=== PATIENT | male | born 1955 | race African-American/Black ===

== ENCOUNTER 2020-01-04 14:04 | Inpatient (IN) | payer MEDICARE, MEDICAID ==
[2020-01-04 15:03] LABS: Hemoglobin 8.9 g/dL (14.0-18.0); Mean Corpuscular HGB CONC 30.4 g/dL (32.0-36.0); Mean Corpuscular Hemoglobin 28.6 pg (27.0-31.0); Mean Corpuscular Volume 94.1 fL (78.0-98.0); Mean Platelet Volume 6.2 fL (7.4-10.4); Platelet Count 511 thou/uL (130-400); RBC Distribution Width 18.3 % (11.5-14.5); Red Blood Cell (RBC) Count 3.13 mill/uL (4.70-6.10); White Blood Cell (WBC) Count 32.4 thou/uL (4.8-10.8)
[2020-01-04] MEDS ORDERED: Heparin 1,000 UNITS/ML VIAL ONE (15:07)
[2020-01-04 15:15] LABS: Bacteria/HPF 3+ HPF (None Seen); Bilirubin Negative (Negative); Blood, Urine 1+ (Negative); Clarity Turbid (Clear); Glucose, Urine (Dipstick) Normal (Negative); Leukocyte 500 Leu/uL (Negative); Nitrite 2+ (Negative); Protein, Urine (Dipstick) 50 mg/dL (Neg-Trace); Squamous Epithelial 0-3 HPF (0-3); Urobilinogen Normal mg/dL (Less than 2); WBC/HPF Greater than 50 HPF (0-3)
[2020-01-04 15:29] LABS: Anisocytosis SLIGHT = 6-15 cells (100X) (0-5/hpf); Band 42 % (5-11); Hypochromia SLIGHT = 6-15 cells (100X) (0-5/hpf); Lymphocytes 4 % (21-51); MDiff Complete? YES; Metamyelocyte 2 % (0-0); Monocytes 12 % (0-10); Myelocyte 2 % (0-0); Neutrophil 37 % (42-75); Platelet Morphology Comment Appears Increased; Polychromasia SLIGHT = 2-3 cells (100X) (0-2/hpf); Reactive Lymphocytes 1 % (0-10); Reflex for Review?? YES; Tear Drops SLIGHT = 2-5 cells (100X) (0-1/hpf)
[2020-01-04] MEDS ORDERED: cefTRIAXone\\ROCEPHIN 2 GM VIAL ONE (15:35)
[2020-01-04] MEDS ORDERED: Ondansetron ODT 4 MG TAB ONE (15:41)
[2020-01-04] MEDS ORDERED: Morphine 4 MG/ML VIAL ONE (15:41)
[2020-01-04 16:22] LABS: ALT (SGPT) 8 U/L (8-55); AST (SGOT) 15 U/L (5-34); Albumin 2.3 g/dL (3.4-4.8); Alkaline Phosphatase 178 U/L (40-110); Anion Gap 20 mmol/L (10-20); BUN (Urea Nitrogen) 32 mg/dL (8.4-25.7); Bilirubin, Total 0.3 mg/dL (0.2-1.2); Calc. Creatinine Clearance 0 mL/min (70-130); Calcium 8.3 mg/dL (7.8-10.44); Carbon Dioxide 10 mmol/L (23-31); Chloride 110 mmol/L (98-107); Estimated GFR-MDRD 85; Globulin 5.6 g/dL (2.4-3.5); Glucose 72 mg/dL (80-115); Potassium 5.9 mmol/L (3.5-5.1); Protein, Total 7.9 g/dL (5.8-8.1); Sodium 134 mmol/L (136-145)
[2020-01-04] MEDS ORDERED: Piperacillin/Tazobactam 4.5 GM VIAL ONE (16:28)
--- NOTE | 2020-01-04 16:29 | RAD ---
PORTABLE CHEST ONE VIEW: Date: 01-04-2020 Time: 4:06 p.m. History: fever, Multiple ulcers over sacrum FINDINGS: Comparison is made with exam of 12-10-2019. The heart size is normal. No lobar consolidation, pneumothoraces or pleural effusions are seen. Post op changes in the spine are redemonstrated. IMPRESSION: No radiographic evidence of acute cardiopulmonary process. POS: H
[2020-01-04] MEDS ORDERED: Acetaminophen 325 MG TAB PO PRN (17:48)
[2020-01-04] MEDS ORDERED: Senokot S 8.6-50 MG TAB PO PRN (17:48)
[2020-01-04] MEDS ORDERED: Loperamide HCl 2 MG CAP PO PRN (17:48)
[2020-01-04] MEDS ORDERED: Norepinephrine 8 MG/0.9% NS 250 ML IVPB PRN (17:49)
[2020-01-04] MEDS ORDERED: Norepinephrine 8 MG in Sodium Chloride 0.9% 250 ML 242 ML IVPB PRN (17:57)
[2020-01-04] MEDS ORDERED: Vancomycin 1 GM/200 ML BAG ONE (18:16)
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
[2020-01-04 18:45] LABS: Lactic Acid 0.9 mmol/L (0.5-2.2)
[2020-01-04] MEDS: HYDROcodone/Acetaminophen 5/325 mg Tablet PO PRN (22:52)
[2020-01-04] MEDS: Famotidine 20 MG TAB PO SCH (22:53)
[2020-01-04] MEDS: Sodium Chloride 0.9% 1,000 ML IV SCH (22:54)
[2020-01-04] MEDS: Famotidine/PF 20 mg/2ml Vial SLOW IVP SCH (22:54)
[2020-01-04] MEDS: MEROPENEM 1 GM/50 ML 1 GM in Premix Bag 1 BAG IVPB SCH (22:55)
[2020-01-05] MEDS: HYDROcodone/Acetaminophen 5/325 mg Tablet PO PRN ×5 (04:28→21:37)
[2020-01-05] MEDS: Vancomycin 1 GM in Premix Bag 1 BAG IVPB SCH ×2 (04:29→18:10)
[2020-01-05 05:16] LABS: ALT (SGPT) 7 U/L (8-55); AST (SGOT) 16 U/L (5-34); Alkaline Phosphatase 151 U/L (40-110); Anion Gap 14 mmol/L (10-20); BUN (Urea Nitrogen) 24 mg/dL (8.4-25.7); Bilirubin, Total 0.2 mg/dL (0.2-1.2); Calc. Creatinine Clearance 102 mL/min (70-130); Calcium 8.1 mg/dL (7.8-10.44); Carbon Dioxide 14 mmol/L (23-31); Chloride 113 mmol/L (98-107); Estimated GFR-MDRD Greater than 90; Globulin 4.7 g/dL (2.4-3.5); Glucose 89 mg/dL (80-115); Potassium 4.5 mmol/L (3.5-5.1); Protein, Total 6.7 g/dL (5.8-8.1); Sodium 136 mmol/L (136-145)
[2020-01-05 05:38] LABS: Lactic Acid 0.9 mmol/L (0.5-2.2)
[2020-01-05] MEDS: MEROPENEM 1 GM/50 ML 1 GM in Premix Bag 1 BAG IVPB SCH ×3 (06:06→22:15)
[2020-01-05] MEDS: Sodium Chloride 0.9% 1,000 ML IV SCH ×3 (06:06→18:22)
[2020-01-05 06:42] LABS: Hemoglobin 6.3 g/dL (14.0-18.0); Mean Corpuscular HGB CONC 31.8 g/dL (32.0-36.0); Mean Corpuscular Hemoglobin 28.7 pg (27.0-31.0); Mean Corpuscular Volume 90.3 fL (78.0-98.0); Mean Platelet Volume 6.3 fL (7.4-10.4); Platelet Count 410 thou/uL (130-400); White Blood Cell (WBC) Count 18.6 thou/uL (4.8-10.8)
[2020-01-05 07:30] LABS: Band 23 % (5-11); Eosinophils 2 % (0-10); Hypochromia SLIGHT = 6-15 cells (100X) (0-5/hpf); Lymphocytes 8 % (21-51); MDiff Complete? YES; Metamyelocyte 1 % (0-0); Monocytes 6 % (0-10); Myelocyte 4 % (0-0); Neutrophil 55 % (42-75); Platelet Morphology Comment Appears Increased; Polychromasia SLIGHT = 2-3 cells (100X) (0-2/hpf); Reactive Lymphocytes 1 % (0-10)
[2020-01-05 07:34] LABS: Hemoglobin 6.2 g/dL (14.0-18.0)
[2020-01-05] MEDS: Famotidine/PF 20 mg/2ml Vial SLOW IVP SCH (09:15)
[2020-01-05] MEDS: Saccharomyces boulardii 250 MG CAP PO SCH (09:59)
[2020-01-05] MEDS: Famotidine 20 MG TAB PO SCH ×2 (10:00→21:37)
[2020-01-05] MEDS: Enoxaparin Sodium 40 MG/0.4 ML SYRINGE SC SCH (10:00)
--- NOTE | 2020-01-05 11:28 | PDOC.EVN ---
Event Note - Event Note Event Note: full consult to follow. Plan washout and debridement tomorrow.
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
[2020-01-05 18:44] LABS: Hemoglobin 8.8 g/dL (14.0-18.0)
--- NOTE | 2020-01-05 22:06 | PDOC.HOSPP ---
- Subjective Encounter Date: 01/05/20 Subjective: The patient was seen and examined. He is complaining of uncontrolled pain. - Objective Vital Signs & Weight: Vital Signs (12 hours) Temp Pulse Resp BP Pulse Ox 01/05/20 20:00 97.8 F 01/05/20 17:35 99.0 F 92 18 111/57 L 100 01/05/20 17:19 100 01/05/20 16:00 97.9 F 01/05/20 15:00 98.9 F 92 18 92/44 L 98 01/05/20 14:29 97.9 F 93 18 105/62 100 01/05/20 11:56 97.8 F 01/05/20 11:55 98.0 F 92 18 110/63 99 01/05/20 11:40 97.8 F 87 18 98/49 L 100 Weight Admit Weight 164 lb 10.88 oz Weight 164 lb 10.965 oz Most Recent Monitor Data Heart Rate from ECG 92 NIBP 110/56 NIBP BP-Mean 74 Respiration from ECG 18 SpO2 100 I&O: 01/04/20 01/05/20 01/06/20 06:59 06:59 06:59 Intake Total 1310 2835 Output Total 400 500 Balance 910 2335 Result Diagrams: 01/05/20 18:36 01/05/20 04:30 Hospitalist ROS - Medication Medications: Active Medications Generic Name Dose Route Start Last Admin Trade Name Freq PRN Reason Stop Dose Admin Hydrocodone Bitart/Acetaminophen 2 tab 01/05/20 10:55 01/05/20 21:37 [place] 5/325 PO 2 tab Q4H PRN Administration Moderate Pain (4-6) Enoxaparin Sodium 40 mg 01/05/20 09:00 01/05/20 10:00 Lovenox SC 40 mg 0900 RY Administration Famotidine 20 mg 01/04/20 21:00 01/05/20 21:37 Pepcid PO 20 mg BID RY Administration Meropenem 1 gm/ Device 50 mls @ 100 mls/hr 01/04/20 22:00 01/05/20 15:35 IVPB 50 mls Q8HR RY Administration Sodium Chloride 1,000 mls @ 125 mls/hr 01/04/20 18:00 01/05/20 18:22 Normal Saline 0.9% IV 1,000 mls .Q8H RY Administration Vancomycin HCl 1 gm/ Device 200 mls @ 200 mls/hr 01/05/20 05:00 01/05/20 18: 10 IVPB 200 mls 0500,1700 RY Administration Saccharomyces Boulardii 250 mg 01/05/20 09:00 01/05/20 09:59 Florastor PO 250 mg DAILY RY Administration - Exam General Appearance: awake alert ENT: normocephalic atraumatic Neck: supple Heart: RRR, no murmur Respiratory: CTAB, no wheezes, no rales, no ronchi, normal chest expansion Gastrointestinal: soft, non-tender, non-distended, normal bowel sounds Hosp A/P (1) Chronic ulcer of sacral region Code(s): L98.429 - NON-PRESSURE CHRONIC ULCER OF BACK WITH UNSPECIFIED SEVERITY Status: Acute (2) Sepsis Code(s): A41.9 - SEPSIS, UNSPECIFIED ORGANISM Status: Acute (3) Urinary tract infection Status: Acute - Plan The patient admitted for sepsis due to recurrent infection in the sacral decubitus ulcer region and suspected UTI. Currently he is on broad-spectrum antibiotics. ID and surgical service consulted.
[2020-01-06] MEDS: HYDROcodone/Acetaminophen 5/325 mg Tablet PO PRN ×4 (01:30→21:29)
[2020-01-06] MEDS: Sodium Chloride 0.9% 1,000 ML IV SCH ×3 (04:02→18:52)
[2020-01-06 04:37] LABS: Vancomycin, Trough 25.7 ug/mL
[2020-01-06] MEDS: Vancomycin 1 GM in Premix Bag 1 BAG IVPB SCH (05:28)
[2020-01-06] MEDS: MEROPENEM 1 GM/50 ML 1 GM in Premix Bag 1 BAG IVPB SCH ×3 (05:47→21:13)
[2020-01-06] MEDS: Famotidine 20 MG TAB PO SCH ×2 (09:52→21:13)
[2020-01-06] MEDS: Saccharomyces boulardii 250 MG CAP PO SCH (09:53)
[2020-01-06] MEDS ORDERED: PROPOFOL 200 MG/20 ML VIAL ONE (10:57)
[2020-01-06] MEDS ORDERED: Ondansetron PF 4 MG/2 ML Vial ONE (10:57)
[2020-01-06] MEDS ORDERED: Glycopyrrolate 0.2 MG/ML 5 ML SYRINGE ONE (10:57)
[2020-01-06] MEDS ORDERED: Rocuronium Bromide 10 MG/ML (10ML VIAL) ONE (10:57)
[2020-01-06] MEDS ORDERED: Lidocaine 1% PF 5 ML VIAL ONE (10:57)
[2020-01-06] MEDS: Vancomycin HCl 750 MG in Sodium Chloride 0.9% 250 ML 250 ML IVPB SCH (12:27)
[2020-01-06] MEDS ORDERED: Fentanyl 100 MCG/2 ML VIAL ONE ×3 (13:19→15:39)
[2020-01-06] MEDS ORDERED: Midazolam HCl 2 mg/2 ml Vial ONE (13:19)
[2020-01-06] MEDS ORDERED: SUGAMMADEX SODIUM 200 MG/2 ML VIAL ONE (14:46)
[2020-01-06] MEDS ORDERED: Iopamidol 370 76% 100 ML VIAL ONE (14:56)
[2020-01-06] MEDS ORDERED: Promethazine HCl 25 MG/ML VIAL SLOW IVP PRN (15:18)
[2020-01-06] MEDS ORDERED: Promethazine HCl 25 MG/ML VIAL IM PRN (15:18)
[2020-01-06] MEDS ORDERED: Ondansetron HCl/PF 4 MG/2 ML Vial IVP PRN (15:18)
--- NOTE | 2020-01-06 15:30 | PDOC.HOSPP ---
- Subjective Encounter Date: 01/06/20 - Objective Vital Signs & Weight: Vital Signs (12 hours) Temp 01/06/20 12:00 98.3 F 01/06/20 08:00 98.1 F 01/06/20 03:37 98.2 F Weight Admit Weight 164 lb 10.88 oz Weight 164 lb 10.965 oz Most Recent Monitor Data Heart Rate from ECG 76 NIBP 115/62 NIBP BP-Mean 79 Respiration from ECG 18 SpO2 100 I&O: 01/05/20 01/06/20 01/07/20 06:59 06:59 06:59 Intake Total 1310 4741 Output Total 400 1350 Balance 910 3391 Result Diagrams: 01/05/20 18:36 01/05/20 04:30 Hospitalist ROS - Medication Medications: Active Medications Generic Name Dose Route Start Last Admin Trade Name Freq PRN Reason Stop Dose Admin Hydrocodone Bitart/Acetaminophen 2 tab 01/05/20 10:55 01/06/20 09:52 [place] 5/325 PO 2 tab Q4H PRN Administration Moderate Pain (4-6) Enoxaparin Sodium 40 mg 01/05/20 09:00 01/05/20 10:00 Lovenox SC 40 mg 0900 RY Administration Famotidine 20 mg 01/04/20 21:00 01/06/20 09:52 Pepcid PO 20 mg BID RY Administration Meropenem 1 gm/ Device 50 mls @ 100 mls/hr 01/04/20 22:00 01/06/20 14:29 IVPB 50 mls Q8HR RY Administration Sodium Chloride 1,000 mls @ 125 mls/hr 01/04/20 18:00 01/06/20 13:31 Normal Saline 0.9% IV 1,000 mls .Q8H RY Administration Vancomycin HCl 750 mg/ Sodium 250 mls @ 250 mls/hr 01/06/20 12:00 01/06/20 12 :27 Chloride IVPB 250 mls 1200,2359 RY Administration Saccharomyces Boulardii 250 mg 01/05/20 09:00 01/06/20 09:53 Florastor PO 250 mg DAILY RY Administration Hosp A/P (1) Sepsis Code(s): A41.9 - SEPSIS, UNSPECIFIED ORGANISM Status: Acute (2) Chronic ulcer of sacral region Code(s): L98.429 - NON-PRESSURE CHRONIC ULCER OF BACK WITH UNSPECIFIED SEVERITY Status: Acute (3) Urinary tract infection Status: Acute - Plan The patient admitted for sepsis due to recurrent infection in the sacral decubitus ulcer region and suspected UTI. Urine, wound , and blood showing multibactrial growth. Continu broad-spectrum antibiotics. ID and surgical service consulted.
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
--- NOTE | 2020-01-06 17:51 | OP ---
DATE OF PROCEDURE: 01/06/2020 PREOPERATIVE DIAGNOSIS: Sacral decubitus wound with necrotic skin, subcutaneous tissue, fascia, muscle, and bone. POSTOPERATIVE DIAGNOSIS: Sacral decubitus wound with necrotic skin, subcutaneous tissue, fascia, muscle, and bone. PROCEDURE PERFORMED: Debridement of sacral decubitus wound, skin, subcutaneous tissue, fascia, muscle, and bone, with immediate wound VAC placement. ANESTHESIA: General. ESTIMATED BLOOD LOSS: Minimal. COMPLICATIONS: None. SPECIMEN: None. DESCRIPTION OF PROCEDURE: The patient was taken to the operating room and laid supine on the table. After general anesthetic was obtained, he was placed in left lateral decubitus position. Extensive debridement of skin, subcutaneous tissue, muscle, and bone was performed. There was significant viable tissue present; however, the wound was cleaned up by removing necrotic tissue, irrigated using sterile saline. Wound Care came into the room and replaced the wound VAC. He was then en route to the recovery room in stable condition. Job ID: [id number]
--- NOTE | 2020-01-06 18:07 | CT ---
CT PELVIS WITH IV CONTRAST: 01/06/20 INDICATIONS: Decubitus ulcers. No comparison. Decubitus ulceration seen over both posterior iliac spines. There is a tract within the soft tissues on the right extending along the posterior aspect of the right iliac bone with gas density at this lo cation. No fluid or abscess collection identified. Gas density also seen in the subcutaneous adipose tissues of the right posterior flank region just superior to the right iliac bone. There is mild sclerosis and mild hypertrophic change from both posterior iliac spines. There is ulceration seen more inferiorly which extends to the ischial rami bilaterally. There is abno rmal sclerosis in both the ischial rami possibly representing osteitis. No destructive process is see n. Ulceration also extends to the proximal right femur along its posterior margin and there is some c ortical erosive change at this location. There is fluid and gas density within the right hip joint probably representing septic hip. There may be small left hip joint effusion. No gas in the left hip joint. The visualized soft tissues of the pelvis appear unremarkable. There is a suprapubic catheter within the urinary bladder. IMPRESSION: 1. Posterior ulcerations which extend to the posterior iliac spines and extend to both posterior ischium with abnormal sclerosis seen in both of the posterior ischial rami indicating osteitis. Ther e is mild cortical erosive change in the right posterior femur at the subtrochanteric region at the s ite of open ulceration. 2. Bilateral hip effusions, slightly larger on the right with gas in the right hip joint. 3. There is gas along the right iliac wing and soft tissues posteriorly without evidence of flui d or abscess. POS: JEANA
[2020-01-07] MEDS: Vancomycin HCl 750 MG in Sodium Chloride 0.9% 250 ML 250 ML IVPB SCH ×2 (01:07→11:50)
[2020-01-07] MEDS: HYDROcodone/Acetaminophen 5/325 mg Tablet PO PRN ×3 (02:12→13:08)
[2020-01-07] MEDS: Sodium Chloride 0.9% 1,000 ML IV SCH ×3 (03:19→22:04)
[2020-01-07 07:00] LABS: Anion Gap 14 mmol/L (10-20); BUN (Urea Nitrogen) 10 mg/dL (8.4-25.7); Calc. Creatinine Clearance 123 mL/min (70-130); Calcium 7.2 mg/dL (7.8-10.44); Carbon Dioxide 14 mmol/L (23-31); Chloride 116 mmol/L (98-107); Estimated GFR-MDRD Greater than 90; Potassium 3.2 mmol/L (3.5-5.1); Sodium 141 mmol/L (136-145)
[2020-01-07 07:29] LABS: Glucose 58 mg/dL (80-115)
[2020-01-07 07:48] LABS: Band 10 % (5-11); Eosinophils 3 % (0-10); Hemoglobin 7.6 g/dL (14.0-18.0); Lymphocytes 11 % (21-51); MDiff Complete? YES; Mean Corpuscular HGB CONC 32.3 g/dL (32.0-36.0); Mean Corpuscular Hemoglobin 29.6 pg (27.0-31.0); Mean Corpuscular Volume 91.5 fL (78.0-98.0); Mean Platelet Volume 6.5 fL (7.4-10.4); Metamyelocyte 1 % (0-0); Monocytes 5 % (0-10); Myelocyte 1 % (0-0); Neutrophil 69 % (42-75); Platelet Count 332 thou/uL (130-400); Platelet Morphology Comment Appears Adequate; Polychromasia SLIGHT = 2-3 cells (100X) (0-2/hpf); RBC Distribution Width 17.1 % (11.5-14.5); Red Blood Cell (RBC) Count 2.57 mill/uL (4.70-6.10); White Blood Cell (WBC) Count 15.8 thou/uL (4.8-10.8)
[2020-01-07] MEDS: Famotidine 20 MG TAB PO SCH ×2 (08:57→19:50)
[2020-01-07] MEDS: Saccharomyces boulardii 250 MG CAP PO SCH (08:57)
[2020-01-07] MEDS: Ondansetron ODT 4 MG TAB PO PRN (09:15)
[2020-01-07] MEDS ORDERED: Potassium Chloride 20 MEQ TAB PO SCH (10:30)
[2020-01-07] MEDS: MEROPENEM 1 GM/50 ML 1 GM in Premix Bag 1 BAG IVPB SCH ×3 (12:54→22:56)
[2020-01-07] MEDS: Morphine 2 MG/ML SYRINGE SLOW IVP PRN ×2 (15:21→19:50)
[2020-01-07] MEDS: HYDROcodone/Acetaminophen 5/325 mg Tablet PO SCH (17:28)
--- NOTE | 2020-01-07 17:40 | PDOC.GSPN ---
Surgery Progress Note: Subj - Subjective Patient reports: no new complaints, pain well controlled Surgery Progress Note: Obj - Vital signs Vital signs: Vital Signs - Most Recent Temp Pulse Resp BP Pulse Ox 98.3 F 92 18 111/57 L 97 01/07/20 15:04 01/05/20 17:35 01/05/20 17:35 01/05/20 17:35 01/07/20 08:00 - Physical Exam General: no distress Wound: wound vac Surgery Progress Note: Results - Labs Result Diagrams: 01/07/20 06:26 01/07/20 06:26 Lab results: Laboratory Results - last 24 hr 01/07/20 01/07/20 01/07/20 06:26 06:26 07:39 WBC 15.8 H RBC 2.57 L Hgb 7.6 L Hct 23.5 L MCV 91.5 MCH 29.6 MCHC 32.3 RDW 17.1 H Plt Count 332 MPV 6.5 L Neutrophils % (Manual) 69 Band Neuts % (Manual) 10 Lymphocytes % (Manual) 11 L Monocytes % (Manual) 5 Eosinophils % (Manual) 3 Metamyelocytes % (Man) 1 H Myelocytes % 1 H Plt Morphology Comment Appears Adequate Polychromasia SLIGHT = 2-3 cells Sodium 141 Potassium 3.2 L Chloride 116 H Carbon Dioxide 14 L Anion Gap 14 BUN 10 Creatinine 0.66 L Estimated GFR (MDRD) Greater than 90 Glucose 58 L* POC Glucose 69 L Calcium 7.2 L Surgery Progress Note: A/P - Problem (1) Chronic ulcer of sacral region Current Visit: Yes Code(s): L98.429 - NON-PRESSURE CHRONIC ULCER OF BACK WITH UNSPECIFIED SEVERITY Status: Acute - Plan Plan: POD 1 debridement -wound vac -placement
--- NOTE | 2020-01-07 22:47 | PDOC.HOSPP ---
- Subjective Encounter Date: 01/07/20 - Objective Vital Signs & Weight: Vital Signs (12 hours) Temp Pulse Ox 01/07/20 20:00 98 01/07/20 15:04 98.3 F 01/07/20 11:22 97.8 F Weight Admit Weight 164 lb 10.88 oz Weight 164 lb 10.965 oz Most Recent Monitor Data Heart Rate from ECG 65 NIBP 120/55 NIBP BP-Mean 76 Respiration from ECG 15 SpO2 100 I&O: 01/06/20 01/07/20 01/08/20 06:59 06:59 06:59 Intake Total 4741 2191 2219 Output Total 1350 2275 1000 Balance 3391 -84 1219 Result Diagrams: 01/07/20 06:26 01/07/20 06:26 Additional Labs: Accuchecks 01/07/20 07:39 POC Glucose 69 L Hospitalist ROS - Medication Medications: Active Medications Generic Name Dose Route Start Last Admin Trade Name Freq PRN Reason Stop Dose Admin Hydrocodone Bitart/Acetaminophen 2 tab 01/07/20 18:00 01/07/20 17:28 [place] 5/325 PO 2 tab Q6HR RY Administration Enoxaparin Sodium 40 mg 01/05/20 09:00 01/05/20 10:00 Lovenox SC 40 mg 0900 RY Administration Famotidine 20 mg 01/04/20 21:00 01/07/20 19:50 Pepcid PO 20 mg BID RY Administration Meropenem 1 gm/ Device 50 mls @ 100 mls/hr 01/04/20 22:00 01/07/20 15:20 IVPB 50 mls Q8HR RY Administration Sodium Chloride 1,000 mls @ 125 mls/hr 01/04/20 18:00 01/07/20 13:12 Normal Saline 0.9% IV 1,000 mls .Q8H RY Administration Vancomycin HCl 750 mg/ Sodium 250 mls @ 250 mls/hr 01/06/20 12:00 01/07/20 11 :50 Chloride IVPB 250 mls 1200,2359 RY Administration Morphine Sulfate 2 mg 01/07/20 13:26 01/07/20 19:50 Morphine SLOW IVP 2 mg Q4H PRN Administration Pain Ondansetron HCl 4 mg 01/04/20 17:48 01/07/20 09:15 Zofran Odt PO 4 mg Q6H PRN Administration Nausea/Vomiting [place] 250 mg 01/05/20 09:00 01/07/20 08:57 Florastor PO 250 mg DAILY RY Administration - Exam General Appearance: awake alert ENT: normocephalic atraumatic Neck: supple, no JVD Heart: RRR, no murmur, no gallops, no rubs, normal peripheral pulses Respiratory: CTAB, no wheezes, no rales, no ronchi Gastrointestinal: soft, non-tender, non-distended, normal bowel sounds Hosp A/P (1) Sepsis Code(s): A41.9 - SEPSIS, UNSPECIFIED ORGANISM Status: Acute (2) Chronic ulcer of sacral region Code(s): L98.429 - NON-PRESSURE CHRONIC ULCER OF BACK WITH UNSPECIFIED SEVERITY Status: Acute (3) Urinary tract infection Status: Acute - Plan The patient admitted for sepsis due to recurrent infection in the sacral decubitus ulcer region and suspected UTI. Urine, wound , and blood showing multibactrial growth. Continu broad-spectrum antibiotics. Status post debridement. Postoperative day 1. Pending placement.
[2020-01-08] MEDS: HYDROcodone/Acetaminophen 5/325 mg Tablet PO SCH ×5 (00:30→23:44)
[2020-01-08 01:15] LABS: Vancomycin, Trough 23.3 ug/mL
[2020-01-08] MEDS: Morphine 2 MG/ML SYRINGE SLOW IVP PRN ×5 (01:32→20:34)
[2020-01-08] MEDS: Vancomycin HCl 750 MG in Sodium Chloride 0.9% 250 ML 250 ML IVPB SCH (01:59)
[2020-01-08] MEDS: MEROPENEM 1 GM/50 ML 1 GM in Premix Bag 1 BAG IVPB SCH ×2 (05:40→14:40)
[2020-01-08] MEDS: Vancomycin HCl 1.25 GM in Sodium Chloride 0.9% 250 ML 250 ML IVPB SCH (06:39)
[2020-01-08 07:04] LABS: Hemoglobin 7.9 g/dL (14.0-18.0); Mean Corpuscular HGB CONC 32.9 g/dL (32.0-36.0); Mean Corpuscular Hemoglobin 29.9 pg (27.0-31.0); Mean Platelet Volume 6.5 fL (7.4-10.4); Platelet Count 348 thou/uL (130-400); Red Blood Cell (RBC) Count 2.62 mill/uL (4.70-6.10)
[2020-01-08 07:23] LABS: Anion Gap 10 mmol/L (10-20); BUN (Urea Nitrogen) 8 mg/dL (8.4-25.7); Calc. Creatinine Clearance 126 mL/min (70-130); Calcium 7.3 mg/dL (7.8-10.44); Carbon Dioxide 17 mmol/L (23-31); Chloride 116 mmol/L (98-107); Estimated GFR-MDRD Greater than 90; Potassium 3.5 mmol/L (3.5-5.1); Sodium 139 mmol/L (136-145)
[2020-01-08 07:31] LABS: Glucose 55 mg/dL (80-115)
[2020-01-08 07:35] LABS: Band 13 % (5-11); Eosinophils 4 % (0-10); Lymphocytes 13 % (21-51); MDiff Complete? YES; Metamyelocyte 1 % (0-0); Monocytes 1 % (0-10); Myelocyte 1 % (0-0); Neutrophil 67 % (42-75); Platelet Morphology Comment Appears Adequate; Polychromasia SLIGHT = 2-3 cells (100X) (0-2/hpf)
[2020-01-08] MEDS: Sodium Chloride 0.9% 1,000 ML IV SCH ×3 (09:24→17:47)
[2020-01-08] MEDS: Enoxaparin Sodium 40 MG/0.4 ML SYRINGE SC SCH (09:25)
[2020-01-08] MEDS: Saccharomyces boulardii 250 MG CAP PO SCH (09:25)
[2020-01-08] MEDS: Famotidine 20 MG TAB PO SCH ×2 (09:25→20:33)
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
--- NOTE | 2020-01-08 17:16 | PDOC.PALPN ---
Palliative Progress Note - Subjective Awake, alert, free of complaints. Feels debridement was "successful". - Objective Vital Signs: Vital Signs - Most Recent Temp Pulse Resp BP Pulse Ox 98.4 F 92 18 111/57 L 97 01/08/20 15:29 01/05/20 17:35 01/05/20 17:35 01/05/20 17:35 01/08/20 07:54 - Physical Exam Constitutional: ill appearing HEENT: EOMI, moist MMs, sclera anicteric Respiratory: clear to auscultation bilateral, unlabored breathing Cardiovascular: RRR Gastrointestinal: soft, non-tender, incontinent Genitourinary: ferguson catheter Musculoskeletal: no cyanosis, diffuse muscle atrophy Deviation from normal: paraplegic Deviation from normal: pronounced wounds, refer to photos Psychiatric: A&O x 3, normal affect, normal mood - Assessment (1) Palliative care encounter Code(s): Z51.5 - ENCOUNTER FOR PALLIATIVE CARE Current Visit: Yes Status: Acute (2) Chronic ulcer of sacral region Code(s): L98.429 - NON-PRESSURE CHRONIC ULCER OF BACK WITH UNSPECIFIED SEVERITY Current Visit: Yes Status: Acute (3) Paraplegia Code(s): G82.20 - PARAPLEGIA, UNSPECIFIED Current Visit: Yes Status: Acute (4) Sepsis Code(s): A41.9 - SEPSIS, UNSPECIFIED ORGANISM Current Visit: Yes Status: Acute (5) Urinary tract infection Current Visit: Yes Status: Acute - Plan Plan: Revisited Goals of care. Patient hopeful for detention care facility as his sister is not equipped to adequately care for him. Barrier is payer source. keno manager addressing. Discussed long term care pharmacist consideration if wounds do not heal and if continue to worsen and infection becomes less receptive to treatment. States he understands , but he is hopeful for healing. Supportive conversation with therapeutic listening and emotional support. Desires to continue with all aggressive measures. Will place spiritual care consult for Spiritual support and additional emotional support [45] minutes spent on this encounter with >50% of the time in counseling and coordination of care. - ROS Constitutional: alert Eyes: other (denies visual changes) ENT: other (denies difficulity swallowing, congestion) Respiratory: other (denies cough, shortness of breath) Cardiology: other (denies chest pain) Musculoskeletal: arthritis/arthralgias, back pain Skin: wounds Psychological: other (negative for depression and anxiety)
[2020-01-08] MEDS: cefTRIAXone\\ROCEPHIN 2 GM in Sodium Chloride 0.9% 100 ML IVPB SCH (17:45)
[2020-01-08] MEDS: metroNIDAZOLE 500 MG TAB PO SCH (20:33)
--- NOTE | 2020-01-08 22:38 | PDOC.HOSPP ---
- Subjective Encounter Date: 01/08/20 - Objective Vital Signs & Weight: Vital Signs (12 hours) Temp Pulse Ox 01/08/20 20:00 100 01/08/20 19:57 97.9 F 01/08/20 15:29 98.4 F 01/08/20 11:30 98.4 F Weight Admit Weight 164 lb 10.88 oz Weight 164 lb 10.965 oz Most Recent Monitor Data Heart Rate from ECG 69 NIBP 112/57 NIBP BP-Mean 75 Respiration from ECG 17 SpO2 100 I&O: 01/07/20 01/08/20 01/09/20 06:59 06:59 06:59 Intake Total 2191 2579 3300 Output Total 2275 1150 2200 Balance -84 1429 1100 Result Diagrams: 01/08/20 06:45 01/08/20 06:45 Additional Labs: Accuchecks 01/08/20 01/08/20 01/07/20 12:42 07:52 23:09 POC Glucose 83 66 L 69 L Hospitalist ROS - Medication Medications: Active Medications Generic Name Dose Route Start Last Admin Trade Name Freq PRN Reason Stop Dose Admin Hydrocodone Bitart/Acetaminophen 2 tab 01/07/20 18:00 01/08/20 17:44 [place] 5/325 PO 2 tab Q6HR RY Administration Enoxaparin Sodium 40 mg 01/05/20 09:00 01/08/20 09:25 Lovenox SC 40 mg 0900 RY Administration Famotidine 20 mg 01/04/20 21:00 01/08/20 20:33 Pepcid PO 20 mg BID RY Administration Sodium Chloride 1,000 mls @ 125 mls/hr 01/04/20 18:00 01/08/20 17:47 Normal Saline 0.9% IV 1,000 mls .Q8H RY Administration Vancomycin HCl 1.25 gm/ Sodium 250 mls @ 166.667 mls/hr 01/08/20 06:00 06:39 Chloride IVPB 250 mls Q24HR@0600 RY Administration Ceftriaxone Sodium 2 gm/ 100 mls @ 200 mls/hr 01/08/20 16:00 01/08/20 17:45 Sodium Chloride IVPB 100 mls Q24HR RY Administration Metronidazole 500 mg 01/08/20 21:00 01/08/20 20:33 Flagyl PO 500 mg TID RY Administration Morphine Sulfate 2 mg 01/07/20 13:26 01/08/20 20:34 Morphine SLOW IVP 2 mg Q4H PRN Administration Pain Ondansetron HCl 4 mg 01/04/20 17:48 01/07/20 09:15 Zofran Odt PO 4 mg Q6H PRN Administration Nausea/Vomiting Saccharomyces Boulardii 250 mg 01/05/20 09:00 01/08/20 09:25 Florastor PO 250 mg DAILY RY Administration - Exam General Appearance: NAD, awake alert ENT: normocephalic atraumatic Neck: supple, no JVD Heart: RRR, no murmur, no gallops, no rubs, normal peripheral pulses Respiratory: CTAB, no wheezes, no rales, no ronchi, normal chest expansion Hosp A/P (1) Sepsis Code(s): A41.9 - SEPSIS, UNSPECIFIED ORGANISM Status: Acute (2) Chronic ulcer of sacral region Code(s): L98.429 - NON-PRESSURE CHRONIC ULCER OF BACK WITH UNSPECIFIED SEVERITY Status: Acute (3) Urinary tract infection Status: Acute - Plan The patient admitted for sepsis due to recurrent infection in the sacral decubitus ulcer region and suspected UTI. Urine, wound , and blood showing multibactrial growth. Continue broad-spectrum antibiotics per ID. Status post debridement and wound Vac placement. Postoperative day 2. PICC. Pending placement.
[2020-01-09] MEDS: Morphine 2 MG/ML SYRINGE SLOW IVP PRN ×6 (00:35→21:12)
[2020-01-09] MEDS: Sodium Chloride 0.9% 1,000 ML IV SCH ×3 (03:07→23:43)
[2020-01-09 03:54] LABS: Anion Gap 11 mmol/L (10-20); BUN (Urea Nitrogen) 8 mg/dL (8.4-25.7); Calc. Creatinine Clearance 142 mL/min (70-130); Calcium 7.3 mg/dL (7.8-10.44); Carbon Dioxide 16 mmol/L (23-31); Chloride 115 mmol/L (98-107); Estimated GFR-MDRD Greater than 90; Glucose 63 mg/dL (80-115); Potassium 3.4 mmol/L (3.5-5.1); Sodium 139 mmol/L (136-145)
[2020-01-09 04:06] LABS: Band 10 % (5-11); Lymphocytes 13 % (21-51); MDiff Complete? YES; Mean Corpuscular HGB CONC 31.2 g/dL (32.0-36.0); Mean Corpuscular Hemoglobin 28.3 pg (27.0-31.0); Mean Corpuscular Volume 90.7 fL (78.0-98.0); Mean Platelet Volume 6.6 fL (7.4-10.4); Monocytes 2 % (0-10); Neutrophil 75 % (42-75); Platelet Count 350 thou/uL (130-400); Platelet Morphology Comment Appears Adequate; RBC Distribution Width 17.1 % (11.5-14.5); Red Blood Cell (RBC) Count 2.84 mill/uL (4.70-6.10); White Blood Cell (WBC) Count 15.6 thou/uL (4.8-10.8)
[2020-01-09] MEDS: HYDROcodone/Acetaminophen 5/325 mg Tablet PO SCH ×4 (06:16→23:42)
[2020-01-09] MEDS: Vancomycin HCl 1.25 GM in Sodium Chloride 0.9% 250 ML 250 ML IVPB SCH (06:17)
[2020-01-09] MEDS: Famotidine 20 MG TAB PO SCH ×2 (08:41→21:12)
[2020-01-09] MEDS: Enoxaparin Sodium 40 MG/0.4 ML SYRINGE SC SCH (08:41)
[2020-01-09] MEDS: metroNIDAZOLE 500 MG TAB PO SCH ×3 (08:41→21:12)
[2020-01-09] MEDS: Saccharomyces boulardii 250 MG CAP PO SCH (08:41)
--- NOTE | 2020-01-09 09:50 | EKG ---
Test Reason : Blood Pressure : / mmHG Vent. Rate : 112 BPM Atrial Rate : 101 BPM P-R Int : 000 ms QRS Dur : 064 ms QT Int : 306 ms P-R-T Axes : 000 057 051 degrees QTc Int : 417 ms Atrial fibrillation with rapid ventricular response Low voltage QRS Abnormal ECG Confirmed by SILVESTRE CORREA ([id number]), primer expeditor and drier BONILLA NUNEZ ([id number]) on 01/09/2020 9:50:09 AM Referred By: Confirmed By:SILVESTRE CORREA
--- NOTE | 2020-01-09 14:15 | PDOC.HOSPP ---
- Subjective Encounter Date: 01/09/20 Subjective: Denies any new complains - Objective Vital Signs & Weight: Vital Signs (12 hours) Temp Pulse Ox 01/09/20 11:15 98.2 F 01/09/20 07:53 98 01/09/20 07:27 99.0 F 01/09/20 04:00 98.3 F Weight Admit Weight 164 lb 10.88 oz Weight 164 lb 10.965 oz Most Recent Monitor Data Heart Rate from ECG 76 NIBP 104/51 NIBP BP-Mean 68 Respiration from ECG 22 SpO2 59 I&O: 01/08/20 01/09/20 01/10/20 06:59 06:59 06:59 Intake Total 2579 5280 Output Total 1150 3785 Balance 1429 1495 Result Diagrams: 01/09/20 03:14 01/09/20 03:14 Hospitalist ROS - Medication Medications: Active Medications Generic Name Dose Route Start Last Admin Trade Name Freq PRN Reason Stop Dose Admin Hydrocodone Bitart/Acetaminophen 2 tab 01/07/20 18:00 01/09/20 11:19 [place] 5/325 PO 2 tab Q6HR RY Administration Enoxaparin Sodium 40 mg 01/05/20 09:00 01/09/20 08:41 Lovenox SC 40 mg 0900 RY Administration Famotidine 20 mg 01/04/20 21:00 01/09/20 08:41 Pepcid PO 20 mg BID RY Administration Sodium Chloride 1,000 mls @ 125 mls/hr 01/04/20 18:00 01/09/20 11:27 Normal Saline 0.9% IV 1,000 mls .Q8H RY Administration Vancomycin HCl 1.25 gm/ Sodium 250 mls @ 166.667 mls/hr 01/08/20 06:00 06:17 Chloride IVPB 250 mls Q24HR@0600 RY Administration Ceftriaxone Sodium 2 gm/ 100 mls @ 200 mls/hr 01/08/20 16:00 01/08/20 17:45 Sodium Chloride IVPB 100 mls Q24HR RY Administration Metronidazole 500 mg 01/08/20 21:00 01/09/20 08:41 Flagyl PO 500 mg TID RY Administration Morphine Sulfate 2 mg 01/07/20 13:26 01/09/20 12:45 Morphine SLOW IVP 2 mg Q4H PRN Administration Pain Ondansetron HCl 4 mg 01/04/20 17:48 01/07/20 09:15 Zofran Odt PO 4 mg Q6H PRN Administration Nausea/Vomiting Saccharomyces Boulardii 250 mg 01/05/20 09:00 01/09/20 08:41 Florastor PO 250 mg DAILY RY Administration - Exam General Appearance: awake alert ENT: normocephalic atraumatic Neck: supple, no JVD Heart: RRR Respiratory: normal chest expansion, no tachypnea Gastrointestinal - other findings: Brown stool in colostomy bag Neurological: cranial nerve grossly intact, no weakness Hosp A/P (1) Sepsis Code(s): A41.9 - SEPSIS, UNSPECIFIED ORGANISM Status: Acute (2) Chronic ulcer of sacral region Code(s): L98.429 - NON-PRESSURE CHRONIC ULCER OF BACK WITH UNSPECIFIED SEVERITY Status: Acute (3) Urinary tract infection Status: Acute - Plan The patient admitted for sepsis due to recurrent infection in the sacral decubitus ulcer region and suspected UTI. Urine, wound , and blood showing multibactrial growth. Continue broad-spectrum antibiotics per ID. Status post debridement and wound Vac placement. Postoperative day 3. PICC. Pending placement. Stable to transfer to medical floor.
[2020-01-09] MEDS: cefTRIAXone\\ROCEPHIN 2 GM in Sodium Chloride 0.9% 100 ML IVPB SCH (16:16)
[2020-01-10] MEDS: Morphine 2 MG/ML SYRINGE SLOW IVP PRN ×5 (02:27→22:26)
[2020-01-10] MEDS: Sodium Chloride 0.9% 1,000 ML IV SCH ×3 (03:26→17:42)
[2020-01-10 05:26] LABS: Band 2 % (5-11); Hemoglobin 7.9 g/dL (14.0-18.0); Lymphocytes 14 % (21-51); MDiff Complete? YES; Mean Corpuscular HGB CONC 32.3 g/dL (32.0-36.0); Mean Corpuscular Hemoglobin 29.1 pg (27.0-31.0); Mean Corpuscular Volume 90.2 fL (78.0-98.0); Mean Platelet Volume 6.6 fL (7.4-10.4); Monocytes 8 % (0-10); Neutrophil 76 % (42-75); Platelet Count 355 thou/uL (130-400); Platelet Morphology Comment Appears Adequate; RBC Distribution Width 16.9 % (11.5-14.5); Red Blood Cell (RBC) Count 2.71 mill/uL (4.70-6.10); Target Cells SLIGHT = 2-5 cells (100X) (0-1/hpf); Vancomycin, Trough 19.2 ug/mL; White Blood Cell (WBC) Count 14.7 thou/uL (4.8-10.8)
[2020-01-10 05:29] LABS: Anion Gap 9 mmol/L (10-20); BUN (Urea Nitrogen) 6 mg/dL (8.4-25.7); Calc. Creatinine Clearance 162 mL/min (70-130); Calcium 7.2 mg/dL (7.8-10.44); Carbon Dioxide 19 mmol/L (23-31); Chloride 113 mmol/L (98-107); Estimated GFR-MDRD Greater than 90; Glucose 69 mg/dL (80-115); Potassium 3.3 mmol/L (3.5-5.1); Sodium 138 mmol/L (136-145)
[2020-01-10] MEDS: Vancomycin HCl 1.25 GM in Sodium Chloride 0.9% 250 ML 250 ML IVPB SCH (05:45)
[2020-01-10] MEDS: HYDROcodone/Acetaminophen 5/325 mg Tablet PO SCH ×4 (05:46→23:45)
[2020-01-10] MEDS: Saccharomyces boulardii 250 MG CAP PO SCH (08:58)
[2020-01-10] MEDS: metroNIDAZOLE 500 MG TAB PO SCH ×3 (08:58→20:43)
[2020-01-10] MEDS: Enoxaparin Sodium 40 MG/0.4 ML SYRINGE SC SCH (08:58)
[2020-01-10] MEDS: Famotidine 20 MG TAB PO SCH ×2 (08:58→20:43)
--- NOTE | 2020-01-10 11:36 | PDOC.HOSPP ---
- Subjective Encounter Date: 01/10/20 - Objective Vital Signs & Weight: Vital Signs (12 hours) Temp Pulse Resp BP Pulse Ox 01/10/20 07:24 98.2 F 70 18 134/71 100 01/10/20 03:18 98.2 F 100 16 130/74 75 L Weight Admit Weight 164 lb 10.88 oz Weight 164 lb 10.965 oz Most Recent Monitor Data Heart Rate from ECG 76 NIBP 104/51 NIBP BP-Mean 68 Respiration from ECG 22 SpO2 59 I&O: 01/09/20 01/10/20 01/11/20 06:59 06:59 06:59 Intake Total 5280 1500 Output Total 3785 1600 Balance 1495 -100 Result Diagrams: 01/10/20 04:53 01/10/20 04:53 Hospitalist ROS - Medication Medications: Active Medications Generic Name Dose Route Start Last Admin Trade Name Freq PRN Reason Stop Dose Admin Hydrocodone Bitart/Acetaminophen 2 tab 01/07/20 18:00 01/10/20 05:46 [place] 5/325 PO 2 tab Q6HR RY Administration Enoxaparin Sodium 40 mg 01/05/20 09:00 01/10/20 08:58 Lovenox SC 40 mg 0900 RY Administration Famotidine 20 mg 01/04/20 21:00 01/10/20 08:58 Pepcid PO 20 mg BID RY Administration Sodium Chloride 1,000 mls @ 125 mls/hr 01/04/20 18:00 01/10/20 09:03 Normal Saline 0.9% IV 1,000 mls .Q8H RY Administration Vancomycin HCl 1.25 gm/ Sodium 250 mls @ 166.667 mls/hr 01/08/20 06:00 05:45 Chloride IVPB 250 mls Q24HR@0600 RY Administration Ceftriaxone Sodium 2 gm/ 100 mls @ 200 mls/hr 01/08/20 16:00 01/09/20 16:16 Sodium Chloride IVPB 100 mls Q24HR RY Administration Metronidazole 500 mg 01/08/20 21:00 01/10/20 08:58 Flagyl PO 500 mg TID RY Administration Morphine Sulfate 2 mg 01/07/20 13:26 01/10/20 08:58 Morphine SLOW IVP 2 mg Q4H PRN Administration Pain Ondansetron HCl 4 mg 01/04/20 17:48 01/07/20 09:15 Zofran Odt PO 4 mg Q6H PRN Administration Nausea/Vomiting Saccharomyces [place] 250 mg 01/05/20 09:00 01/10/20 08:58 Florastor PO 250 mg DAILY RY Administration - Exam General Appearance: awake alert ENT: normocephalic atraumatic Neck: supple, no JVD Respiratory: normal chest expansion, no tachypnea Neurological: cranial nerve grossly intact Psychiatric: normal affect, A&O x 3 Hosp A/P (1) Sepsis Code(s): A41.9 - SEPSIS, UNSPECIFIED ORGANISM Status: Acute (2) Chronic ulcer of sacral region Code(s): L98.429 - NON-PRESSURE CHRONIC ULCER OF BACK WITH UNSPECIFIED SEVERITY Status: Acute (3) Urinary tract infection Status: Acute - Plan The patient admitted for sepsis due to recurrent infection in the sacral decubitus ulcer region and suspected UTI. Urine, wound , and blood showing multibactrial growth. Continue broad-spectrum antibiotics per ID. Status post debridement and wound Vac placement. Pending placement.
[2020-01-10] MEDS ORDERED: Potassium Chloride 20 MEQ TAB PO SCH (11:45)
[2020-01-10] MEDS: cefTRIAXone\\ROCEPHIN 2 GM in Sodium Chloride 0.9% 100 ML IVPB SCH (15:16)
[2020-01-11] MEDS: Morphine 2 MG/ML SYRINGE SLOW IVP PRN ×5 (02:47→20:53)
[2020-01-11] MEDS: Sodium Chloride 0.9% 1,000 ML IV SCH ×4 (02:48→21:01)
[2020-01-11] MEDS: HYDROcodone/Acetaminophen 5/325 mg Tablet PO SCH ×4 (05:35→23:17)
[2020-01-11 06:05] LABS: Band 5 % (5-11); Eosinophils 1 % (0-10); Hemoglobin 7.6 g/dL (14.0-18.0); Lymphocytes 19 % (21-51); MDiff Complete? YES; Mean Corpuscular HGB CONC 31.8 g/dL (32.0-36.0); Mean Corpuscular Hemoglobin 28.8 pg (27.0-31.0); Mean Corpuscular Volume 90.6 fL (78.0-98.0); Mean Platelet Volume 6.3 fL (7.4-10.4); Monocytes 3 % (0-10); Neutrophil 72 % (42-75); Platelet Count 376 thou/uL (130-400); Platelet Morphology Comment Appears Adequate; RBC Distribution Width 17.2 % (11.5-14.5); Red Blood Cell (RBC) Count 2.64 mill/uL (4.70-6.10); White Blood Cell (WBC) Count 13.4 thou/uL (4.8-10.8)
[2020-01-11] MEDS: Vancomycin HCl 1.25 GM in Sodium Chloride 0.9% 250 ML 250 ML IVPB SCH (06:15)
[2020-01-11 06:22] LABS: Anion Gap 11 mmol/L (10-20); BUN (Urea Nitrogen) 7 mg/dL (8.4-25.7); Calc. Creatinine Clearance 156 mL/min (70-130); Calcium 7.3 mg/dL (7.8-10.44); Carbon Dioxide 18 mmol/L (23-31); Chloride 114 mmol/L (98-107); Estimated GFR-MDRD Greater than 90; Potassium 3.5 mmol/L (3.5-5.1); Sodium 139 mmol/L (136-145)
[2020-01-11 06:24] LABS: Glucose 59 mg/dL (80-115)
[2020-01-11] MEDS: Enoxaparin Sodium 40 MG/0.4 ML SYRINGE SC SCH (08:16)
[2020-01-11] MEDS: Saccharomyces boulardii 250 MG CAP PO SCH (09:18)
[2020-01-11] MEDS: Famotidine 20 MG TAB PO SCH ×2 (09:18→20:53)
[2020-01-11] MEDS: metroNIDAZOLE 500 MG TAB PO SCH ×3 (09:18→20:53)
--- NOTE | 2020-01-11 13:24 | SPC ---
Sonographic guided left upper extremity PICC placement HISTORY: Osteomyelitis. FINDINGS: After explaining the procedure and answering all questions, the left upper extremity was pr epped and draped in usual sterile fashion. Sterile technique, buffered local anesthesia, sonographic guidance, and a 22-gauge needle were used to carefully access the left brachial vein. Sta ndard technique was used to place the tip of a 5 English single lumen PICC so that the tip lies at the level of the cavoatrial junction. Catheter was flushed and secured externally. Patient tolerated the procedure well and was returned in unchanged condition. Fluoroscopy time 0 seconds. Compression: Left upper extremity PICC is ready for use.
[2020-01-11] MEDS: cefTRIAXone\\ROCEPHIN 2 GM in Sodium Chloride 0.9% 100 ML IVPB SCH (15:43)
--- NOTE | 2020-01-11 16:32 | PDOC.HOSPP ---
- Subjective Encounter Date: 01/11/20 Subjective: Complains of generalized pain - Objective Vital Signs & Weight: Vital Signs (12 hours) Temp Pulse Resp BP Pulse Ox 01/11/20 16:03 98.0 F 69 14 129/72 100 01/11/20 11:18 98.0 F 70 14 144/73 H 98 01/11/20 07:28 98.2 F 69 14 126/77 99 Weight Admit Weight 164 lb 10.88 oz Weight 164 lb 10.965 oz Most Recent Monitor Data Heart Rate from ECG 76 NIBP 104/51 NIBP BP-Mean 68 Respiration from ECG 22 SpO2 59 I&O: 01/10/20 01/11/20 01/12/20 06:59 06:59 06:59 Intake Total 1500 3840 Output Total 1600 3450 Balance -100 390 Result Diagrams: 01/11/20 05:45 01/11/20 05:45 Additional Labs: Accuchecks 01/11/20 07:21 POC Glucose 130 H Hospitalist ROS - Medication Medications: Active Medications Generic Name Dose Route Start Last Admin Trade Name Muriel PRN Reason Stop Dose Admin Hydrocodone Bitart/Acetaminophen 2 tab 01/07/20 18:00 01/11/20 12:28 [place] 5/325 PO 2 tab Q6HR RY Administration Enoxaparin Sodium 40 mg 01/05/20 09:00 01/11/20 08:16 Lovenox SC Not Given 0900 RY Famotidine 20 mg 01/04/20 21:00 01/11/20 09:18 Pepcid PO 20 mg BID RY Administration Sodium Chloride 1,000 mls @ 125 mls/hr 01/04/20 18:00 01/11/20 12:28 Normal Saline 0.9% IV 1,000 mls .Q8H RY Administration Vancomycin HCl 1.25 gm/ Sodium 250 mls @ 166.667 mls/hr 01/08/20 06:00 06:15 Chloride IVPB 250 mls Q24HR@0600 RY Administration Ceftriaxone Sodium 2 gm/ 100 mls @ 200 mls/hr 01/08/20 16:00 01/11/20 15:43 Sodium Chloride IVPB 100 mls Q24HR RY Administration Metronidazole 500 mg 01/08/20 21:00 01/11/20 15:43 Flagyl PO 500 mg TID RY Administration Morphine Sulfate 2 mg 01/07/20 13:26 01/11/20 12:39 Morphine SLOW IVP 2 mg Q4H PRN Administration Pain Ondansetron HCl 4 mg 01/04/20 17:48 01/07/20 09:15 Zofran Odt PO 4 mg Q6H PRN Administration Nausea/Vomiting Saccharomyces Boulardii 250 mg 01/05/20 09:00 01/11/20 09:18 Florastor PO 250 mg DAILY RY Administration - Exam General Appearance: awake alert ENT: normocephalic atraumatic Neck: supple, no JVD Heart: RRR, no murmur, no gallops, no rubs, normal peripheral pulses Respiratory: CTAB, no wheezes, no rales, no ronchi, normal chest expansion Gastrointestinal: soft, non-tender, non-distended, normal bowel sounds Neurological: cranial nerve grossly intact, no focal deficits Hosp A/P (1) Sepsis Code(s): A41.9 - SEPSIS, UNSPECIFIED ORGANISM Status: Acute (2) Chronic ulcer of sacral region Code(s): L98.429 - NON-PRESSURE CHRONIC ULCER OF BACK WITH UNSPECIFIED SEVERITY Status: Acute (3) Urinary tract infection Status: Acute - Plan DVT proph w/SCDs The patient admitted for sepsis due to recurrent infection in the sacral decubitus ulcer region and suspected UTI. Urine, wound , and blood showing multibactrial growth. Continue broad-spectrum antibiotics per ID. Status post debridement and wound Vac placement. Case management working on placement. No new events over the past 24 hours.
[2020-01-12] MEDS: Morphine 2 MG/ML SYRINGE SLOW IVP PRN ×2 (00:51→05:02)
[2020-01-12] MEDS: HYDROcodone/Acetaminophen 5/325 mg Tablet PO SCH (05:02)
[2020-01-12] MEDS: Sodium Chloride 0.9% 1,000 ML IV SCH ×2 (05:13→15:34)
[2020-01-12 05:43] LABS: Vancomycin, Trough 16.5 ug/mL
[2020-01-12] MEDS: Vancomycin HCl 1.25 GM in Sodium Chloride 0.9% 250 ML 250 ML IVPB SCH (06:23)
[2020-01-12] MEDS: Enoxaparin Sodium 40 MG/0.4 ML SYRINGE SC SCH (08:34)
[2020-01-12] MEDS: Saccharomyces boulardii 250 MG CAP PO SCH (08:34)
[2020-01-12] MEDS: Famotidine 20 MG TAB PO SCH ×2 (08:34→20:39)
[2020-01-12] MEDS: metroNIDAZOLE 500 MG TAB PO SCH ×3 (08:34→20:39)
[2020-01-12] MEDS ORDERED: Gabapentin 300 MG CAP PO SCH (10:45)
[2020-01-12] MEDS: HYDROcodone/Acetaminophen 10/325 mg Tablet PO SCH ×3 (11:51→23:14)
[2020-01-12] MEDS: cefTRIAXone\\ROCEPHIN 2 GM in Sodium Chloride 0.9% 100 ML IVPB SCH (15:34)
--- NOTE | 2020-01-12 16:07 | PDOC.HOSPP ---
- Subjective Encounter Date: 01/12/20 Subjective: His pain was uncontrolled this morning. Hydrocodone doses adjusted by anesthesiology. Now the patient is feeling better. - Objective Vital Signs & Weight: Vital Signs (12 hours) Temp Pulse Resp BP Pulse Ox 01/12/20 15:22 98.1 F 79 18 114/74 99 01/12/20 11:27 97.6 F 76 18 133/67 97 01/12/20 07:15 98.1 F 86 14 125/67 100 Weight Admit Weight 164 lb 10.88 oz Weight 164 lb 10.965 oz Most Recent Monitor Data Heart Rate from ECG 76 NIBP 104/51 NIBP BP-Mean 68 Respiration from ECG 22 SpO2 59 I&O: 01/11/20 01/12/20 01/13/20 06:59 06:59 06:59 Intake Total 3840 3655 Output Total 3450 2600 Balance 390 1055 Result Diagrams: 01/11/20 05:45 01/11/20 05:45 Hospitalist ROS - Medication Medications: Active Medications Generic Name Dose Route Start Last Admin Trade Name Freq PRN Reason Stop Dose Admin Hydrocodone Bitart/Acetaminophen 2 tab 01/12/20 12:00 01/12/20 11:51 [place] 10/325 PO 2 tab Q6HR RY Administration Enoxaparin Sodium 40 mg 01/05/20 09:00 01/12/20 08:34 Lovenox SC 40 mg 0900 RY Administration Famotidine 20 mg 01/04/20 21:00 01/12/20 08:34 Pepcid PO 20 mg BID RY Administration Sodium Chloride 1,000 mls @ 125 mls/hr 01/04/20 18:00 01/12/20 15:34 Normal Saline 0.9% IV 1,000 mls .Q8H RY Administration Vancomycin HCl 1.25 gm/ Sodium 250 mls @ 166.667 mls/hr 01/08/20 06:00 06:23 Chloride IVPB 250 mls Q24HR@0600 RY Administration Ceftriaxone Sodium 2 gm/ 100 mls @ 200 mls/hr 01/08/20 16:00 01/12/20 15:34 Sodium Chloride IVPB 100 mls Q24HR RY Administration Metronidazole 500 mg 01/08/20 21:00 01/12/20 15:34 Flagyl PO 500 mg TID RY Administration Ondansetron HCl 4 mg 01/04/20 17:48 01/07/20 09:15 Zofran Odt PO 4 mg Q6H PRN Administration Nausea/Vomiting Saccharomyces Boulardii 250 mg 01/05/20 09:00 01/12/20 08:34 Florastor PO 250 mg DAILY RY Administration - Exam General Appearance: awake alert Neck: supple Heart: RRR Respiratory: CTAB Gastrointestinal: soft, non-tender, non-distended, normal bowel sounds Hosp A/P (1) Chronic ulcer of sacral region Code(s): L98.429 - NON-PRESSURE CHRONIC ULCER OF BACK WITH UNSPECIFIED SEVERITY Status: Acute (2) Sepsis Code(s): A41.9 - SEPSIS, UNSPECIFIED ORGANISM Status: Acute (3) Urinary tract infection Status: Acute - Plan The patient admitted for sepsis due to recurrent infection in the sacral decubitus ulcer region and suspected UTI. Urine, wound , and blood showing multibactrial growth. Continue broad-spectrum antibiotics per ID. Status post debridement and wound Vac placement. Case management working on placement. No new events over the past 24 hours.
[2020-01-13] MEDS: Sodium Chloride 0.9% 1,000 ML IV SCH ×3 (00:11→18:02)
[2020-01-13] MEDS: Vancomycin HCl 1.25 GM in Sodium Chloride 0.9% 250 ML 250 ML IVPB SCH (05:05)
[2020-01-13] MEDS: HYDROcodone/Acetaminophen 10/325 mg Tablet PO SCH ×4 (05:05→23:31)
[2020-01-13] MEDS: Saccharomyces boulardii 250 MG CAP PO SCH (09:33)
[2020-01-13] MEDS: Enoxaparin Sodium 40 MG/0.4 ML SYRINGE SC SCH (09:33)
[2020-01-13] MEDS: Famotidine 20 MG TAB PO SCH ×2 (09:33→20:19)
[2020-01-13] MEDS: Gabapentin 300 MG CAP PO SCH (09:33)
[2020-01-13] MEDS: metroNIDAZOLE 500 MG TAB PO SCH ×3 (09:33→20:19)
[2020-01-13] MEDS: Morphine 4 MG/ML VIAL SLOW IVP PRN (14:40)
[2020-01-13] MEDS: cefTRIAXone\\ROCEPHIN 2 GM in Sodium Chloride 0.9% 100 ML IVPB SCH (16:45)
--- NOTE | 2020-01-13 20:42 | PDOC.HOSPP ---
- Subjective Encounter Date: 01/13/20 Subjective: The patient is still complaining of uncontrolled pain. He is now on [place] 10 mg 2 tablets every 6 hours as needed. PT unable to mobilize the patient due to the wound VAC. Anesthesiology recommendations appreciated. - Objective Vital Signs & Weight: Vital Signs (12 hours) Temp Pulse Resp BP Pulse Ox 01/13/20 19:04 97.7 F 97 16 128/73 93 L 01/13/20 15:38 97.7 F 68 14 128/75 97 01/13/20 11:46 98.2 F 81 14 129/75 100 Weight Admit Weight 164 lb 10.96 oz Weight 164 lb 10.965 oz Most Recent Monitor Data Heart Rate from ECG 76 NIBP 104/51 NIBP BP-Mean 68 Respiration from ECG 22 SpO2 59 I&O: 01/12/20 01/13/20 01/14/20 06:59 06:59 06:59 Intake Total 3655 3480 1974 Output Total 2600 2200 975 Balance 1055 1280 999 Result Diagrams: 01/11/20 05:45 01/11/20 05:45 Hospitalist ROS - Medication Medications: Active Medications Generic Name Dose Route Start Last Admin Trade Name Freq PRN Reason Stop Dose Admin Hydrocodone Bitart/Acetaminophen 2 tab 01/12/20 12:00 01/13/20 18:02 [place] 10/325 PO 2 tab Q6HR RY Administration Enoxaparin Sodium 40 mg 01/05/20 09:00 01/13/20 09:33 Lovenox SC 40 mg 0900 RY Administration Famotidine 20 mg 01/04/20 21:00 01/13/20 20:19 Pepcid PO 20 mg BID RY Administration Gabapentin 600 mg 01/13/20 09:00 01/13/20 09:33 Neurontin PO 600 mg DAILY RY Administration Sodium Chloride 1,000 mls @ 125 mls/hr 01/04/20 18:00 01/13/20 18:02 Normal Saline 0.9% IV 1,000 mls .Q8H RY Administration Vancomycin HCl 1.25 gm/ Sodium 250 mls @ 166.667 mls/hr 01/08/20 06:00 05:05 Chloride IVPB 250 mls Q24HR@0600 RY Administration Ceftriaxone Sodium 2 gm/ 100 mls @ 200 mls/hr 01/08/20 16:00 01/13/20 16:45 Sodium Chloride IVPB 100 mls Q24HR RY Administration Metronidazole 500 mg 01/08/20 21:00 01/13/20 20:19 Flagyl PO 500 mg TID RY Administration Morphine Sulfate 4 mg 01/12/20 10:35 01/13/20 14:40 Morphine SLOW IVP 4 mg Q4H PRN Administration Pain Ondansetron HCl 4 mg 01/04/20 17:48 01/07/20 09:15 Zofran Odt PO 4 mg Q6H PRN Administration Nausea/Vomiting Saccharomyces Boulardii 250 mg 01/05/20 09:00 01/13/20 09:33 Florastor PO 250 mg DAILY RY Administration - Exam General Appearance: NAD, awake alert Neck: supple, no JVD Respiratory: normal chest expansion, no tachypnea Extremities: no cyanosis Neurological: cranial nerve grossly intact Hosp A/P (1) Chronic ulcer of sacral region Code(s): L98.429 - NON-PRESSURE CHRONIC ULCER OF BACK WITH UNSPECIFIED SEVERITY Status: Acute (2) Sepsis Code(s): A41.9 - SEPSIS, UNSPECIFIED ORGANISM Status: Acute (3) Urinary tract infection Status: Acute - Plan The patient admitted for sepsis due to recurrent infection in the sacral decubitus ulcer region and suspected UTI. Urine, wound , and blood showing multibactrial growth. Continue broad-spectrum antibiotics per ID. Status post debridement and wound Vac placement. Case management working on placement. No new events over the past 24 hours.
[2020-01-14] MEDS: Sodium Chloride 0.9% 1,000 ML IV SCH ×3 (02:11→21:28)
[2020-01-14] MEDS: HYDROcodone/Acetaminophen 10/325 mg Tablet PO SCH ×2 (05:13→11:09)
[2020-01-14] MEDS: Vancomycin HCl 1.25 GM in Sodium Chloride 0.9% 250 ML 250 ML IVPB SCH (05:13)
[2020-01-14 06:16] LABS: Anion Gap 9 mmol/L (10-20); BUN (Urea Nitrogen) 4 mg/dL (8.4-25.7); Calc. Creatinine Clearance 159 mL/min (70-130); Calcium 6.7 mg/dL (7.8-10.44); Carbon Dioxide 20 mmol/L (23-31); Chloride 113 mmol/L (98-107); Estimated GFR-MDRD Greater than 90; Glucose 71 mg/dL (80-115); Potassium 3.5 mmol/L (3.5-5.1); Sodium 138 mmol/L (136-145)
[2020-01-14 06:44] LABS: Band 4 % (5-11); Hemoglobin 7.2 g/dL (14.0-18.0); Hypochromia SLIGHT = 6-15 cells (100X) (0-5/hpf); Lymphocytes 14 % (21-51); MDiff Complete? YES; Mean Corpuscular HGB CONC 32.1 g/dL (32.0-36.0); Mean Corpuscular Hemoglobin 29.6 pg (27.0-31.0); Mean Corpuscular Volume 92.2 fL (78.0-98.0); Mean Platelet Volume 6.8 fL (7.4-10.4); Monocytes 1 % (0-10); Neutrophil 81 % (42-75); Platelet Count 280 thou/uL (130-400); Platelet Morphology Comment Appears Adequate; RBC Distribution Width 17.4 % (11.5-14.5); Red Blood Cell (RBC) Count 2.42 mill/uL (4.70-6.10); White Blood Cell (WBC) Count 9.8 thou/uL (4.8-10.8)
[2020-01-14] MEDS: Megestrol Acetate 40 MG TAB PO SCH (09:11)
[2020-01-14] MEDS: metroNIDAZOLE 500 MG TAB PO SCH ×3 (09:11→21:22)
[2020-01-14] MEDS: Morphine 4 MG/ML VIAL SLOW IVP PRN (09:11)
[2020-01-14] MEDS: Saccharomyces boulardii 250 MG CAP PO SCH (09:11)
[2020-01-14] MEDS: Gabapentin 300 MG CAP PO SCH (09:11)
[2020-01-14] MEDS: Famotidine 20 MG TAB PO SCH ×2 (09:11→21:22)
[2020-01-14] MEDS: Enoxaparin Sodium 40 MG/0.4 ML SYRINGE SC SCH (09:11)
[2020-01-14] MEDS ORDERED: Acetaminophen 500 MG TAB PO PRN (14:32)
--- NOTE | 2020-01-14 14:45 | PDOC.HOSPP ---
- Subjective Encounter Date: 01/14/20 Subjective: The patient is complaining of uncontrolled pain - Objective Vital Signs & Weight: Vital Signs (12 hours) Temp Pulse Resp BP Pulse Ox 01/14/20 11:27 98.2 F 84 14 124/73 98 01/14/20 07:35 98.0 F 86 14 115/63 97 01/14/20 03:27 98.2 F 77 16 128/75 100 Weight Admit Weight 164 lb 10.96 oz Weight 164 lb 10.965 oz Most Recent Monitor Data Heart Rate from ECG 76 NIBP 104/51 NIBP BP-Mean 68 Respiration from ECG 22 SpO2 59 I&O: 01/13/20 01/14/20 01/15/20 06:59 06:59 06:59 Intake Total 3480 3954 Output Total 2200 2375 Balance 1280 1579 Result Diagrams: 01/14/20 05:45 01/14/20 05:45 Hospitalist ROS - Medication Medications: Active Medications Generic Name Dose Route Start Last Admin Trade Name Freq PRN Reason Stop Dose Admin Enoxaparin Sodium 40 mg 01/05/20 09:00 01/14/20 09:11 Lovenox SC 40 mg 0900 RY Administration Famotidine 20 mg 01/04/20 21:00 01/14/20 09:11 Pepcid PO 20 mg BID RY Administration Gabapentin 600 mg 01/13/20 09:00 01/14/20 09:11 Neurontin PO 600 mg DAILY RY Administration Sodium Chloride 1,000 mls @ 125 mls/hr 01/04/20 18:00 01/14/20 09:12 Normal Saline 0.9% IV 1,000 mls .Q8H RY Administration Vancomycin HCl 1.25 gm/ Sodium 250 mls @ 166.667 mls/hr 01/08/20 06:00 05:13 Chloride IVPB 250 mls Q24HR@0600 RY Administration Ceftriaxone Sodium 2 gm/ 100 mls @ 200 mls/hr 01/08/20 16:00 01/13/20 16:45 Sodium Chloride IVPB 100 mls Q24HR RY Administration Megestrol Acetate 40 mg 01/14/20 09:00 01/14/20 09:11 Megace PO 40 mg DAILY RY Administration Metronidazole 500 mg 01/08/20 21:00 01/14/20 09:11 Flagyl PO 500 mg TID RY Administration Morphine Sulfate 4 mg 01/12/20 10:35 01/14/20 09:11 Morphine SLOW IVP 4 mg Q4H PRN Administration Pain Ondansetron HCl 4 mg 01/04/20 17:48 01/07/20 09:15 Zofran Odt PO 4 mg Q6H PRN Administration Nausea/Vomiting Saccharomyces Boulardii 250 mg 01/05/20 09:00 01/14/20 09:11 Florastor PO 250 mg DAILY RY Administration Sodium Chloride 10 ml 01/13/20 21:00 01/14/20 09:57 Flush - Normal Saline IVF Not Given Q12HR RY - Exam General Appearance: awake alert Neck: supple, no JVD Respiratory: normal chest expansion, no tachypnea Gastrointestinal: soft, non-tender, non-distended Neurological: cranial nerve grossly intact Hosp A/P (1) Chronic ulcer of sacral region Code(s): L98.429 - NON-PRESSURE CHRONIC ULCER OF BACK WITH UNSPECIFIED SEVERITY Status: Acute (2) Sepsis Code(s): A41.9 - SEPSIS, UNSPECIFIED ORGANISM Status: Acute (3) Urinary tract infection Status: Acute - Plan The patient admitted for sepsis due to recurrent infection in the sacral decubitus ulcer region and suspected UTI. Urine, wound , and blood showing multibactrial growth. Continue broad-spectrum antibiotics per ID. Status post debridement and wound Vac placement. Case management working on placement. Anesthesia consult for Pain management. PT and OT evaluation and treatment.
[2020-01-14] MEDS: fentaNYL Citrate/PF 2,000 MCG in Sodium Chloride 0.9% 60 ML IV PRN (15:47)
[2020-01-14] MEDS: cefTRIAXone\\ROCEPHIN 2 GM in Sodium Chloride 0.9% 100 ML IVPB SCH (15:54)
[2020-01-15] MEDS: Sodium Chloride 0.9% 1,000 ML IV SCH ×4 (05:38→23:48)
[2020-01-15 05:53] LABS: White Blood Cell (WBC) Count 10.1 thou/uL (4.8-10.8)
[2020-01-15 06:02] LABS: Mean Corpuscular Hemoglobin 29.4 pg (27.0-31.0); Mean Platelet Volume 7.1 fL (7.4-10.4); Platelet Count 252 thou/uL (130-400); RBC Distribution Width 17.4 % (11.5-14.5); Red Blood Cell (RBC) Count 2.36 mill/uL (4.70-6.10)
[2020-01-15 06:04] LABS: Band 1 % (5-11); Eosinophils 2 % (0-10); Lymphocytes 28 % (21-51); MDiff Complete? YES; Monocytes 7 % (0-10); Neutrophil 62 % (42-75)
[2020-01-15 06:05] LABS: Vancomycin, Trough 13.1 ug/mL
[2020-01-15 06:06] LABS: Anion Gap 11 mmol/L (10-20); BUN (Urea Nitrogen) 12 mg/dL (8.4-25.7); Calc. Creatinine Clearance 145 mL/min (70-130); Calcium 6.8 mg/dL (7.8-10.44); Carbon Dioxide 19 mmol/L (23-31); Chloride 112 mmol/L (98-107); Estimated GFR-MDRD Greater than 90; Glucose 100 mg/dL (80-115); Potassium 3.8 mmol/L (3.5-5.1); Sodium 138 mmol/L (136-145)
[2020-01-15] MEDS: Vancomycin HCl 1.25 GM in Sodium Chloride 0.9% 250 ML 250 ML IVPB SCH (06:29)
[2020-01-15] MEDS: fentaNYL Citrate/PF 2,000 MCG in Sodium Chloride 0.9% 60 ML IV PRN (08:02)
[2020-01-15] MEDS: Gabapentin 300 MG CAP PO SCH (10:50)
[2020-01-15] MEDS: Enoxaparin Sodium 40 MG/0.4 ML SYRINGE SC SCH (10:50)
[2020-01-15] MEDS: Saccharomyces boulardii 250 MG CAP PO SCH (10:50)
[2020-01-15] MEDS: metroNIDAZOLE 500 MG TAB PO SCH ×3 (10:50→20:32)
[2020-01-15] MEDS: Megestrol Acetate 40 MG TAB PO SCH (10:50)
[2020-01-15] MEDS: Famotidine 20 MG TAB PO SCH ×2 (10:50→20:33)
[2020-01-15] MEDS: cefTRIAXone\\ROCEPHIN 2 GM in Sodium Chloride 0.9% 100 ML IVPB SCH (15:04)
[2020-01-16] MEDS: fentaNYL Citrate/PF 2,000 MCG in Sodium Chloride 0.9% 60 ML IV PRN ×2 (01:16→17:47)
[2020-01-16] MEDS: Vancomycin HCl 1.25 GM in Sodium Chloride 0.9% 250 ML 250 ML IVPB SCH (06:07)
[2020-01-16 06:59] LABS: Anion Gap 9 mmol/L (10-20); BUN (Urea Nitrogen) 12 mg/dL (8.4-25.7); Calc. Creatinine Clearance 159 mL/min (70-130); Calcium 6.9 mg/dL (7.8-10.44); Carbon Dioxide 21 mmol/L (23-31); Chloride 109 mmol/L (98-107); Estimated GFR-MDRD Greater than 90; Glucose 78 mg/dL (80-115); Potassium 4.3 mmol/L (3.5-5.1); Sodium 135 mmol/L (136-145)
[2020-01-16 07:53] LABS: Band 1 % (5-11); Eosinophils 2 % (0-10); Hemoglobin 6.6 g/dL (14.0-18.0); Lymphocytes 20 % (21-51); MDiff Complete? YES; Mean Corpuscular HGB CONC 32.4 g/dL (32.0-36.0); Mean Corpuscular Hemoglobin 29.4 pg (27.0-31.0); Mean Corpuscular Volume 90.6 fL (78.0-98.0); Mean Platelet Volume 7.3 fL (7.4-10.4); Monocytes 5 % (0-10); Neutrophil 72 % (42-75); Nucleated RBC 1 % (0); Platelet Count 239 thou/uL (130-400); RBC Distribution Width 17.7 % (11.5-14.5); Red Blood Cell (RBC) Count 2.26 mill/uL (4.70-6.10); White Blood Cell (WBC) Count 11.4 thou/uL (4.8-10.8)
[2020-01-16] MEDS: Saccharomyces boulardii 250 MG CAP PO SCH (09:42)
[2020-01-16] MEDS: Gabapentin 300 MG CAP PO SCH (09:42)
[2020-01-16] MEDS: Famotidine 20 MG TAB PO SCH ×2 (09:42→20:10)
[2020-01-16] MEDS: Megestrol Acetate 40 MG TAB PO SCH (09:42)
[2020-01-16] MEDS: metroNIDAZOLE 500 MG TAB PO SCH ×3 (09:42→20:10)
[2020-01-16] MEDS: Sodium Chloride 0.9% 1,000 ML IV SCH ×3 (09:43→21:44)
[2020-01-16] MEDS: Enoxaparin Sodium 40 MG/0.4 ML SYRINGE SC SCH (09:43)
--- NOTE | 2020-01-16 10:11 | PDOC.HOSPP ---
- Subjective Encounter Date: 01/16/20 Subjective: No new events overnight. Pain is controlled on [employer]. - Objective Vital Signs & Weight: Vital Signs (12 hours) Temp Pulse Resp BP Pulse Ox 01/16/20 07:12 97.7 F 98 16 111/70 99 01/15/20 23:53 99.9 F H 100 16 101/65 95 Weight Admit Weight 164 lb 10.96 oz Weight 164 lb 10.965 oz Most Recent Monitor Data Heart Rate from ECG 76 NIBP 104/51 NIBP BP-Mean 68 Respiration from ECG 22 SpO2 59 I&O: 01/15/20 01/16/20 01/17/20 06:59 06:59 06:59 Intake Total 4080 4620 Output Total 2525 3300 Balance 1555 1320 Result Diagrams: 01/16/20 06:30 01/16/20 06:30 Hospitalist ROS - Medication Medications: Active Medications Generic Name Dose Route Start Last Admin Trade Name Freq PRN Reason Stop Dose Admin Enoxaparin Sodium 40 mg 01/05/20 09:00 01/16/20 09:43 Lovenox SC Not Given 0900 RY Famotidine 20 mg 01/04/20 21:00 01/16/20 09:42 Pepcid PO 20 mg BID RY Administration Gabapentin 600 mg 01/13/20 09:00 01/16/20 09:42 Neurontin PO 600 mg DAILY RY Administration Sodium Chloride 1,000 mls @ 125 mls/hr 01/04/20 18:00 01/16/20 09:43 Normal Saline 0.9% IV 1,000 mls .Q8H RY Administration Vancomycin HCl 1.25 gm/ Sodium 250 mls @ 166.667 mls/hr 01/08/20 06:00 06:07 Chloride IVPB 250 mls Q24HR@0600 RY Administration Ceftriaxone Sodium 2 gm/ 100 mls @ 200 mls/hr 01/08/20 16:00 01/15/20 15:04 Sodium Chloride IVPB 100 mls Q24HR RY Administration Fentanyl Citrate 2,000 mcg/ 100 mls @ 0 mls/hr 01/14/20 14:32 01/16/20 01:16 Sodium Chloride IV 100 mls INF PRN Administration Pain As Directed Megestrol Acetate 40 mg 01/14/20 09:00 01/16/20 09:42 Megace PO 40 mg DAILY RY Administration Metronidazole 500 mg 01/08/20 21:00 01/16/20 09:42 Flagyl PO 500 mg TID RY Administration Morphine Sulfate 4 mg 01/12/20 10:35 01/14/20 09:11 Morphine SLOW IVP 4 mg Q4H PRN Administration Pain Ondansetron HCl 4 mg 01/04/20 17:48 01/07/20 09:15 Zofran Odt PO 4 mg Q6H PRN Administration Nausea/Vomiting Saccharomyces Boulardii 250 mg 01/05/20 09:00 01/16/20 09:42 Florastor PO 250 mg DAILY RY Administration Sodium Chloride 10 ml 01/13/20 21:00 01/16/20 09:43 Flush - Normal Saline IVF 10 ml Q12HR RY Administration - Exam General Appearance: awake alert ENT: normocephalic atraumatic Neck: supple, no JVD Heart: RRR, no murmur, no gallops, no rubs Respiratory: CTAB, no wheezes, no ronchi Gastrointestinal: soft, non-tender, non-distended, normal bowel sounds Hosp A/P (1) Sepsis Code(s): A41.9 - SEPSIS, UNSPECIFIED ORGANISM Status: Acute (2) Urinary tract infection Status: Acute (3) Sacral osteomyelitis Code(s): M46.28 - OSTEOMYELITIS OF VERTEBRA, SACRAL AND SACROCOCCYGEAL REGION Status: Acute (4) Chronic ulcer of sacral region Code(s): L98.429 - NON-PRESSURE CHRONIC ULCER OF BACK WITH UNSPECIFIED SEVERITY Status: Acute (5) Anemia due to acute blood loss Code(s): D62 - ACUTE POSTHEMORRHAGIC ANEMIA Status: Acute (6) Paraplegia Code(s): G82.20 - PARAPLEGIA, UNSPECIFIED Status: Acute - Plan The patient admitted for sepsis due to recurrent infection in the sacral decubitus ulcer region with likely osteomyelitis and suspected UTI. Urine, wound , and blood showing multibactrial growth. Continue broad-spectrum antibiotics per ID. Status post debridement and wound Vac placement. H&H dropped to 6.6. Anemia due to blood loss throu the wound and anemia of chronic disease. Transfuse 2 units of PRBCS. On [employer] per anesthesiology for uncontrolled pain. Placement to post acute was unsuccessful. The patient will be treated in the hospital for IVABX and wound care. Appreciate ID & Surgery recs.
[2020-01-16] MEDS ORDERED: HYDROcodone/Acetaminophen 5/325 mg Tablet PO SCH (13:00)
[2020-01-16] MEDS: cefTRIAXone\\ROCEPHIN 2 GM in Sodium Chloride 0.9% 100 ML IVPB SCH (15:16)
[2020-01-17] MEDS: Sodium Chloride 0.9% 1,000 ML IV SCH ×5 (03:41→21:14)
[2020-01-17 05:35] LABS: Band 1 % (5-11); Eosinophils 1 % (0-10); Hemoglobin 9.3 g/dL (14.0-18.0); Lymphocytes 18 % (21-51); MDiff Complete? YES; Mean Corpuscular HGB CONC 33.1 g/dL (32.0-36.0); Mean Corpuscular Hemoglobin 30.6 pg (27.0-31.0); Mean Corpuscular Volume 92.6 fL (78.0-98.0); Mean Platelet Volume 7.4 fL (7.4-10.4); Monocytes 11 % (0-10); Neutrophil 69 % (42-75); Platelet Count 217 thou/uL (130-400); RBC Distribution Width 16.8 % (11.5-14.5); Red Blood Cell (RBC) Count 3.04 mill/uL (4.70-6.10); White Blood Cell (WBC) Count 10.8 thou/uL (4.8-10.8)
[2020-01-17 05:36] LABS: Vancomycin, Trough 11.7 ug/mL
[2020-01-17 05:38] LABS: Anion Gap 11 mmol/L (10-20); BUN (Urea Nitrogen) 14 mg/dL (8.4-25.7); Calc. Creatinine Clearance 145 mL/min (70-130); Calcium 7.1 mg/dL (7.8-10.44); Carbon Dioxide 23 mmol/L (23-31); Chloride 106 mmol/L (98-107); Estimated GFR-MDRD Greater than 90; Glucose 96 mg/dL (80-115); Potassium 4.6 mmol/L (3.5-5.1); Sodium 135 mmol/L (136-145)
[2020-01-17] MEDS: Vancomycin 1.5 GRAM/300 ML BAG 1.5 GM in Premix Bag 1 BAG IVPB SCH (06:19)
[2020-01-17] MEDS: Gabapentin 300 MG CAP PO SCH (09:58)
[2020-01-17] MEDS: metroNIDAZOLE 500 MG TAB PO SCH ×3 (09:58→20:04)
[2020-01-17] MEDS: Famotidine 20 MG TAB PO SCH ×2 (09:58→20:04)
[2020-01-17] MEDS: Saccharomyces boulardii 250 MG CAP PO SCH (09:58)
[2020-01-17] MEDS: Megestrol Acetate 40 MG TAB PO SCH (09:58)
[2020-01-17] MEDS: Enoxaparin Sodium 40 MG/0.4 ML SYRINGE SC SCH (09:58)
--- NOTE | 2020-01-17 10:44 | PDOC.HOSPP ---
- Subjective Encounter Date: 01/17/20 Subjective: No new events over the past 24 hrs. Complained of leaking of urine around his ferguson cath site. - Objective Vital Signs & Weight: Vital Signs (12 hours) Temp Pulse Resp BP Pulse Ox 01/17/20 07:07 97.6 F 80 16 122/65 98 01/17/20 04:00 98 F 92 16 102/68 98 01/16/20 23:45 98 F 92 16 102/68 95 Weight Admit Weight 164 lb 10.96 oz Weight 164 lb 10.965 oz Most Recent Monitor Data Heart Rate from ECG 76 NIBP 104/51 NIBP BP-Mean 68 Respiration from ECG 22 SpO2 59 I&O: 01/16/20 01/17/20 01/18/20 06:59 06:59 06:59 Intake Total 4620 5930 Output Total 3300 2880 Balance 1320 3050 Result Diagrams: 01/17/20 05:05 01/17/20 05:05 Hospitalist ROS - Review of Systems Constitutional: denies: fever, chills - Medication Medications: Active Medications Generic Name Dose Route Start Last Admin Trade Name Freq PRN Reason Stop Dose Admin Enoxaparin Sodium 40 mg 01/05/20 09:00 01/17/20 09:58 Lovenox SC Not Given 0900 RY Famotidine 20 mg 01/04/20 21:00 01/17/20 09:58 Pepcid PO 20 mg BID RY Administration Gabapentin 600 mg 01/13/20 09:00 01/17/20 09:58 Neurontin PO 600 mg DAILY RY Administration Sodium Chloride 1,000 mls @ 125 mls/hr 01/04/20 18:00 01/17/20 10:09 Normal Saline 0.9% IV Not Given .Q8H RY Ceftriaxone Sodium 2 gm/ 100 mls @ 200 mls/hr 01/08/20 16:00 01/16/20 15:16 Sodium Chloride IVPB 100 mls Q24HR RY Administration Fentanyl Citrate 2,000 mcg/ 100 mls @ 0 mls/hr 01/14/20 14:32 01/16/20 17:47 Sodium Chloride IV 100 mls INF PRN Administration Pain As Directed Vancomycin HCl 1.5 gm/ Device 300 mls @ 200 mls/hr 01/17/20 06:00 01/17/20 06 :19 IVPB 300 mls 0600 RY Administration Megestrol Acetate 40 mg 01/14/20 09:00 01/17/20 09:58 Megace PO 40 mg DAILY RY Administration Metronidazole 500 mg 01/08/20 21:00 01/17/20 09:58 Flagyl PO 500 mg TID RY Administration Morphine Sulfate 4 mg 01/12/20 10:35 01/14/20 09:11 Morphine SLOW IVP 4 mg Q4H PRN Administration Pain Ondansetron HCl 4 mg 01/04/20 17:48 01/07/20 09:15 Zofran Odt PO 4 mg Q6H PRN Administration Nausea/Vomiting Saccharomyces Boulardii 250 mg 01/05/20 09:00 01/17/20 09:58 Florastor PO 250 mg DAILY RY Administration Sodium Chloride 10 ml 01/13/20 21:00 01/17/20 09:58 Flush - Normal Saline IVF 10 ml Q12HR RY Administration - Exam General Appearance: awake alert ENT: normocephalic atraumatic Neck: supple, no JVD Respiratory: normal chest expansion, no tachypnea Gastrointestinal: soft, non-tender Neurological: cranial nerve grossly intact Neurological - other findings: Paraplegic Hosp A/P (1) Sepsis Code(s): A41.9 - SEPSIS, UNSPECIFIED ORGANISM Status: Acute (2) Urinary tract infection Status: Acute (3) Sacral osteomyelitis Code(s): M46.28 - OSTEOMYELITIS OF [place], SACRAL AND SACROCOCCYGEAL REGION Status: Acute (4) Chronic ulcer of sacral region Code(s): L98.429 - NON-PRESSURE CHRONIC ULCER OF BACK WITH UNSPECIFIED SEVERITY Status: Acute (5) Anemia due to acute blood loss Code(s): D62 - ACUTE POSTHEMORRHAGIC ANEMIA Status: Acute (6) Paraplegia Code(s): G82.20 - PARAPLEGIA, UNSPECIFIED Status: Acute - Plan The patient admitted for sepsis due to recurrent infection in the sacral decubitus ulcer region with likely osteomyelitis and suspected UTI. Urine, wound , and blood showing multibactrial growth. Continue broad-spectrum antibiotics per ID. Status post debridement and wound Vac placement. H&H dropped to 6.6. Anemia due to blood loss throu the wound and anemia of chronic disease. Transfused 2 units of PRBCS. Now Hb is 9.9 On [employer] per anesthesiology for uncontrolled pain. Placement to post acute was unsuccessful. The patient will be treated in the hospital for IVABX and wound care. Appreciate ID & Surgery recs. Ferguson cath needs adjustment. Urology on the case. They were notified by nursing.
[2020-01-17] MEDS: fentaNYL Citrate/PF 2,000 MCG in Sodium Chloride 0.9% 60 ML IV PRN (12:30)
[2020-01-17] MEDS: cefTRIAXone\\ROCEPHIN 2 GM in Sodium Chloride 0.9% 100 ML IVPB SCH (16:13)
[2020-01-17] MEDS: Ondansetron ODT 4 MG TAB PO PRN (23:53)
[2020-01-18] MEDS: Sodium Chloride 0.9% 1,000 ML IV SCH ×3 (02:54→16:00)
[2020-01-18 04:47] LABS: Anion Gap 14 mmol/L (10-20); BUN (Urea Nitrogen) 15 mg/dL (8.4-25.7); Calc. Creatinine Clearance 131 mL/min (70-130); Calcium 7.2 mg/dL (7.8-10.44); Carbon Dioxide 20 mmol/L (23-31); Chloride 107 mmol/L (98-107); Estimated GFR-MDRD Greater than 90; Glucose 95 mg/dL (80-115); Sodium 136 mmol/L (136-145)
[2020-01-18 04:50] LABS: Band 5 % (5-11); Eosinophils 5 % (0-10); Hemoglobin 8.1 g/dL (14.0-18.0); Lymphocytes 27 % (21-51); MDiff Complete? YES; Mean Corpuscular HGB CONC 33.1 g/dL (32.0-36.0); Mean Corpuscular Hemoglobin 30.8 pg (27.0-31.0); Mean Corpuscular Volume 93.3 fL (78.0-98.0); Mean Platelet Volume 7.3 fL (7.4-10.4); Monocytes 8 % (0-10); Neutrophil 55 % (42-75); Platelet Count 275 thou/uL (130-400); RBC Distribution Width 17.1 % (11.5-14.5); Red Blood Cell (RBC) Count 2.62 mill/uL (4.70-6.10); White Blood Cell (WBC) Count 10.2 thou/uL (4.8-10.8)
[2020-01-18] MEDS: Vancomycin 1.5 GRAM/300 ML BAG 1.5 GM in Premix Bag 1 BAG IVPB SCH (05:26)
[2020-01-18] MEDS: fentaNYL Citrate/PF 2,000 MCG in Sodium Chloride 0.9% 60 ML IV PRN (06:06)
[2020-01-18] MEDS: metroNIDAZOLE 500 MG TAB PO SCH ×3 (08:45→21:37)
[2020-01-18] MEDS: Megestrol Acetate 40 MG TAB PO SCH (08:45)
[2020-01-18] MEDS: Gabapentin 300 MG CAP PO SCH (08:45)
[2020-01-18] MEDS: Famotidine 20 MG TAB PO SCH ×2 (08:45→21:37)
[2020-01-18] MEDS: Saccharomyces boulardii 250 MG CAP PO SCH (08:45)
[2020-01-18] MEDS: Enoxaparin Sodium 40 MG/0.4 ML SYRINGE SC SCH (08:45)
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
[2020-01-18] MEDS: cefTRIAXone\\ROCEPHIN 2 GM in Sodium Chloride 0.9% 100 ML IVPB SCH (16:38)
[2020-01-18] MEDS: Apixaban 2.5 MG TAB PO SCH (21:37)
[2020-01-19 05:56] LABS: Vancomycin, Trough 13.4 ug/mL
[2020-01-19] MEDS ORDERED: Sodium Phosphate 30 MMOL in Sodium Chloride 0.9% 250 ML 250 ML IVPB SCH (06:15)
[2020-01-19] MEDS: Vancomycin 1.5 GRAM/300 ML BAG 1.5 GM in Premix Bag 1 BAG IVPB SCH (06:26)
[2020-01-19] MEDS: fentaNYL Citrate/PF 2,000 MCG in Sodium Chloride 0.9% 60 ML IV PRN (06:49)
[2020-01-19] MEDS: Saccharomyces boulardii 250 MG CAP PO SCH (10:11)
[2020-01-19] MEDS: Famotidine 20 MG TAB PO SCH ×2 (10:11→20:09)
[2020-01-19] MEDS: Gabapentin 300 MG CAP PO SCH (10:11)
[2020-01-19] MEDS: Megestrol Acetate 40 MG TAB PO SCH (10:12)
[2020-01-19] MEDS: Apixaban 2.5 MG TAB PO SCH ×2 (10:12→20:10)
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
[2020-01-19] MEDS: metroNIDAZOLE 500 MG TAB PO SCH ×2 (14:13→20:09)
[2020-01-19] MEDS: cefTRIAXone\\ROCEPHIN 2 GM in Sodium Chloride 0.9% 100 ML IVPB SCH (15:17)
[2020-01-19] MEDS: Sodium Chloride 0.9% 1,000 ML IV SCH (15:17)
[2020-01-20] MEDS: Vancomycin 1.5 GRAM/300 ML BAG 1.5 GM in Premix Bag 1 BAG IVPB SCH (04:51)
[2020-01-20] MEDS: Sodium Chloride 0.9% 1,000 ML IV SCH (04:51)
[2020-01-20] MEDS: fentaNYL Citrate/PF 2,000 MCG in Sodium Chloride 0.9% 60 ML IV PRN (06:57)
[2020-01-20] MEDS: Saccharomyces boulardii 250 MG CAP PO SCH (08:19)
[2020-01-20] MEDS: Apixaban 2.5 MG TAB PO SCH ×2 (08:19→20:26)
[2020-01-20] MEDS: Famotidine 20 MG TAB PO SCH ×2 (08:19→20:26)
[2020-01-20] MEDS: Gabapentin 300 MG CAP PO SCH (08:19)
[2020-01-20] MEDS: Megestrol Acetate 40 MG TAB PO SCH (08:19)
[2020-01-20] MEDS: metroNIDAZOLE 500 MG TAB PO SCH ×3 (08:19→20:25)
[2020-01-20] MEDS: cefTRIAXone\\ROCEPHIN 2 GM in Sodium Chloride 0.9% 100 ML IVPB SCH (16:35)
--- NOTE | 2020-01-20 22:27 | PDOC.HOSPP ---
- Subjective Encounter Date: 01/20/20 Encounter Time: 11:00 Subjective: no overnight events. continues to work with physical therapy. pending placement - Objective Vital Signs & Weight: Vital Signs (12 hours) Temp Pulse Resp BP Pulse Ox 01/20/20 19:09 98.2 F 94 16 98/64 98 01/20/20 16:00 98.4 F 97 18 113/71 97 01/20/20 12:00 97.7 F 84 18 111/69 100 Weight Admit Weight 164 lb 10.96 oz Weight 164 lb 10.965 oz Most Recent Monitor Data Heart Rate from ECG 76 NIBP 104/51 NIBP BP-Mean 68 Respiration from ECG 22 SpO2 59 I&O: 01/19/20 01/20/20 01/21/20 06:59 06:59 06:59 Intake Total 850 3565 600 Output Total 6250 3570 1370 Balance -5400 -5 -770 Result Diagrams: 01/18/20 03:30 01/18/20 03:30 Hospitalist ROS - Review of Systems Constitutional: denies: fever, chills, sweats, weakness, malaise, other Respiratory: denies: cough, dry, shortness of breath, hemoptysis, SOB with excertion, pleuritic pain, sputum, wheezing, other Cardiovascular: denies: chest pain, palpitations, orthopnea, paroxysmal noc. dyspnea, edema, light headedness, other Gastrointestinal: denies: nausea, vomiting, abdominal pain, diarrhea, constipation, melena, hematochezia, other Genitourinary: denies: hematuria - Medication Medications: Active Medications Generic Name Dose Route Start Last Admin Trade Name Freq PRN Reason Stop Dose Admin Apixaban 2.5 mg 01/18/20 21:00 01/20/20 20:26 Eliquis PO 2.5 mg BID RY Administration Famotidine 20 mg 01/04/20 21:00 01/20/20 20:26 Pepcid PO 20 mg BID RY Administration Gabapentin 600 mg 01/13/20 09:00 01/20/20 08:19 Neurontin PO 600 mg DAILY RY Administration Fentanyl Citrate 2,000 mcg/ 100 mls @ 0 mls/hr 01/14/20 14:32 01/20/20 06:57 Sodium Chloride IV 100 mls INF PRN Administration Pain As Directed Vancomycin HCl 1.5 gm/ Device 300 mls @ 200 mls/hr 01/17/20 06:00 01/20/20 04 :51 IVPB 300 mls 0600 RY Administration Sodium Chloride 1,000 mls @ 50 mls/hr 01/18/20 10:06 01/20/20 04:51 Normal Saline 0.9% IV 1,000 mls .Q20H RY Administration Ceftriaxone Sodium 2 gm/ 100 mls @ 200 mls/hr 01/19/20 16:00 01/20/20 16:35 Sodium Chloride IVPB 100 mls 1600 RY Administration Megestrol Acetate 40 mg 01/14/20 09:00 01/20/20 08:19 Megace PO 40 mg DAILY RY Administration Metronidazole 500 mg 01/19/20 15:00 01/20/20 20:25 Flagyl PO 500 mg TID RY Administration Morphine Sulfate 4 mg 01/12/20 10:35 01/14/20 09:11 Morphine SLOW IVP 4 mg Q4H PRN Administration Pain Ondansetron HCl 4 mg 01/04/20 17:48 01/17/20 23:53 Zofran Odt PO 4 mg Q6H PRN Administration Nausea/Vomiting Saccharomyces Boulardii 250 mg 01/05/20 09:00 01/20/20 08:19 Florastor PO 250 mg DAILY RY Administration Sodium Chloride 10 ml 01/13/20 21:00 01/20/20 20:36 Flush - Normal Saline IVF Not Given Q12HR RY - Exam General Appearance: NAD, awake alert Heart: RRR, no murmur, no gallops, no rubs Respiratory: CTAB, no wheezes, no rales, no ronchi Gastrointestinal: soft, non-tender, non-distended, normal bowel sounds Psychiatric: normal affect, normal behavior, A&O x 3 Hosp A/P - Plan medical unit anesthesia managing pain control, I recommend D/c fentanyl GRAIN PICKER general surgery consultation, recommendations appreciated urology consultation, recommendations appreciated infectious disease consultation, recommendations appreciated IV antibiotics per infectious disease specialist afebrile, normal WBC count, antibiotics are being effective physical therapy/occupational therapy eval and treat at this point pain medication should be weaned, per anesthesia blood pressure control blood sugar control continue other home medications as able IV fluid maintenance, net positive maintain Campbell catheter and suprapubic cath management per urology subacute placement to swing bed when available G.I. 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
[2020-01-21] MEDS: Sodium Chloride 0.9% 1,000 ML IV SCH ×2 (03:16→17:09)
[2020-01-21 05:33] LABS: Vancomycin, Trough 14.9 ug/mL
[2020-01-21] MEDS: Vancomycin 1.5 GRAM/300 ML BAG 1.5 GM in Premix Bag 1 BAG IVPB SCH (05:52)
[2020-01-21] MEDS: fentaNYL Citrate/PF 2,000 MCG in Sodium Chloride 0.9% 60 ML IV PRN (05:52)
[2020-01-21 06:19] LABS: Hemoglobin 7.7 g/dL (14.0-18.0)
[2020-01-21] MEDS: Apixaban 2.5 MG TAB PO SCH ×2 (08:53→20:38)
[2020-01-21] MEDS: Famotidine 20 MG TAB PO SCH ×2 (08:53→20:38)
[2020-01-21] MEDS: Gabapentin 300 MG CAP PO SCH (08:53)
[2020-01-21] MEDS: Saccharomyces boulardii 250 MG CAP PO SCH (08:53)
[2020-01-21] MEDS: Megestrol Acetate 40 MG TAB PO SCH (08:53)
[2020-01-21] MEDS: metroNIDAZOLE 500 MG TAB PO SCH ×3 (08:53→20:38)
[2020-01-21] MEDS: cefTRIAXone\\ROCEPHIN 2 GM in Sodium Chloride 0.9% 100 ML IVPB SCH (15:13)
[2020-01-21] MEDS: diphenhydrAMINE 25 MG CAP PO PRN (18:34)
--- NOTE | 2020-01-21 22:59 | PDOC.HOSPP ---
- Subjective Encounter Date: 01/21/20 Encounter Time: 07:00 Subjective: no overnight events. This morning, has no complaints. COnitnues to work with PT and pending placement. - Objective Vital Signs & Weight: Vital Signs (12 hours) Temp Pulse Resp BP Pulse Ox 01/21/20 20:00 97.9 F 85 18 104/69 98 01/21/20 15:19 98.6 F 95 16 100/62 99 01/21/20 11:01 97.7 F 88 16 100/63 98 Weight Admit Weight 164 lb 10.96 oz Weight 164 lb 10.965 oz Most Recent Monitor Data Heart Rate from ECG 76 NIBP 104/51 NIBP BP-Mean 68 Respiration from ECG 22 SpO2 59 I&O: 01/20/20 01/21/20 01/22/20 06:59 06:59 06:59 Intake Total 3565 2215 1700 Output Total 3570 3345 1300 Balance -5 -1130 400 Result Diagrams: 01/21/20 05:55 01/18/20 03:30 Hospitalist ROS - Review of Systems Constitutional: denies: fever, chills, sweats, weakness, malaise, other Respiratory: denies: cough, dry, shortness of breath, hemoptysis, SOB with excertion, pleuritic pain, sputum, wheezing, other Cardiovascular: denies: chest pain, palpitations, orthopnea, paroxysmal noc. dyspnea, edema, light headedness, other Gastrointestinal: denies: nausea, vomiting, abdominal pain, diarrhea, constipation, melena, hematochezia, other - Medication Medications: Active Medications Generic Name Dose Route Start Last Admin Trade Name Freq PRN Reason Stop Dose Admin Apixaban 2.5 mg 01/18/20 21:00 01/21/20 20:38 Eliquis PO 2.5 mg BID RY Administration Diphenhydramine HCl 25 mg 01/21/20 18:29 01/21/20 18:34 Benadryl PO 25 mg Q6H PRN Administration Itching Famotidine 20 mg 01/04/20 21:00 01/21/20 20:38 Pepcid PO 20 mg BID RY Administration Gabapentin 600 mg 01/13/20 09:00 01/21/20 08:53 Neurontin PO 600 mg DAILY RY Administration Fentanyl Citrate 2,000 mcg/ 100 mls @ 0 mls/hr 01/14/20 14:32 01/21/20 05:52 Sodium Chloride IV 100 mls INF PRN Administration Pain As Directed Vancomycin HCl 1.5 gm/ Device 300 mls @ 200 mls/hr 01/17/20 06:00 01/21/20 05 :52 IVPB 300 mls 0600 RY Administration Sodium Chloride 1,000 mls @ 50 mls/hr 01/18/20 10:06 01/21/20 17:09 Normal Saline 0.9% IV Not Given .Q20H RY Ceftriaxone Sodium 2 gm/ 100 mls @ 200 mls/hr 01/19/20 16:00 01/21/20 15:13 Sodium Chloride IVPB 100 mls 1600 RY Administration Megestrol Acetate 40 mg 01/14/20 09:00 01/21/20 08:53 Megace PO 40 mg DAILY RY Administration Metronidazole 500 mg 01/19/20 15:00 01/21/20 20:38 Flagyl PO 500 mg TID RY Administration Morphine Sulfate 4 mg 01/12/20 10:35 01/14/20 09:11 Morphine SLOW IVP 4 mg Q4H PRN Administration Pain Ondansetron HCl 4 mg 01/04/20 17:48 01/17/20 23:53 Zofran Odt PO 4 mg Q6H PRN Administration Nausea/Vomiting Saccharomyces Boulardii 250 mg 01/05/20 09:00 01/21/20 08:53 Florastor PO 250 mg DAILY RY Administration Sodium Chloride 10 ml 01/13/20 21:00 01/21/20 20:39 Flush - Normal Saline IVF Not Given Q12HR RY - Exam General Appearance: NAD, awake alert ENT: normocephalic atraumatic, moist mucosa Heart: RRR, no murmur, no gallops, no rubs Respiratory: CTAB, no wheezes, no rales, no ronchi Gastrointestinal: soft, non-tender, non-distended, normal bowel sounds Gastrointestinal - other findings: suprapubic and ferguson in place Skin - other findings: ulcer wounds appear unchanged Psychiatric: normal affect, normal behavior, A&O x 3 Hosp A/P - Plan medical unit anesthesia managing pain control, I recommend D/c fentanyl STAFF EDITOR general surgery consultation, recommendations appreciated urology consultation, recommendations appreciated infectious disease consultation, recommendations appreciated IV antibiotics per infectious disease specialist afebrile, normal WBC count, antibiotics are being effective physical therapy/occupational therapy eval and treat at this point pain medication should be weaned, per anesthesia blood pressure control blood sugar control continue other home medications as able IV fluid maintenance, net positive maintain Ferguson catheter and suprapubic cath management per urology G.I. prophylaxis DVT prophylaxis: low dose eliquis Disposition: shelter prognosis is guarded for meaningful recovery. Pending placement
[2020-01-22] MEDS: Vancomycin 1.5 GRAM/300 ML BAG 1.5 GM in Premix Bag 1 BAG IVPB SCH (05:20)
[2020-01-22] MEDS: fentaNYL Citrate/PF 2,000 MCG in Sodium Chloride 0.9% 60 ML IV PRN (05:22)
[2020-01-22] MEDS: diphenhydrAMINE 25 MG CAP PO PRN (06:07)
[2020-01-22] MEDS: Famotidine 20 MG TAB PO SCH ×2 (08:13→20:21)
[2020-01-22] MEDS: Apixaban 2.5 MG TAB PO SCH ×2 (08:13→20:22)
[2020-01-22] MEDS: Megestrol Acetate 40 MG TAB PO SCH (08:13)
[2020-01-22] MEDS: metroNIDAZOLE 500 MG TAB PO SCH ×3 (08:13→20:21)
[2020-01-22] MEDS: Gabapentin 300 MG CAP PO SCH (08:13)
[2020-01-22] MEDS: Saccharomyces boulardii 250 MG CAP PO SCH (08:13)
[2020-01-22] MEDS: Sodium Chloride 0.9% 1,000 ML IV SCH (13:52)
[2020-01-22] MEDS: cefTRIAXone\\ROCEPHIN 2 GM in Sodium Chloride 0.9% 100 ML IVPB SCH (14:59)
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
[2020-01-23] MEDS: diphenhydrAMINE 25 MG CAP PO PRN ×2 (03:12→22:46)
[2020-01-23] MEDS: fentaNYL Citrate/PF 2,000 MCG in Sodium Chloride 0.9% 60 ML IV PRN (04:24)
[2020-01-23 04:40] LABS: Hemoglobin 7.8 g/dL (14.0-18.0)
[2020-01-23 04:59] LABS: Potassium 4.2 mmol/L (3.5-5.1)
[2020-01-23] MEDS: Vancomycin 1.5 GRAM/300 ML BAG 1.5 GM in Premix Bag 1 BAG IVPB SCH (05:22)
[2020-01-23] MEDS: Megestrol Acetate 40 MG TAB PO SCH (10:09)
[2020-01-23] MEDS: Gabapentin 300 MG CAP PO SCH (10:09)
[2020-01-23] MEDS: Apixaban 2.5 MG TAB PO SCH ×2 (10:10→21:16)
[2020-01-23] MEDS: Saccharomyces boulardii 250 MG CAP PO SCH (10:10)
[2020-01-23] MEDS: metroNIDAZOLE 500 MG TAB PO SCH ×3 (10:10→21:16)
[2020-01-23] MEDS: Famotidine 20 MG TAB PO SCH ×2 (10:10→21:16)
[2020-01-23] MEDS: Sodium Chloride 0.9% 1,000 ML IV SCH (11:55)
--- NOTE | 2020-01-23 15:57 | PDOC.HOSPP ---
- Subjective Encounter Date: 01/23/20 Encounter Time: 08:40 Subjective: Pt seen for followup re: sacral osteomyelitis. Denies any complaints. - Objective Vital Signs & Weight: Vital Signs (12 hours) Temp Pulse Resp BP Pulse Ox 01/23/20 10:52 98.2 F 82 14 103/65 100 01/23/20 08:00 98.1 F 84 14 103/68 100 01/23/20 04:01 98.3 F 84 18 104/66 95 Weight Admit Weight 164 lb 10.96 oz Weight 164 lb 10.965 oz Most Recent Monitor Data Heart Rate from ECG 76 NIBP 104/51 NIBP BP-Mean 68 Respiration from ECG 22 SpO2 59 I&O: 01/22/20 01/23/20 01/24/20 06:59 06:59 06:59 Intake Total 3300 2950 Output Total 2700 2975 Balance 600 -25 Result Diagrams: 01/23/20 04:23 01/23/20 04:23 Additional Labs: Labs and MARs reviewed by ks Hospitalist ROS - Review of Systems Respiratory: denies: cough, dry, shortness of breath, hemoptysis, SOB with excertion, pleuritic pain, sputum, wheezing Cardiovascular: denies: chest pain, palpitations, orthopnea, paroxysmal noc. dyspnea, edema, light headedness - Medication Medications: Active Medications Generic Name Dose Route Start Last Admin Trade Name Freq PRN Reason Stop Dose Admin Apixaban 2.5 mg 01/18/20 21:00 01/23/20 10:10 Eliquis PO 2.5 mg BID RY Administration Diphenhydramine HCl 25 mg 01/21/20 18:29 01/23/20 03:12 Benadryl PO 25 mg Q6H PRN Administration Itching Famotidine 20 mg 01/04/20 21:00 01/23/20 10:10 Pepcid PO 20 mg BID RY Administration Gabapentin 600 mg 01/13/20 09:00 01/23/20 10:09 Neurontin PO 600 mg DAILY RY Administration Fentanyl Citrate 2,000 mcg/ 100 mls @ 0 mls/hr 01/14/20 14:32 01/23/20 04:24 Sodium Chloride IV 100 mls INF PRN Administration Pain As Directed Vancomycin HCl 1.5 gm/ Device 300 mls @ 200 mls/hr 01/17/20 06:00 04/04/20 05 :22 IVPB 300 mls 0600 RY Administration Sodium Chloride 1,000 mls @ 50 mls/hr 01/18/20 10:06 01/23/20 11:55 Normal Saline 0.9% IV 1,000 mls .Q20H RY Administration Ceftriaxone Sodium 2 gm/ 100 mls @ 200 mls/hr 01/19/20 16:00 01/22/20 14:59 Sodium Chloride IVPB 100 mls 1600 RY Administration Megestrol Acetate 40 mg 01/14/20 09:00 01/23/20 10:09 Megace PO 40 mg DAILY RY Administration Metronidazole 500 mg 01/19/20 15:00 01/23/20 10:10 Flagyl PO 500 mg TID RY Administration Ondansetron HCl 4 mg 01/04/20 17:48 01/17/20 23:53 Zofran Odt PO 4 mg Q6H PRN Administration Nausea/Vomiting Saccharomyces Boulardii 250 mg 01/05/20 09:00 01/23/20 10:10 Florastor PO 250 mg DAILY RY Administration Sodium Chloride 10 ml 01/13/20 21:00 01/23/20 10:36 Flush - Normal Saline IVF Not Given Q12HR RY - Exam General Appearance: awake alert ENT: moist mucosa Neck: supple Heart: RRR Respiratory: CTAB, no rales Gastrointestinal: soft, non-tender Skin - other findings: wounds as documented Psychiatric: normal affect, normal behavior Hosp A/P - Plan Hosp A/P - Assessment (1) Sacral osteomyelitis Code(s): M46.28 - OSTEOMYELITIS OF VERTEBRA, SACRAL AND SACROCOCCYGEAL REGION Status: Acute (2) Bacteremia Code(s): M46.28 - OSTEOMYELITIS OF VERTEBRA, SACRAL AND SACROCOCCYGEAL REGION Status: Acute (2) Chronic ulcer of sacral region Code(s): L98.429 - NON-PRESSURE CHRONIC ULCER OF BACK WITH UNSPECIFIED SEVERITY Status: Chronic (4) Paraplegia Code(s): G82.20 - PARAPLEGIA, UNSPECIFIED Status: Chronic (5) Sepsis Code(s): A41.9 - SEPSIS, UNSPECIFIED ORGANISM Status: Resolved - Plan Continue IV ceftriaxone and vancomycin. Discharge planning in progress.
[2020-01-23] MEDS: cefTRIAXone\\ROCEPHIN 2 GM in Sodium Chloride 0.9% 100 ML IVPB SCH (16:58)
[2020-01-24 04:22] LABS: Vancomycin, Trough 16.2 ug/mL
[2020-01-24] MEDS: Vancomycin 1.5 GRAM/300 ML BAG 1.5 GM in Premix Bag 1 BAG IVPB SCH (05:24)
[2020-01-24] MEDS: fentaNYL Citrate/PF 2,000 MCG in Sodium Chloride 0.9% 60 ML IV PRN (06:25)
[2020-01-24] MEDS: metroNIDAZOLE 500 MG TAB PO SCH ×3 (09:15→20:18)
[2020-01-24] MEDS: Saccharomyces boulardii 250 MG CAP PO SCH (09:15)
[2020-01-24] MEDS: Sodium Chloride 0.9% 1,000 ML IV SCH (09:15)
[2020-01-24] MEDS: Apixaban 2.5 MG TAB PO SCH ×2 (09:15→20:17)
[2020-01-24] MEDS: Megestrol Acetate 40 MG TAB PO SCH (09:15)
[2020-01-24] MEDS: Gabapentin 300 MG CAP PO SCH (09:15)
[2020-01-24] MEDS: Famotidine 20 MG TAB PO SCH ×2 (09:15→20:18)
[2020-01-24] MEDS: cefTRIAXone\\ROCEPHIN 2 GM in Sodium Chloride 0.9% 100 ML IVPB SCH (15:58)
[2020-01-24] MEDS: Ondansetron PF 4 MG/2 ML Vial IVP PRN ×2 (16:04→23:40)
[2020-01-24] MEDS: diphenhydrAMINE 25 MG CAP PO PRN (18:33)
[2020-01-24] MEDS: Ondansetron ODT 4 MG TAB PO PRN (20:17)
--- NOTE | 2020-01-24 21:16 | PDOC.HOSPP ---
- Subjective Encounter Date: 01/24/20 Encounter Time: 18:20 Subjective: Pt seen for followup re: sacral osteomyelitis. No complaints today. - Objective Vital Signs & Weight: Vital Signs (12 hours) Temp Pulse Resp BP Pulse Ox 01/24/20 19:21 97.7 F 88 16 105/66 100 01/24/20 15:23 98.2 F 80 16 105/61 100 01/24/20 11:20 97.6 F 84 16 105/65 100 Weight Admit Weight 164 lb 10.96 oz Weight 164 lb 10.965 oz Most Recent Monitor Data Heart Rate from ECG 76 NIBP 104/51 NIBP BP-Mean 68 Respiration from ECG 22 SpO2 59 I&O: 01/23/20 01/24/20 01/25/20 06:59 06:59 06:59 Intake Total 2950 3000 2400 Output Total 2975 3050 1900 Balance -25 -50 500 Result Diagrams: 01/23/20 04:23 01/23/20 04:23 Additional Labs: Labs and MARs reviewed by ar Hospitalist ROS - Review of Systems Cardiovascular: reports: other. denies: chest pain, palpitations, orthopnea, paroxysmal noc. dyspnea, edema, light headedness Genitourinary: denies: dysuria, frequency, incontinence, hematuria, retention - Medication Medications: Active Medications Generic Name Dose Route Start Last Admin Trade Name Freq PRN Reason Stop Dose Admin Apixaban 2.5 mg 01/18/20 21:00 01/24/20 20:17 Eliquis PO 2.5 mg BID RY Administration Diphenhydramine HCl 25 mg 01/21/20 18:29 01/24/20 18:33 Benadryl PO 25 mg Q6H PRN Administration Itching Famotidine 20 mg 01/04/20 21:00 01/24/20 20:18 Pepcid PO 20 mg BID RY Administration Gabapentin 600 mg 01/13/20 09:00 01/24/20 09:15 Neurontin PO 600 mg DAILY RY Administration Vancomycin HCl 1.5 gm/ Device 300 mls @ 200 mls/hr 01/17/20 06:00 01/24/20 05 :24 IVPB 300 mls 0600 RY Administration Sodium Chloride 1,000 mls @ 50 mls/hr 01/18/20 10:06 04/05/20 09:15 Normal Saline 0.9% IV 1,000 mls .Q20H RY Administration Ceftriaxone Sodium 2 gm/ 100 mls @ 200 mls/hr 01/19/20 16:00 01/24/20 15:58 Sodium Chloride IVPB 100 mls 1600 RY Administration Megestrol Acetate 40 mg 01/14/20 09:00 01/24/20 09:15 Megace PO 40 mg DAILY RY Administration Metronidazole 500 mg 01/19/20 15:00 01/24/20 20:18 Flagyl PO 500 mg TID RY Administration Ondansetron HCl 4 mg 01/04/20 17:48 01/24/20 20:17 Zofran Odt PO 4 mg Q6H PRN Administration Nausea/Vomiting Ondansetron HCl 4 mg 01/04/20 17:48 01/24/20 16:04 Zofran IVP 4 mg Q6H PRN Administration Nausea/Vomiting Saccharomyces Boulardii 250 mg 01/05/20 09:00 01/24/20 09:15 Florastor PO 250 mg DAILY RY Administration Sodium Chloride 10 ml 01/13/20 21:00 01/24/20 09:25 Flush - Normal Saline IVF Not Given Q12HR RY - Exam General Appearance: awake alert Eye: anicteric sclera ENT: no oropharyngeal lesions Neck: supple Heart: RRR Respiratory: CTAB Gastrointestinal: soft, normal bowel sounds Extremities: no cyanosis Skin - other findings: wounds as documented Neurological - other findings: paraplegia Psychiatric: normal affect, normal behavior Hosp A/P - Plan Hosp A/P - Assessment (1) Sacral osteomyelitis Code(s): M46.28 - OSTEOMYELITIS OF VERTEBRA, SACRAL AND SACROCOCCYGEAL REGION Status: Acute (2) Bacteremia Code(s): M46.28 - OSTEOMYELITIS OF VERTEBRA, SACRAL AND SACROCOCCYGEAL REGION Status: Acute (2) Chronic ulcer of sacral region Code(s): L98.429 - NON-PRESSURE CHRONIC ULCER OF BACK WITH UNSPECIFIED SEVERITY Status: Chronic (4) Paraplegia Code(s): G82.20 - PARAPLEGIA, UNSPECIFIED Status: Chronic (5) Sepsis Code(s): A41.9 - SEPSIS, UNSPECIFIED ORGANISM Status: Resolved - Plan Continue IV ceftriaxone and vancomycin. Discharge planning in progress. Pt ran out of medicare days and refuses fci.
[2020-01-25] MEDS: Ondansetron ODT 4 MG TAB PO PRN (04:02)
[2020-01-25] MEDS: Sodium Chloride 0.9% 1,000 ML IV SCH (05:51)
[2020-01-25] MEDS: Vancomycin 1.5 GRAM/300 ML BAG 1.5 GM in Premix Bag 1 BAG IVPB SCH (05:51)
[2020-01-25] MEDS: Ondansetron PF 4 MG/2 ML Vial IVP PRN ×2 (06:10→20:28)
[2020-01-25] MEDS ORDERED: Promethazine HCl 25 MG/ML VIAL SLOW IVP PRN (08:59)
[2020-01-25] MEDS: Promethazine HCl 12.5 MG in Sodium Chloride 0.9% 50 ML IVPB PRN ×2 (10:09→14:34)
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
[2020-01-25] MEDS: Famotidine 20 MG TAB PO SCH ×2 (12:04→20:28)
[2020-01-25] MEDS: Apixaban 2.5 MG TAB PO SCH ×2 (12:04→20:28)
[2020-01-25] MEDS: Megestrol Acetate 40 MG TAB PO SCH (12:04)
[2020-01-25] MEDS: metroNIDAZOLE 500 MG TAB PO SCH ×3 (12:04→20:28)
[2020-01-25] MEDS: Saccharomyces boulardii 250 MG CAP PO SCH (12:04)
[2020-01-25] MEDS: Gabapentin 300 MG CAP PO SCH (12:04)
[2020-01-25] MEDS: fentaNYL Citrate/PF 2,000 MCG in Sodium Chloride 0.9% 60 ML IV PRN (12:47)
[2020-01-25 14:48] LABS: #Eosinphils 0.2 thou/uL (0.0-0.7); #Lymphocytes 2.4 thou/uL (1.20-3.40); #Monocytes 0.8 thou/uL (0.11-0.59); %Basophils 0.2 % (0.0-1.0); %Eosinophils 1.7 % (0.0-10.0); %Lymphocytes 23.1 % (21.0-51.0); %Monocytes 7.8 % (0.0-10.0); %Neutrophils 67.2 % (42.0-75.0); Hemoglobin 8.5 g/dL (14.0-18.0); Mean Corpuscular HGB CONC 31.9 g/dL (32.0-36.0); Mean Corpuscular Hemoglobin 29.7 pg (27.0-31.0); Mean Corpuscular Volume 93.3 fL (78.0-98.0); Mean Platelet Volume 6.8 fL (7.4-10.4); Platelet Count 405 thou/uL (130-400); RBC Distribution Width 16.8 % (11.5-14.5); Red Blood Cell (RBC) Count 2.86 mill/uL (4.70-6.10); White Blood Cell (WBC) Count 10.5 thou/uL (4.8-10.8)
[2020-01-25 15:06] LABS: ALT (SGPT) Less than 7 U/L (8-55); AST (SGOT) 8 U/L (5-34); Albumin 2.2 g/dL (3.4-4.8); Alkaline Phosphatase 109 U/L (40-110); Anion Gap 14 mmol/L (10-20); BUN (Urea Nitrogen) 10 mg/dL (8.4-25.7); Bilirubin, Total 0.3 mg/dL (0.2-1.2); Calc. Creatinine Clearance 131 mL/min (70-130); Calcium 7.4 mg/dL (7.8-10.44); Carbon Dioxide 13 mmol/L (23-31); Chloride 112 mmol/L (98-107); Estimated GFR-MDRD Greater than 90; Glucose 76 mg/dL (80-115); Protein, Total 7.2 g/dL (5.8-8.1); Sodium 134 mmol/L (136-145)
[2020-01-25] MEDS: cefTRIAXone\\ROCEPHIN 2 GM in Sodium Chloride 0.9% 100 ML IVPB SCH (16:23)
[2020-01-26] MEDS: Promethazine HCl 12.5 MG in Sodium Chloride 0.9% 50 ML IVPB PRN (00:15)
[2020-01-26] MEDS: Ondansetron PF 4 MG/2 ML Vial IVP PRN ×4 (03:44→20:19)
[2020-01-26] MEDS: Vancomycin 1.5 GRAM/300 ML BAG 1.5 GM in Premix Bag 1 BAG IVPB SCH (06:14)
[2020-01-26] MEDS: Sodium Chloride 0.9% 1,000 ML IV SCH ×2 (06:14→19:25)
[2020-01-26] MEDS: Megestrol Acetate 40 MG TAB PO SCH (09:06)
[2020-01-26] MEDS: Saccharomyces boulardii 250 MG CAP PO SCH (09:06)
[2020-01-26] MEDS: Famotidine 20 MG TAB PO SCH ×2 (09:06→19:17)
[2020-01-26] MEDS: metroNIDAZOLE 500 MG TAB PO SCH (09:06)
[2020-01-26] MEDS: Apixaban 2.5 MG TAB PO SCH ×2 (09:07→20:19)
[2020-01-26] MEDS: Gabapentin 300 MG CAP PO SCH (09:07)
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
[2020-01-26] MEDS: fentaNYL Citrate/PF 2,000 MCG in Sodium Chloride 0.9% 60 ML IV PRN (18:14)
[2020-01-26] MEDS: Clindamycin 150 MG CAP PO SCH (18:15)
[2020-01-26] MEDS: Sulfameth/Trimethoprim DS 800-160mg TAB PO SCH (20:19)
[2020-01-27] MEDS: Clindamycin 150 MG CAP PO SCH ×5 (00:02→23:13)
[2020-01-27] MEDS: Ondansetron PF 4 MG/2 ML Vial IVP PRN (02:00)
[2020-01-27] MEDS: Sodium Chloride 0.9% 1,000 ML IV SCH ×2 (02:20→23:14)
[2020-01-27] MEDS: Calcium Carbonate 500 MG ChewTAB PO PRN (07:13)
[2020-01-27] MEDS: Ondansetron ODT 4 MG TAB PO PRN (08:15)
[2020-01-27] MEDS: Famotidine 20 MG TAB PO SCH ×2 (08:15→21:16)
[2020-01-27] MEDS: Mag-Al 1200 mg/1200 mg/30 ML UDCUP PO PRN (08:53)
[2020-01-27] MEDS: Gabapentin 300 MG CAP PO SCH (08:53)
[2020-01-27] MEDS: Saccharomyces boulardii 250 MG CAP PO SCH (08:53)
[2020-01-27] MEDS: Apixaban 2.5 MG TAB PO SCH ×2 (08:53→21:17)
[2020-01-27] MEDS: Megestrol Acetate 40 MG TAB PO SCH (08:54)
[2020-01-27] MEDS: Sulfameth/Trimethoprim DS 800-160mg TAB PO SCH ×2 (08:54→21:17)
[2020-01-27] MEDS: Promethazine HCl 12.5 MG in Sodium Chloride 0.9% 50 ML IVPB PRN ×3 (12:08→21:17)
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
[2020-01-28] MEDS: fentaNYL Citrate/PF 2,000 MCG in Sodium Chloride 0.9% 60 ML IV PRN (03:53)
[2020-01-28] MEDS: Clindamycin 150 MG CAP PO SCH ×4 (05:49→23:50)
[2020-01-28] MEDS: Promethazine HCl 12.5 MG in Sodium Chloride 0.9% 50 ML IVPB PRN ×2 (05:49→10:26)
[2020-01-28] MEDS: Megestrol Acetate 40 MG TAB PO SCH (08:59)
[2020-01-28] MEDS: Sulfameth/Trimethoprim DS 800-160mg TAB PO SCH ×2 (08:59→20:46)
[2020-01-28] MEDS: Famotidine 20 MG TAB PO SCH ×2 (08:59→20:46)
[2020-01-28] MEDS: Saccharomyces boulardii 250 MG CAP PO SCH (09:00)
[2020-01-28] MEDS: Gabapentin 300 MG CAP PO SCH (09:00)
[2020-01-28] MEDS: Apixaban 2.5 MG TAB PO SCH ×2 (09:00→20:46)
[2020-01-28] MEDS: Ondansetron PF 4 MG/2 ML Vial IVP PRN (13:28)
[2020-01-28] MEDS: Mag-Al 1200 mg/1200 mg/30 ML UDCUP PO PRN (18:45)
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
[2020-01-28] MEDS: Ondansetron ODT 4 MG TAB PO PRN (20:46)
[2020-01-29] MEDS: Mag-Al 1200 mg/1200 mg/30 ML UDCUP PO PRN ×4 (01:42→23:54)
[2020-01-29] MEDS: Ondansetron ODT 4 MG TAB PO PRN ×3 (04:22→17:36)
[2020-01-29] MEDS: Clindamycin 150 MG CAP PO SCH ×4 (05:17→23:53)
[2020-01-29] MEDS: Sodium Chloride 0.9% 1,000 ML IV SCH (05:17)
[2020-01-29] MEDS: Gabapentin 300 MG CAP PO SCH (09:01)
[2020-01-29] MEDS: Megestrol Acetate 40 MG TAB PO SCH (09:01)
[2020-01-29] MEDS: Saccharomyces boulardii 250 MG CAP PO SCH (09:01)
[2020-01-29] MEDS: Sulfameth/Trimethoprim DS 800-160mg TAB PO SCH ×2 (09:01→21:10)
[2020-01-29] MEDS: Apixaban 2.5 MG TAB PO SCH ×2 (09:02→21:10)
[2020-01-29] MEDS: Famotidine 20 MG TAB PO SCH ×2 (09:02→21:10)
[2020-01-29] MEDS: fentaNYL Citrate/PF 2,000 MCG in Sodium Chloride 0.9% 60 ML IV PRN (09:11)
[2020-01-29] MEDS: Promethazine HCl 12.5 MG in Sodium Chloride 0.9% 50 ML IVPB PRN (09:30)
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
[2020-01-29] MEDS: Calcium Carbonate 500 MG ChewTAB PO PRN (15:16)
[2020-01-29] MEDS: Ondansetron PF 4 MG/2 ML Vial IVP PRN (20:20)
[2020-01-29] MEDS: diphenhydrAMINE 25 MG CAP PO PRN (21:10)
[2020-01-30] MEDS: Sodium Chloride 0.9% 1,000 ML IV SCH (04:45)
[2020-01-30] MEDS: Ondansetron PF 4 MG/2 ML Vial IVP PRN ×2 (04:51→13:14)
[2020-01-30] MEDS: Clindamycin 150 MG CAP PO SCH ×4 (05:01→23:04)
[2020-01-30] MEDS: Famotidine 20 MG TAB PO SCH ×2 (09:59→20:26)
[2020-01-30] MEDS: Megestrol Acetate 40 MG TAB PO SCH (09:59)
[2020-01-30] MEDS: Apixaban 2.5 MG TAB PO SCH ×2 (09:59→20:26)
[2020-01-30] MEDS: Sulfameth/Trimethoprim DS 800-160mg TAB PO SCH ×2 (09:59→20:26)
[2020-01-30] MEDS: Gabapentin 300 MG CAP PO SCH (09:59)
[2020-01-30] MEDS: Saccharomyces boulardii 250 MG CAP PO SCH (09:59)
[2020-01-30] MEDS: Mag-Al 1200 mg/1200 mg/30 ML UDCUP PO PRN ×3 (10:04→23:03)
[2020-01-30] MEDS: Promethazine HCl 12.5 MG in Sodium Chloride 0.9% 50 ML IVPB PRN ×2 (10:26→19:49)
[2020-01-30] MEDS: Calcium Carbonate 500 MG ChewTAB PO PRN ×2 (13:59→18:40)
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
[2020-01-30] MEDS: fentaNYL Citrate/PF 2,000 MCG in Sodium Chloride 0.9% 60 ML IV PRN (15:28)
--- NOTE | 2020-01-30 15:55 | RAD ---
KUB: 01/30/20 HISTORY: Liquid stool from stoma, nausea. FINDINGS: There is an ostomy in the mid right abdomen. There is prominent degenerative change of the lower lumb ar spine and involving bilateral hips. There is extensive postoperative hardware at the thoracolumbar junction. There is mild gaseous distention of the stomach. A paucity of bowel gas is noted, limiting detailed assessment. There is a suggestion of abnormal sclerosis involving the ischium bilaterally, nonspecific. This could be on the basis of metastatic disease or osteitis in the proper clinical sett ing. IMPRESSION: Limited assessment of the bowel gas pattern secondary to paucity of bowel gas noted. Mild gaseous dis tention of the stomach. POS: [facility]
[2020-01-31] MEDS: Ondansetron PF 4 MG/2 ML Vial IVP PRN ×3 (03:10→18:02)
[2020-01-31] MEDS: Sodium Chloride 0.9% 1,000 ML IV SCH ×2 (03:10→18:19)
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
[2020-01-31] MEDS: Clindamycin 150 MG CAP PO SCH ×4 (05:07→23:28)
[2020-01-31] MEDS: Mag-Al 1200 mg/1200 mg/30 ML UDCUP PO PRN ×3 (06:42→23:34)
[2020-01-31] MEDS: Famotidine 20 MG TAB PO SCH ×2 (08:53→20:40)
[2020-01-31] MEDS: Gabapentin 300 MG CAP PO SCH (08:53)
[2020-01-31] MEDS: Saccharomyces boulardii 250 MG CAP PO SCH (08:53)
[2020-01-31] MEDS: Apixaban 2.5 MG TAB PO SCH ×2 (08:53→20:40)
[2020-01-31] MEDS: Megestrol Acetate 40 MG TAB PO SCH (08:53)
[2020-01-31] MEDS: Sulfameth/Trimethoprim DS 800-160mg TAB PO SCH ×2 (08:53→20:40)
[2020-01-31] MEDS: Calcium Carbonate 500 MG ChewTAB PO PRN ×2 (08:59→20:43)
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
[2020-01-31] MEDS: Promethazine HCl 12.5 MG in Sodium Chloride 0.9% 50 ML IVPB PRN (16:05)
[2020-02-01] MEDS: Promethazine HCl 12.5 MG in Sodium Chloride 0.9% 50 ML IVPB PRN (03:50)
[2020-02-01] MEDS: Clindamycin 150 MG CAP PO SCH ×4 (05:28→23:20)
[2020-02-01] MEDS: fentaNYL Citrate/PF 2,000 MCG in Sodium Chloride 0.9% 60 ML IV PRN (05:28)
[2020-02-01] MEDS: Ondansetron PF 4 MG/2 ML Vial IVP PRN ×2 (09:00→15:45)
[2020-02-01] MEDS: Saccharomyces boulardii 250 MG CAP PO SCH (10:21)
[2020-02-01] MEDS: Famotidine 20 MG TAB PO SCH (10:21)
[2020-02-01] MEDS: Megestrol Acetate 40 MG TAB PO SCH (10:22)
[2020-02-01] MEDS: Gabapentin 300 MG CAP PO SCH (10:22)
[2020-02-01] MEDS: Apixaban 2.5 MG TAB PO SCH ×2 (10:22→20:23)
[2020-02-01] MEDS: Sulfameth/Trimethoprim DS 800-160mg TAB PO SCH ×2 (10:22→20:23)
[2020-02-01] MEDS: Mag-Al 1200 mg/1200 mg/30 ML UDCUP PO PRN (10:25)
[2020-02-01] MEDS ORDERED: HYDROcodone/Acetaminophen 7.5/325 mg Tablet PO PRN ×3 (14:26→14:47)
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
[2020-02-01] MEDS: Sodium Chloride 0.9% 1,000 ML IV SCH (15:45)
[2020-02-01] MEDS: HYDROcodone/Acetaminophen 7.5/325 mg Tablet PO PRN ×2 (15:51→20:22)
[2020-02-01] MEDS: Calcium Carbonate 500 MG ChewTAB PO PRN (17:23)
[2020-02-01] MEDS ORDERED: Polyethylene Glycol 3350 17 GM Packet PO PRN (17:25)
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
[2020-02-01] MEDS: Sucralfate 1 GM/10 ML UDCUP PO SCH (20:22)
[2020-02-01] MEDS: Ondansetron HCl/PF 8 MG in Sodium Chloride 0.9% 50 ML IVPB SCH (20:27)
[2020-02-01] MEDS ORDERED: Ondansetron PF 4 MG/2 ML Vial IVP SCH (21:00)
[2020-02-02] MEDS: HYDROcodone/Acetaminophen 7.5/325 mg Tablet PO PRN ×6 (00:26→20:37)
[2020-02-02] MEDS: Clindamycin 150 MG CAP PO SCH ×3 (04:52→17:43)
[2020-02-02 05:22] LABS: #Basophils 0.1 thou/uL (0.0-0.2); #Eosinphils 0.5 thou/uL (0.0-0.7); #Lymphocytes 3.3 thou/uL (1.20-3.40); #Monocytes 1.2 thou/uL (0.11-0.59); #Neutrophils 7.5 thou/uL (1.40-6.50); %Basophils 0.5 % (0.0-1.0); %Eosinophils 4.1 % (0.0-10.0); %Lymphocytes 26.3 % (21.0-51.0); %Monocytes 9.5 % (0.0-10.0); %Neutrophils 59.6 % (42.0-75.0); Hemoglobin 7.1 g/dL (14.0-18.0); Mean Corpuscular Volume 90.8 fL (78.0-98.0); Mean Platelet Volume 6.6 fL (7.4-10.4); Platelet Count 406 thou/uL (130-400); RBC Distribution Width 16.5 % (11.5-14.5); Red Blood Cell (RBC) Count 2.35 mill/uL (4.70-6.10); White Blood Cell (WBC) Count 12.6 thou/uL (4.8-10.8)
[2020-02-02 05:32] LABS: ALT (SGPT) 10 U/L (8-55); AST (SGOT) 16 U/L (5-34); Albumin 2.2 g/dL (3.4-4.8); Alkaline Phosphatase 104 U/L (40-110); Anion Gap 11 mmol/L (10-20); BUN (Urea Nitrogen) 14 mg/dL (8.4-25.7); Bilirubin, Total 0.2 mg/dL (0.2-1.2); Calc. Creatinine Clearance 121 mL/min (70-130); Calcium 7.8 mg/dL (7.8-10.44); Carbon Dioxide 13 mmol/L (23-31); Chloride 114 mmol/L (98-107); Estimated GFR-MDRD Greater than 90; Globulin 4.4 g/dL (2.4-3.5); Glucose 67 mg/dL (80-115); Potassium 4.4 mmol/L (3.5-5.1); Protein, Total 6.6 g/dL (5.8-8.1); Sodium 134 mmol/L (136-145)
[2020-02-02] MEDS: Sucralfate 1 GM/10 ML UDCUP PO SCH ×2 (08:52→20:38)
[2020-02-02] MEDS: Sulfameth/Trimethoprim DS 800-160mg TAB PO SCH ×2 (08:54→20:37)
[2020-02-02] MEDS: Gabapentin 300 MG CAP PO SCH (08:55)
[2020-02-02] MEDS: Saccharomyces boulardii 250 MG CAP PO SCH (08:55)
[2020-02-02] MEDS: Apixaban 2.5 MG TAB PO SCH (08:55)
[2020-02-02] MEDS: Ondansetron HCl/PF 8 MG in Sodium Chloride 0.9% 50 ML IVPB SCH ×3 (09:03→20:36)
[2020-02-02] MEDS: Sodium Chloride 0.9% 1,000 ML IV SCH (09:03)
[2020-02-02 12:43] VITALS: BMI 24.4
[2020-02-02] MEDS ORDERED: oxyCODONE 5 MG TAB PO PRN (14:53)
--- NOTE | 2020-02-02 15:32 | PRG ---
DATE OF SERVICE: 02/02/2020 SUBJECTIVE: Mr. Vivar has started on PPIs yesterday. Still having odynophagia with swallowing. Those medicines started just last evening. OBJECTIVE: VITAL SIGNS: Temperature 97.1, pulse 99, respirations 18, blood pressure 106/70. ABDOMEN: Soft, nontender. LABORATORY DATA: White count 12.6, hemoglobin 7.1, platelet count 406. Sodium 143, potassium 4, chloride 113, BUN and creatinine are 14 and 0.7. Liver function tests are normal. Albumin is 2.2, prealbumin is 12. ASSESSMENT: 1. Severe decubitus ulcers. 2. Bacteremia with methicillin-resistant Staphylococcus aureus and Proteus species on 01/04/2020. 3. Severe odynophagia about 2 weeks. There is no evidence of thrush on physical exam. He has been started on a PPI yesterday for the first time. 4. Paraplegia. 5. Sacral osteomyelitis. PLAN: With persistent symptoms, we will schedule for EGD tomorrow to evaluate for Cheyenne esophagitis or reflux esophagitis. We will hold Eliquis for now. We will change his Protonix to IV. Job ID: [id number]
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
[2020-02-02] MEDS: Pantoprazole 40 MG VIAL IVP SCH (20:37)
[2020-02-03] MEDS: Clindamycin 150 MG CAP PO SCH ×5 (00:27→23:57)
[2020-02-03] MEDS: HYDROcodone/Acetaminophen 7.5/325 mg Tablet PO PRN ×3 (00:27→11:41)
[2020-02-03] MEDS: Sodium Chloride 0.9% 1,000 ML IV SCH (05:46)
[2020-02-03] MEDS ORDERED: SUGAMMADEX SODIUM 500 MG/5 ML VIAL ONE (09:02)
[2020-02-03] MEDS ORDERED: Fentanyl 100 MCG/2 ML VIAL ONE ×2 (09:40→09:52)
[2020-02-03] MEDS ORDERED: Pancrelipase DR 12000 1 CAP PER TUBE PRN (11:01)
[2020-02-03] MEDS ORDERED: Sodium Bicarbonate Tab 325 MG TAB PER TUBE PRN (11:02)
[2020-02-03] MEDS: Sucralfate 1 GM/10 ML UDCUP PO SCH (11:39)
[2020-02-03] MEDS: Saccharomyces boulardii 250 MG CAP PO SCH (11:39)
[2020-02-03] MEDS: Gabapentin 300 MG CAP PO SCH (11:39)
[2020-02-03] MEDS: Ondansetron HCl/PF 8 MG in Sodium Chloride 0.9% 50 ML IVPB SCH ×2 (11:40→20:21)
[2020-02-03] MEDS: Pantoprazole 40 MG VIAL IVP SCH ×2 (11:55→20:22)
[2020-02-03] MEDS: Sulfameth/Trimethoprim DS 800-160mg TAB PO SCH ×2 (11:56→20:24)
[2020-02-03] MEDS ORDERED: Rocuronium Bromide 10 MG/ML (10ML VIAL) ONE (12:27)
[2020-02-03] MEDS ORDERED: Lidocaine 1% PF 5 ML VIAL ONE (12:27)
[2020-02-03] MEDS ORDERED: PHENYLEPHRINE-NS 100 MCG/ML 10 ML SYRINGE ONE (12:27)
[2020-02-03] MEDS ORDERED: PROPOFOL 200 MG/20 ML VIAL ONE (12:27)
--- NOTE | 2020-02-03 12:44 | OP ---
DATE OF PROCEDURE: 02/03/2020 PROCEDURES PERFORMED: Esophagogastroduodenoscopy with biopsy and Dobhoff tube placement. PREMEDICATIONS: Given by Anesthesiology Department. PREPROCEDURE DIAGNOSES: 1. Odynophagia. 2. Reflux. 3. Recurrent nausea. 4. Anorexia with evidence of malnutrition. POSTPROCEDURE DIAGNOSES: 1. Scattered white punctate lesions in mid esophagus from 35 to 38 cm, suspicious for [place] esophagitis. 2. Localized erosions at 35 cm biopsied to exclude viral ulcerations versus pill esophagitis. 3. Z-line at 43 cm, regular with normal lower esophageal mucosa. 4. Normal stomach and duodenum. 5. Status post Dobhoff tube placement into duodenum. DESCRIPTION OF PROCEDURE: Written consents were obtained prior to procedure. After adequate sedation, the forward-viewing endoscope was advanced down the hypopharynx under direct vision to the third portion of duodenum. The duodenum appeared normal. The bulb appeared normal. Pylorus was patent. The gastric antrum, body, fundus, and cardia all appeared normal. Retroflexion did not show any abnormality. Specifically, there was no hiatal hernia. The Z-line was regular and was located at 43 cm from the incisors. The lower esophageal mucosa appeared normal. In the mid esophagus at approximately 35 to 38 cm, punctated white adherent lesions were seen in esophagus. An area of localized coalescing erosions was noted. Biopsies were obtained in this area. The upper esophagus appeared normal. A Dobhoff with a suture at the end was tunneled down the nostril. The Dobhoff tube was dragged down endoscopically through the stomach into the pylorus and placed into the duodenum. The endoscope was removed without withdrawing the Dobhoff tube. The patient tolerated the procedure well without any complication. ASSESSMENT: 1. Focal erosions in mid to lower esophagus with areas of punctated white lesions, biopsy obtained, and sent for evaluation for Chey[place] and viral study. 2. Suspect Cheyenne esophagitis, rule out viral esophagitis and pill esophagitis. 3. Normal esophagus with regular Z-line and no hiatal hernia. 4. Normal stomach and duodenum. 5. Status post Dobhoff tube placement for short-term nutritional support. PLAN: 1. Await biopsy results. 2. We will start empirically on fluconazole p.o. 3. Start Dobhoff tube feeding. Job ID: [id number]
[2020-02-03] MEDS ORDERED: HYDROcodone/Acetaminophen 10/325 mg Tablet PO PRN (13:24)
[2020-02-03 13:48] LABS: HIV (1/2) Antibody/Antigen Non-Reactive (NonReactive); HIV 1/2 INDEX 0.16 S/CO (<1.00)
[2020-02-03] MEDS: HYDROcodone/Acetaminophen 10/325 mg Tablet PO PRN ×2 (15:46→20:23)
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
[2020-02-03] MEDS: Apixaban 2.5 MG TAB PO SCH (20:30)
[2020-02-04] MEDS: HYDROcodone/Acetaminophen 10/325 mg Tablet PO PRN ×6 (00:28→21:34)
[2020-02-04] MEDS: Calcium Carbonate 500 MG ChewTAB PO PRN ×3 (00:57→21:35)
[2020-02-04] MEDS: Sodium Chloride 0.9% 1,000 ML IV SCH ×2 (03:48→08:42)
[2020-02-04] MEDS: Ondansetron HCl/PF 8 MG in Sodium Chloride 0.9% 50 ML IVPB SCH ×3 (03:49→20:10)
[2020-02-04 04:18] LABS: Hemoglobin 7.1 g/dL (14.0-18.0); Mean Corpuscular HGB CONC 32.2 g/dL (32.0-36.0); Mean Corpuscular Hemoglobin 30.2 pg (27.0-31.0); Mean Corpuscular Volume 93.8 fL (78.0-98.0); Mean Platelet Volume 6.6 fL (7.4-10.4); Platelet Count 449 thou/uL (130-400); RBC Distribution Width 16.5 % (11.5-14.5); Red Blood Cell (RBC) Count 2.36 mill/uL (4.70-6.10); White Blood Cell (WBC) Count 13.1 thou/uL (4.8-10.8)
[2020-02-04 04:40] LABS: ALT (SGPT) Less than 7 U/L (8-55); AST (SGOT) 9 U/L (5-34); Albumin 2.1 g/dL (3.4-4.8); Alkaline Phosphatase 116 U/L (40-110); Anion Gap 9 mmol/L (10-20); BUN (Urea Nitrogen) 20 mg/dL (8.4-25.7); Bilirubin, Total Less than 0.2 mg/dL (0.2-1.2); Calc. Creatinine Clearance 120 mL/min (70-130); Calcium 8.2 mg/dL (7.8-10.44); Carbon Dioxide 16 mmol/L (23-31); Chloride 115 mmol/L (98-107); Estimated GFR-MDRD Greater than 90; Globulin 4.6 g/dL (2.4-3.5); Glucose 124 mg/dL (80-115); Iron 19 ug/dL (65-175); Iron Binding Capacity, Total 111 mcg/dL (261-462); Potassium 4.6 mmol/L (3.5-5.1); Protein, Total 6.7 g/dL (5.8-8.1); Sodium 135 mmol/L (136-145)
[2020-02-04] MEDS: Clindamycin 150 MG CAP PO SCH ×4 (06:24→23:55)
[2020-02-04] MEDS: Saccharomyces boulardii 250 MG CAP PO SCH (08:38)
[2020-02-04] MEDS: Gabapentin 300 MG CAP PO SCH (08:38)
[2020-02-04] MEDS: Pantoprazole 40 MG VIAL IVP SCH ×2 (08:38→20:11)
[2020-02-04] MEDS: Apixaban 2.5 MG TAB PO SCH ×2 (08:38→20:11)
[2020-02-04] MEDS: Sulfameth/Trimethoprim DS 800-160mg TAB PO SCH ×2 (08:38→20:11)
[2020-02-04] MEDS: Fluconazole 100 MG TAB PO SCH (08:38)
--- NOTE | 2020-02-04 11:10 | PDOC.HOSPP ---
- Subjective Encounter Date: 02/04/20 Encounter Time: 10:45 Subjective: The patietn is currently on tube feeds. Reports improvement in his pain. Looks better overall. He reports severe pain while doing wound changes, requesting he get his hydrocodone 30 minutes prior to wound change - Objective Vital Signs & Weight: Vital Signs (12 hours) Temp Pulse Resp BP Pulse Ox 02/04/20 07:51 97.7 F 85 16 106/66 100 02/04/20 03:20 97.7 F 90 16 106/66 99 02/03/20 23:24 98.0 F 94 16 99/62 100 Weight Admit Weight 164 lb 10.96 oz Weight 165 lb 9.6 oz Most Recent Monitor Data Heart Rate from ECG 76 NIBP 104/51 NIBP BP-Mean 68 Respiration from ECG 22 SpO2 59 I&O: 02/03/20 02/04/20 02/05/20 06:59 06:59 06:59 Intake Total 2840 1290 Output Total 2530 1700 Balance 310 -410 Result Diagrams: 02/04/20 03:55 02/04/20 03:55 Hospitalist ROS - Review of Systems Constitutional: denies: fever, chills - Medication Medications: Active Medications Generic Name Dose Route Start Last Admin Trade Name Freq PRN Reason Stop Dose Admin Hydrocodone Bitart/Acetaminophen 2 tab 02/03/20 16:00 02/04/20 08:38 [place] 10/325 PO 2 tab Q4H PRN Administration Severe Pain (7-10) Apixaban 2.5 mg 01/18/20 21:00 02/04/20 08:38 Eliquis PO 2.5 mg BID RY Administration Calcium Carbonate 1,000 mg 01/27/20 06:39 02/04/20 00:57 Tums PO 1,000 mg PRN PRN Administration Indigestion Clindamycin HCl 300 mg 01/26/20 18:00 02/04/20 06:24 Cleocin PO 300 mg Q6HR RY Administration Diphenhydramine HCl 25 mg 01/21/20 18:29 01/29/20 21:10 Benadryl PO 25 mg Q6H PRN Administration Itching Fluconazole 100 mg 02/04/20 09:00 02/04/20 08:38 Diflucan PO 100 mg DAILY RY Administration Gabapentin 600 mg 01/13/20 09:00 02/04/20 08:38 Neurontin PO 600 mg DAILY RY Administration Sodium Chloride 1,000 mls @ 50 mls/hr 01/18/20 10:06 02/04/20 08:42 Normal Saline 0.9% IV 1,000 mls .Q20H RY Administration Promethazine HCl 12.5 mg/ 50.5 mls @ 202 mls/hr 01/25/20 10:06 02/01/20 03:50 Sodium Chloride IVPB 50.5 mls Q4H PRN Administration Nausea Ondansetron HCl 8 mg/ Sodium 54 mls @ 216 mls/hr 02/03/20 20:00 02/04/20 03: 49 Chloride IVPB 54 mls 0400,1200,2000 RY Administration Pantoprazole Sodium 40 mg 02/02/20 21:00 02/04/20 08:38 Protonix IVP 40 mg Q12HR RY Administration Saccharomyces Boulardii 250 mg 01/05/20 09:00 02/04/20 08:38 Florastor PO 250 mg DAILY RY Administration Sodium Chloride 10 ml 01/13/20 21:00 02/04/20 08:39 Flush - Normal Saline IVF 10 ml Q12HR RY Administration Trimethoprim/Sulfamethoxazole 1 tab 01/26/20 21:00 02/04/20 08:38 Bactrim Ds PO 1 tab BID RY Administration - Exam General Appearance: NAD, awake alert Eye: PERRL, anicteric sclera ENT: normocephalic atraumatic, no oropharyngeal lesions Neck: supple, no JVD Heart: RRR, no murmur, no gallops, no rubs Respiratory: CTAB, no wheezes, no rales, no ronchi Gastrointestinal: soft, non-tender, non-distended Gastrointestinal - other findings: colostomy in RLQ Extremities: no cyanosis, no clubbing, no edema Skin: normal turgor, no lesions, no rashes Hosp A/P - Plan Upper endoscopy: 1. Cheyenne esophagitis 2. Localized erosions at 35 cm biopsied to exclude viral ulcerations versus pill esophagitis. 3. Nomral stomach and duodenum This is a 64 year old with sacral osteomyelitis Sacral osteomyelitis - was on vanc, rocephin and flagyl and now on bactrim and clindamycin. - continue Cleocin 300 mg 4x day + Bactrim DS bid for 6 weeks with weekly cbc, crp,cmp per ID - WBC trending up, will repeat CT pelvis to evaluate for worsening Erosive esophagitis - upper endoscopy showed white flecks, started fluconazole empirically. Biopsy negative for Cheyenne though, so may be able to d/c - continue IV protonix Anemia - Hb 7.1. Iron panel shows anemia of chronic disease - will check B12/folate in am Leukocytosis - WBC up to 16, will repeat CT pelvis Severe malnutrition s/p colostomy - continue ensure. Dobhoff tube placed, feeding tube to start tonight Constipation - continue miralax prn. 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 Will continue to have some leakage Disposition: re-evaluate post tube feeding Code status: full code
[2020-02-04] MEDS: Morphine 2 MG/ML SYRINGE SLOW IVP PRN (11:50)
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
[2020-02-04] MEDS ORDERED: Iopamidol-370 76% 500 ML 1 ML ONE (14:14)
--- NOTE | 2020-02-04 14:35 | CT ---
CT PELVIS WITH IV CONTRAST: DATE: 02/04/2020. PROVIDED CLINICAL HISTORY: Sacral decubitus ulcers. FINDINGS: Comparison is made with a study dated 01/06/2020. Extensive cutaneous deficiency and sclerotic reactive changes involving the subjacent ischia and post erior sacrum and iliac bones redemonstrated compatible with the provided clinical history of decubitu s ulcers. There is persistent right hip joint effusion with associated synovial enhancement. There are foci of new cortical osteolysis involving the superior aspects of the right acetabulum as well as the lateral margin of the femoral neck posteriorly. The visualized intrapelvic contents appear unremarkable. Suprapubic and Campbell catheters are noted wi thin the urinary bladder. Nonspecific bladder wall thickening. The bladder is decompressed, which m ay accentuate the wall thickness. IMPRESSION: 1. Right hip joint effusion and foci of cortical osteolysis involving the right hip, compatible with septic arthritis and osteolytic. 2. Extensive sacral and ischial decubitus ulcers without additional significant change apparent by C T with respect to the prior examination. 3. Apparent bladder wall thickening, which could be on the basis of nondistention. Correlate with c roxannerns for cystitis. POS: LUCAS
[2020-02-05] MEDS: Promethazine HCl 12.5 MG in Sodium Chloride 0.9% 50 ML IVPB PRN (01:19)
[2020-02-05] MEDS: HYDROcodone/Acetaminophen 10/325 mg Tablet PO PRN ×6 (01:24→21:26)
[2020-02-05] MEDS: Ondansetron HCl/PF 8 MG in Sodium Chloride 0.9% 50 ML IVPB SCH ×3 (04:01→20:15)
[2020-02-05 04:23] LABS: Hemoglobin 6.9 g/dL (14.0-18.0); Mean Corpuscular HGB CONC 32.4 g/dL (32.0-36.0); Mean Corpuscular Hemoglobin 30.1 pg (27.0-31.0); Mean Platelet Volume 6.5 fL (7.4-10.4); Platelet Count 419 thou/uL (130-400); RBC Distribution Width 16.4 % (11.5-14.5); Red Blood Cell (RBC) Count 2.29 mill/uL (4.70-6.10); White Blood Cell (WBC) Count 14.1 thou/uL (4.8-10.8)
[2020-02-05 04:41] LABS: Anion Gap 10 mmol/L (10-20); BUN (Urea Nitrogen) 21 mg/dL (8.4-25.7); Calc. Creatinine Clearance 129 mL/min (70-130); Calcium 8.1 mg/dL (7.8-10.44); Carbon Dioxide 15 mmol/L (23-31); Chloride 112 mmol/L (98-107); Estimated GFR-MDRD Greater than 90; Glucose 133 mg/dL (80-115); Potassium 4.9 mmol/L (3.5-5.1); Sodium 132 mmol/L (136-145)
[2020-02-05] MEDS: Clindamycin 150 MG CAP PO SCH ×4 (05:33→23:28)
--- NOTE | 2020-02-05 09:36 | CON ---
DATE OF CONSULTATION: 02/05/2020 This is Keren Lee PA-C dictating a report for Oh Jasso MD. REQUESTING PHYSICIAN: Dr. Estrada. CONSULTING PHYSICIAN: Oh Jasso MD REASON FOR CONSULTATION: Possible right hip septic arthritis. HISTORY OF PRESENT ILLNESS: This is a 64-year-old male, who was admitted to our facility on 01/04/2020. He has been admitted to the Medicine Service for multiple stage IV decubitus ulcers over his sacrum and buttocks. He has required surgical debridement by General Surgery at this point and has been treated with broad-spectrum antibiotics. Our service has been consulted after recent imaging study showed possible fluid to the right hip. There was concern by the admitting service for possible septic right hip arthritis. Currently at bedside, the patient denies any right hip or right groin pain. He does not mobilize. He has zero complaints related to any joints in his right lower extremity at this time. PHYSICAL EXAMINATION: VITAL SIGNS: Shows current vital signs of temperature 98.3, pulse of 96, respiratory rate of 16, blood pressure of 92/60, and O2 saturation of 100% on room air. GENERAL: The patient is awake and alert. He is sitting supine in bed at this time. He is awake, alert, and cooperative with physical exam. He answers all questions appropriately. HEENT: Head is normocephalic, atraumatic. NECK: Supple. Trachea is midline. LUNGS: Breathing is nonlabored. EXTREMITIES: Evaluation of the patient's right lower extremity shows negative pain with log roll exam. The patient's right lower extremity does appear to have much muscle atrophy. He does not have much range of motion or active movement in this extremity whatsoever. Passive range of motion in the hip elicits zero pain at this time. LABORATORY DATA: Laboratory studies for today including CBC show white blood cell count of 14.1, hemoglobin is 6.9, hematocrit of 21.3, and platelet count of 419. IMAGING DATA: 1. Pelvis CT performed on 01/06/2020 shows posterior ulcerations, which extended to the posterior iliac spines and extended to both posterior ischium with abnormal sclerosis seen in both of the posterior ischial rami indicating osteitis. Mild cortical erosive change in the right posterior femur at the subtrochanteric region at the site of the open ulceration. 2. Bilateral hip effusions, slightly larger on the right with gas in the right hip joint. 3. There is gas along the right iliac wing and soft tissues posteriorly without evidence of fluid or abscess. ASSESSMENT: Multiple decubitus ulcer stage 4 to the sacrum. PLAN: After evaluation of the patient and review of the CT, the patient has zero pain in the hip and groin. He has no pain with motion of the right hip. The patient was scheduled for a CT-guided right hip aspiration by Radiology today. We will go ahead and cancel this. If the patient starts to exhibit pain or further symptoms in the right hip, please reconsult Orthopedics. Changes on CT, likely secondary to severe decubitus ulcerations. Job ID: [id number]
[2020-02-05] MEDS: Pantoprazole 40 MG VIAL IVP SCH ×2 (09:48→20:16)
[2020-02-05] MEDS: Saccharomyces boulardii 250 MG CAP PO SCH (09:49)
[2020-02-05] MEDS: Gabapentin 300 MG CAP PO SCH (09:49)
[2020-02-05] MEDS: Apixaban 2.5 MG TAB PO SCH ×2 (09:49→20:16)
[2020-02-05] MEDS: Sulfameth/Trimethoprim DS 800-160mg TAB PO SCH ×2 (09:49→20:16)
[2020-02-05] MEDS: Fluconazole 100 MG TAB PO SCH (09:49)
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
--- NOTE | 2020-02-05 12:43 | PDOC.HOSPP ---
- Subjective Encounter Date: 02/05/20 Encounter Time: 08:00 - Objective Vital Signs & Weight: Vital Signs (12 hours) Temp Pulse Resp BP Pulse Ox 02/05/20 11:47 97.9 F 83 16 98/63 100 02/05/20 08:01 98.3 F 96 16 92/60 100 02/05/20 03:47 98.4 F 100 18 101/66 100 Weight Admit Weight 164 lb 10.96 oz Weight 165 lb 9.6 oz Most Recent Monitor Data Heart Rate from ECG 76 NIBP 104/51 NIBP BP-Mean 68 Respiration from ECG 22 SpO2 59 I&O: 02/04/20 02/05/20 02/06/20 06:59 06:59 06:59 Intake Total 1290 2290 Output Total 1700 2725 Balance -410 -435 Result Diagrams: 02/05/20 04:09 02/05/20 04:09 Hospitalist ROS - Review of Systems Constitutional: denies: fever Respiratory: denies: cough - Medication Medications: Active Medications Generic Name Dose Route Start Last Admin Trade Name Freq PRN Reason Stop Dose Admin Hydrocodone Bitart/Acetaminophen 2 tab 02/03/20 16:00 02/05/20 09:55 [place] 10/325 PO 2 tab Q4H PRN Administration Severe Pain (7-10) Apixaban 2.5 mg 01/18/20 21:00 02/05/20 09:49 Eliquis PO 2.5 mg BID RY Administration Calcium Carbonate 1,000 mg 01/27/20 06:39 02/04/20 21:35 Tums PO 1,000 mg PRN PRN Administration Indigestion Clindamycin HCl 300 mg 01/26/20 18:00 02/05/20 12:06 Cleocin PO 300 mg Q6HR RY Administration Diphenhydramine HCl 25 mg 01/21/20 18:29 01/29/20 21:10 Benadryl PO 25 mg Q6H PRN Administration Itching Fluconazole 100 mg 02/04/20 09:00 02/05/20 09:49 Diflucan PO 100 mg DAILY RY Administration Gabapentin 600 mg 01/13/20 09:00 02/05/20 09:49 Neurontin PO 600 mg DAILY RY Administration Sodium Chloride 1,000 mls @ 50 mls/hr 01/18/20 10:06 02/04/20 08:42 Normal Saline 0.9% IV 1,000 mls .Q20H RY Administration Promethazine HCl 12.5 mg/ 50.5 mls @ 202 mls/hr 01/25/20 10:06 02/05/20 01:19 Sodium Chloride IVPB 50.5 mls Q4H PRN Administration Nausea Ondansetron HCl 8 mg/ Sodium 54 mls @ 216 mls/hr 02/03/20 20:00 02/05/20 12: 06 Chloride IVPB 54 mls 0400,1200,2000 RY Administration Morphine Sulfate 2 mg 02/04/20 11:11 02/04/20 11:50 Morphine SLOW IVP 2 mg Q4H PRN Administration Moderate Pain (4-6) Pantoprazole Sodium 40 mg 02/02/20 21:00 02/05/20 09:48 Protonix IVP 40 mg Q12HR RY Administration Saccharomyces Boulardii 250 mg 01/05/20 09:00 02/05/20 09:49 Florastor PO 250 mg DAILY RY Administration Sodium Chloride 10 ml 01/13/20 21:00 02/05/20 09:56 Flush - Normal Saline IVF Not Given Q12HR RY Trimethoprim/Sulfamethoxazole 1 tab 01/26/20 21:00 02/05/20 09:49 Bactrim Ds PO 1 tab BID RY Administration - Exam General Appearance: NAD, awake alert Eye: PERRL, anicteric sclera ENT: normocephalic atraumatic, no oropharyngeal lesions Neck: supple, no JVD Heart: RRR, no murmur, no gallops, no rubs Respiratory: CTAB, no wheezes, no rales, no ronchi Gastrointestinal: soft, non-tender, non-distended, normal bowel sounds Extremities: no cyanosis, no clubbing, no edema Hosp A/P - Plan Upper endoscopy: 1. [place] esophagitis 2. Localized erosions at 35 cm biopsied to exclude viral ulcerations versus pill esophagitis. 3. Nomral stomach and duodenum CT Pelvis: 1. Right hip joint effusion and cortical osteolysis with possible septic arthritis and osteolytic 2. Extensive sacral and ischial decubitus ulceres 3. Bladder wall thickening This is a 64 year old with sacral osteomyelitis Sacral osteomyelitis E coli Cystitis - was on vanc, rocephin and flagyl and now on bactrim and clindamycin. Blood culture grew and MRSA 2/2, urine culture Klebsiella, buttock culture MRSA, Proteus and E coli. Repeat blood cultures due to increasing WBC to evaluate clearance. - ,repeat CT pelvis 02/04 showed right hip joint effusion and cortical osteolysis. No hip pain, per ortho no septic arthritis - continue Cleocin 300 mg 4x day + Bactrim DS bid for 6 weeks with weekly cbc, crp,cmp per ID Erosive esophagitis - upper endoscopy showed white flecks, started fluconazole empirically. Biopsy negative for [place] though, so may be able to d/c - continue IV protonix Anemia - Hb 6.9, transfuse 1 unit of PRBC and repeat CBC - Iron panel shows anemia of chronic disease - will check B12/folate in am Leukocytosis - WBC up to 14, CT pelvis showed cortical osteolysis, septic arthritis and osteolytic - ortho consulted, unlikely septic arthritis Severe malnutrition s/p colostomy - continue ensure. 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 Will continue to have some leakage Disposition: re-evaluate post tube feeding Code status: full code
[2020-02-05] MEDS: Calcium Carbonate 500 MG ChewTAB PO PRN ×2 (14:04→23:45)
[2020-02-05] MEDS: Sodium Chloride 0.9% 1,000 ML IV SCH (20:15)
[2020-02-06] MEDS: HYDROcodone/Acetaminophen 10/325 mg Tablet PO PRN ×5 (01:40→19:51)
[2020-02-06] MEDS: Ondansetron HCl/PF 8 MG in Sodium Chloride 0.9% 50 ML IVPB SCH ×3 (04:23→19:51)
[2020-02-06 04:46] LABS: Mean Corpuscular HGB CONC 32.2 g/dL (32.0-36.0); Mean Corpuscular Hemoglobin 30.1 pg (27.0-31.0); Mean Corpuscular Volume 93.4 fL (78.0-98.0); Mean Platelet Volume 6.7 fL (7.4-10.4); Platelet Count 340 thou/uL (130-400); RBC Distribution Width 15.5 % (11.5-14.5); Red Blood Cell (RBC) Count 2.66 mill/uL (4.70-6.10); White Blood Cell (WBC) Count 13.9 thou/uL (4.8-10.8)
[2020-02-06 05:08] LABS: Anion Gap 10 mmol/L (10-20); BUN (Urea Nitrogen) 25 mg/dL (8.4-25.7); Calc. Creatinine Clearance 136 mL/min (70-130); Calcium 8.5 mg/dL (7.8-10.44); Carbon Dioxide 16 mmol/L (23-31); Chloride 111 mmol/L (98-107); Estimated GFR-MDRD Greater than 90; Glucose 137 mg/dL (80-115); Potassium 4.9 mmol/L (3.5-5.1); Sodium 132 mmol/L (136-145)
[2020-02-06] MEDS: Apixaban 2.5 MG TAB PO SCH ×2 (08:43→19:51)
[2020-02-06] MEDS: Gabapentin 300 MG CAP PO SCH (08:43)
[2020-02-06] MEDS: Pantoprazole 40 MG VIAL IVP SCH ×2 (08:43→19:51)
[2020-02-06] MEDS: Saccharomyces boulardii 250 MG CAP PO SCH (08:43)
[2020-02-06] MEDS: Morphine 2 MG/ML SYRINGE SLOW IVP PRN ×2 (09:43→23:06)
[2020-02-06] MEDS: Sodium Chloride 0.9% 1,000 ML IV SCH (11:11)
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
[2020-02-06] MEDS: Calcium Carbonate 500 MG ChewTAB PO PRN (18:44)
[2020-02-07] MEDS: HYDROcodone/Acetaminophen 10/325 mg Tablet PO PRN ×6 (00:07→20:40)
[2020-02-07] MEDS: Ondansetron HCl/PF 8 MG in Sodium Chloride 0.9% 50 ML IVPB SCH ×3 (03:55→20:01)
[2020-02-07] MEDS: Gabapentin 300 MG CAP PO SCH (08:21)
[2020-02-07] MEDS: Apixaban 2.5 MG TAB PO SCH ×2 (08:21→20:02)
[2020-02-07] MEDS: Pantoprazole 40 MG VIAL IVP SCH ×2 (08:21→20:01)
[2020-02-07] MEDS: Saccharomyces boulardii 250 MG CAP PO SCH (08:21)
[2020-02-07] MEDS: Sodium Chloride 0.9% 1,000 ML IV SCH (09:12)
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
[2020-02-07] MEDS: Calcium Carbonate 500 MG ChewTAB PO PRN (15:10)
[2020-02-08] MEDS: HYDROcodone/Acetaminophen 10/325 mg Tablet PO PRN ×6 (00:40→21:25)
[2020-02-08] MEDS: Ondansetron HCl/PF 8 MG in Sodium Chloride 0.9% 50 ML IVPB SCH ×3 (04:39→20:07)
[2020-02-08] MEDS: Sodium Chloride 0.9% 1,000 ML IV SCH (06:38)
[2020-02-08] MEDS: Apixaban 2.5 MG TAB PO SCH ×2 (08:38→20:07)
[2020-02-08] MEDS: Pantoprazole 40 MG VIAL IVP SCH ×2 (08:39→20:20)
[2020-02-08] MEDS: Gabapentin 300 MG CAP PO SCH (08:39)
[2020-02-08] MEDS: Saccharomyces boulardii 250 MG CAP PO SCH (08:39)
[2020-02-08] MEDS: Calcium Carbonate 500 MG ChewTAB PO PRN ×2 (10:43→20:08)
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
[2020-02-09] MEDS: Morphine 2 MG/ML SYRINGE SLOW IVP PRN ×2 (00:09→10:39)
[2020-02-09] MEDS: Sodium Chloride 0.9% 1,000 ML IV SCH ×2 (01:41→23:12)
[2020-02-09] MEDS: HYDROcodone/Acetaminophen 10/325 mg Tablet PO PRN ×6 (01:41→22:02)
[2020-02-09] MEDS: Ondansetron HCl/PF 8 MG in Sodium Chloride 0.9% 50 ML IVPB SCH ×3 (03:54→20:33)
[2020-02-09] MEDS: Saccharomyces boulardii 250 MG CAP PO SCH (09:38)
[2020-02-09] MEDS: Gabapentin 300 MG CAP PO SCH (09:39)
[2020-02-09] MEDS: Pantoprazole 40 MG VIAL IVP SCH ×2 (09:39→20:34)
[2020-02-09] MEDS: Apixaban 2.5 MG TAB PO SCH ×2 (09:39→20:33)
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
[2020-02-09] MEDS: Calcium Carbonate 500 MG ChewTAB PO PRN (20:34)
[2020-02-10] MEDS: HYDROcodone/Acetaminophen 10/325 mg Tablet PO PRN ×6 (02:10→22:32)
[2020-02-10] MEDS: Sodium Chloride 0.9% 1,000 ML IV SCH (02:11)
[2020-02-10] MEDS: Ondansetron HCl/PF 8 MG in Sodium Chloride 0.9% 50 ML IVPB SCH ×2 (04:39→11:17)
[2020-02-10] MEDS: Saccharomyces boulardii 250 MG CAP PO SCH (08:13)
[2020-02-10] MEDS: Apixaban 2.5 MG TAB PO SCH ×2 (08:13→20:50)
[2020-02-10] MEDS: Gabapentin 300 MG CAP PO SCH (08:13)
[2020-02-10] MEDS: Pantoprazole 40 MG VIAL IVP SCH ×2 (08:14→20:50)
[2020-02-10] MEDS ORDERED: Morphine IR Tab 15 MG TAB PO PRN (16:08)
[2020-02-10] MEDS: Ondansetron ODT 4 MG TAB PO SCH ×2 (16:47→21:17)
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
[2020-02-10] MEDS: Calcium Carbonate 500 MG ChewTAB PO PRN (21:14)
[2020-02-11] MEDS: HYDROcodone/Acetaminophen 10/325 mg Tablet PO PRN ×6 (02:26→22:17)
[2020-02-11] MEDS: Ondansetron ODT 4 MG TAB PO SCH ×4 (03:49→22:17)
[2020-02-11] MEDS: Gabapentin 300 MG CAP PO SCH (09:17)
[2020-02-11] MEDS: Megestrol Acetate 800 MG/20 ML UDCUP PO SCH (09:17)
[2020-02-11] MEDS: Apixaban 2.5 MG TAB PO SCH ×2 (09:17→22:16)
[2020-02-11] MEDS: Pantoprazole 40 MG VIAL IVP SCH ×3 (09:17→22:21)
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
[2020-02-12] MEDS: HYDROcodone/Acetaminophen 10/325 mg Tablet PO PRN ×5 (02:37→20:07)
[2020-02-12] MEDS: Ondansetron ODT 4 MG TAB PO SCH ×4 (04:28→21:26)
[2020-02-12] MEDS: Apixaban 2.5 MG TAB PO SCH ×2 (09:59→20:07)
[2020-02-12] MEDS: Megestrol Acetate 800 MG/20 ML UDCUP PO SCH (09:59)
[2020-02-12] MEDS: Pantoprazole 40 MG VIAL IVP SCH ×3 (09:59→20:08)
[2020-02-12] MEDS: Gabapentin 300 MG CAP PO SCH (10:00)
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
[2020-02-13] MEDS: HYDROcodone/Acetaminophen 10/325 mg Tablet PO PRN ×6 (00:03→22:02)
[2020-02-13] MEDS: Ondansetron ODT 4 MG TAB PO SCH ×4 (04:18→22:03)
[2020-02-13] MEDS: Pantoprazole 40 MG VIAL IVP SCH (08:08)
[2020-02-13] MEDS: Apixaban 2.5 MG TAB PO SCH ×2 (08:09→20:07)
[2020-02-13] MEDS: Gabapentin 300 MG CAP PO SCH (08:09)
[2020-02-13] MEDS: Megestrol Acetate 800 MG/20 ML UDCUP PO SCH (08:09)
[2020-02-13] MEDS ORDERED: Morphine IR Tab 15 MG TAB PO PRN (16:07)
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
[2020-02-14] MEDS: Ondansetron ODT 4 MG TAB PO SCH ×4 (03:17→21:25)
[2020-02-14] MEDS: HYDROcodone/Acetaminophen 10/325 mg Tablet PO PRN ×4 (03:19→20:13)
[2020-02-14 05:05] LABS: #Basophils 0.1 thou/uL (0.0-0.2); #Eosinphils 0.7 thou/uL (0.0-0.7); #Monocytes 1.5 thou/uL (0.11-0.59); #Neutrophils 7.3 thou/uL (1.40-6.50); %Basophils 0.6 % (0.0-1.0); %Eosinophils 4.9 % (0.0-10.0); %Lymphocytes 29.3 % (21.0-51.0); %Monocytes 11.2 % (0.0-10.0); %Neutrophils 54.1 % (42.0-75.0); Hemoglobin 8.2 g/dL (14.0-18.0); Mean Corpuscular HGB CONC 30.6 g/dL (32.0-36.0); Mean Corpuscular Hemoglobin 29.3 pg (27.0-31.0); Mean Platelet Volume 6.6 fL (7.4-10.4); Platelet Count 437 thou/uL (130-400); Red Blood Cell (RBC) Count 2.79 mill/uL (4.70-6.10); White Blood Cell (WBC) Count 13.6 thou/uL (4.8-10.8)
[2020-02-14 05:33] LABS: Anion Gap 15 mmol/L (10-20); BUN (Urea Nitrogen) 32 mg/dL (8.4-25.7); Calc. Creatinine Clearance 107 mL/min (70-130); Calcium 8.9 mg/dL (7.8-10.44); Carbon Dioxide 17 mmol/L (23-31); Chloride 108 mmol/L (98-107); Estimated GFR-MDRD Greater than 90; Glucose 92 mg/dL (80-115); Magnesium 1.5 mg/dL (1.6-2.6); Potassium 4.3 mmol/L (3.5-5.1); Sodium 136 mmol/L (136-145)
[2020-02-14] MEDS: Megestrol Acetate 800 MG/20 ML UDCUP PO SCH (08:09)
[2020-02-14] MEDS: Gabapentin 300 MG CAP PO SCH (08:09)
[2020-02-14] MEDS: Apixaban 2.5 MG TAB PO SCH ×2 (08:09→20:13)
[2020-02-14] MEDS ORDERED: HYDROcodone/Acetaminophen 10/325 mg Tablet PO SCH (09:00)
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
[2020-02-15] MEDS: HYDROcodone/Acetaminophen 10/325 mg Tablet PO PRN ×2 (02:18→08:08)
[2020-02-15] MEDS: Ondansetron ODT 4 MG TAB PO SCH ×2 (03:17→11:09)
[2020-02-15] MEDS: Megestrol Acetate 800 MG/20 ML UDCUP PO SCH (08:08)
[2020-02-15] MEDS: Gabapentin 300 MG CAP PO SCH (08:09)
[2020-02-15] MEDS: Apixaban 2.5 MG TAB PO SCH (08:09)
[2020-02-15] MEDS ORDERED: Magnesium Oxide 400 MG TAB PO SCH (09:00)
[2020-02-15 11:22] VITALS: BP 121/74; TEMP 97.4
[2020-02-15] MEDS ORDERED: HYDROcodone/Acetaminophen 10/325 mg Tablet PO PRN (13:22)
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
--- NOTE | 2020-02-22 10:37 | PQF ---
GREGORIO MOLINA ADI [id number] [facility] [id number] CLINICAL DOCUMENTATION CLARIFICATION FORM: POST DISCHARGE Addendum to original discharge summary date: ____ Late entry note date: __ DATE: 02/22/2020 ATTN : CORTEZ CUTLER Please exercise your independent, professional judgment in responding to the clarification form. Clinical indicators are provided on the bottom of this form for your review Please check appropriate box(s): [ ] UTI due to Suprapubic catheter [ ] UTI not due to Suprapubic catheter [ ] Other diagnosis [x ] Unable to determine For continuity of documentation, please document condition throughout progress notes and discharge summary. Thank You. CLINICAL INDICATORS - SIGNS / SYMPTOMS / LABS - UTI- ED record, 01/03, Aryan David DO -The patient also has a suprapubic catheter that is functional- DS, 02/14, CORTEZ CUTLER - Routine blood test also showed abnormal urinalysis suggestive of UTI-H&P, , Olga Duenas MD - Urinary tract infection with suprapubic catheterization- H&P, 01/03, Olga Duenas MD - WBC: 12.6H on 02/01, 13.1H on 02/03- Laboratory report, RISK FACTORS - Stage IV decubitus ulcers- DS, 02/14, CORTEZ CUTLER - Chronic paraplegia- DS, 02/14, CORTEZ CUTLER TREATMENT: -Rocephin.IV- 01/03 -Vancomycin.IV- 01/04 (This form is maintained as a part of the permanent medical record) 2014 [employer], [employer]. All Rights Reserved [facility]
--- NOTE | 2020-02-23 00:05 | PQF ---
GREGORIO MOLINA BRYAN DAVID MD [id number] [facility] A- [id number] CLINICAL DOCUMENTATION CLARIFICATION FORM: POST DISCHARGE Addendum to original discharge summary date: ____ Late entry note date: __ DATE: 02/22/2020 ATTN:RICH COLMENARES MD Please exercise your independent, professional judgment in responding to the clarification form. Clinical indicators are provided on the bottom of this form for your review Please check appropriate box(s): [ x ] Excisional Debridement: [ ] Excised [ ] Cut away [ ] Other : [ ] Non-excisional Debridement: (Removal by flushing, brushing, chemical, or washing) [ ] Other procedure diagnosis [ ] Unable to determine For continuity of documentation, please document condition throughout progress notes and discharge summary. Thank You. CLINICAL INDICATORS - SIGNS / SYMPTOMS / LABS - Debridement of sacral decubitus wound, skin, subcutaneous tissue, fascia, muscle and bone- OP report, 01/17, RICH COLMENARES MD - There was significant viable tissue present, however, the wound was cleaned up by removing necrotic tissue- OP report, 01/17, RICH COLMENARES MD - Irrigated using sterile saline- OP report, 01/17, RICH COLMENARES MD RISK FACTORS - Chronic paraplegia-DS, 02/14, Gumaro Wong MD - Stage IV decubitus ulcer-DS, 02/14, Gumaro Wong MD TREATMENTS: - wound VAC-OP report, 01/17, RICH COLMENARES MD - Rocephin.IV-MAR, 02/03 (This form is maintained as a part of the permanent medical record) 2014 [employer]. All Rights Reserved [email or web address]
== END 2020-02-15 15:35 | DRG 853 ==
LOC: ERS 14:04 → IMCU/EMU 16:23 → MERGE 16:23 → SURG A 01-09 17:02
PROVIDERS: ADMIT Internal Medicine; ATTEND Internal Medicine
PROC: 3E033XZ Introduction of Vasopressor into Peripheral Vein, Percutaneous Approach (ICD-10-PCS; 2020-01-04)
PROC: 30233N1 Transfusion of Nonautologous Red Blood Cells into Peripheral Vein, Percutaneous Approach (ICD-10-PCS; 2020-01-05)
PROC: 2W15X6Z Compression of Back using Pressure Dressing (ICD-10-PCS; principal; 2020-01-06)
PROC: 0QB10ZZ Excision of Sacrum, Open Approach (ICD-10-PCS; 2020-01-06)
PROC: 02HV33Z Insertion of Infusion Device into Superior Vena Cava, Percutaneous Approach (ICD-10-PCS; 2020-01-11)
PROC: B548ZZA Ultrasonography of Superior Vena Cava, Guidance (ICD-10-PCS; 2020-01-11)
PROC: 0DB58ZX Excision of Esophagus, Via Natural or Artificial Opening Endoscopic, Diagnostic (ICD-10-PCS; 2020-02-03)
PROC: 0DH98UZ Insertion of Feeding Device into Duodenum, Via Natural or Artificial Opening Endoscopic (ICD-10-PCS; 2020-02-03)
DX: A41.02 Sepsis due to Methicillin resistant Staphylococcus aureus (principal); L89.154 Pressure ulcer of sacral region, stage 4; E43 Unspecified severe protein-calorie malnutrition; R65.21 Severe sepsis with septic shock; D62 Acute posthemorrhagic anemia; G82.20 Paraplegia, unspecified; E87.2 Acidosis; M86.8X8 Other osteomyelitis, other site; B37.81 Candidal esophagitis; K22.10 Ulcer of esophagus without bleeding; Z51.5 Encounter for palliative care; D72.823 Leukemoid reaction; G89.29 Other chronic pain; Q54.2 Hypospadias, penoscrotal; N39.498 Other specified urinary incontinence; R33.9 Retention of urine, unspecified; N31.9 Neuromuscular dysfunction of bladder, unspecified; E87.5 Hyperkalemia; K59.00 Constipation, unspecified; N30.90 Cystitis, unspecified without hematuria; B96.20 Unspecified Escherichia coli [E. coli] as the cause of diseases classified elsewhere; D63.8 Anemia in other chronic diseases classified elsewhere; Z96.651 Presence of right artificial knee joint; F17.210 Nicotine dependence, cigarettes, uncomplicated; I48.91 Unspecified atrial fibrillation; E86.0 Dehydration; Z93.3 Colostomy status; Z68.24 Body mass index [BMI] 24.0-24.9, adult; Z79.01 Long term (current) use of anticoagulants; Z74.01 Bed confinement status
CPT/HCPCS: 36415; 36416; 36430; 36569; 71045; 72193; 74018; 80048; 80053; 80202; 81003; 81015; 82533; 82728; 83540; 83550; 83605; 83735; 84132; 84134; 84484; 85007; 85014; 85018; 85025; 85027; 85060; 86850; 86900; 86901; 87040; 87070; 87077; 87086; 87149; 87186; 87205; 87324; 87389; 87449; 88305; 88312; 88313; 93005; 93306; 94760; 96365; 96366; 96367; 96375; C1751; C9113; J0696; J1644; J1650; J2001; J2185; J2250; J2270; J2405; J2543; J2550; J2704; J3010; J3370; J3490; J7050; P9016; Q0162; Q0163; Q9967; S0179

== ENCOUNTER 2020-03-11 12:08 | Emergency (ER) | payer MEDICARE, OTHER ==
[2020-03-11 13:32] LABS: #Eosinphils 0.2 thou/uL (0.0-0.7); #Lymphocytes 1.6 thou/uL (1.20-3.40); #Monocytes 1.8 thou/uL (0.11-0.59); %Basophils 0.3 % (0.0-1.0); %Eosinophils 1.5 % (0.0-10.0); %Lymphocytes 10.7 % (21.0-51.0); %Neutrophils 75.6 % (42.0-75.0); Hemoglobin 6.8 g/dL (14.0-18.0); Mean Corpuscular HGB CONC 29.7 g/dL (32.0-36.0); Mean Corpuscular Hemoglobin 27.8 pg (27.0-31.0); Mean Corpuscular Volume 93.5 fL (78.0-98.0); Mean Platelet Volume 5.7 fL (7.4-10.4); Platelet Count 691 thou/uL (130-400); RBC Distribution Width 17.4 % (11.5-14.5); Red Blood Cell (RBC) Count 2.44 mill/uL (4.70-6.10); White Blood Cell (WBC) Count 14.6 thou/uL (4.8-10.8)
[2020-03-11 13:48] LABS: ALT (SGPT) Less than 7 U/L (8-55); AST (SGOT) 10 U/L (5-34); Albumin 2.2 g/dL (3.4-4.8); Alkaline Phosphatase 176 U/L (40-110); Anion Gap 14 mmol/L (10-20); BUN (Urea Nitrogen) 23 mg/dL (8.4-25.7); Bilirubin, Total 0.3 mg/dL (0.2-1.2); Calc. Creatinine Clearance 0 mL/min (70-130); Carbon Dioxide 17 mmol/L (23-31); Chloride 103 mmol/L (98-107); Estimated GFR-MDRD Greater than 90; Globulin 5.8 g/dL (2.4-3.5); Glucose 115 mg/dL (80-115); Potassium 4.4 mmol/L (3.5-5.1); Sodium 130 mmol/L (136-145)
[2020-03-11 13:56] LABS: Anisocytosis SLIGHT = 6-15 cells (100X) (0-5/hpf); Hypochromia MODERATE=16-30 cells (100X) (0-5/hpf); MDiff Complete? YES; Platelet Morphology Comment Appears Increased; Polychromasia MODERATE = 3-4 cells (100X) (0-2/hpf); Reflex for Review?? NO
[2020-03-11] MEDS ORDERED: HYDROcodone/Acetaminophen 10/325 mg Tablet ONE (15:34)
== END 2020-03-11 17:24 | disposition home or self-care (01) ==
LOC: ERS 12:08
DX: D64.9 Anemia, unspecified (principal); Z79.899 Other long term (current) drug therapy
CPT/HCPCS: 36430; 80053; 85025; 86850; 86900; 86901; 86920; 99284; P9016; 36415

== ENCOUNTER 2020-04-12 13:20 | Emergency (ER) | payer MEDICARE, OTHER ==
[2020-04-12] MEDS ORDERED: HYDROcodone/Acetaminophen 10/325 mg Tablet ONE (14:23)
[2020-04-12 14:30] LABS: #Eosinphils 0.1 thou/uL (0.0-0.7); #Lymphocytes 2.4 thou/uL (1.20-3.40); #Monocytes 1.1 thou/uL (0.11-0.59); #Neutrophils 6.1 thou/uL (1.40-6.50); %Basophils 0.5 % (0.0-1.0); %Eosinophils 0.9 % (0.0-10.0); %Lymphocytes 24.4 % (21.0-51.0); %Monocytes 10.9 % (0.0-10.0); %Neutrophils 63.3 % (42.0-75.0); Hemoglobin 7.4 g/dL (14.0-18.0); Mean Corpuscular HGB CONC 29.7 g/dL (32.0-36.0); Mean Corpuscular Hemoglobin 27.4 pg (27.0-31.0); Mean Corpuscular Volume 92.4 fL (78.0-98.0); Platelet Count 502 thou/uL (130-400); RBC Distribution Width 18.7 % (11.5-14.5); Red Blood Cell (RBC) Count 2.68 mill/uL (4.70-6.10); White Blood Cell (WBC) Count 9.7 thou/uL (4.8-10.8)
[2020-04-12 14:32] LABS: Anion Gap 10 mmol/L (10-20); BUN (Urea Nitrogen) 8 mg/dL (8.4-25.7); Calc. Creatinine Clearance 0 mL/min (70-130); Calcium 8.1 mg/dL (7.8-10.44); Carbon Dioxide 23 mmol/L (23-31); Chloride 105 mmol/L (98-107); Estimated GFR-MDRD Greater than 90; Glucose 72 mg/dL (80-115); Potassium 4.2 mmol/L (3.5-5.1); Sodium 134 mmol/L (136-145)
== END 2020-04-12 17:40 | disposition home or self-care (01) ==
LOC: ERS 13:20
DX: D64.9 Anemia, unspecified (principal); R19.5 Other fecal abnormalities; F17.210 Nicotine dependence, cigarettes, uncomplicated; Z79.899 Other long term (current) drug therapy
CPT/HCPCS: 36430; 80048; 85025; 86850; 86900; 86901; 86920; 99284; P9016; 36415

== ENCOUNTER 2022-04-22 22:06 | Inpatient (IN) | payer MEDICARE, MEDICAID ==
[2022-04-22 22:52] LABS: #Eosinphils 0.1 thou/uL (0.0-0.7); #Monocytes 1.5 thou/uL (0.11-0.59); #Neutrophils 11.4 thou/uL (1.40-6.50); %Basophils 0.2 % (0.0-1.0); %Eosinophils 0.8 % (0.0-10.0); %Monocytes 9.8 % (0.0-10.0); %Neutrophils 76.2 % (42.0-75.0); Hemoglobin 7.2 g/dL (14.0-18.0); Mean Corpuscular HGB CONC 30.4 g/dL (32.0-36.0); Mean Corpuscular Hemoglobin 29.7 pg (27.0-31.0); Mean Corpuscular Volume 97.7 fL (78.0-98.0); Mean Platelet Volume 6.1 fL (7.4-10.4); Platelet Count 371 thou/uL (130-400); RBC Distribution Width 16.7 % (11.5-14.5); Red Blood Cell (RBC) Count 2.41 mill/uL (4.70-6.10)
[2022-04-22 23:13] LABS: ALT (SGPT) 8 U/L (8-55); AST (SGOT) 10 U/L (5-34); Albumin 2.8 g/dL (3.4-4.8); Alkaline Phosphatase 120 U/L (40-110); Anion Gap 17 mmol/L (10-20); BUN (Urea Nitrogen) 53 mg/dL (8.4-25.7); Bilirubin, Total 0.2 mg/dL (0.2-1.2); Calc. Creatinine Clearance 0 mL/min (70-130); Chloride 109 mmol/L (98-107); Estimated GFR 36; Globulin 5.8 g/dL (2.4-3.5); Glucose 79 mg/dL (80-115); Protein, Total 8.6 g/dL (5.8-8.1); Sodium 128 mmol/L (136-145)
[2022-04-22 23:21] LABS: Carbon Dioxide 9 mmol/L (23-31); Potassium 6.7 mmol/L (3.5-5.1)
[2022-04-23] MEDS ORDERED: Dextrose 50% Abboject 50 ML SYRINGE ONE ×2 (00:04→00:06)
[2022-04-23] MEDS ORDERED: Furosemide 100 MG/10 ML VIAL ONE (00:04)
[2022-04-23] MEDS ORDERED: Calcium Chloride 1 GM/10 ML Abboject SYRINGE ONE (00:04)
[2022-04-23] MEDS ORDERED: Insulin Regular 300 UNITS/3 ML VIAL ONE (00:04)
[2022-04-23] MEDS ORDERED: Sodium Bicarb 50 MEQ/50 ML Abboject 8.4% SYRINGE ONE (00:04)
[2022-04-23 00:18] LABS: Bilirubin Negative (Negative); Blood, Urine 1+ (Negative); Clarity Turbid (Clear); Glucose, Urine (Dipstick) Normal (Negative); Ketone, Urine Trace mg/dL (Negative); Leukocyte 500 Leu/uL (Negative); Nitrite 1+ (Negative); Protein, Urine (Dipstick) 70 mg/dL (Neg-Trace); Specific Gravity, Urine 1.013 (1.002-1.036); Urobilinogen Normal mg/dL (Less than 2)
[2022-04-23 00:31] LABS: Bacteria/HPF 4+ HPF (None Seen); RBC/HPF 0-3 HPF (0-3); Squamous Epithelial 0-3 HPF (0-3); WBC/HPF 21-50 HPF (0-3)
[2022-04-23] MEDS ORDERED: Cefepime 2 GM VIAL ONE (00:58)
[2022-04-23] MEDS ORDERED: Dextrose 25% Abboject 10 ML SYRINGE SLOW IVP ONE (01:58)
[2022-04-23] MEDS ORDERED: Vancomycin 1 GM in Premix Bag 1 BAG IVPB SCH (02:00)
[2022-04-23] MEDS ORDERED: Furosemide 40 MG/4 ML VIAL SLOW IVP SCH (02:00)
[2022-04-23] MEDS ORDERED: Sodium Bicarbonate 150 MEQ in Dextrose 5% in Water 1,000 ML IV SCH (02:00)
[2022-04-23] MEDS ORDERED: Sodium Bicarb 50 MEQ/50 ML Abboject 8.4% SYRINGE IVP SCH (02:00)
[2022-04-23] MEDS ORDERED: Ondansetron PF 4 MG/2 ML Vial IVP PRN (02:01)
[2022-04-23] MEDS ORDERED: Bisacodyl 5 MG TAB PO PRN (02:01)
[2022-04-23 02:08] LABS: SARS-CoV-2 NAA Rapid Test Not Detected (NotDetected)
[2022-04-23] MEDS ORDERED: Nicotine 21 MG PATCH TD SCH (02:15)
[2022-04-23] MEDS ORDERED: Dextrose 50% Abboject 50 ML SYRINGE SLOW IVP ONE (02:45)
[2022-04-23 02:46] LABS: Iron 34 ug/dL (65-175); Iron Binding Capacity, Total 123 mcg/dL (261-462)
[2022-04-23 02:47] LABS: #Basophils 0.1 thou/uL (0.0-0.2); #Eosinphils 0.1 thou/uL (0.0-0.7); #Lymphocytes 1.3 thou/uL (1.20-3.40); #Monocytes 1.7 thou/uL (0.11-0.59); #Neutrophils 11.3 thou/uL (1.40-6.50); %Basophils 0.6 % (0.0-1.0); %Eosinophils 0.7 % (0.0-10.0); %Lymphocytes 9.1 % (21.0-51.0); %Neutrophils 77.6 % (42.0-75.0); Hemoglobin 6.3 g/dL (14.0-18.0); Mean Corpuscular HGB CONC 31.9 g/dL (32.0-36.0); Mean Corpuscular Hemoglobin 30.7 pg (27.0-31.0); Mean Corpuscular Volume 96.3 fL (78.0-98.0); Mean Platelet Volume 7.1 fL (7.4-10.4); Platelet Count 343 thou/uL (130-400); Red Blood Cell (RBC) Count 2.05 mill/uL (4.70-6.10); White Blood Cell (WBC) Count 14.5 thou/uL (4.8-10.8)
[2022-04-23 03:20] LABS: ALT (SGPT) Less than 7 U/L (8-55); AST (SGOT) 9 U/L (5-34); Albumin 2.4 g/dL (3.4-4.8); Alkaline Phosphatase 104 U/L (40-110); BUN (Urea Nitrogen) 49 mg/dL (8.4-25.7); Bilirubin, Total 0.2 mg/dL (0.2-1.2); Calc. Creatinine Clearance 0 mL/min (70-130); Calcium 8.7 mg/dL (7.8-10.44); Chloride 114 mmol/L (98-107); Estimated GFR 42; Globulin 5.1 g/dL (2.4-3.5); Glucose 107 mg/dL (80-115); Potassium 4.9 mmol/L (3.5-5.1); Protein, Total 7.5 g/dL (5.8-8.1); Sodium 134 mmol/L (136-145)
[2022-04-23 03:23] LABS: Carbon Dioxide Less than 8 mmol/L (23-31)
[2022-04-23 03:24] LABS: Troponin I Less than 0.010 ng/mL (< 0.028)
[2022-04-23 03:42] LABS: Anion Gap 14 mmol/L (10-20); BUN (Urea Nitrogen) 48 mg/dL (8.4-25.7); Calc. Creatinine Clearance 0 mL/min (70-130); Calcium 9.6 mg/dL (7.8-10.44); Carbon Dioxide 11 mmol/L (23-31); Chloride 113 mmol/L (98-107); Estimated GFR 43; Glucose 68 mg/dL (80-115); Potassium 5.3 mmol/L (3.5-5.1); Sodium 133 mmol/L (136-145)
[2022-04-23] MEDS ORDERED: Vancomycin 1 GM/200 ML BAG ONE (04:00)
[2022-04-23] MEDS ORDERED: LOKELMA 10 GM PACKET PO SCH (04:30)
[2022-04-23] MEDS: Heparin 5,000 UNITS/ML VIAL SC SCH ×2 (06:55→15:51)
[2022-04-23 07:04] LABS: Creatinine, Urine 73.61 mg/dL (63-166)
[2022-04-23 07:18] LABS: Anion Gap 17 mmol/L (10-20); BUN (Urea Nitrogen) 46 mg/dL (8.4-25.7); Calc. Creatinine Clearance 46 mL/min (70-130); Calcium 9.9 mg/dL (7.8-10.44); Chloride 111 mmol/L (98-107); Estimated GFR 48; Glucose 97 mg/dL (80-115); Potassium 4.8 mmol/L (3.5-5.1); Sodium 132 mmol/L (136-145)
[2022-04-23 07:30] LABS: Carbon Dioxide 9 mmol/L (23-31)
[2022-04-23] MEDS: Sodium Bicarbonate 150 MEQ in Dextrose 5% in Water 1,000 ML IV SCH ×2 (09:30→17:12)
[2022-04-23] MEDS: Albumin 25% 25 GM/100 ML BOT IVPB SCH ×2 (11:16→17:12)
[2022-04-23] MEDS: Famotidine 20 MG TAB PO SCH (11:16)
[2022-04-23 14:23] LABS: Albumin 2.9 g/dL (3.4-4.8); Anion Gap 16 mmol/L (10-20); BUN (Urea Nitrogen) 43 mg/dL (8.4-25.7); BUN/Creatinine Ratio 32.33; Calc. Creatinine Clearance 55 mL/min (70-130); Calcium 8.7 mg/dL (7.8-10.44); Carbon Dioxide 12 mmol/L (23-31); Chloride 109 mmol/L (98-107); Estimated GFR 59; Glucose 113 mg/dL (80-115); Phosphorus 3.9 mg/dL (2.3-4.7); Potassium 4.5 mmol/L (3.5-5.1); Sodium 132 mmol/L (136-145)
[2022-04-23] MEDS: Cefepime 1 GM in Sodium Chloride 0.9% 100 ML IVPB SCH (15:18)
[2022-04-23 15:33] VITALS: BP 99/48
[2022-04-23] MEDS: Nicotine 21 MG PATCH TD SCH (15:50)
[2022-04-24] MEDS: Cefepime 1 GM in Sodium Chloride 0.9% 100 ML IVPB SCH ×2 (01:30→12:39)
[2022-04-24] MEDS: Sodium Bicarbonate 150 MEQ in Dextrose 5% in Water 1,000 ML IV SCH ×2 (01:36→09:29)
[2022-04-24] MEDS: Heparin 5,000 UNITS/ML VIAL SC SCH ×3 (03:06→20:41)
[2022-04-24] MEDS: Vancomycin HCl 750 MG in Sodium Chloride 0.9% 250 ML 250 ML IVPB SCH (03:07)
[2022-04-24 06:27] LABS: #Eosinphils 0.1 thou/uL (0.0-0.7); #Lymphocytes 1.9 thou/uL (1.20-3.40); #Monocytes 1.6 thou/uL (0.11-0.59); #Neutrophils 7.2 thou/uL (1.40-6.50); %Basophils 0.4 % (0.0-1.0); %Eosinophils 0.5 % (0.0-10.0); %Lymphocytes 17.8 % (21.0-51.0); %Monocytes 14.9 % (0.0-10.0); %Neutrophils 66.3 % (42.0-75.0); Hemoglobin 7.7 g/dL (14.0-18.0); Mean Corpuscular HGB CONC 34.7 g/dL (32.0-36.0); Mean Corpuscular Hemoglobin 31.7 pg (27.0-31.0); Mean Corpuscular Volume 91.4 fL (78.0-98.0); Mean Platelet Volume 6.1 fL (7.4-10.4); Platelet Count 266 thou/uL (130-400); RBC Distribution Width 15.8 % (11.5-14.5); Red Blood Cell (RBC) Count 2.42 mill/uL (4.70-6.10); White Blood Cell (WBC) Count 10.8 thou/uL (4.8-10.8)
[2022-04-24 06:51] LABS: Anion Gap 15 mmol/L (10-20); BUN (Urea Nitrogen) 34 mg/dL (8.4-25.7); Calc. Creatinine Clearance 64 mL/min (70-130); Calcium 7.9 mg/dL (7.8-10.44); Carbon Dioxide 24 mmol/L (23-31); Chloride 102 mmol/L (98-107); Estimated GFR 71; Glucose 115 mg/dL (80-115); Potassium 3.5 mmol/L (3.5-5.1); Sodium 137 mmol/L (136-145)
[2022-04-24] MEDS: Famotidine 20 MG TAB PO SCH ×2 (08:31→20:40)
[2022-04-24] MEDS: Nicotine 21 MG PATCH TD SCH (08:31)
[2022-04-24] MEDS: HYDROcodone/Acetaminophen 10/325 mg Tablet PO PRN ×3 (11:31→20:40)
[2022-04-24 12:30] VITALS: BMI 22.8
[2022-04-24] MEDS: Lactated Ringer's 1,000 ML IV SCH ×2 (13:24→23:01)
[2022-04-25] MEDS: Cefepime 1 GM in Sodium Chloride 0.9% 100 ML IVPB SCH ×2 (01:08→15:28)
[2022-04-25 03:39] LABS: #Lymphocytes 1.7 thou/uL (1.20-3.40); #Monocytes 0.9 thou/uL (0.11-0.59); #Neutrophils 5.6 thou/uL (1.40-6.50); %Basophils 0.2 % (0.0-1.0); %Eosinophils 0.5 % (0.0-10.0); %Lymphocytes 20.4 % (21.0-51.0); %Monocytes 11.3 % (0.0-10.0); %Neutrophils 67.5 % (42.0-75.0); Hemoglobin 7.2 g/dL (14.0-18.0); Mean Corpuscular HGB CONC 33.3 g/dL (32.0-36.0); Mean Corpuscular Hemoglobin 30.8 pg (27.0-31.0); Mean Corpuscular Volume 92.3 fL (78.0-98.0); Mean Platelet Volume 6.3 fL (7.4-10.4); Platelet Count 279 thou/uL (130-400); RBC Distribution Width 15.8 % (11.5-14.5); Red Blood Cell (RBC) Count 2.35 mill/uL (4.70-6.10); White Blood Cell (WBC) Count 8.3 thou/uL (4.8-10.8)
[2022-04-25 03:55] LABS: Vancomycin, Trough 14.3 ug/mL
[2022-04-25 03:58] LABS: ALT (SGPT) Less than 7 U/L (8-55); AST (SGOT) 8 U/L (5-34); Albumin 2.5 g/dL (3.4-4.8); Alkaline Phosphatase 84 U/L (40-110); Anion Gap 15 mmol/L (10-20); BUN (Urea Nitrogen) 25 mg/dL (8.4-25.7); Bilirubin, Total 0.8 mg/dL (0.2-1.2); Calc. Creatinine Clearance 68 mL/min (70-130); Calcium 7.6 mg/dL (7.8-10.44); Carbon Dioxide 27 mmol/L (23-31); Chloride 98 mmol/L (98-107); Estimated GFR 77; Globulin 4.6 g/dL (2.4-3.5); Glucose 97 mg/dL (80-115); Potassium 3.7 mmol/L (3.5-5.1); Protein, Total 7.1 g/dL (5.8-8.1); Sodium 136 mmol/L (136-145)
[2022-04-25] MEDS: Vancomycin 1 GM in Premix Bag 1 BAG IVPB SCH (04:26)
[2022-04-25] MEDS: Vancomycin HCl 750 MG in Sodium Chloride 0.9% 250 ML 250 ML IVPB SCH (05:23)
[2022-04-25] MEDS: HYDROcodone/Acetaminophen 10/325 mg Tablet PO PRN (09:10)
[2022-04-25] MEDS: Famotidine 20 MG TAB PO SCH ×2 (09:11→21:12)
[2022-04-25] MEDS: Lactated Ringer's 1,000 ML IV SCH ×3 (09:11→21:11)
[2022-04-25] MEDS: Heparin 5,000 UNITS/ML VIAL SC SCH ×2 (09:11→21:13)
[2022-04-25] MEDS: Nicotine 21 MG PATCH TD SCH (09:11)
[2022-04-25] MEDS ORDERED: Ergocalciferol 1.25 MG(50,000 UNITS) CAP PO SCH (11:00)
[2022-04-26] MEDS: Cefepime 1 GM in Sodium Chloride 0.9% 100 ML IVPB SCH ×2 (01:11→14:02)
[2022-04-26 04:02] LABS: #Eosinphils 0.1 thou/uL (0.0-0.7); #Lymphocytes 1.3 thou/uL (1.20-3.40); #Neutrophils 6.5 thou/uL (1.40-6.50); %Eosinophils 1.1 % (0.0-10.0); %Monocytes 10.6 % (0.0-10.0); %Neutrophils 73.3 % (42.0-75.0); Mean Corpuscular HGB CONC 32.2 g/dL (32.0-36.0); Mean Corpuscular Hemoglobin 30.3 pg (27.0-31.0); Mean Corpuscular Volume 94.1 fL (78.0-98.0); Mean Platelet Volume 6.6 fL (7.4-10.4); Platelet Count 271 thou/uL (130-400); RBC Distribution Width 15.3 % (11.5-14.5); Red Blood Cell (RBC) Count 2.62 mill/uL (4.70-6.10); White Blood Cell (WBC) Count 8.9 thou/uL (4.8-10.8)
[2022-04-26] MEDS: Vancomycin 1 GM in Premix Bag 1 BAG IVPB SCH (04:11)
[2022-04-26 05:07] VITALS: TEMP 98.9
[2022-04-26] MEDS: Famotidine 20 MG TAB PO SCH (08:25)
[2022-04-26] MEDS: Nicotine 21 MG PATCH TD SCH (08:25)
[2022-04-26] MEDS: Heparin 5,000 UNITS/ML VIAL SC SCH (08:25)
[2022-04-26] MEDS: Lactated Ringer's 1,000 ML IV SCH (16:45)
[2022-04-27 10:18] LABS: Kappa Lambda Light Chain Ratio 1.71 (0.26-1.65); Lambda Light Chain 134.8 mg/L (5.7-26.3)
[2022-04-27 13:42] LABS: A/G Ratio 0.4 (0.7-1.7); Alpha 1 0.4 g/dL (0.0-0.4); Alpha 2 0.9 g/dL (0.4-1.0); Gamma 2.2 g/dL (0.4-1.8); Globulin, Total 4.6 g/dL (2.2-3.9); M-Spike Not Observed g/dL (Not Observed); Protein Electrophoresis Intrp Note: (.)
[2022-05-02] MEDS ORDERED: Ergocalciferol 1.25 MG(50,000 UNITS) CAP PO SCH (09:00)
== END 2022-04-26 19:30 | DRG 698 ==
LOC: ERS 22:06 → IMCU/EMU 04-23 02:05
PROVIDERS: ADMIT Internal Medicine; ATTEND Internal Medicine
PROC: 30233N1 Transfusion of Nonautologous Red Blood Cells into Peripheral Vein, Percutaneous Approach (ICD-10-PCS; principal; 2022-04-23)
PROC: 3E03329 Introduction of Other Anti-infective into Peripheral Vein, Percutaneous Approach (ICD-10-PCS; 2022-04-23)
DX: T83.518A Infection and inflammatory reaction due to other urinary catheter, initial encounter (principal); L89.154 Pressure ulcer of sacral region, stage 4; A41.9 Sepsis, unspecified organism; R65.21 Severe sepsis with septic shock; G93.41 Metabolic encephalopathy; R57.8 Other shock; N39.0 Urinary tract infection, site not specified; G82.20 Paraplegia, unspecified; N17.9 Acute kidney failure, unspecified; E87.1 Hypo-osmolality and hyponatremia; Z20.822 Contact with and (suspected) exposure to COVID-19; F17.210 Nicotine dependence, cigarettes, uncomplicated; E66.9 Obesity, unspecified; Y84.6 Urinary catheterization as the cause of abnormal reaction of the patient, or of later complication, without mention of misadventure at the time of the procedure; E86.0 Dehydration; L89.892 Pressure ulcer of other site, stage 2; E87.5 Hyperkalemia; L89.329 Pressure ulcer of left buttock, unspecified stage; L89.319 Pressure ulcer of right buttock, unspecified stage; E83.51 Hypocalcemia; Z79.899 Other long term (current) drug therapy; Z93.3 Colostomy status; Z89.512 Acquired absence of left leg below knee; Z89.511 Acquired absence of right leg below knee
CPT/HCPCS: 36415; 36430; 70450; 71045; 74176; 80048; 80053; 80202; 81003; 81015; 82306; 82550; 82570; 82728; 83540; 83550; 83605; 83690; 83880; 83883; 84155; 84156; 84165; 84166; 84300; 84443; 84484; 84540; 85025; 86850; 86870; 86900; 86901; 86905; 86922; 87040; 87077; 87086; 93005; 97139; J0692; J1644; J1815; J1940; J1956; J2405; J3370; J3490; J7050; J7070; J7120; J7999; P9016; P9047; U0002

== ENCOUNTER 2022-06-05 20:54 | Inpatient (IN) | payer MEDICARE, MEDICAID ==
[2022-06-05] MEDS ORDERED: Acetaminophen 650 MG Suppository PR PRN (23:43)
[2022-06-05] MEDS ORDERED: Acetaminophen 325 MG TAB PO PRN (23:43)
[2022-06-05] MEDS ORDERED: Ondansetron ODT 4 MG TAB PO PRN (23:43)
[2022-06-05] MEDS ORDERED: Ondansetron PF 4 MG/2 ML Vial IVP PRN (23:43)
[2022-06-05] MEDS ORDERED: Sodium Chloride 0.9% 1,000 ML IV SCH (23:45)
[2022-06-06] MEDS: Vancomycin 1 GM in Premix Bag 1 BAG IVPB SCH (01:19)
[2022-06-06] MEDS ORDERED: Vancomycin 1 GM/200 ML BAG ONE (01:21)
[2022-06-06 04:26] LABS: #Eosinphils 0.1 thou/uL (0.0-0.7); #Lymphocytes 0.5 thou/uL (1.20-3.40); #Monocytes 0.3 thou/uL (0.11-0.59); #Neutrophils 9.7 thou/uL (1.40-6.50); %Basophils 0.1 % (0.0-1.0); %Eosinophils 0.5 % (0.0-10.0); %Lymphocytes 4.6 % (21.0-51.0); %Monocytes 2.4 % (0.0-10.0); %Neutrophils 92.4 % (42.0-75.0); Hemoglobin 6.4 g/dL (14.0-18.0); Mean Corpuscular HGB CONC 31.4 g/dL (32.0-36.0); Mean Corpuscular Hemoglobin 29.2 pg (27.0-31.0); Mean Corpuscular Volume 93.1 fL (78.0-98.0); Mean Platelet Volume 5.6 fL (7.4-10.4); Platelet Count 377 thou/uL (130-400); RBC Distribution Width 16.4 % (11.5-14.5); White Blood Cell (WBC) Count 10.5 thou/uL (4.8-10.8)
[2022-06-06 04:54] LABS: Anion Gap 14 mmol/L (10-20); BUN (Urea Nitrogen) 29 mg/dL (8.4-25.7); Calc. Creatinine Clearance 58 mL/min (70-130); Calcium 9.1 mg/dL (7.8-10.44); Carbon Dioxide 12 mmol/L (23-31); Chloride 104 mmol/L (98-107); Estimated GFR 65; Glucose 141 mg/dL (80-115); Potassium 6.3 mmol/L (3.5-5.1); Sodium 124 mmol/L (136-145)
[2022-06-06 04:55] LABS: Actual Bicarbonate (HCO3a) 12.6 mEq/L (22-28); Base Excess (BEa) -13.6 mEq/L (-2.0 to +3.0); Carboxyhemoglobin (COHb) 0.9 gm% (0.0-3.0); Hemoglobin (Hb) 7.2 g/dL (14.0-18.0); Potassium - ABG Lab 6.47 mmol/L (3.70-5.30)
[2022-06-06 04:56] LABS: Puncture Site LRA; pH, Arterial 7.24 (7.35-7.45)
[2022-06-06] MEDS: Cefepime 2 GM in Sodium Chloride 0.9% 100 ML IVPB SCH ×2 (05:48→17:05)
[2022-06-06] MEDS ORDERED: Insulin Regular 300 UNITS/3 ML VIAL IVP SCH (06:30)
[2022-06-06] MEDS ORDERED: Dextrose 50% Abboject 50 ML SYRINGE SLOW IVP SCH (06:30)
[2022-06-06] MEDS ORDERED: VANCOMYCIN 1.25 GM/250 ML BAG 1.25 GM in Premix Bag 1 BAG IVPB SCH (07:00)
[2022-06-06] MEDS ORDERED: Calcium Gluc 4.6 MEQ/10 ML (100 MG/ML) SLOW IVP SCH (08:00)
[2022-06-06] MEDS: Enoxaparin Sodium 40 MG/0.4 ML SYRINGE SC SCH (10:13)
[2022-06-06 14:38] LABS: Albumin 2.4 g/dL (3.4-4.8); Anion Gap 17 mmol/L (10-20); BUN (Urea Nitrogen) 28 mg/dL (8.4-25.7); BUN/Creatinine Ratio 26.42; Calc. Creatinine Clearance 67 mL/min (70-130); Calcium 8.9 mg/dL (7.8-10.44); Carbon Dioxide 15 mmol/L (23-31); Chloride 105 mmol/L (98-107); Estimated GFR 78; Glucose 112 mg/dL (80-115); Phosphorus 4.2 mg/dL (2.3-4.7); Potassium 4.6 mmol/L (3.5-5.1); Sodium 132 mmol/L (136-145)
[2022-06-06 15:10] VITALS: BMI 22.1
[2022-06-06] MEDS: Sodium Bicarbonate 150 MEQ in Dextrose 5% in Water 1,000 ML IV SCH (17:05)
[2022-06-07] MEDS: Vancomycin 1 GM in Premix Bag 1 BAG IVPB SCH (00:15)
[2022-06-07] MEDS: Cefepime 2 GM in Sodium Chloride 0.9% 100 ML IVPB SCH (05:47)
[2022-06-07] MEDS: Sodium Bicarbonate 150 MEQ in Dextrose 5% in Water 1,000 ML IV SCH (05:48)
[2022-06-07 06:34] LABS: #Eosinphils 0.2 thou/uL (0.0-0.7); #Lymphocytes 1.9 thou/uL (1.20-3.40); #Neutrophils 5.9 thou/uL (1.40-6.50); %Basophils 0.1 % (0.0-1.0); %Eosinophils 1.8 % (0.0-10.0); %Lymphocytes 21.7 % (21.0-51.0); %Monocytes 10.7 % (0.0-10.0); %Neutrophils 65.7 % (42.0-75.0); Hemoglobin 6.9 g/dL (14.0-18.0); Mean Corpuscular HGB CONC 31.6 g/dL (32.0-36.0); Mean Corpuscular Hemoglobin 28.6 pg (27.0-31.0); Mean Corpuscular Volume 90.5 fL (78.0-98.0); Mean Platelet Volume 5.9 fL (7.4-10.4); Platelet Count 332 thou/uL (130-400); RBC Distribution Width 16.6 % (11.5-14.5); Red Blood Cell (RBC) Count 2.43 mill/uL (4.70-6.10); White Blood Cell (WBC) Count 8.9 thou/uL (4.8-10.8)
[2022-06-07 06:51] LABS: ALT (SGPT) Less than 7 U/L (8-55); AST (SGOT) 10 U/L (5-34); Albumin 2.2 g/dL (3.4-4.8); Alkaline Phosphatase 108 U/L (40-110); Anion Gap 14 mmol/L (10-20); BUN (Urea Nitrogen) 27 mg/dL (8.4-25.7); Bilirubin, Total 0.2 mg/dL (0.2-1.2); Calc. Creatinine Clearance 70 mL/min (70-130); Carbon Dioxide 20 mmol/L (23-31); Chloride 103 mmol/L (98-107); Estimated GFR 82; Globulin 4.9 g/dL (2.4-3.5); Glucose 89 mg/dL (80-115); Potassium 4.6 mmol/L (3.5-5.1); Protein, Total 7.1 g/dL (5.8-8.1); Sodium 132 mmol/L (136-145)
[2022-06-07] MEDS: Enoxaparin Sodium 40 MG/0.4 ML SYRINGE SC SCH (08:36)
[2022-06-07] MEDS ORDERED: Iron, Sodium Ferric Gluconate 250 MG in Sodium Chloride 0.9% 250 ML 250 ML IVPB SCH (09:00)
[2022-06-07] MEDS ORDERED: Epoetin (ESRD) 10,000 UNITS/ML VIAL SC SCH (12:00)
[2022-06-07] MEDS: HYDROcodone/Acetaminophen 10/325 mg Tablet PO PRN (15:24)
[2022-06-07] MEDS: Ferrous Sulfate 325 MG TAB PO SCH (17:10)
[2022-06-07] MEDS: Sodium Bicarbonate Tab 325 MG TAB PO SCH (20:12)
[2022-06-07] MEDS: Gabapentin 300 MG CAP PO SCH (20:12)
[2022-06-07] MEDS: Ciprofloxacin 500 MG TAB PO SCH (20:12)
[2022-06-07] MEDS: Doxycycline 100 MG CAP PO SCH (20:12)
[2022-06-08 04:00] LABS: #Basophils 0.1 thou/uL (0.0-0.2); #Eosinphils 0.1 thou/uL (0.0-0.7); #Lymphocytes 1.4 thou/uL (1.20-3.40); #Monocytes 1.1 thou/uL (0.11-0.59); #Neutrophils 7.2 thou/uL (1.40-6.50); %Basophils 0.7 % (0.0-1.0); %Eosinophils 1.1 % (0.0-10.0); %Lymphocytes 14.6 % (21.0-51.0); %Monocytes 10.8 % (0.0-10.0); %Neutrophils 72.9 % (42.0-75.0); Hemoglobin 8.8 g/dL (14.0-18.0); Mean Corpuscular HGB CONC 33.4 g/dL (32.0-36.0); Mean Corpuscular Hemoglobin 29.8 pg (27.0-31.0); Mean Corpuscular Volume 89.3 fL (78.0-98.0); Mean Platelet Volume 6.1 fL (7.4-10.4); Platelet Count 355 thou/uL (130-400); RBC Distribution Width 16.1 % (11.5-14.5); Red Blood Cell (RBC) Count 2.94 mill/uL (4.70-6.10); White Blood Cell (WBC) Count 9.9 thou/uL (4.8-10.8)
[2022-06-08 04:24] LABS: Anion Gap 16 mmol/L (10-20); BUN (Urea Nitrogen) 24 mg/dL (8.4-25.7); Calc. Creatinine Clearance 83 mL/min (70-130); Carbon Dioxide 23 mmol/L (23-31); Chloride 99 mmol/L (98-107); Estimated GFR 96; Glucose 88 mg/dL (80-115); Potassium 3.9 mmol/L (3.5-5.1); Sodium 134 mmol/L (136-145)
[2022-06-08] MEDS: Ciprofloxacin 500 MG TAB PO SCH (05:22)
[2022-06-08] MEDS: HYDROcodone/Acetaminophen 10/325 mg Tablet PO PRN (05:27)
[2022-06-08] MEDS ORDERED: Multivit, Therapeutic 1 TAB PO SCH (09:00)
[2022-06-08] MEDS ORDERED: Cyanocobalamin (Vitamin B-12) 1,000 MCG TAB PO SCH (09:00)
[2022-06-08] MEDS: Gabapentin 300 MG CAP PO SCH (09:26)
[2022-06-08] MEDS: Enoxaparin Sodium 40 MG/0.4 ML SYRINGE SC SCH (09:27)
[2022-06-08] MEDS: Sodium Bicarbonate Tab 325 MG TAB PO SCH (09:27)
[2022-06-08] MEDS: Doxycycline 100 MG CAP PO SCH (09:27)
[2022-06-08] MEDS: Ferrous Sulfate 325 MG TAB PO SCH (09:27)
[2022-06-08 16:00] VITALS: BP 141/74; TEMP 98
== END 2022-06-08 16:13 | DRG 871 ==
LOC: IMCU/EMU 22:17 → 2NO 06-06 19:31
PROVIDERS: ADMIT Internal Medicine; ATTEND Internal Medicine
PROC: 3E03329 Introduction of Other Anti-infective into Peripheral Vein, Percutaneous Approach (ICD-10-PCS; principal; 2022-06-05)
PROC: 30233N1 Transfusion of Nonautologous Red Blood Cells into Peripheral Vein, Percutaneous Approach (ICD-10-PCS; 2022-06-06)
DX: A41.9 Sepsis, unspecified organism (principal); E43 Unspecified severe protein-calorie malnutrition; L89.154 Pressure ulcer of sacral region, stage 4; G93.41 Metabolic encephalopathy; R57.8 Other shock; R65.21 Severe sepsis with septic shock; N17.9 Acute kidney failure, unspecified; G82.20 Paraplegia, unspecified; E87.1 Hypo-osmolality and hyponatremia; R65.20 Severe sepsis without septic shock; E87.5 Hyperkalemia; N31.2 Flaccid neuropathic bladder, not elsewhere classified; D64.9 Anemia, unspecified; F17.210 Nicotine dependence, cigarettes, uncomplicated; E86.9 Volume depletion, unspecified; I73.9 Peripheral vascular disease, unspecified; E16.2 Hypoglycemia, unspecified; Z93.3 Colostomy status; Z97.8 Presence of other specified devices; Z91.018 Allergy to other foods; Z68.22 Body mass index [BMI] 22.0-22.9, adult; Z89.612 Acquired absence of left leg above knee; Z89.611 Acquired absence of right leg above knee; Z79.899 Other long term (current) drug therapy
CPT/HCPCS: 36415; 36416; 36430; 36600; 71045; 74177; 80048; 80053; 81003; 81015; 82550; 82607; 82668; 82728; 82746; 82805; 83540; 83550; 83605; 83883; 84155; 84165; 84484; 85025; 85610; 85730; 86334; 86850; 86900; 86901; 86922; 87040; 93005; 94644; 94760; 97139; J0610; J0692; J1650; J1720; J1815; J1940; J2916; J3370; J3490; J7050; J7070; J7611; J7999; P9016; Q4081

== ENCOUNTER 2022-06-27 12:01 | Day surgery (SDC) | payer MEDICARE, MEDICAID ==
[2022-06-27] MEDS ORDERED: Acetaminophen 500 MG TAB PO SCH (12:45)
[2022-06-27] MEDS ORDERED: diphenhydrAMINE 25 MG CAP PO SCH (12:45)
== END 2022-06-27 18:06 ==
LOC: ONC/OP 12:01
PROVIDERS: ATTEND Internal Medicine
PROC: 30233N1 Transfusion of Nonautologous Red Blood Cells into Peripheral Vein, Percutaneous Approach (ICD-10-PCS; principal; 2022-06-27)
DX: D64.9 Anemia, unspecified (principal); D69.6 Thrombocytopenia, unspecified; Z91.018 Allergy to other foods
CPT/HCPCS: 86850; 86870; 86880; 86900; 86901

== ENCOUNTER 2022-06-28 09:28 | Day surgery (SDC) | payer MEDICARE, MEDICAID ==
[2022-06-28] MEDS ORDERED: diphenhydrAMINE 25 MG CAP ONE (09:47)
[2022-06-28] MEDS ORDERED: Acetaminophen 500 MG TAB ONE (09:47)
[2022-06-28 12:36] VITALS: BP 163/76; TEMP 97.9
== END 2022-06-28 12:36 | disposition home or self-care (01) ==
LOC: ONC/OP 09:28
PROVIDERS: ATTEND Internal Medicine
PROC: 30233N1 Transfusion of Nonautologous Red Blood Cells into Peripheral Vein, Percutaneous Approach (ICD-10-PCS; principal; 2022-06-28)
DX: D64.9 Anemia, unspecified (principal); D69.6 Thrombocytopenia, unspecified; Z91.018 Allergy to other foods
CPT/HCPCS: 36430; 86850; 86860; 86870; 86880; 86900; 86901; 86922; P9016

== ENCOUNTER 2022-06-28 14:43 | Inpatient (IN) | payer MEDICARE, MEDICAID ==
[2022-06-28 16:05] LABS: Hemoglobin 8.1 g/dL (14.0-18.0); Mean Corpuscular HGB CONC 31.9 g/dL (32.0-36.0); Mean Corpuscular Hemoglobin 30.8 pg (27.0-31.0); Mean Corpuscular Volume 96.6 fL (78.0-98.0); Mean Platelet Volume 6.1 fL (7.4-10.4); Platelet Count 455 thou/uL (130-400); RBC Distribution Width 16.7 % (11.5-14.5); Red Blood Cell (RBC) Count 2.63 mill/uL (4.70-6.10)
[2022-06-28] MEDS ORDERED: Iopamidol-370 76% 500 ML 1 ML ONE (16:07)
[2022-06-28] MEDS ORDERED: Vancomycin 1 GM/200 ML BAG ONE (16:11)
[2022-06-28] MEDS ORDERED: Cefepime 2 GM VIAL ONE (16:11)
[2022-06-28 16:20] LABS: Band 4 % (5-11); Lymphocytes 9 % (21-51); MDiff Complete? YES; Monocytes 16 % (0-10); Neutrophil 66 % (42-75); Platelet Morphology Comment Appears Increased; Polychromasia SLIGHT = 2-3 cells (100X) (0-2/hpf); Reactive Lymphocytes 4 % (0-10)
[2022-06-28 16:25] LABS: ALT (SGPT) 11 U/L (8-55); AST (SGOT) 15 U/L (5-34); Albumin 2.5 g/dL (3.4-4.8); Alkaline Phosphatase 115 U/L (40-110); Anion Gap 17 mmol/L (10-20); BUN (Urea Nitrogen) 26 mg/dL (8.4-25.7); Bilirubin, Total 0.5 mg/dL (0.2-1.2); Calc. Creatinine Clearance 0 mL/min (70-130); Calcium 7.3 mg/dL (7.8-10.44); Carbon Dioxide 13 mmol/L (23-31); Chloride 110 mmol/L (98-107); Estimated GFR 68; Globulin 4.3 g/dL (2.4-3.5); Protein, Total 6.8 g/dL (5.8-8.1); Sodium 133 mmol/L (136-145)
[2022-06-28 16:26] LABS: Acetaminophen Less than 10.0 mcg/mL (10.0-30.0); Alcohol Less than 10 mg/dL (Less than 10); CK (CPK) 17 U/L (30-200); Lipase 172 U/L (8-78); Salicylate Less than 8.0 mg/dL (15.0-30.0)
[2022-06-28 16:41] LABS: Potassium 6.5 mmol/L (3.5-5.1)
[2022-06-28 17:03] LABS: Analyzer IN Cardio ER; Base Excess -12.5 mEq/L (-2.0 to +3.0); Calcium, Ionized (venous) 1.06 mmol/L (1.16-1.32); Chloride (VBG) 111 mmol/L (98-106); Hemoglobin (Hb) 8.3 g/dL (12.6-17.4); Potassium (VBG) 6.42 mmol/L (3.70-5.30); Sodium 132.7 mmol/L (133-146)
[2022-06-28 17:04] LABS: Glucose 56 mg/dL (80-115)
[2022-06-28 17:05] LABS: pH (venous) 7.21 (7.32-7.43)
[2022-06-28 17:06] LABS: Actual Bicarbonate (HCO3v) 14 mEq/L (22-28)
[2022-06-28] MEDS ORDERED: Dextrose 50% Abboject 50 ML SYRINGE ONE ×3 (17:07→21:31)
[2022-06-28 17:13] LABS: Amphetamine Not Detected (NotDetected); Barbiturates Screen Not Detected (NotDetected); Benzodiazepine Screen Not Detected (NotDetected); Cocaine Metabolite Screen Not Detected (NotDetected); Methadone Not Detected (NotDetected); Methamphetamine Not Detected (NotDetected); Opiate Screen Detected (NotDetected); Oxycodone Screen Not Detected (NotDetected); Phencyclidine (PCP) Not Detected (NotDetected); THC/Cannabinoid Screen Not Detected (NotDetected); Tricyclic Screen Not Detected (NotDetected)
[2022-06-28 17:18] LABS: SARS-CoV-2 NAA Rapid Test Not Detected (NotDetected)
[2022-06-28] MEDS ORDERED: Sodium Bicarb 50 MEQ/50 ML VIAL ONE (17:22)
[2022-06-28] MEDS ORDERED: Calcium Chloride 1 GM/10 ML Abboject SYRINGE ONE (17:22)
[2022-06-28 18:22] LABS: Bacteria/HPF 3+ HPF (None Seen); Bilirubin Negative (Negative); Blood, Urine 2+ (Negative); Clarity Turbid (Clear); Glucose, Urine (Dipstick) Normal (Negative); Ketone, Urine Negative (Negative); Leukocyte 500 Leu/uL (Negative); Nitrite Negative (Negative); Protein, Urine (Dipstick) 70 mg/dL (Neg-Trace); Specific Gravity, Urine 1.015 (1.002-1.036); Squamous Epithelial None Seen HPF (0-3); Urobilinogen Normal mg/dL (Less than 2); WBC/HPF Greater than 50 HPF (0-3); pH, Urine 5.5 (5.0-9.0)
[2022-06-28 20:23] LABS: Anion Gap 14 mmol/L (10-20); BUN (Urea Nitrogen) 21 mg/dL (8.4-25.7); Calc. Creatinine Clearance 0 mL/min (70-130); Carbon Dioxide 13 mmol/L (23-31); Chloride 114 mmol/L (98-107); Estimated GFR 85; Glucose 65 mg/dL (80-115); Potassium 5.2 mmol/L (3.5-5.1); Sodium 136 mmol/L (136-145)
[2022-06-28 20:25] LABS: Magnesium 0.9 mg/dL (1.6-2.6)
[2022-06-28] MEDS ORDERED: Magnesium 2 GM/50 ML(in water) 2 GM in Premix Bag 1 BAG IVPB SCH (21:00)
[2022-06-28] MEDS ORDERED: Ondansetron PF 4 MG/2 ML Vial IVP PRN (22:00)
[2022-06-28] MEDS ORDERED: D5 1/2 NS w/20 mEq KCL 1,000 ML IV SCH (22:00)
[2022-06-28] MEDS ORDERED: Ondansetron ODT 4 MG TAB SL PRN (22:00)
[2022-06-28] MEDS: Sodium Bicarbonate 150 MEQ in Dextrose 5% in Water 1,000 ML IV SCH (23:00)
[2022-06-29] MEDS ORDERED: Acetaminophen 325 MG TAB PO PRN (01:08)
[2022-06-29] MEDS ORDERED: Dextrose 50% Abboject 50 ML SYRINGE SLOW IVP PRN (02:51)
[2022-06-29] MEDS ORDERED: Morphine 2 MG/ML VIAL SLOW IVP SCH (03:30)
[2022-06-29 04:40] LABS: Anion Gap 12 mmol/L (10-20); BUN (Urea Nitrogen) 18 mg/dL (8.4-25.7); Calc. Creatinine Clearance 77 mL/min (70-130); Calcium 7.7 mg/dL (7.8-10.44); Carbon Dioxide 17 mmol/L (23-31); Chloride 111 mmol/L (98-107); Estimated GFR 97; Glucose 93 mg/dL (80-115); Magnesium 1.5 mg/dL (1.6-2.6); Potassium 4.3 mmol/L (3.5-5.1); Sodium 136 mmol/L (136-145)
[2022-06-29] MEDS ORDERED: HYDROcodone/Acetaminophen 10/325 mg Tablet PO SCH (05:15)
[2022-06-29 05:16] LABS: Band 16 % (5-11); Hemoglobin 6.6 g/dL (14.0-18.0); Lymphocytes 13 % (21-51); MDiff Complete? YES; Mean Corpuscular HGB CONC 32.4 g/dL (32.0-36.0); Mean Corpuscular Hemoglobin 30.9 pg (27.0-31.0); Mean Corpuscular Volume 95.3 fL (78.0-98.0); Mean Platelet Volume 6.1 fL (7.4-10.4); Monocytes 15 % (0-10); Neutrophil 56 % (42-75); Platelet Count 367 thou/uL (130-400); RBC Distribution Width 16.5 % (11.5-14.5); Red Blood Cell (RBC) Count 2.15 mill/uL (4.70-6.10); White Blood Cell (WBC) Count 8.2 thou/uL (4.8-10.8)
[2022-06-29] MEDS: Cefepime 1 GM in Sodium Chloride 0.9% 100 ML IVPB SCH ×2 (05:42→16:14)
[2022-06-29] MEDS: Sodium Bicarbonate 150 MEQ in Dextrose 5% in Water 1,000 ML IV SCH ×2 (07:30→16:14)
[2022-06-29] MEDS ORDERED: Magnesium Sulfate 4 GM in Sodium Chloride 0.9% 250 ML 250 ML IVPB SCH (07:45)
[2022-06-29 07:58] LABS: Phosphorus 3.1 mg/dL (2.3-4.7)
[2022-06-29] MEDS ORDERED: EPINEPHrine 1 MG/ML AMP IVP PRN (08:55)
[2022-06-29] MEDS ORDERED: Heparin 5,000 UNITS/ML VIAL SC SCH (09:00)
[2022-06-29] MEDS ORDERED: Magnesium Sulfate In Water 4 GM in Premix Bag 1 BAG IVPB SCH (09:00)
[2022-06-29] MEDS: Vancomycin 1 GM in Premix Bag 1 BAG IVPB SCH (09:17)
[2022-06-29] MEDS: Calcium Carbonate 600 MG + Vit D TAB PO SCH ×2 (09:17→16:14)
[2022-06-29] MEDS ORDERED: Diphenoxylate HCl/Atropine Tablet PO PRN ×2 (09:31)
[2022-06-29] MEDS ORDERED: Loperamide HCl 2 MG CAP PO PRN ×2 (09:31)
[2022-06-29] MEDS ORDERED: Morphine 2 MG/ML VIAL SLOW IVP PRN (09:41)
[2022-06-29 10:03] LABS: Reticulocyte Count 2.7 % (0.5-1.5)
[2022-06-29 10:06] LABS: ALT (SGPT) 8 U/L (8-55); AST (SGOT) 11 U/L (5-34); Albumin 1.9 g/dL (3.4-4.8); Alkaline Phosphatase 95 U/L (40-110); Bilirubin, Direct 0.2 mg/dL (0.1-0.3); Bilirubin, Total 0.3 mg/dL (0.2-1.2); Protein, Total 5.8 g/dL (5.8-8.1)
[2022-06-29 10:16] LABS: INR-International Normal Ratio 1.3; PTT 58.8 sec (22.9-36.1); Prothrombin Time 16.1 sec (12.0-14.7)
[2022-06-29] MEDS: Morphine 4 MG/ML VIAL SLOW IVP PRN ×5 (10:16→23:38)
[2022-06-29 10:17] LABS: D-Dimer Test 1.66 *mcg/mL (0.27-0.43)
[2022-06-29 17:13] LABS: Hemoglobin 6.6 g/dL (14.0-18.0); Platelet Count 382 thou/uL (130-400)
[2022-06-29] MEDS: HYDROcodone/Acetaminophen 10/325 mg Tablet PO PRN ×2 (18:21→23:09)
[2022-06-30] MEDS: Sodium Bicarbonate 150 MEQ in Dextrose 5% in Water 1,000 ML IV SCH ×2 (00:55→10:06)
[2022-06-30] MEDS: Morphine 4 MG/ML VIAL SLOW IVP PRN ×6 (02:58→22:57)
[2022-06-30] MEDS: Cefepime 1 GM in Sodium Chloride 0.9% 100 ML IVPB SCH (04:54)
[2022-06-30] MEDS: HYDROcodone/Acetaminophen 10/325 mg Tablet PO PRN ×5 (05:01→20:28)
[2022-06-30 05:46] LABS: #Lymphocytes 1.5 thou/uL (1.20-3.40); #Monocytes 0.6 thou/uL (0.11-0.59); #Neutrophils 3.8 thou/uL (1.40-6.50); %Basophils 0.1 % (0.0-1.0); %Eosinophils 0.6 % (0.0-10.0); %Lymphocytes 25.5 % (21.0-51.0); %Monocytes 9.9 % (0.0-10.0); %Neutrophils 63.9 % (42.0-75.0); Hemoglobin 6.5 g/dL (14.0-18.0); Mean Corpuscular HGB CONC 31.6 g/dL (32.0-36.0); Mean Corpuscular Hemoglobin 30.1 pg (27.0-31.0); Mean Corpuscular Volume 95.5 fL (78.0-98.0); Mean Platelet Volume 5.8 fL (7.4-10.4); Platelet Count 327 thou/uL (130-400); RBC Distribution Width 16.7 % (11.5-14.5); Red Blood Cell (RBC) Count 2.16 mill/uL (4.70-6.10); White Blood Cell (WBC) Count 5.9 thou/uL (4.8-10.8)
[2022-06-30 06:10] LABS: ALT (SGPT) 11 U/L (8-55); AST (SGOT) 10 U/L (5-34); Albumin 1.8 g/dL (3.4-4.8); Alkaline Phosphatase 91 U/L (40-110); Anion Gap 10 mmol/L (10-20); BUN (Urea Nitrogen) 15 mg/dL (8.4-25.7); Bilirubin, Total 0.3 mg/dL (0.2-1.2); Calc. Creatinine Clearance 92 mL/min (70-130); Carbon Dioxide 30 mmol/L (23-31); Chloride 101 mmol/L (98-107); Estimated GFR 103; Globulin 3.8 g/dL (2.4-3.5); Glucose 109 mg/dL (80-115); Magnesium 1.9 mg/dL (1.6-2.6); Potassium 3.6 mmol/L (3.5-5.1); Protein, Total 5.6 g/dL (5.8-8.1); Sodium 137 mmol/L (136-145)
[2022-06-30] MEDS: Calcium Carbonate 600 MG + Vit D TAB PO SCH ×2 (09:51→16:38)
[2022-06-30] MEDS: Pantoprazole 40 MG VIAL IVP SCH (09:51)
[2022-06-30] MEDS ORDERED: HYDROcodone/Acetaminophen 10/325 mg Tablet PO PRN (10:23)
[2022-06-30 10:31] LABS: Vancomycin, Trough 16.2 ug/mL
[2022-06-30] MEDS: Vancomycin 1 GM in Premix Bag 1 BAG IVPB SCH (10:58)
[2022-06-30] MEDS ORDERED: diphenhydrAMINE 25 MG CAP PO SCH (11:00)
[2022-06-30] MEDS ORDERED: Diphenoxylate HCl/Atropine Tablet PO SCH (11:15)
[2022-06-30] MEDS: Azithromycin 500 MG in Sodium Chloride 0.9% 250 ML 250 ML IVPB SCH (12:14)
[2022-06-30] MEDS: cefTRIAXone\\ROCEPHIN 1 GM in Sodium Chloride 0.9% 100 ML IVPB SCH (16:49)
[2022-06-30] MEDS: Diphenoxylate HCl/Atropine Tablet PO SCH (20:28)
[2022-06-30] MEDS: Ondansetron PF 4 MG/2 ML Vial IVP PRN (23:42)
[2022-07-01] MEDS: HYDROcodone/Acetaminophen 10/325 mg Tablet PO PRN ×4 (01:16→13:27)
[2022-07-01] MEDS: Morphine 4 MG/ML VIAL SLOW IVP PRN ×5 (03:03→19:30)
[2022-07-01 05:29] LABS: #Lymphocytes 1.5 thou/uL (1.20-3.40); #Monocytes 0.6 thou/uL (0.11-0.59); #Neutrophils 4.9 thou/uL (1.40-6.50); %Basophils 0.1 % (0.0-1.0); %Eosinophils 0.7 % (0.0-10.0); %Lymphocytes 21.1 % (21.0-51.0); %Monocytes 8.8 % (0.0-10.0); %Neutrophils 69.3 % (42.0-75.0); Hemoglobin 8.2 g/dL (14.0-18.0); Mean Corpuscular HGB CONC 31.9 g/dL (32.0-36.0); Mean Corpuscular Hemoglobin 30.4 pg (27.0-31.0); Mean Corpuscular Volume 95.3 fL (78.0-98.0); Platelet Count 363 thou/uL (130-400); RBC Distribution Width 16.2 % (11.5-14.5); Red Blood Cell (RBC) Count 2.68 mill/uL (4.70-6.10)
[2022-07-01 05:51] LABS: ALT (SGPT) 9 U/L (8-55); AST (SGOT) 11 U/L (5-34); Alkaline Phosphatase 99 U/L (40-110); Anion Gap 13 mmol/L (10-20); BUN (Urea Nitrogen) 11 mg/dL (8.4-25.7); Bilirubin, Total 0.3 mg/dL (0.2-1.2); Calc. Creatinine Clearance 91 mL/min (70-130); Calcium 6.9 mg/dL (7.8-10.44); Carbon Dioxide 30 mmol/L (23-31); Chloride 99 mmol/L (98-107); Estimated GFR 102; Globulin 4.3 g/dL (2.4-3.5); Glucose 85 mg/dL (80-115); Magnesium 1.4 mg/dL (1.6-2.6); Potassium 3.7 mmol/L (3.5-5.1); Protein, Total 6.3 g/dL (5.8-8.1); Sodium 138 mmol/L (136-145)
[2022-07-01] MEDS: Calcium Carbonate 600 MG + Vit D TAB PO SCH ×2 (07:40→16:39)
[2022-07-01] MEDS: Pantoprazole 40 MG VIAL IVP SCH (07:41)
[2022-07-01] MEDS: Diphenoxylate HCl/Atropine Tablet PO SCH ×2 (07:41→19:30)
[2022-07-01] MEDS ORDERED: Magnesium Sulfate In Water 4 GM in Premix Bag 1 BAG IVPB SCH (08:00)
[2022-07-01] MEDS ORDERED: EPINEPHrine 1 MG/ML AMP IM PRN (08:24)
[2022-07-01] MEDS ORDERED: Carvedilol 3.125 MG TAB PO SCH ×2 (08:30→17:00)
[2022-07-01] MEDS: Carvedilol 6.25 MG TAB PO SCH ×2 (08:43→19:29)
[2022-07-01] MEDS: Azithromycin 500 MG in Sodium Chloride 0.9% 250 ML 250 ML IVPB SCH (11:47)
[2022-07-01] MEDS ORDERED: HYDROcodone/Acetaminophen 10/325 mg Tablet PO PRN (15:13)
[2022-07-01] MEDS: cefTRIAXone\\ROCEPHIN 1 GM in Sodium Chloride 0.9% 100 ML IVPB SCH (16:39)
[2022-07-02] MEDS: Morphine 4 MG/ML VIAL SLOW IVP PRN ×5 (00:29→20:14)
[2022-07-02] MEDS: Ondansetron PF 4 MG/2 ML Vial IVP PRN (03:54)
[2022-07-02 04:25] LABS: #Lymphocytes 1.3 thou/uL (1.20-3.40); #Monocytes 0.6 thou/uL (0.11-0.59); #Neutrophils 6.5 thou/uL (1.40-6.50); %Basophils 0.3 % (0.0-1.0); %Eosinophils 0.3 % (0.0-10.0); %Lymphocytes 15.3 % (21.0-51.0); %Monocytes 7.3 % (0.0-10.0); %Neutrophils 76.8 % (42.0-75.0); Hemoglobin 8.9 g/dL (14.0-18.0); Mean Corpuscular HGB CONC 32.6 g/dL (32.0-36.0); Mean Corpuscular Hemoglobin 31.2 pg (27.0-31.0); Mean Corpuscular Volume 95.7 fL (78.0-98.0); Platelet Count 356 thou/uL (130-400); RBC Distribution Width 16.4 % (11.5-14.5); Red Blood Cell (RBC) Count 2.85 mill/uL (4.70-6.10); White Blood Cell (WBC) Count 8.5 thou/uL (4.8-10.8)
[2022-07-02] MEDS: Dextrose 5 % And 0.9 % NaCl 1,000 ML IV SCH ×2 (04:42→16:28)
[2022-07-02 04:54] LABS: ALT (SGPT) 11 U/L (8-55); AST (SGOT) 12 U/L (5-34); Albumin 2.1 g/dL (3.4-4.8); Alkaline Phosphatase 107 U/L (40-110); Anion Gap 16 mmol/L (10-20); BUN (Urea Nitrogen) 10 mg/dL (8.4-25.7); Bilirubin, Total 0.3 mg/dL (0.2-1.2); Calc. Creatinine Clearance 86 mL/min (70-130); Calcium 7.4 mg/dL (7.8-10.44); Carbon Dioxide 26 mmol/L (23-31); Chloride 100 mmol/L (98-107); Estimated GFR 101; Globulin 4.5 g/dL (2.4-3.5); Glucose 66 mg/dL (80-115); Potassium 3.8 mmol/L (3.5-5.1); Protein, Total 6.6 g/dL (5.8-8.1); Sodium 138 mmol/L (136-145)
[2022-07-02 08:10] LABS: Magnesium 2.1 mg/dL (1.6-2.6); Phosphorus 3.6 mg/dL (2.3-4.7)
[2022-07-02] MEDS ORDERED: HYDROcodone/Acetaminophen 10/325 mg Tablet PO PRN (09:00)
[2022-07-02] MEDS: Carvedilol 6.25 MG TAB PO SCH ×3 (09:28→21:09)
[2022-07-02] MEDS: Calcium Carbonate 600 MG + Vit D TAB PO SCH ×2 (09:28→17:25)
[2022-07-02] MEDS: Pantoprazole 40 MG VIAL IVP SCH (09:28)
[2022-07-02] MEDS: Azithromycin 500 MG in Sodium Chloride 0.9% 250 ML 250 ML IVPB SCH (11:37)
[2022-07-02] MEDS: cefTRIAXone\\ROCEPHIN 1 GM in Sodium Chloride 0.9% 100 ML IVPB SCH (16:30)
[2022-07-02] MEDS ORDERED: Rocuronium Bromide 10 MG/ML (10ML VIAL) ONE (20:00)
[2022-07-02] MEDS ORDERED: Naloxone HCl 0.4 mg/ml Vial ONE (20:27)
[2022-07-02 21:16] LABS: Actual Bicarbonate (HCO3a) 22.5 mEq/L (22-28); CO2 Tension 32.9 mmHg (35.0-45.0); Calcium, Ionized (arterial) 0.99 mmol/L (1.12-1.30); Carboxyhemoglobin (COHb) 0.3 gm% (0.0-3.0); Hemoglobin (Hb) 9.9 g/dL (14.0-18.0); O2 Tension (PaO2), arterial 97.1 mmHg (> 80.0); Potassium - ABG Lab 3.39 mmol/L (3.70-5.30); pH, Arterial 7.45 (7.35-7.45)
[2022-07-02 21:19] LABS: Puncture Site LBR
[2022-07-02 21:20] LABS: ALV-art Gradient 218.275 mmHg (0-20)
[2022-07-02] MEDS ORDERED: Midazolam HCl 2 mg/2 ml Vial SLOW IVP PRN (21:27)
[2022-07-02] MEDS ORDERED: Morphine 2 MG/ML VIAL SLOW IVP PRN (21:30)
[2022-07-02] MEDS ORDERED: Fentanyl BOLUS 250 ML IVPB PRN (21:30)
[2022-07-02] MEDS ORDERED: Propofol BOLUS 1,000 MG/100 ML VIAL IV PRN (21:30)
[2022-07-02] MEDS ORDERED: Ventilator Sedation Protocol 1 EACH FS SCH (21:30)
[2022-07-02] MEDS ORDERED: DISCONTINUE PREVIOUS NARCOTIC PAIN MEDICATIONS AND BENZODIAZEPINES FS SCH (21:30)
[2022-07-02] MEDS ORDERED: Fentanyl CADD 100 ML IV SCH (21:30)
[2022-07-02] MEDS ORDERED: Propofol 1,000 MG/100 ML VIAL IV PRN (21:30)
[2022-07-02 21:51] LABS: #Eosinphils 0.1 thou/uL (0.0-0.7); #Lymphocytes 5.3 thou/uL (1.20-3.40); #Monocytes 1.3 thou/uL (0.11-0.59); #Neutrophils 8.1 thou/uL (1.40-6.50); %Basophils 0.3 % (0.0-1.0); %Eosinophils 0.5 % (0.0-10.0); %Monocytes 8.7 % (0.0-10.0); %Neutrophils 54.5 % (42.0-75.0); Hemoglobin 9.9 g/dL (14.0-18.0); Mean Corpuscular HGB CONC 31.3 g/dL (32.0-36.0); Mean Corpuscular Hemoglobin 30.9 pg (27.0-31.0); Mean Corpuscular Volume 98.7 fL (78.0-98.0); Mean Platelet Volume 6.2 fL (7.4-10.4); Platelet Count 526 thou/uL (130-400); RBC Distribution Width 16.8 % (11.5-14.5); White Blood Cell (WBC) Count 14.8 thou/uL (4.8-10.8)
[2022-07-02 22:05] LABS: ALT (SGPT) 7 U/L (8-55); AST (SGOT) 11 U/L (5-34); Albumin 2.2 g/dL (3.4-4.8); Alkaline Phosphatase 117 U/L (40-110); Anion Gap 20 mmol/L (10-20); BUN (Urea Nitrogen) 8 mg/dL (8.4-25.7); Bilirubin, Total 0.2 mg/dL (0.2-1.2); Calc. Creatinine Clearance 71 mL/min (70-130); Calcium 7.2 mg/dL (7.8-10.44); Carbon Dioxide 19 mmol/L (23-31); Chloride 104 mmol/L (98-107); Estimated GFR 95; Globulin 4.2 g/dL (2.4-3.5); Glucose 142 mg/dL (80-115); Protein, Total 6.4 g/dL (5.8-8.1); Sodium 139 mmol/L (136-145)
[2022-07-02 22:25] LABS: Lactic Acid 2.9 mmol/L (0.5-2.2)
[2022-07-03] MEDS ORDERED: VANCOMYCIN 1.25 GM/250 ML BAG IVPB SCH (02:15)
[2022-07-03 03:00] LABS: Lactic Acid 1.1 mmol/L (0.5-2.2)
[2022-07-03] MEDS ORDERED: VANCOMYCIN 1.25 GM/250 ML BAG 1.25 GM in Premix Bag 1 BAG IVPB SCH (03:00)
[2022-07-03] MEDS ORDERED: Cefepime 1 GM in Sodium Chloride 0.9% 100 ML IVPB SCH (03:00)
[2022-07-03] MEDS ORDERED: Sodium Chloride 0.9% 500 ML IVPB SCH (05:30)
[2022-07-03 05:53] LABS: ALT (SGPT) 8 U/L (8-55); AST (SGOT) 10 U/L (5-34); Albumin 1.8 g/dL (3.4-4.8); Alkaline Phosphatase 94 U/L (40-110); Anion Gap 12 mmol/L (10-20); BUN (Urea Nitrogen) 9 mg/dL (8.4-25.7); Bilirubin, Total 0.2 mg/dL (0.2-1.2); Calc. Creatinine Clearance 79 mL/min (70-130); Calcium 6.6 mg/dL (7.8-10.44); Carbon Dioxide 24 mmol/L (23-31); Chloride 105 mmol/L (98-107); Estimated GFR 98; Globulin 3.9 g/dL (2.4-3.5); Glucose 101 mg/dL (80-115); Iron 23 ug/dL (65-175); Iron Binding Capacity, Total 78 mcg/dL (261-462); Magnesium 1.6 mg/dL (1.6-2.6); Protein, Total 5.7 g/dL (5.8-8.1); Sodium 138 mmol/L (136-145)
[2022-07-03] MEDS: Dextrose 5 % And 0.9 % NaCl 1,000 ML IV SCH ×3 (06:05→19:52)
[2022-07-03 06:10] LABS: Insulin 2.1 uU/mL (3.0-25.0)
[2022-07-03 06:18] LABS: Iron 24 ug/dL (65-175); Iron Binding Capacity, Total 75 mcg/dL (261-462)
[2022-07-03 06:40] LABS: Ferritin 2252.88 ng/mL (22-322)
[2022-07-03 06:50] LABS: #Lymphocytes 1.8 thou/uL (1.20-3.40); #Neutrophils 5.5 thou/uL (1.40-6.50); %Basophils 0.2 % (0.0-1.0); %Eosinophils 0.4 % (0.0-10.0); %Lymphocytes 21.2 % (21.0-51.0); %Monocytes 11.8 % (0.0-10.0); %Neutrophils 66.5 % (42.0-75.0); Mean Corpuscular HGB CONC 32.7 g/dL (32.0-36.0); Mean Corpuscular Hemoglobin 31.5 pg (27.0-31.0); Mean Corpuscular Volume 96.3 fL (78.0-98.0); Mean Platelet Volume 5.9 fL (7.4-10.4); Platelet Count 291 thou/uL (130-400); RBC Distribution Width 16.4 % (11.5-14.5); Red Blood Cell (RBC) Count 2.53 mill/uL (4.70-6.10); White Blood Cell (WBC) Count 8.3 thou/uL (4.8-10.8)
[2022-07-03 08:11] LABS: Phosphorus 2.9 mg/dL (2.3-4.7)
[2022-07-03] MEDS ORDERED: Naloxone HCl 0.4 mg/ml Vial IV PRN (08:20)
[2022-07-03] MEDS ORDERED: Electrolyte Replacement Protocol 1 EACH FS SCH (08:30)
[2022-07-03] MEDS ORDERED: Electrolyte Replacement Protocol FS PRN (08:30)
[2022-07-03] MEDS: Carvedilol 6.25 MG TAB PO SCH ×2 (08:50→21:54)
[2022-07-03] MEDS: Calcium Carbonate 600 MG + Vit D TAB PO SCH ×2 (08:50→16:58)
[2022-07-03] MEDS: Pantoprazole 40 MG VIAL IVP SCH (08:50)
[2022-07-03] MEDS ORDERED: Heparin 5,000 UNITS/ML VIAL SC SCH (09:00)
[2022-07-03] MEDS: Potassium Chloride 20 MEQ in Premix Bag 1 BAG IVPB SCH ×2 (09:27→11:39)
[2022-07-03] MEDS ORDERED: Iopamidol-370 76% 500 ML 1 ML ONE (10:34)
[2022-07-03] MEDS ORDERED: Magnesium 2 GM/50 ML(in water) 2 GM in Premix Bag 1 BAG IVPB SCH (11:00)
[2022-07-03] MEDS ORDERED: DC Sedation Protocol FS ONE (11:40)
[2022-07-03] MEDS: HYDROcodone/Acetaminophen 10/325 mg Tablet PO PRN ×3 (12:45→21:54)
[2022-07-03] MEDS: Azithromycin 500 MG in Sodium Chloride 0.9% 250 ML 250 ML IVPB SCH (13:03)
[2022-07-03] MEDS ORDERED: Cefepime 2 GM in Sodium Chloride 0.9% 100 ML IVPB SCH (15:00)
[2022-07-03] MEDS ORDERED: Morphine 2 MG/ML VIAL SLOW IVP SCH (15:15)
[2022-07-03] MEDS: cefTRIAXone\\ROCEPHIN 1 GM in Sodium Chloride 0.9% 100 ML IVPB SCH (16:57)
[2022-07-03] MEDS: Gabapentin 300 MG CAP PO SCH ×2 (16:57→21:49)
[2022-07-04] MEDS ORDERED: Vancomycin 1 GM in Premix Bag 1 BAG IVPB SCH ×2 (04:00→21:00)
[2022-07-04 04:55] LABS: #Eosinphils 0.1 thou/uL (0.0-0.7); #Lymphocytes 1.9 thou/uL (1.20-3.40); #Monocytes 1.1 thou/uL (0.11-0.59); %Basophils 0.1 % (0.0-1.0); %Eosinophils 0.7 % (0.0-10.0); %Monocytes 11.8 % (0.0-10.0); %Neutrophils 66.4 % (42.0-75.0); Mean Corpuscular HGB CONC 31.3 g/dL (32.0-36.0); Mean Corpuscular Hemoglobin 30.7 pg (27.0-31.0); Mean Corpuscular Volume 97.8 fL (78.0-98.0); Mean Platelet Volume 6.2 fL (7.4-10.4); Platelet Count 287 thou/uL (130-400); RBC Distribution Width 17.6 % (11.5-14.5); Red Blood Cell (RBC) Count 2.61 mill/uL (4.70-6.10)
[2022-07-04 05:18] LABS: ALT (SGPT) 10 U/L (8-55); AST (SGOT) 10 U/L (5-34); Alkaline Phosphatase 99 U/L (40-110); Anion Gap 11 mmol/L (10-20); BUN (Urea Nitrogen) 9 mg/dL (8.4-25.7); Bilirubin, Total 0.3 mg/dL (0.2-1.2); Calc. Creatinine Clearance 94 mL/min (70-130); Calcium 6.7 mg/dL (7.8-10.44); Carbon Dioxide 23 mmol/L (23-31); Chloride 110 mmol/L (98-107); Estimated GFR 98; Glucose 127 mg/dL (80-115); Potassium 3.5 mmol/L (3.5-5.1); Sodium 140 mmol/L (136-145)
[2022-07-04] MEDS: Potassium Chloride 20 MEQ in Premix Bag 1 BAG IVPB SCH ×2 (06:17→08:00)
[2022-07-04] MEDS: Carvedilol 6.25 MG TAB PO SCH ×2 (09:06→21:29)
[2022-07-04] MEDS: Pantoprazole 40 MG VIAL IVP SCH (09:06)
[2022-07-04] MEDS: Calcium Carbonate 600 MG + Vit D TAB PO SCH ×2 (09:06→16:08)
[2022-07-04] MEDS: Gabapentin 300 MG CAP PO SCH ×3 (09:07→21:27)
[2022-07-04] MEDS: Dextrose 5 % And 0.9 % NaCl 1,000 ML IV SCH (09:28)
[2022-07-04] MEDS: HYDROcodone/Acetaminophen 10/325 mg Tablet PO PRN ×3 (09:28→21:33)
[2022-07-04 09:59] VITALS: BMI 46.4
[2022-07-04] MEDS: Vancomycin HCl 500 MG in Sodium Chloride 0.9% 100 ML IVPB SCH ×2 (11:52→21:27)
[2022-07-04] MEDS: cefTRIAXone\\ROCEPHIN 1 GM in Sodium Chloride 0.9% 100 ML IVPB SCH (14:53)
[2022-07-05] MEDS: Dextrose 5 % And 0.9 % NaCl 1,000 ML IV SCH (02:34)
[2022-07-05] MEDS: HYDROcodone/Acetaminophen 10/325 mg Tablet PO PRN ×4 (05:32→20:29)
[2022-07-05 06:06] LABS: #Lymphocytes 2.2 thou/uL (1.20-3.40); #Monocytes 1.4 thou/uL (0.11-0.59); #Neutrophils 6.3 thou/uL (1.40-6.50); %Basophils 0.2 % (0.0-1.0); %Eosinophils 0.4 % (0.0-10.0); %Lymphocytes 22.4 % (21.0-51.0); %Monocytes 14.3 % (0.0-10.0); %Neutrophils 62.8 % (42.0-75.0); Hemoglobin 8.8 g/dL (14.0-18.0); Mean Corpuscular HGB CONC 31.7 g/dL (32.0-36.0); Mean Corpuscular Hemoglobin 31.5 pg (27.0-31.0); Mean Corpuscular Volume 99.3 fL (78.0-98.0); Mean Platelet Volume 6.2 fL (7.4-10.4); Platelet Count 301 thou/uL (130-400); RBC Distribution Width 17.5 % (11.5-14.5); Red Blood Cell (RBC) Count 2.78 mill/uL (4.70-6.10)
[2022-07-05 06:25] LABS: ALT (SGPT) Less than 7 U/L (8-55); AST (SGOT) 8 U/L (5-34); Albumin 2.1 g/dL (3.4-4.8); Alkaline Phosphatase 116 U/L (40-110); Anion Gap 14 mmol/L (10-20); BUN (Urea Nitrogen) 12 mg/dL (8.4-25.7); Bilirubin, Total 0.3 mg/dL (0.2-1.2); Calc. Creatinine Clearance 87 mL/min (70-130); Carbon Dioxide 16 mmol/L (23-31); Chloride 111 mmol/L (98-107); Estimated GFR 96; Globulin 4.3 g/dL (2.4-3.5); Glucose 99 mg/dL (80-115); Potassium 4.4 mmol/L (3.5-5.1); Protein, Total 6.4 g/dL (5.8-8.1); Sodium 137 mmol/L (136-145)
[2022-07-05] MEDS: Gabapentin 300 MG CAP PO SCH ×3 (09:47→20:27)
[2022-07-05] MEDS: Vancomycin HCl 500 MG in Sodium Chloride 0.9% 100 ML IVPB SCH (09:48)
[2022-07-05] MEDS: Calcium Carbonate 600 MG + Vit D TAB PO SCH ×2 (09:48→16:07)
[2022-07-05] MEDS: Carvedilol 6.25 MG TAB PO SCH ×2 (09:48→20:31)
[2022-07-05] MEDS: Pantoprazole 40 MG VIAL IVP SCH (09:48)
[2022-07-05] MEDS: Sodium Bicarbonate Tab 325 MG TAB PO SCH ×2 (09:48→20:32)
[2022-07-05] MEDS: Sulfameth/Trimethoprim DS 800-160mg TAB PO SCH (20:26)
[2022-07-05 21:27] LABS: Vancomycin, Trough 15.9 ug/mL
[2022-07-06] MEDS: HYDROcodone/Acetaminophen 10/325 mg Tablet PO PRN ×3 (04:19→12:46)
[2022-07-06 06:30] LABS: #Eosinphils 0.1 thou/uL (0.0-0.7); #Lymphocytes 2.1 thou/uL (1.20-3.40); #Neutrophils 5.3 thou/uL (1.40-6.50); %Basophils 0.2 % (0.0-1.0); %Eosinophils 0.9 % (0.0-10.0); %Lymphocytes 24.9 % (21.0-51.0); %Monocytes 11.9 % (0.0-10.0); %Neutrophils 62.1 % (42.0-75.0); Hemoglobin 7.7 g/dL (14.0-18.0); Mean Corpuscular HGB CONC 31.3 g/dL (32.0-36.0); Mean Corpuscular Volume 98.9 fL (78.0-98.0); Mean Platelet Volume 6.6 fL (7.4-10.4); Platelet Count 259 thou/uL (130-400); RBC Distribution Width 17.8 % (11.5-14.5); Red Blood Cell (RBC) Count 2.48 mill/uL (4.70-6.10); White Blood Cell (WBC) Count 8.5 thou/uL (4.8-10.8)
[2022-07-06 06:55] LABS: ALT (SGPT) 8 U/L (8-55); AST (SGOT) 10 U/L (5-34); Alkaline Phosphatase 115 U/L (40-110); Anion Gap 11 mmol/L (10-20); BUN (Urea Nitrogen) 17 mg/dL (8.4-25.7); Bilirubin, Total 0.3 mg/dL (0.2-1.2); Calc. Creatinine Clearance 77 mL/min (70-130); Calcium 7.5 mg/dL (7.8-10.44); Carbon Dioxide 19 mmol/L (23-31); Chloride 112 mmol/L (98-107); Estimated GFR 88; Globulin 4.3 g/dL (2.4-3.5); Glucose 97 mg/dL (80-115); Potassium 4.4 mmol/L (3.5-5.1); Protein, Total 6.3 g/dL (5.8-8.1); Sodium 138 mmol/L (136-145)
[2022-07-06] MEDS: Sodium Bicarbonate Tab 325 MG TAB PO SCH ×2 (08:30→15:20)
[2022-07-06] MEDS: Sulfameth/Trimethoprim DS 800-160mg TAB PO SCH (08:30)
[2022-07-06] MEDS: Carvedilol 6.25 MG TAB PO SCH (08:30)
[2022-07-06] MEDS: Calcium Carbonate 600 MG + Vit D TAB PO SCH (08:30)
[2022-07-06] MEDS: Gabapentin 300 MG CAP PO SCH ×2 (08:31→15:20)
[2022-07-06] MEDS: Pantoprazole 40 MG VIAL IVP SCH (08:31)
[2022-07-06 10:36] LABS: Magnesium 1.6 mg/dL (1.6-2.6)
[2022-07-06] MEDS ORDERED: Magnesium 2 GM/50 ML(in water) 2 GM in Premix Bag 1 BAG IVPB SCH (12:00)
[2022-07-06 12:48] VITALS: BP 99/52; TEMP 97.5
[2022-07-06] MEDS ORDERED: Magnesium Oxide 400 MG TAB PO SCH (21:00)
== END 2022-07-06 16:17 | DRG 698 ==
LOC: ERS 14:43 → IMCU/EMU 19:48 → MSONC 06-30 16:25 → T4-B 07-02 19:34 → CCU 07-02 20:57 → SURG A 07-04 14:18
PROVIDERS: ADMIT Internal Medicine; ATTEND Internal Medicine
PROC: 02HV33Z Insertion of Infusion Device into Superior Vena Cava, Percutaneous Approach (ICD-10-PCS; principal; 2022-06-28)
PROC: 3E04329 Introduction of Other Anti-infective into Central Vein, Percutaneous Approach (ICD-10-PCS; 2022-06-28)
PROC: 30233N1 Transfusion of Nonautologous Red Blood Cells into Peripheral Vein, Percutaneous Approach (ICD-10-PCS; 2022-06-30)
PROC: 0BH17EZ Insertion of Endotracheal Airway into Trachea, Via Natural or Artificial Opening (ICD-10-PCS; 2022-07-02)
PROC: 5A1935Z Respiratory Ventilation, Less than 24 Consecutive Hours (ICD-10-PCS; 2022-07-02)
DX: T83.511A Infection and inflammatory reaction due to indwelling urethral catheter, initial encounter (principal); A41.59 Other Gram-negative sepsis; R65.20 Severe sepsis without septic shock; G93.41 Metabolic encephalopathy; L89.324 Pressure ulcer of left buttock, stage 4; L89.314 Pressure ulcer of right buttock, stage 4; L89.154 Pressure ulcer of sacral region, stage 4; R57.1 Hypovolemic shock; E43 Unspecified severe protein-calorie malnutrition; R09.2 Respiratory arrest; D62 Acute posthemorrhagic anemia; G82.20 Paraplegia, unspecified; N17.9 Acute kidney failure, unspecified; E87.2 Acidosis; Z68.42 Body mass index [BMI] 45.0-49.9, adult; Z16.24 Resistance to multiple antibiotics; N39.0 Urinary tract infection, site not specified; Z20.822 Contact with and (suspected) exposure to COVID-19; F17.210 Nicotine dependence, cigarettes, uncomplicated; E16.2 Hypoglycemia, unspecified; E86.0 Dehydration; Y84.6 Urinary catheterization as the cause of abnormal reaction of the patient, or of later complication, without mention of misadventure at the time of the procedure; L89.899 Pressure ulcer of other site, unspecified stage; E87.5 Hyperkalemia; D50.9 Iron deficiency anemia, unspecified; E55.9 Vitamin D deficiency, unspecified; E83.42 Hypomagnesemia; D63.8 Anemia in other chronic diseases classified elsewhere; N31.2 Flaccid neuropathic bladder, not elsewhere classified; I73.9 Peripheral vascular disease, unspecified; T40.2X5A Adverse effect of other opioids, initial encounter; G93.89 Other specified disorders of brain; Z28.311 Partially vaccinated for COVID-19; Z91.018 Allergy to other foods; Z93.3 Colostomy status; Z89.612 Acquired absence of left leg above knee; Z89.611 Acquired absence of right leg above knee; Z79.899 Other long term (current) drug therapy; Z80.3 Family history of malignant neoplasm of breast; Z78.1 Physical restraint status
CPT/HCPCS: 36415; 36416; 36430; 36556; 70450; 71045; 71275; 74177; 80048; 80053; 80076; 80202; 80306; 80307; 81003; 81015; 82010; 82140; 82533; 82550; 82728; 82805; 83010; 83525; 83540; 83550; 83605; 83615; 83690; 83735; 83880; 83930; 84100; 84443; 84484; 84681; 85025; 85046; 85060; 85379; 85384; 85610; 85730; 86850; 86860; 86870; 86880; 86900; 86901; 86922; 87040; 87077; 87086; 87149; 87186; 93005; 93010; 94002; 94003; 95712; 95819; 95957; 96361; 96365; 96366; 96368; 96375; 97139; C9113; J0456; J0692; J0696; J2270; J2310; J2405; J2704; J3370; J3475; J3480; J3490; J7030; J7042; J7050; J7070; J7999; P9016; Q9967; U0002; U0003; U0005

== ENCOUNTER 2022-07-10 10:03 | Inpatient (IN) | payer MEDICARE, MEDICAID ==
[2022-07-10 12:53] LABS: #Eosinphils 0.1 thou/uL (0.0-0.7); #Lymphocytes 0.9 thou/uL (1.20-3.40); #Monocytes 0.6 thou/uL (0.11-0.59); #Neutrophils 11.2 thou/uL (1.40-6.50); %Basophils 0.3 % (0.0-1.0); %Eosinophils 0.4 % (0.0-10.0); %Lymphocytes 6.7 % (21.0-51.0); %Monocytes 4.5 % (0.0-10.0); %Neutrophils 88.1 % (42.0-75.0); Hemoglobin 8.2 g/dL (14.0-18.0); Mean Corpuscular HGB CONC 30.8 g/dL (32.0-36.0); Mean Corpuscular Hemoglobin 30.4 pg (27.0-31.0); Mean Corpuscular Volume 98.9 fL (78.0-98.0); Platelet Count 396 thou/uL (130-400); RBC Distribution Width 18.3 % (11.5-14.5); Red Blood Cell (RBC) Count 2.71 mill/uL (4.70-6.10); White Blood Cell (WBC) Count 12.7 thou/uL (4.8-10.8)
[2022-07-10 12:58] LABS: ALT (SGPT) 10 U/L (8-55); AST (SGOT) 14 U/L (5-34); Albumin 2.2 g/dL (3.4-4.8); Alkaline Phosphatase 117 U/L (40-110); Anion Gap 16 mmol/L (10-20); BUN (Urea Nitrogen) 25 mg/dL (8.4-25.7); Bilirubin, Total 0.3 mg/dL (0.2-1.2); CK (CPK) 31 U/L (30-200); Calc. Creatinine Clearance 0 mL/min (70-130); Carbon Dioxide 16 mmol/L (23-31); Chloride 108 mmol/L (98-107); Estimated GFR 55; Globulin 4.5 g/dL (2.4-3.5); Protein, Total 6.7 g/dL (5.8-8.1); Sodium 134 mmol/L (136-145)
[2022-07-10 13:06] LABS: Glucose 47 mg/dL (80-115)
[2022-07-10 13:19] LABS: CKMB 2.7 ng/mL (0-6.6)
[2022-07-10 13:19] LABS: Bilirubin Negative (Negative); Blood, Urine Negative (Negative); Clarity Clear (Clear); Glucose, Urine (Dipstick) Normal (Negative); Ketone, Urine Negative (Negative); Leukocyte Negative Leu/uL (Negative); Nitrite Negative (Negative); Protein, Urine (Dipstick) Negative (Neg-Trace); Urobilinogen Normal mg/dL (Less than 2); pH, Urine 5.5 (5.0-9.0)
[2022-07-10] MEDS ORDERED: Cefepime 2 GM VIAL ONE (13:20)
[2022-07-10] MEDS ORDERED: HYDROcodone/Acetaminophen 10/325 mg Tablet ONE (13:20)
[2022-07-10] MEDS ORDERED: Insulin Regular 300 UNITS/3 ML VIAL ONE (14:11)
[2022-07-10] MEDS ORDERED: Sodium Bicarb 50 MEQ/50 ML VIAL ONE (14:11)
[2022-07-10] MEDS ORDERED: Dextrose 50% Abboject 50 ML SYRINGE ONE (14:11)
[2022-07-10] MEDS ORDERED: Dextrose 50% Abboject 50 ML SYRINGE SLOW IVP PRN (15:10)
[2022-07-10] MEDS ORDERED: Dextrose 5% in Water 1,000 ML IV PRN (15:10)
[2022-07-10] MEDS ORDERED: Senokot S 8.6-50 MG TAB PO PRN (15:11)
[2022-07-10] MEDS ORDERED: Ondansetron ODT 4 MG TAB PO PRN (15:11)
[2022-07-10] MEDS ORDERED: Ondansetron PF 4 MG/2 ML Vial IVP PRN (15:11)
[2022-07-10] MEDS ORDERED: Furosemide 40 MG/4 ML VIAL SLOW IVP SCH (15:18)
[2022-07-10 15:43] LABS: Magnesium 1.6 mg/dL (1.6-2.6)
[2022-07-10 16:50] LABS: Anion Gap 15 mmol/L (10-20); BUN (Urea Nitrogen) 25 mg/dL (8.4-25.7); Calc. Creatinine Clearance 0 mL/min (70-130); Calcium 7.9 mg/dL (7.8-10.44); Carbon Dioxide 18 mmol/L (23-31); Chloride 108 mmol/L (98-107); Estimated GFR 53; Glucose 74 mg/dL (80-115); Potassium 6.1 mmol/L (3.5-5.1); Sodium 135 mmol/L (136-145)
[2022-07-10 16:54] LABS: Troponin I 0.122 ng/mL (< 0.028)
[2022-07-10 19:20] LABS: Troponin I 0.124 ng/mL (< 0.028)
[2022-07-10] MEDS ORDERED: Furosemide 40 MG/4 ML VIAL ONE (20:05)
[2022-07-10] MEDS: HYDROcodone/Acetaminophen 10/325 mg Tablet PO PRN (20:12)
[2022-07-10] MEDS: Nicotine 14 MG PATCH TD SCH (20:13)
[2022-07-10] MEDS: Sodium Bicarbonate Tab 325 MG TAB PO SCH (20:13)
[2022-07-10] MEDS: Gabapentin 300 MG CAP PO SCH (20:13)
[2022-07-10] MEDS: Ferrous Sulfate 325 MG TAB PO SCH (20:13)
[2022-07-10] MEDS: Enoxaparin Sodium 40 MG/0.4 ML SYRINGE SC SCH (20:13)
[2022-07-10] MEDS: Calcium Carbonate 600 MG + Vit D TAB PO SCH (20:13)
[2022-07-10] MEDS: Carvedilol 6.25 MG TAB PO SCH (20:13)
[2022-07-10] MEDS: Epoetin (ESRD) 10,000 UNITS/ML VIAL SC SCH (20:14)
[2022-07-11] MEDS: Cefepime 1 GM in Sodium Chloride 0.9% 100 ML IVPB SCH ×2 (00:12→14:33)
[2022-07-11] MEDS: HYDROcodone/Acetaminophen 10/325 mg Tablet PO PRN ×4 (00:13→20:47)
[2022-07-11 00:37] LABS: SARS-CoV-2 NAA Rapid Test Not Detected (NotDetected)
[2022-07-11 05:31] LABS: #Lymphocytes 1.2 thou/uL (1.20-3.40); #Monocytes 0.6 thou/uL (0.11-0.59); #Neutrophils 7.1 thou/uL (1.40-6.50); %Basophils 0.5 % (0.0-1.0); %Eosinophils 0.4 % (0.0-10.0); %Lymphocytes 13.6 % (21.0-51.0); %Monocytes 6.8 % (0.0-10.0); %Neutrophils 78.6 % (42.0-75.0); Mean Corpuscular HGB CONC 31.6 g/dL (32.0-36.0); Mean Corpuscular Hemoglobin 31.5 pg (27.0-31.0); Mean Corpuscular Volume 99.7 fL (78.0-98.0); Platelet Count 356 thou/uL (130-400); RBC Distribution Width 17.9 % (11.5-14.5); Red Blood Cell (RBC) Count 2.53 mill/uL (4.70-6.10)
[2022-07-11 05:48] LABS: Anion Gap 14 mmol/L (10-20); BUN (Urea Nitrogen) 27 mg/dL (8.4-25.7); Calc. Creatinine Clearance 48 mL/min (70-130); Calcium 7.6 mg/dL (7.8-10.44); Carbon Dioxide 18 mmol/L (23-31); Chloride 110 mmol/L (98-107); Estimated GFR 51; Glucose 85 mg/dL (80-115); Potassium 5.9 mmol/L (3.5-5.1); Sodium 136 mmol/L (136-145)
[2022-07-11] MEDS ORDERED: Furosemide 40 MG/4 ML VIAL SLOW IVP SCH (06:00)
[2022-07-11] MEDS ORDERED: LOKELMA 10 GM PACKET PO SCH ×2 (07:00→18:30)
[2022-07-11] MEDS: Carvedilol 6.25 MG TAB PO SCH ×2 (08:50→20:48)
[2022-07-11] MEDS: Cyanocobalamin (Vitamin B-12) 1,000 MCG TAB PO SCH (08:50)
[2022-07-11] MEDS: Gabapentin 300 MG CAP PO SCH ×3 (08:50→20:48)
[2022-07-11] MEDS: Multivit, Therapeutic 1 TAB PO SCH (08:50)
[2022-07-11] MEDS: Sodium Bicarbonate Tab 325 MG TAB PO SCH ×3 (08:50→20:47)
[2022-07-11] MEDS: Ferrous Sulfate 325 MG TAB PO SCH ×2 (08:50→16:32)
[2022-07-11] MEDS: Calcium Carbonate 600 MG + Vit D TAB PO SCH ×2 (08:50→16:32)
[2022-07-11] MEDS ORDERED: Famotidine 20 MG TAB PO SCH (09:00)
[2022-07-11 11:01] VITALS: BMI 22.7
[2022-07-11] MEDS: Albumin 25% 25 GM/100 ML BOT IVPB SCH ×3 (11:34→23:22)
[2022-07-11] MEDS ORDERED: Polyethylene Glycol 3350 17 GM Packet PO SCH (12:00)
[2022-07-11] MEDS ORDERED: Aspirin 81 mg Enteric Coated Tablet PO SCH (13:15)
[2022-07-11] MEDS: Isosorbide Dinitrate 5 MG TAB PO SCH ×2 (14:30→20:49)
[2022-07-11] MEDS: hydrALAZINE 25 MG TAB PO SCH ×2 (14:30→21:00)
[2022-07-11 16:07] LABS: Anion Gap 12 mmol/L (10-20); BUN (Urea Nitrogen) 27 mg/dL (8.4-25.7); Calc. Creatinine Clearance 46 mL/min (70-130); Calcium 7.5 mg/dL (7.8-10.44); Carbon Dioxide 20 mmol/L (23-31); Chloride 110 mmol/L (98-107); Estimated GFR 49; Glucose 68 mg/dL (80-115); Potassium 5.5 mmol/L (3.5-5.1); Sodium 136 mmol/L (136-145)
[2022-07-11] MEDS: Nicotine 14 MG PATCH TD SCH (16:33)
[2022-07-11] MEDS: guaiFENesin ER 600 MG TAB PO SCH (20:48)
[2022-07-11] MEDS: Atorvastatin Calcium 40 MG TAB PO SCH (20:49)
[2022-07-11] MEDS: Enoxaparin Sodium 40 MG/0.4 ML SYRINGE SC SCH (20:49)
[2022-07-11] MEDS: Furosemide 40 MG/4 ML VIAL SLOW IVP SCH (23:16)
[2022-07-12] MEDS: HYDROcodone/Acetaminophen 10/325 mg Tablet PO PRN ×5 (01:03→23:18)
[2022-07-12] MEDS: Cefepime 1 GM in Sodium Chloride 0.9% 100 ML IVPB SCH ×2 (01:04→13:37)
[2022-07-12 02:00] LABS: Creatinine, Urine 43.7 mg/dL (63-166)
[2022-07-12 07:37] LABS: #Lymphocytes 1.2 thou/uL (1.20-3.40); #Monocytes 0.9 thou/uL (0.11-0.59); #Neutrophils 5.7 thou/uL (1.40-6.50); %Basophils 0.1 % (0.0-1.0); %Eosinophils 0.4 % (0.0-10.0); %Neutrophils 73.6 % (42.0-75.0); Hemoglobin 7.7 g/dL (14.0-18.0); Mean Corpuscular HGB CONC 32.4 g/dL (32.0-36.0); Mean Corpuscular Volume 98.7 fL (78.0-98.0); Mean Platelet Volume 5.7 fL (7.4-10.4); Platelet Count 257 thou/uL (130-400); RBC Distribution Width 18.1 % (11.5-14.5); Red Blood Cell (RBC) Count 2.41 mill/uL (4.70-6.10); White Blood Cell (WBC) Count 7.7 thou/uL (4.8-10.8)
[2022-07-12 07:59] LABS: Anion Gap 14 mmol/L (10-20); BUN (Urea Nitrogen) 28 mg/dL (8.4-25.7); BUN/Creatinine Ratio 17.83; Calc. Creatinine Clearance 47 mL/min (70-130); Calcium 7.7 mg/dL (7.8-10.44); Carbon Dioxide 19 mmol/L (23-31); Chloride 110 mmol/L (98-107); Estimated GFR 49; Glucose 77 mg/dL (80-115); Phosphorus 2.8 mg/dL (2.3-4.7); Potassium 5.1 mmol/L (3.5-5.1); Sodium 138 mmol/L (136-145)
[2022-07-12] MEDS: Sodium Bicarbonate Tab 325 MG TAB PO SCH ×3 (08:40→19:39)
[2022-07-12] MEDS: Calcium Carbonate 600 MG + Vit D TAB PO SCH ×2 (08:40→17:32)
[2022-07-12] MEDS: Multivit, Therapeutic 1 TAB PO SCH (08:40)
[2022-07-12] MEDS: Gabapentin 300 MG CAP PO SCH ×3 (08:40→19:40)
[2022-07-12] MEDS: guaiFENesin ER 600 MG TAB PO SCH ×2 (08:40→19:41)
[2022-07-12] MEDS: Aspirin 81 mg Enteric Coated Tablet PO SCH (08:40)
[2022-07-12] MEDS: Ferrous Sulfate 325 MG TAB PO SCH ×2 (08:40→17:32)
[2022-07-12] MEDS: Cyanocobalamin (Vitamin B-12) 1,000 MCG TAB PO SCH (08:40)
[2022-07-12] MEDS: Isosorbide Dinitrate 5 MG TAB PO SCH ×3 (08:41→19:40)
[2022-07-12] MEDS: hydrALAZINE 25 MG TAB PO SCH ×3 (08:41→19:44)
[2022-07-12] MEDS: Carvedilol 6.25 MG TAB PO SCH ×2 (08:41→19:42)
[2022-07-12] MEDS: Albumin 25% 25 GM/100 ML BOT IVPB SCH ×2 (15:15→23:20)
[2022-07-12] MEDS: Nicotine 14 MG PATCH TD SCH (17:16)
[2022-07-12] MEDS: Atorvastatin Calcium 40 MG TAB PO SCH (19:40)
[2022-07-12] MEDS: Enoxaparin Sodium 40 MG/0.4 ML SYRINGE SC SCH (19:42)
[2022-07-13] MEDS: Cefepime 1 GM in Sodium Chloride 0.9% 100 ML IVPB SCH ×2 (01:40→13:35)
[2022-07-13] MEDS: HYDROcodone/Acetaminophen 10/325 mg Tablet PO PRN ×4 (05:25→21:22)
[2022-07-13 07:21] LABS: Hemoglobin 6.9 g/dL (14.0-18.0); Mean Corpuscular HGB CONC 31.2 g/dL (32.0-36.0); Mean Corpuscular Hemoglobin 30.8 pg (27.0-31.0); Mean Corpuscular Volume 98.8 fL (78.0-98.0); Platelet Count 263 thou/uL (130-400); RBC Distribution Width 18.3 % (11.5-14.5); Red Blood Cell (RBC) Count 2.23 mill/uL (4.70-6.10); White Blood Cell (WBC) Count 7.9 thou/uL (4.8-10.8)
[2022-07-13 07:22] LABS: Albumin 3.3 g/dL (3.4-4.8); Anion Gap 13 mmol/L (10-20); BUN (Urea Nitrogen) 24 mg/dL (8.4-25.7); BUN/Creatinine Ratio 17.65; Calc. Creatinine Clearance 54 mL/min (70-130); Carbon Dioxide 19 mmol/L (23-31); Chloride 113 mmol/L (98-107); Estimated GFR 58; Glucose 82 mg/dL (80-115); Phosphorus 2.4 mg/dL (2.3-4.7); Potassium 4.7 mmol/L (3.5-5.1); Sodium 140 mmol/L (136-145)
[2022-07-13] MEDS: Calcium Carbonate 600 MG + Vit D TAB PO SCH ×2 (09:32→16:15)
[2022-07-13] MEDS: Aspirin 81 mg Enteric Coated Tablet PO SCH (09:33)
[2022-07-13] MEDS: Ferrous Sulfate 325 MG TAB PO SCH ×2 (09:33→16:40)
[2022-07-13] MEDS: Carvedilol 6.25 MG TAB PO SCH ×2 (09:33→21:12)
[2022-07-13] MEDS: Cyanocobalamin (Vitamin B-12) 1,000 MCG TAB PO SCH (09:34)
[2022-07-13] MEDS: Gabapentin 300 MG CAP PO SCH ×3 (09:35→21:12)
[2022-07-13] MEDS: guaiFENesin ER 600 MG TAB PO SCH ×2 (09:35→21:11)
[2022-07-13] MEDS: Sodium Bicarbonate Tab 325 MG TAB PO SCH ×3 (09:36→21:11)
[2022-07-13] MEDS: hydrALAZINE 25 MG TAB PO SCH ×3 (09:36→21:12)
[2022-07-13] MEDS: Isosorbide Dinitrate 20 MG TAB PO SCH ×3 (09:36→21:12)
[2022-07-13] MEDS: Multivit, Therapeutic 1 TAB PO SCH (09:36)
[2022-07-13] MEDS: Empagliflozin 10 MG TAB PO SCH (09:41)
[2022-07-13] MEDS: Cholestyramine/Aspartame 4 gm Packet PO SCH ×3 (09:55→21:18)
[2022-07-13] MEDS: Acetaminophen 325 MG TAB PO PRN (16:15)
[2022-07-13] MEDS: Nicotine 14 MG PATCH TD SCH (16:16)
[2022-07-13] MEDS: Atorvastatin Calcium 40 MG TAB PO SCH (21:12)
[2022-07-13 22:23] LABS: Hemoglobin 8.3 g/dL (14.0-18.0)
[2022-07-14] MEDS: Cefepime 1 GM in Sodium Chloride 0.9% 100 ML IVPB SCH ×2 (00:30→12:17)
[2022-07-14 04:21] LABS: Hemoglobin 8.1 g/dL (14.0-18.0); Mean Corpuscular HGB CONC 30.7 g/dL (32.0-36.0); Mean Corpuscular Hemoglobin 30.5 pg (27.0-31.0); Mean Corpuscular Volume 99.6 fL (78.0-98.0); Platelet Count 261 thou/uL (130-400); RBC Distribution Width 17.6 % (11.5-14.5); Red Blood Cell (RBC) Count 2.64 mill/uL (4.70-6.10); White Blood Cell (WBC) Count 8.7 thou/uL (4.8-10.8)
[2022-07-14 04:25] LABS: Albumin 2.8 g/dL (3.4-4.8); Anion Gap 11 mmol/L (10-20); BUN (Urea Nitrogen) 24 mg/dL (8.4-25.7); BUN/Creatinine Ratio 22.02; Calc. Creatinine Clearance 67 mL/min (70-130); Calcium 7.7 mg/dL (7.8-10.44); Carbon Dioxide 20 mmol/L (23-31); Chloride 116 mmol/L (98-107); Estimated GFR 75; Glucose 76 mg/dL (80-115); Phosphorus 2.2 mg/dL (2.3-4.7); Potassium 4.7 mmol/L (3.5-5.1); Sodium 142 mmol/L (136-145)
[2022-07-14] MEDS: Aspirin 81 mg Enteric Coated Tablet PO SCH (09:13)
[2022-07-14] MEDS: Calcium Carbonate 600 MG + Vit D TAB PO SCH ×2 (09:13→16:44)
[2022-07-14] MEDS: Cyanocobalamin (Vitamin B-12) 1,000 MCG TAB PO SCH (09:13)
[2022-07-14] MEDS: Carvedilol 6.25 MG TAB PO SCH ×2 (09:13→20:44)
[2022-07-14] MEDS: Ferrous Sulfate 325 MG TAB PO SCH ×2 (09:13→16:44)
[2022-07-14] MEDS: hydrALAZINE 25 MG TAB PO SCH ×3 (09:14→20:43)
[2022-07-14] MEDS: Empagliflozin 10 MG TAB PO SCH (09:14)
[2022-07-14] MEDS: Gabapentin 300 MG CAP PO SCH ×3 (09:14→20:44)
[2022-07-14] MEDS: guaiFENesin ER 600 MG TAB PO SCH ×2 (09:14→20:44)
[2022-07-14] MEDS: Isosorbide Dinitrate 20 MG TAB PO SCH ×3 (09:14→20:44)
[2022-07-14] MEDS: Cholestyramine/Aspartame 4 gm Packet PO SCH ×3 (09:15→21:51)
[2022-07-14] MEDS: Sodium Bicarbonate Tab 325 MG TAB PO SCH ×3 (09:15→20:43)
[2022-07-14] MEDS: Multivit, Therapeutic 1 TAB PO SCH (09:15)
[2022-07-14] MEDS ORDERED: Megestrol Acetate 800 MG/20 ML UDCUP PO SCH (10:45)
[2022-07-14] MEDS: HYDROcodone/Acetaminophen 10/325 mg Tablet PO PRN ×2 (12:16→17:56)
[2022-07-14] MEDS: Albumin 25% 25 GM/100 ML BOT IVPB SCH ×2 (12:17→17:56)
[2022-07-14] MEDS: Nicotine 14 MG PATCH TD SCH (17:00)
[2022-07-14] MEDS: Atorvastatin Calcium 40 MG TAB PO SCH (20:43)
[2022-07-14] MEDS: HYDROcodone/Acetaminophen 5/325 mg Tablet PO PRN (23:00)
[2022-07-15] MEDS: Cefepime 1 GM in Sodium Chloride 0.9% 100 ML IVPB SCH ×2 (01:18→14:18)
[2022-07-15 05:26] LABS: Albumin 3.2 g/dL (3.4-4.8); Anion Gap 10 mmol/L (10-20); BUN (Urea Nitrogen) 27 mg/dL (8.4-25.7); BUN/Creatinine Ratio 26.73; Calc. Creatinine Clearance 74 mL/min (70-130); Calcium 7.9 mg/dL (7.8-10.44); Carbon Dioxide 21 mmol/L (23-31); Chloride 116 mmol/L (98-107); Estimated GFR 83; Glucose 111 mg/dL (80-115); Phosphorus 1.1 mg/dL (2.3-4.7); Potassium 5.3 mmol/L (3.5-5.1); Sodium 142 mmol/L (136-145)
[2022-07-15] MEDS ORDERED: Electrolyte Replacement Protocol FS PRN (05:45)
[2022-07-15] MEDS ORDERED: PHOS-NAK 1 PKT PACK PO SCH (06:30)
[2022-07-15] MEDS ORDERED: Sodium Phosphate 30 MMOL in Sodium Chloride 0.9% 250 ML 250 ML IVPB SCH (07:30)
[2022-07-15] MEDS ORDERED: Albuterol Sulfate 1.25 MG/3 ML NEB NEB SCH (07:45)
[2022-07-15] MEDS ORDERED: LOKELMA 10 GM PACKET PO SCH (08:00)
[2022-07-15] MEDS: Furosemide 40 MG/4 ML VIAL SLOW IVP SCH (09:15)
[2022-07-15] MEDS: Cholestyramine/Aspartame 4 gm Packet PO SCH ×2 (09:47→20:23)
[2022-07-15] MEDS: hydrALAZINE 25 MG TAB PO SCH ×3 (09:48→20:22)
[2022-07-15] MEDS: Gabapentin 300 MG CAP PO SCH ×3 (09:48→20:22)
[2022-07-15] MEDS: Sodium Bicarbonate Tab 325 MG TAB PO SCH ×3 (09:48→20:23)
[2022-07-15] MEDS: Ferrous Sulfate 325 MG TAB PO SCH ×2 (09:48→16:33)
[2022-07-15] MEDS: Carvedilol 6.25 MG TAB PO SCH ×2 (09:49→20:22)
[2022-07-15] MEDS: Aspirin 81 mg Enteric Coated Tablet PO SCH (09:49)
[2022-07-15] MEDS: Isosorbide Dinitrate 20 MG TAB PO SCH ×3 (09:49→20:23)
[2022-07-15] MEDS: guaiFENesin ER 600 MG TAB PO SCH ×2 (09:49→20:22)
[2022-07-15] MEDS: Calcium Carbonate 600 MG + Vit D TAB PO SCH ×2 (09:49→16:33)
[2022-07-15] MEDS: Multivit, Therapeutic 1 TAB PO SCH (09:49)
[2022-07-15] MEDS: Empagliflozin 10 MG TAB PO SCH (09:49)
[2022-07-15] MEDS: Cyanocobalamin (Vitamin B-12) 1,000 MCG TAB PO SCH (09:49)
[2022-07-15] MEDS: HYDROcodone/Acetaminophen 5/325 mg Tablet PO PRN ×3 (09:51→19:11)
[2022-07-15] MEDS ORDERED: Megestrol Acetate 800 MG/20 ML UDCUP PO SCH (10:00)
[2022-07-15] MEDS: Nicotine 14 MG PATCH TD SCH (16:33)
[2022-07-15] MEDS: Atorvastatin Calcium 40 MG TAB PO SCH (20:22)
[2022-07-15] MEDS: Acetaminophen 325 MG TAB PO PRN (20:26)
[2022-07-15] MEDS ORDERED: oxyCODONE/Acetaminophen 5 mg/325 mg Tablet PO PRN (22:20)
[2022-07-15] MEDS: HYDROcodone/Acetaminophen 7.5/325 mg Tablet PO PRN (22:47)
[2022-07-15] MEDS: Morphine 4 MG/ML VIAL SLOW IVP PRN (22:47)
[2022-07-16] MEDS: Morphine 4 MG/ML VIAL SLOW IVP PRN ×3 (01:59→09:55)
[2022-07-16 05:22] LABS: Hemoglobin 8.1 g/dL (14.0-18.0); Mean Corpuscular HGB CONC 31.1 g/dL (32.0-36.0); Mean Corpuscular Hemoglobin 31.5 pg (27.0-31.0); Mean Platelet Volume 6.2 fL (7.4-10.4); Platelet Count 258 thou/uL (130-400); RBC Distribution Width 18.9 % (11.5-14.5); Red Blood Cell (RBC) Count 2.58 mill/uL (4.70-6.10); White Blood Cell (WBC) Count 12.6 thou/uL (4.8-10.8)
[2022-07-16 05:45] LABS: Anion Gap 10 mmol/L (10-20); BUN (Urea Nitrogen) 31 mg/dL (8.4-25.7); Calc. Creatinine Clearance 74 mL/min (70-130); Calcium 7.8 mg/dL (7.8-10.44); Carbon Dioxide 19 mmol/L (23-31); Chloride 116 mmol/L (98-107); Estimated GFR 82; Glucose 116 mg/dL (80-115); Phosphorus 2.3 mg/dL (2.3-4.7); Potassium 5.1 mmol/L (3.5-5.1); Sodium 140 mmol/L (136-145)
[2022-07-16] MEDS: HYDROcodone/Acetaminophen 7.5/325 mg Tablet PO PRN (08:06)
[2022-07-16] MEDS: Sodium Bicarbonate Tab 325 MG TAB PO SCH ×3 (09:18→20:29)
[2022-07-16] MEDS: Calcium Carbonate 600 MG + Vit D TAB PO SCH ×2 (09:19→17:37)
[2022-07-16] MEDS: Isosorbide Dinitrate 20 MG TAB PO SCH ×3 (09:19→20:29)
[2022-07-16] MEDS: Gabapentin 300 MG CAP PO SCH ×3 (09:20→20:30)
[2022-07-16] MEDS: Carvedilol 6.25 MG TAB PO SCH ×2 (09:20→20:30)
[2022-07-16] MEDS: Multivit, Therapeutic 1 TAB PO SCH (09:20)
[2022-07-16] MEDS: guaiFENesin ER 600 MG TAB PO SCH ×2 (09:20→20:29)
[2022-07-16] MEDS: Cyanocobalamin (Vitamin B-12) 1,000 MCG TAB PO SCH (09:20)
[2022-07-16] MEDS: Aspirin 81 mg Enteric Coated Tablet PO SCH (09:20)
[2022-07-16] MEDS: Ferrous Sulfate 325 MG TAB PO SCH ×2 (09:20→17:37)
[2022-07-16] MEDS: Furosemide 40 MG/4 ML VIAL SLOW IVP SCH (09:21)
[2022-07-16] MEDS: Empagliflozin 10 MG TAB PO SCH (09:21)
[2022-07-16] MEDS: Megestrol Acetate 800 MG/20 ML UDCUP PO SCH (09:21)
[2022-07-16] MEDS: hydrALAZINE 25 MG TAB PO SCH ×3 (09:21→20:29)
[2022-07-16] MEDS: Cholestyramine/Aspartame 4 gm Packet PO SCH ×2 (10:00→20:30)
[2022-07-16] MEDS: HYDROcodone/Acetaminophen 10/325 mg Tablet PO PRN ×3 (14:14→20:31)
[2022-07-16] MEDS: Nicotine 14 MG PATCH TD SCH (15:50)
[2022-07-16] MEDS: Atorvastatin Calcium 40 MG TAB PO SCH (20:30)
[2022-07-17] MEDS: HYDROcodone/Acetaminophen 10/325 mg Tablet PO PRN ×5 (01:06→21:30)
[2022-07-17 06:02] LABS: Anion Gap 11 mmol/L (10-20); BUN (Urea Nitrogen) 39 mg/dL (8.4-25.7); Calc. Creatinine Clearance 76 mL/min (70-130); Calcium 8.2 mg/dL (7.8-10.44); Carbon Dioxide 19 mmol/L (23-31); Chloride 116 mmol/L (98-107); Estimated GFR 84; Glucose 98 mg/dL (80-115); Potassium 5.9 mmol/L (3.5-5.1); Sodium 140 mmol/L (136-145)
[2022-07-17] MEDS ORDERED: LOKELMA 10 GM PACKET PO SCH ×2 (07:00→15:00)
[2022-07-17] MEDS: Calcium Carbonate 600 MG + Vit D TAB PO SCH ×2 (08:28→18:06)
[2022-07-17] MEDS: hydrALAZINE 25 MG TAB PO SCH ×3 (08:28→22:32)
[2022-07-17] MEDS: guaiFENesin ER 600 MG TAB PO SCH ×2 (08:28→21:26)
[2022-07-17] MEDS: Sodium Bicarbonate Tab 325 MG TAB PO SCH ×3 (08:28→21:26)
[2022-07-17] MEDS: Ferrous Sulfate 325 MG TAB PO SCH ×2 (08:28→18:07)
[2022-07-17] MEDS: Empagliflozin 10 MG TAB PO SCH (08:28)
[2022-07-17] MEDS: Aspirin 81 mg Enteric Coated Tablet PO SCH (08:29)
[2022-07-17] MEDS: Multivit, Therapeutic 1 TAB PO SCH (08:29)
[2022-07-17] MEDS: Isosorbide Dinitrate 20 MG TAB PO SCH ×3 (08:29→21:27)
[2022-07-17] MEDS: Carvedilol 6.25 MG TAB PO SCH ×2 (08:30→21:26)
[2022-07-17] MEDS: Gabapentin 300 MG CAP PO SCH ×3 (08:30→21:25)
[2022-07-17] MEDS: Cyanocobalamin (Vitamin B-12) 1,000 MCG TAB PO SCH (08:30)
[2022-07-17] MEDS: Megestrol Acetate 800 MG/20 ML UDCUP PO SCH (08:32)
[2022-07-17] MEDS: HYDROcodone/Acetaminophen 7.5/325 mg Tablet PO PRN (09:55)
[2022-07-17] MEDS: Cholestyramine/Aspartame 4 gm Packet PO SCH ×3 (09:56→21:27)
[2022-07-17] MEDS: Loperamide HCl 2 MG CAP PO SCH (09:56)
[2022-07-17 13:40] LABS: Anion Gap 11 mmol/L (10-20); Carbon Dioxide 18 mmol/L (23-31); Chloride 114 mmol/L (98-107); Potassium 5.7 mmol/L (3.5-5.1); Sodium 137 mmol/L (136-145)
[2022-07-17] MEDS: Epoetin (ESRD) 10,000 UNITS/ML VIAL SC SCH (15:54)
[2022-07-17] MEDS: Nicotine 14 MG PATCH TD SCH (18:17)
[2022-07-17] MEDS: Atorvastatin Calcium 40 MG TAB PO SCH (21:27)
[2022-07-18] MEDS: HYDROcodone/Acetaminophen 10/325 mg Tablet PO PRN ×5 (04:17→21:50)
[2022-07-18 04:41] LABS: #Eosinphils 0.1 thou/uL (0.0-0.7); #Lymphocytes 2.2 thou/uL (1.20-3.40); #Monocytes 0.9 thou/uL (0.11-0.59); #Neutrophils 8.9 thou/uL (1.40-6.50); %Basophils 0.3 % (0.0-1.0); %Lymphocytes 18.1 % (21.0-51.0); %Monocytes 7.7 % (0.0-10.0); %Neutrophils 72.9 % (42.0-75.0); Hemoglobin 7.7 g/dL (14.0-18.0); Mean Corpuscular HGB CONC 30.8 g/dL (32.0-36.0); Mean Corpuscular Hemoglobin 31.9 pg (27.0-31.0); Mean Platelet Volume 6.3 fL (7.4-10.4); Platelet Count 245 thou/uL (130-400); RBC Distribution Width 19.2 % (11.5-14.5); Red Blood Cell (RBC) Count 2.41 mill/uL (4.70-6.10); White Blood Cell (WBC) Count 12.2 thou/uL (4.8-10.8)
[2022-07-18 05:11] LABS: Anion Gap 10 mmol/L (10-20); BUN (Urea Nitrogen) 43 mg/dL (8.4-25.7); Calc. Creatinine Clearance 85 mL/min (70-130); Calcium 8.2 mg/dL (7.8-10.44); Carbon Dioxide 21 mmol/L (23-31); Chloride 115 mmol/L (98-107); Estimated GFR 95; Glucose 107 mg/dL (80-115); Potassium 5.8 mmol/L (3.5-5.1); Sodium 140 mmol/L (136-145)
[2022-07-18] MEDS: Sodium Bicarbonate Tab 325 MG TAB PO SCH ×3 (08:45→20:27)
[2022-07-18] MEDS: Carvedilol 6.25 MG TAB PO SCH ×2 (08:46→20:28)
[2022-07-18] MEDS: Cyanocobalamin (Vitamin B-12) 1,000 MCG TAB PO SCH (08:46)
[2022-07-18] MEDS: Megestrol Acetate 800 MG/20 ML UDCUP PO SCH (08:46)
[2022-07-18] MEDS: Aspirin 81 mg Enteric Coated Tablet PO SCH (08:46)
[2022-07-18] MEDS: hydrALAZINE 25 MG TAB PO SCH ×3 (08:48→20:29)
[2022-07-18] MEDS: Loperamide HCl 2 MG CAP PO SCH (08:48)
[2022-07-18] MEDS: Empagliflozin 10 MG TAB PO SCH (08:49)
[2022-07-18] MEDS: Gabapentin 300 MG CAP PO SCH ×3 (08:49→20:28)
[2022-07-18] MEDS: Ferrous Sulfate 325 MG TAB PO SCH ×2 (08:50→17:38)
[2022-07-18] MEDS: Cholestyramine/Aspartame 4 gm Packet PO SCH (08:51)
[2022-07-18] MEDS: Calcium Carbonate 600 MG + Vit D TAB PO SCH ×2 (08:51→17:38)
[2022-07-18] MEDS: guaiFENesin ER 600 MG TAB PO SCH ×2 (08:51→20:28)
[2022-07-18] MEDS: Multivit, Therapeutic 1 TAB PO SCH (08:51)
[2022-07-18] MEDS: Isosorbide Dinitrate 20 MG TAB PO SCH ×3 (08:51→20:28)
[2022-07-18] MEDS: Nicotine 14 MG PATCH TD SCH (17:49)
[2022-07-18 18:11] LABS: Anion Gap 11 mmol/L (10-20); BUN (Urea Nitrogen) 44 mg/dL (8.4-25.7); Calc. Creatinine Clearance 75 mL/min (70-130); Calcium 8.3 mg/dL (7.8-10.44); Carbon Dioxide 21 mmol/L (23-31); Chloride 115 mmol/L (98-107); Estimated GFR 83; Glucose 120 mg/dL (80-115); Potassium 5.8 mmol/L (3.5-5.1); Sodium 141 mmol/L (136-145)
[2022-07-18] MEDS: Atorvastatin Calcium 40 MG TAB PO SCH (20:28)
[2022-07-19] MEDS: HYDROcodone/Acetaminophen 10/325 mg Tablet PO PRN ×6 (01:51→23:09)
[2022-07-19 06:32] LABS: Magnesium 1.4 mg/dL (1.6-2.6)
[2022-07-19 06:41] LABS: Anion Gap 8 mmol/L (10-20); BUN (Urea Nitrogen) 43 mg/dL (8.4-25.7); Calc. Creatinine Clearance 89 mL/min (70-130); Calcium 7.8 mg/dL (7.8-10.44); Carbon Dioxide 22 mmol/L (23-31); Chloride 114 mmol/L (98-107); Estimated GFR 96; Glucose 106 mg/dL (80-115); Potassium 6.1 mmol/L (3.5-5.1); Sodium 138 mmol/L (136-145)
[2022-07-19] MEDS ORDERED: Dextrose 50% Abboject 50 ML SYRINGE SLOW IVP STA (07:11)
[2022-07-19] MEDS ORDERED: Insulin Regular 300 UNITS/3 ML VIAL IVP STA (07:12)
[2022-07-19] MEDS ORDERED: LOKELMA 10 GM PACKET PO SCH (07:15)
[2022-07-19] MEDS ORDERED: Magnesium Sulfate In Water 4 GM in Premix Bag 1 BAG IVPB SCH (08:00)
[2022-07-19] MEDS ORDERED: PHOS-NAK 1 PKT PACK PO SCH (08:00)
[2022-07-19] MEDS ORDERED: Sodium Bicarbonate 150 MEQ in Dextrose 5% in Water 1,000 ML IV SCH (08:00)
[2022-07-19 08:13] LABS: Anisocytosis SLIGHT = 6-15 cells (100X) (0-5/hpf); Hypochromia SLIGHT = 6-15 cells (100X) (0-5/hpf); MDiff Complete? YES; Macrocytosis SLIGHT = 6-15 cells (100X) (0-5/hpf); Platelet Morphology Comment Appears Adequate; Polychromasia SLIGHT = 2-3 cells (100X) (0-2/hpf)
[2022-07-19] MEDS: Sodium Phosphate 30 MMOL in Sodium Chloride 0.9% 250 ML 250 ML IVPB SCH ×2 (08:40→08:42)
[2022-07-19] MEDS: Sodium Bicarbonate Tab 325 MG TAB PO SCH ×3 (08:56→20:39)
[2022-07-19] MEDS: Gabapentin 300 MG CAP PO SCH ×3 (08:57→20:40)
[2022-07-19] MEDS: guaiFENesin ER 600 MG TAB PO SCH ×2 (08:57→20:40)
[2022-07-19] MEDS: hydrALAZINE 25 MG TAB PO SCH ×3 (08:58→20:40)
[2022-07-19] MEDS: Ferrous Sulfate 325 MG TAB PO SCH ×2 (08:58→17:17)
[2022-07-19] MEDS: Multivit, Therapeutic 1 TAB PO SCH (08:59)
[2022-07-19] MEDS: Aspirin 81 mg Enteric Coated Tablet PO SCH (08:59)
[2022-07-19] MEDS: Isosorbide Dinitrate 20 MG TAB PO SCH ×3 (08:59→20:40)
[2022-07-19] MEDS: Calcium Carbonate 600 MG + Vit D TAB PO SCH ×2 (08:59→17:17)
[2022-07-19] MEDS: Carvedilol 6.25 MG TAB PO SCH ×2 (08:59→20:40)
[2022-07-19] MEDS: Cyanocobalamin (Vitamin B-12) 1,000 MCG TAB PO SCH (08:59)
[2022-07-19] MEDS: Empagliflozin 10 MG TAB PO SCH (08:59)
[2022-07-19] MEDS: Loperamide HCl 2 MG CAP PO SCH (08:59)
[2022-07-19] MEDS: Megestrol Acetate 800 MG/20 ML UDCUP PO SCH (08:59)
[2022-07-19] MEDS: Magnesium Sulfate 4 GM in Sodium Chloride 0.9% 250 ML 250 ML IVPB SCH ×2 (09:56→09:58)
[2022-07-19] MEDS: Magnesium Sulfate In Water 4 GM in Premix Bag 1 BAG IVPB SCH ×2 (09:56→09:57)
[2022-07-19 15:27] LABS: Anion Gap 12 mmol/L (10-20); BUN (Urea Nitrogen) 40 mg/dL (8.4-25.7); Calc. Creatinine Clearance 91 mL/min (70-130); Calcium 7.7 mg/dL (7.8-10.44); Carbon Dioxide 21 mmol/L (23-31); Chloride 110 mmol/L (98-107); Estimated GFR 97; Glucose 88 mg/dL (80-115); Potassium 6.1 mmol/L (3.5-5.1); Sodium 137 mmol/L (136-145)
[2022-07-19] MEDS: Nicotine 14 MG PATCH TD SCH (17:17)
[2022-07-19] MEDS: Atorvastatin Calcium 40 MG TAB PO SCH (20:41)
[2022-07-20] MEDS: HYDROcodone/Acetaminophen 10/325 mg Tablet PO PRN ×6 (03:17→23:31)
[2022-07-20 06:32] LABS: #Eosinphils 0.1 thou/uL (0.0-0.7); #Lymphocytes 2.3 thou/uL (1.20-3.40); #Monocytes 1.1 thou/uL (0.11-0.59); #Neutrophils 10.1 thou/uL (1.40-6.50); %Basophils 0.2 % (0.0-1.0); %Lymphocytes 16.5 % (21.0-51.0); %Monocytes 8.1 % (0.0-10.0); %Neutrophils 74.2 % (42.0-75.0); Mean Corpuscular HGB CONC 30.8 g/dL (32.0-36.0); Mean Corpuscular Hemoglobin 31.6 pg (27.0-31.0); Mean Platelet Volume 6.4 fL (7.4-10.4); Platelet Count 259 thou/uL (130-400); RBC Distribution Width 18.9 % (11.5-14.5); Red Blood Cell (RBC) Count 2.22 mill/uL (4.70-6.10); White Blood Cell (WBC) Count 13.6 thou/uL (4.8-10.8)
[2022-07-20 06:44] LABS: Phosphorus 3.3 mg/dL (2.3-4.7)
[2022-07-20 06:49] LABS: Albumin 2.8 g/dL (3.4-4.8); Anion Gap 12 mmol/L (10-20); BUN (Urea Nitrogen) 38 mg/dL (8.4-25.7); BUN/Creatinine Ratio 46.91; Calc. Creatinine Clearance 94 mL/min (70-130); Calcium 7.7 mg/dL (7.8-10.44); Carbon Dioxide 23 mmol/L (23-31); Chloride 110 mmol/L (98-107); Estimated GFR 98; Glucose 93 mg/dL (80-115); Magnesium 2.3 mg/dL (1.6-2.6); Phosphorus 3.3 mg/dL (2.3-4.7); Potassium 5.7 mmol/L (3.5-5.1); Sodium 139 mmol/L (136-145)
[2022-07-20] MEDS ORDERED: LOKELMA 10 GM PACKET PO SCH (07:45)
[2022-07-20] MEDS: Enoxaparin Sodium 40 MG/0.4 ML SYRINGE SC SCH (09:13)
[2022-07-20] MEDS: Sodium Bicarbonate Tab 325 MG TAB PO SCH ×3 (09:13→21:46)
[2022-07-20] MEDS: Carvedilol 6.25 MG TAB PO SCH ×2 (09:14→21:48)
[2022-07-20] MEDS: Ferrous Sulfate 325 MG TAB PO SCH ×2 (09:14→17:15)
[2022-07-20] MEDS: hydrALAZINE 25 MG TAB PO SCH ×3 (09:14→21:48)
[2022-07-20] MEDS: Isosorbide Dinitrate 20 MG TAB PO SCH ×3 (09:14→21:48)
[2022-07-20] MEDS: Multivit, Therapeutic 1 TAB PO SCH (09:14)
[2022-07-20] MEDS: Gabapentin 300 MG CAP PO SCH ×3 (09:14→21:47)
[2022-07-20] MEDS: guaiFENesin ER 600 MG TAB PO SCH ×2 (09:14→21:48)
[2022-07-20] MEDS: Calcium Carbonate 600 MG + Vit D TAB PO SCH ×2 (09:15→17:15)
[2022-07-20] MEDS: Empagliflozin 10 MG TAB PO SCH (09:15)
[2022-07-20] MEDS: Aspirin 81 mg Enteric Coated Tablet PO SCH (09:15)
[2022-07-20] MEDS: Cyanocobalamin (Vitamin B-12) 1,000 MCG TAB PO SCH (09:15)
[2022-07-20] MEDS: Megestrol Acetate 800 MG/20 ML UDCUP PO SCH (09:22)
[2022-07-20] MEDS ORDERED: Furosemide 80 MG TAB PO SCH (12:30)
[2022-07-20 12:53] LABS: Bilirubin Negative (Negative); Blood, Urine Negative (Negative); Clarity Clear (Clear); Glucose, Urine (Dipstick) 50 mg/dL (Negative); Ketone, Urine Negative (Negative); Leukocyte Negative Leu/uL (Negative); Nitrite Negative (Negative); Protein, Urine (Dipstick) 50 mg/dL (Neg-Trace); RBC/HPF 0-3 HPF (0-3); Specific Gravity, Urine 1.015 (1.002-1.036); Squamous Epithelial 0-3 HPF (0-3); Urobilinogen Normal mg/dL (Less than 2); WBC/HPF None Seen HPF (0-3)
[2022-07-20 13:07] LABS: Bacteria/HPF 1+ HPF (None Seen); Yeast-Budding 2+ HPF (None Seen)
[2022-07-20 13:08] LABS: Urine Culture Reflex Yes Yes
[2022-07-20 16:39] LABS: Anion Gap 12 mmol/L (10-20); BUN (Urea Nitrogen) 34 mg/dL (8.4-25.7); Calc. Creatinine Clearance 88 mL/min (70-130); Calcium 7.9 mg/dL (7.8-10.44); Carbon Dioxide 22 mmol/L (23-31); Chloride 110 mmol/L (98-107); Estimated GFR 96; Glucose 117 mg/dL (80-115); Potassium 5.2 mmol/L (3.5-5.1); Sodium 139 mmol/L (136-145)
[2022-07-20] MEDS: Nicotine 14 MG PATCH TD SCH ×2 (17:15→17:19)
[2022-07-20] MEDS: Atorvastatin Calcium 40 MG TAB PO SCH (21:48)
[2022-07-21] MEDS: HYDROcodone/Acetaminophen 10/325 mg Tablet PO PRN ×5 (03:28→19:52)
[2022-07-21 04:46] LABS: Albumin 2.7 g/dL (3.4-4.8); Anion Gap 11 mmol/L (10-20); BUN (Urea Nitrogen) 31 mg/dL (8.4-25.7); BUN/Creatinine Ratio 39.74; Calc. Creatinine Clearance 98 mL/min (70-130); Calcium 7.8 mg/dL (7.8-10.44); Carbon Dioxide 22 mmol/L (23-31); Chloride 111 mmol/L (98-107); Estimated GFR 99; Glucose 80 mg/dL (80-115); Phosphorus 2.8 mg/dL (2.3-4.7); Sodium 138 mmol/L (136-145)
[2022-07-21] MEDS: Enoxaparin Sodium 40 MG/0.4 ML SYRINGE SC SCH (09:23)
[2022-07-21] MEDS: Cyanocobalamin (Vitamin B-12) 1,000 MCG TAB PO SCH (09:24)
[2022-07-21] MEDS: Multivit, Therapeutic 1 TAB PO SCH (09:24)
[2022-07-21] MEDS: Ferrous Sulfate 325 MG TAB PO SCH ×2 (09:24→16:03)
[2022-07-21] MEDS: Gabapentin 300 MG CAP PO SCH ×3 (09:24→19:51)
[2022-07-21] MEDS: Isosorbide Dinitrate 20 MG TAB PO SCH ×3 (09:24→19:52)
[2022-07-21] MEDS: Empagliflozin 10 MG TAB PO SCH (09:24)
[2022-07-21] MEDS: hydrALAZINE 25 MG TAB PO SCH ×3 (09:24→19:50)
[2022-07-21] MEDS: Carvedilol 6.25 MG TAB PO SCH ×2 (09:24→19:51)
[2022-07-21] MEDS: Calcium Carbonate 600 MG + Vit D TAB PO SCH ×2 (09:24→16:03)
[2022-07-21] MEDS: Aspirin 81 mg Enteric Coated Tablet PO SCH (09:24)
[2022-07-21] MEDS: guaiFENesin ER 600 MG TAB PO SCH ×2 (09:24→19:52)
[2022-07-21] MEDS: Sodium Bicarbonate Tab 325 MG TAB PO SCH ×3 (09:24→19:51)
[2022-07-21] MEDS: Megestrol Acetate 400 MG/10 ML UDCUP PO SCH (09:25)
[2022-07-21] MEDS: Furosemide 40 MG/4 ML VIAL SLOW IVP SCH (09:28)
[2022-07-21] MEDS ORDERED: LOKELMA 5 GM PACKET PO SCH (10:15)
[2022-07-21 10:17] LABS: Actual Bicarbonate (HCO3a) 21.7 mEq/L (22-28); Analyzer IN Cardio OR; Base Excess (BEa) -2.1 mEq/L (-2.0 to +3.0); CO2 Tension 32.9 mmHg (35.0-45.0); Calcium, Ionized (arterial) 1.12 mmol/L (1.12-1.30); Carboxyhemoglobin (COHb) 1.2 gm% (0.0-3.0); Hemoglobin (Hb) 7.8 g/dL (14.0-18.0); O2 Tension (PaO2), arterial 72.3 mmHg (> 80.0); Potassium - ABG Lab 5.77 mmol/L (3.70-5.30); pH, Arterial 7.44 (7.35-7.45)
[2022-07-21 10:22] LABS: ALV-art Gradient 36.305 mmHg (0-20); Puncture Site RRA
[2022-07-21 10:46] LABS: #Eosinphils 0.1 thou/uL (0.0-0.7); #Lymphocytes 2.2 thou/uL (1.20-3.40); #Monocytes 1.1 thou/uL (0.11-0.59); #Neutrophils 7.9 thou/uL (1.40-6.50); %Basophils 0.3 % (0.0-1.0); %Eosinophils 0.6 % (0.0-10.0); %Lymphocytes 19.3 % (21.0-51.0); %Monocytes 9.9 % (0.0-10.0); %Neutrophils 69.9 % (42.0-75.0); Hemoglobin 6.8 g/dL (14.0-18.0); Mean Corpuscular Hemoglobin 31.1 pg (27.0-31.0); Mean Platelet Volume 6.4 fL (7.4-10.4); Platelet Count 289 thou/uL (130-400); RBC Distribution Width 18.5 % (11.5-14.5); Red Blood Cell (RBC) Count 2.18 mill/uL (4.70-6.10); White Blood Cell (WBC) Count 11.2 thou/uL (4.8-10.8)
[2022-07-21] MEDS: cefTRIAXone\\ROCEPHIN 1 GM in Sodium Chloride 0.9% 100 ML IVPB SCH (13:56)
[2022-07-21] MEDS: Nicotine 14 MG PATCH TD SCH (16:03)
[2022-07-21] MEDS: Atorvastatin Calcium 40 MG TAB PO SCH (19:52)
[2022-07-22] MEDS: HYDROcodone/Acetaminophen 10/325 mg Tablet PO PRN ×5 (04:05→21:14)
[2022-07-22 04:46] LABS: #Eosinphils 0.1 thou/uL (0.0-0.7); #Lymphocytes 1.9 thou/uL (1.20-3.40); #Monocytes 1.1 thou/uL (0.11-0.59); #Neutrophils 6.7 thou/uL (1.40-6.50); %Basophils 0.2 % (0.0-1.0); %Eosinophils 0.6 % (0.0-10.0); %Lymphocytes 19.2 % (21.0-51.0); %Monocytes 11.1 % (0.0-10.0); %Neutrophils 68.9 % (42.0-75.0); Hemoglobin 7.7 g/dL (14.0-18.0); Mean Corpuscular HGB CONC 31.1 g/dL (32.0-36.0); Mean Corpuscular Hemoglobin 30.8 pg (27.0-31.0); Mean Corpuscular Volume 98.8 fL (78.0-98.0); Mean Platelet Volume 6.2 fL (7.4-10.4); Platelet Count 310 thou/uL (130-400); Red Blood Cell (RBC) Count 2.49 mill/uL (4.70-6.10); White Blood Cell (WBC) Count 9.7 thou/uL (4.8-10.8)
[2022-07-22 04:57] LABS: Anion Gap 13 mmol/L (10-20); BUN (Urea Nitrogen) 31 mg/dL (8.4-25.7); Calc. Creatinine Clearance 72 mL/min (70-130); Calcium 8.2 mg/dL (7.8-10.44); Carbon Dioxide 20 mmol/L (23-31); Chloride 113 mmol/L (98-107); Estimated GFR 78; Glucose 91 mg/dL (80-115); Potassium 5.9 mmol/L (3.5-5.1); Sodium 140 mmol/L (136-145)
[2022-07-22] MEDS ORDERED: Ferrous Gluconate 324 MG TAB PO SCH (08:00)
[2022-07-22] MEDS: hydrALAZINE 25 MG TAB PO SCH ×3 (08:22→20:27)
[2022-07-22] MEDS: Gabapentin 300 MG CAP PO SCH ×3 (08:22→20:27)
[2022-07-22] MEDS: Sodium Bicarbonate Tab 325 MG TAB PO SCH ×3 (08:22→20:27)
[2022-07-22] MEDS: Isosorbide Dinitrate 20 MG TAB PO SCH ×3 (08:22→20:27)
[2022-07-22] MEDS: Megestrol Acetate 400 MG/10 ML UDCUP PO SCH (08:22)
[2022-07-22] MEDS: guaiFENesin ER 600 MG TAB PO SCH ×2 (08:23→20:27)
[2022-07-22] MEDS: Aspirin 81 mg Enteric Coated Tablet PO SCH (08:23)
[2022-07-22] MEDS: Ferrous Sulfate 325 MG TAB PO SCH ×2 (08:23→16:07)
[2022-07-22] MEDS: Calcium Carbonate 600 MG + Vit D TAB PO SCH ×2 (08:23→16:09)
[2022-07-22] MEDS: Multivit, Therapeutic 1 TAB PO SCH (08:23)
[2022-07-22] MEDS: Carvedilol 6.25 MG TAB PO SCH ×2 (08:24→20:27)
[2022-07-22] MEDS: Empagliflozin 10 MG TAB PO SCH (08:24)
[2022-07-22] MEDS: Furosemide 40 MG/4 ML VIAL SLOW IVP SCH (08:24)
[2022-07-22] MEDS: Enoxaparin Sodium 40 MG/0.4 ML SYRINGE SC SCH (08:24)
[2022-07-22] MEDS: Folic Acid 1 MG TAB PO SCH (08:24)
[2022-07-22] MEDS ORDERED: LOKELMA 5 GM PACKET PO SCH (09:00)
[2022-07-22] MEDS: cefTRIAXone\\ROCEPHIN 1 GM in Sodium Chloride 0.9% 100 ML IVPB SCH (12:00)
[2022-07-22] MEDS ORDERED: Furosemide 20 MG/2 ML VIAL SLOW IVP SCH ×2 (12:30→16:30)
[2022-07-22] MEDS: Nicotine 14 MG PATCH TD SCH (17:08)
[2022-07-22] MEDS: Atorvastatin Calcium 40 MG TAB PO SCH (20:27)
[2022-07-23] MEDS: HYDROcodone/Acetaminophen 10/325 mg Tablet PO PRN ×6 (01:40→21:59)
[2022-07-23 04:25] LABS: #Eosinphils 0.1 thou/uL (0.0-0.7); #Lymphocytes 1.9 thou/uL (1.20-3.40); #Monocytes 1.1 thou/uL (0.11-0.59); #Neutrophils 5.9 thou/uL (1.40-6.50); %Basophils 0.3 % (0.0-1.0); %Eosinophils 0.9 % (0.0-10.0); %Lymphocytes 20.5 % (21.0-51.0); %Monocytes 12.7 % (0.0-10.0); %Neutrophils 65.6 % (42.0-75.0); Hemoglobin 8.1 g/dL (14.0-18.0); Mean Corpuscular HGB CONC 30.4 g/dL (32.0-36.0); Mean Corpuscular Hemoglobin 29.8 pg (27.0-31.0); Mean Platelet Volume 6.2 fL (7.4-10.4); Platelet Count 317 thou/uL (130-400); RBC Distribution Width 20.6 % (11.5-14.5); Red Blood Cell (RBC) Count 2.72 mill/uL (4.70-6.10)
[2022-07-23 04:45] LABS: Anion Gap 12 mmol/L (10-20); BUN (Urea Nitrogen) 30 mg/dL (8.4-25.7); Calc. Creatinine Clearance 81 mL/min (70-130); Calcium 8.3 mg/dL (7.8-10.44); Carbon Dioxide 20 mmol/L (23-31); Chloride 112 mmol/L (98-107); Estimated GFR 90; Glucose 120 mg/dL (80-115); Potassium 5.8 mmol/L (3.5-5.1); Sodium 138 mmol/L (136-145)
[2022-07-23] MEDS ORDERED: Loperamide HCl 2 MG CAP PO SCH (09:00)
[2022-07-23] MEDS: hydrALAZINE 25 MG TAB PO SCH ×3 (09:21→22:00)
[2022-07-23] MEDS: Sodium Bicarbonate Tab 325 MG TAB PO SCH ×3 (09:23→21:59)
[2022-07-23] MEDS: Gabapentin 300 MG CAP PO SCH ×3 (09:23→21:58)
[2022-07-23] MEDS: Calcium Carbonate 600 MG + Vit D TAB PO SCH ×2 (09:25→17:36)
[2022-07-23] MEDS: guaiFENesin ER 600 MG TAB PO SCH ×2 (09:25→21:58)
[2022-07-23] MEDS: Ferrous Sulfate 325 MG TAB PO SCH ×2 (09:25→17:36)
[2022-07-23] MEDS: Furosemide 40 MG TAB PO SCH (09:25)
[2022-07-23] MEDS: Folic Acid 1 MG TAB PO SCH (09:26)
[2022-07-23] MEDS: Aspirin 81 mg Enteric Coated Tablet PO SCH (09:26)
[2022-07-23] MEDS: Empagliflozin 10 MG TAB PO SCH (09:27)
[2022-07-23] MEDS: Isosorbide Dinitrate 20 MG TAB PO SCH ×3 (09:27→22:00)
[2022-07-23] MEDS: Carvedilol 6.25 MG TAB PO SCH ×2 (09:28→21:59)
[2022-07-23] MEDS: Enoxaparin Sodium 40 MG/0.4 ML SYRINGE SC SCH (09:28)
[2022-07-23] MEDS: Multivit, Therapeutic 1 TAB PO SCH (09:28)
[2022-07-23] MEDS: LOKELMA 10 GM PACKET PO SCH (09:29)
[2022-07-23] MEDS: Megestrol Acetate 400 MG/10 ML UDCUP PO SCH (09:41)
[2022-07-23] MEDS: cefTRIAXone\\ROCEPHIN 1 GM in Sodium Chloride 0.9% 100 ML IVPB SCH (14:09)
[2022-07-23] MEDS: Nicotine 14 MG PATCH TD SCH (17:36)
[2022-07-23] MEDS: Atorvastatin Calcium 40 MG TAB PO SCH (22:00)
[2022-07-24] MEDS: HYDROcodone/Acetaminophen 10/325 mg Tablet PO PRN ×5 (03:37→20:24)
[2022-07-24 05:20] LABS: #Eosinphils 0.1 thou/uL (0.0-0.7); #Lymphocytes 1.6 thou/uL (1.20-3.40); #Monocytes 1.1 thou/uL (0.11-0.59); #Neutrophils 6.1 thou/uL (1.40-6.50); %Basophils 0.5 % (0.0-1.0); %Lymphocytes 18.2 % (21.0-51.0); %Monocytes 12.7 % (0.0-10.0); %Neutrophils 67.6 % (42.0-75.0); Hemoglobin 7.7 g/dL (14.0-18.0); Mean Corpuscular HGB CONC 30.7 g/dL (32.0-36.0); Mean Corpuscular Hemoglobin 29.6 pg (27.0-31.0); Mean Corpuscular Volume 96.3 fL (78.0-98.0); Mean Platelet Volume 6.2 fL (7.4-10.4); Platelet Count 331 thou/uL (130-400); RBC Distribution Width 19.9 % (11.5-14.5); Red Blood Cell (RBC) Count 2.62 mill/uL (4.70-6.10)
[2022-07-24 05:40] LABS: ALT (SGPT) 28 U/L (8-55); AST (SGOT) 26 U/L (5-34); Albumin 2.8 g/dL (3.4-4.8); Alkaline Phosphatase 119 U/L (40-110); Anion Gap 12 mmol/L (10-20); BUN (Urea Nitrogen) 29 mg/dL (8.4-25.7); Bilirubin, Total 0.3 mg/dL (0.2-1.2); Calc. Creatinine Clearance 74 mL/min (70-130); Calcium 8.4 mg/dL (7.8-10.44); Carbon Dioxide 19 mmol/L (23-31); Chloride 114 mmol/L (98-107); Estimated GFR 81; Globulin 4.1 g/dL (2.4-3.5); Glucose 95 mg/dL (80-115); Magnesium 1.3 mg/dL (1.6-2.6); Potassium 5.7 mmol/L (3.5-5.1); Protein, Total 6.9 g/dL (5.8-8.1); Sodium 139 mmol/L (136-145)
[2022-07-24] MEDS ORDERED: Magnesium Sulfate In Water 4 GM in Premix Bag 1 BAG IVPB SCH (06:00)
[2022-07-24] MEDS: Calcium Carbonate 600 MG + Vit D TAB PO SCH ×2 (08:19→16:21)
[2022-07-24] MEDS: Ferrous Sulfate 325 MG TAB PO SCH ×2 (08:19→16:18)
[2022-07-24] MEDS: Aspirin 81 mg Enteric Coated Tablet PO SCH (08:20)
[2022-07-24] MEDS: Gabapentin 300 MG CAP PO SCH ×3 (08:20→20:23)
[2022-07-24] MEDS: Multivit, Therapeutic 1 TAB PO SCH (08:21)
[2022-07-24] MEDS: Furosemide 40 MG TAB PO SCH (08:21)
[2022-07-24] MEDS: Empagliflozin 10 MG TAB PO SCH (08:22)
[2022-07-24] MEDS: guaiFENesin ER 600 MG TAB PO SCH ×2 (08:22→20:23)
[2022-07-24] MEDS: Isosorbide Dinitrate 20 MG TAB PO SCH ×3 (08:22→20:24)
[2022-07-24] MEDS: Folic Acid 1 MG TAB PO SCH (08:22)
[2022-07-24] MEDS: hydrALAZINE 25 MG TAB PO SCH ×3 (08:22→20:24)
[2022-07-24] MEDS: Enoxaparin Sodium 40 MG/0.4 ML SYRINGE SC SCH (08:25)
[2022-07-24] MEDS ORDERED: Magnesium 2 GM/50 ML(in water) 2 GM in Premix Bag 1 BAG IVPB SCH (08:30)
[2022-07-24] MEDS: Sodium Bicarbonate Tab 325 MG TAB PO SCH ×3 (10:29→20:22)
[2022-07-24] MEDS: Carvedilol 6.25 MG TAB PO SCH ×2 (10:30→20:23)
[2022-07-24] MEDS: LOKELMA 10 GM PACKET PO SCH (12:27)
[2022-07-24] MEDS: cefTRIAXone\\ROCEPHIN 1 GM in Sodium Chloride 0.9% 100 ML IVPB SCH (12:28)
[2022-07-24] MEDS: Epoetin (ESRD) 10,000 UNITS/ML VIAL SC SCH (16:22)
[2022-07-24] MEDS: Nicotine 14 MG PATCH TD SCH (16:24)
[2022-07-24 16:34] LABS: Anion Gap 12 mmol/L (10-20); BUN (Urea Nitrogen) 26 mg/dL (8.4-25.7); Calc. Creatinine Clearance 82 mL/min (70-130); Calcium 8.3 mg/dL (7.8-10.44); Carbon Dioxide 19 mmol/L (23-31); Chloride 113 mmol/L (98-107); Estimated GFR 91; Glucose 106 mg/dL (80-115); Sodium 139 mmol/L (136-145)
[2022-07-24] MEDS: Atorvastatin Calcium 40 MG TAB PO SCH (20:23)
[2022-07-25] MEDS: HYDROcodone/Acetaminophen 10/325 mg Tablet PO PRN ×5 (00:24→17:15)
[2022-07-25 04:58] LABS: #Eosinphils 0.1 thou/uL (0.0-0.7); #Lymphocytes 1.4 thou/uL (1.20-3.40); #Monocytes 0.9 thou/uL (0.11-0.59); %Basophils 0.4 % (0.0-1.0); %Eosinophils 1.1 % (0.0-10.0); %Lymphocytes 16.7 % (21.0-51.0); %Monocytes 10.3 % (0.0-10.0); %Neutrophils 71.5 % (42.0-75.0); Hemoglobin 7.6 g/dL (14.0-18.0); Mean Corpuscular HGB CONC 30.8 g/dL (32.0-36.0); Mean Corpuscular Hemoglobin 30.1 pg (27.0-31.0); Mean Corpuscular Volume 97.7 fL (78.0-98.0); Mean Platelet Volume 6.1 fL (7.4-10.4); Platelet Count 342 thou/uL (130-400); RBC Distribution Width 19.6 % (11.5-14.5); Red Blood Cell (RBC) Count 2.52 mill/uL (4.70-6.10); White Blood Cell (WBC) Count 8.4 thou/uL (4.8-10.8)
[2022-07-25 05:13] LABS: Phosphorus 3.9 mg/dL (2.3-4.7)
[2022-07-25 05:21] LABS: Anion Gap 12 mmol/L (10-20); BUN (Urea Nitrogen) 29 mg/dL (8.4-25.7); Calc. Creatinine Clearance 64 mL/min (70-130); Calcium 8.1 mg/dL (7.8-10.44); Carbon Dioxide 18 mmol/L (23-31); Chloride 112 mmol/L (98-107); Estimated GFR 68; Glucose 134 mg/dL (80-115); Magnesium 2.1 mg/dL (1.6-2.6); Potassium 5.3 mmol/L (3.5-5.1); Sodium 137 mmol/L (136-145)
[2022-07-25] MEDS: Calcium Carbonate 600 MG + Vit D TAB PO SCH ×2 (08:48→17:15)
[2022-07-25] MEDS: Ferrous Sulfate 325 MG TAB PO SCH ×2 (08:48→17:15)
[2022-07-25] MEDS: Aspirin 81 mg Enteric Coated Tablet PO SCH (08:48)
[2022-07-25] MEDS: Gabapentin 300 MG CAP PO SCH ×2 (08:49→14:47)
[2022-07-25] MEDS: Enoxaparin Sodium 40 MG/0.4 ML SYRINGE SC SCH (08:49)
[2022-07-25] MEDS: Carvedilol 6.25 MG TAB PO SCH (08:49)
[2022-07-25] MEDS: Folic Acid 1 MG TAB PO SCH (08:49)
[2022-07-25] MEDS: Empagliflozin 10 MG TAB PO SCH (08:49)
[2022-07-25] MEDS: guaiFENesin ER 600 MG TAB PO SCH (08:50)
[2022-07-25] MEDS: Isosorbide Dinitrate 20 MG TAB PO SCH ×2 (08:50→14:48)
[2022-07-25] MEDS: hydrALAZINE 25 MG TAB PO SCH ×2 (08:50→14:48)
[2022-07-25] MEDS: Multivit, Therapeutic 1 TAB PO SCH (08:51)
[2022-07-25] MEDS ORDERED: Magnesium Oxide 400 MG TAB PO SCH (09:00)
[2022-07-25] MEDS: LOKELMA 10 GM PACKET PO SCH (11:01)
[2022-07-25] MEDS: Sodium Bicarbonate Tab 325 MG TAB PO SCH ×2 (11:01→17:14)
[2022-07-25] MEDS: Furosemide 40 MG TAB PO SCH (12:43)
[2022-07-25] MEDS: cefTRIAXone\\ROCEPHIN 1 GM in Sodium Chloride 0.9% 100 ML IVPB SCH (13:42)
[2022-07-25 16:02] VITALS: BP 121/59; TEMP 98.4
[2022-07-25] MEDS: Nicotine 14 MG PATCH TD SCH (17:20)
[2022-07-26] MEDS ORDERED: Furosemide 40 MG TAB PO SCH (07:30)
[2022-07-26] MEDS ORDERED: Furosemide 20 MG TAB PO SCH (07:30)
== END 2022-07-25 18:00 | DRG 871 ==
LOC: ERS 10:03 → ERHOLD 15:05 → 2NO 17:33
PROVIDERS: ADMIT Internal Medicine; ATTEND Hospitalist
PROC: 3E03329 Introduction of Other Anti-infective into Peripheral Vein, Percutaneous Approach (ICD-10-PCS; 2022-07-10)
PROC: 02HV33Z Insertion of Infusion Device into Superior Vena Cava, Percutaneous Approach (ICD-10-PCS; 2022-07-10)
PROC: 30233J1 Transfusion of Nonautologous Serum Albumin into Peripheral Vein, Percutaneous Approach (ICD-10-PCS; 2022-07-11)
PROC: 30233N1 Transfusion of Nonautologous Red Blood Cells into Peripheral Vein, Percutaneous Approach (ICD-10-PCS; principal; 2022-07-13)
DX: A41.59 Other Gram-negative sepsis (principal); I50.23 Acute on chronic systolic (congestive) heart failure; J18.9 Pneumonia, unspecified organism; J96.01 Acute respiratory failure with hypoxia; G82.20 Paraplegia, unspecified; N17.9 Acute kidney failure, unspecified; J44.0 Chronic obstructive pulmonary disease with (acute) lower respiratory infection; E87.1 Hypo-osmolality and hyponatremia; I42.9 Cardiomyopathy, unspecified; N39.0 Urinary tract infection, site not specified; I34.0 Nonrheumatic mitral (valve) insufficiency; Z20.822 Contact with and (suspected) exposure to COVID-19; E16.2 Hypoglycemia, unspecified; E87.5 Hyperkalemia; D64.9 Anemia, unspecified; E83.51 Hypocalcemia; E83.42 Hypomagnesemia; I11.0 Hypertensive heart disease with heart failure; L89.159 Pressure ulcer of sacral region, unspecified stage; Z93.3 Colostomy status; Z99.81 Dependence on supplemental oxygen; Z89.612 Acquired absence of left leg above knee; Z89.611 Acquired absence of right leg above knee; Z91.018 Allergy to other foods
CPT/HCPCS: 36415; 36416; 36430; 36556; 36600; 71045; 71046; 80048; 80053; 80069; 81001; 81003; 82274; 82550; 82553; 82570; 82805; 83605; 83735; 83880; 84100; 84300; 84484; 84540; 85025; 85027; 86850; 86900; 86901; 86922; 87086; 87811; 93005; 93306; 94640; 96365; 96375; 97139; J0692; J0696; J1650; J1815; J1940; J2270; J3475; J3490; J7050; J7070; J7620; J7999; P9016; P9047; Q4081

== ENCOUNTER 2022-07-31 11:38 | Inpatient (IN) | payer MEDICARE, MEDICAID ==
[2022-07-31] MEDS ORDERED: Dextrose 50% Abboject 50 ML SYRINGE ONE ×3 (12:45→18:03)
[2022-07-31 13:33] LABS: ALT (SGPT) 24 U/L (8-55); AST (SGOT) 21 U/L (5-34); Alkaline Phosphatase 196 U/L (40-110); Anion Gap 15 mmol/L (10-20); BUN (Urea Nitrogen) 35 mg/dL (8.4-25.7); Bilirubin, Total 0.2 mg/dL (0.2-1.2); CK (CPK) 133 U/L (30-200); Calc. Creatinine Clearance 0 mL/min (70-130); Calcium 8.6 mg/dL (7.8-10.44); Chloride 116 mmol/L (98-107); Estimated GFR 48; Globulin 4.4 g/dL (2.4-3.5); Glucose 176 mg/dL (80-115); Magnesium 1.7 mg/dL (1.6-2.6); Protein, Total 7.4 g/dL (5.8-8.1); Sodium 133 mmol/L (136-145)
[2022-07-31 13:41] LABS: Carbon Dioxide 9 mmol/L (23-31); Potassium 7.4 mmol/L (3.5-5.1)
[2022-07-31] MEDS ORDERED: CALCIUM GLUC 1GM/NS 50ML BAG ONE (13:54)
[2022-07-31] MEDS ORDERED: Sodium Bicarb 50 MEQ/50 ML VIAL ONE (13:55)
[2022-07-31] MEDS ORDERED: Albuterol Sulfate 2.5 mg/0.5 ml Neb ONE ×2 (13:55→14:59)
[2022-07-31 13:56] LABS: #Eosinphils 0.2 thou/uL (0.0-0.7); #Monocytes 0.5 thou/uL (0.11-0.59); #Neutrophils 7.1 thou/uL (1.40-6.50); %Basophils 0.2 % (0.0-1.0); %Eosinophils 1.9 % (0.0-10.0); %Lymphocytes 11.7 % (21.0-51.0); %Monocytes 5.3 % (0.0-10.0); Hemoglobin 8.8 g/dL (14.0-18.0); Mean Corpuscular Hemoglobin 29.4 pg (27.0-31.0); Mean Platelet Volume 5.8 fL (7.4-10.4); Platelet Count 534 thou/uL (130-400); RBC Distribution Width 18.4 % (11.5-14.5); White Blood Cell (WBC) Count 8.8 thou/uL (4.8-10.8)
[2022-07-31 13:57] LABS: Anisocytosis SLIGHT = 6-15 cells (100X) (0-5/hpf); Hypochromia SLIGHT = 6-15 cells (100X) (0-5/hpf); MDiff Complete? YES; Platelet Morphology Comment Appears Increased; Polychromasia SLIGHT = 2-3 cells (100X) (0-2/hpf); Small Platelets SLIGHT
[2022-07-31] MEDS ORDERED: Insulin Regular 300 UNITS/3 ML VIAL ONE (13:57)
[2022-07-31] MEDS ORDERED: Sodium Chloride 0.9% 1,000 ML IV SCH (14:45)
[2022-07-31] MEDS ORDERED: Albuterol Sulfate 2.5 mg/3 ml Neb ONE (14:59)
[2022-07-31] MEDS ORDERED: Dextrose 5 %-0.45 % NaCl 1,000 ML IV SCH (15:15)
[2022-07-31 15:28] LABS: SARS-CoV-2 NAA Rapid Test Not Detected (NotDetected)
[2022-07-31] MEDS: Heparin 5,000 UNITS/ML VIAL SC SCH ×2 (15:58→21:12)
[2022-07-31] MEDS: Pantoprazole 40 MG VIAL IVP SCH (16:40)
[2022-07-31 17:38] LABS: Anion Gap 16 mmol/L (10-20); BUN (Urea Nitrogen) 33 mg/dL (8.4-25.7); Calc. Creatinine Clearance 0 mL/min (70-130); Calcium 9.2 mg/dL (7.8-10.44); Carbon Dioxide 12 mmol/L (23-31); Chloride 117 mmol/L (98-107); Estimated GFR 50; Sodium 137 mmol/L (136-145)
[2022-07-31 17:40] LABS: Acetaminophen Less than 10.0 mcg/mL (10.0-30.0); Alcohol Less than 10 mg/dL (Less than 10); Salicylate Less than 8.0 mg/dL (15.0-30.0)
[2022-07-31 17:50] LABS: Glucose 54 mg/dL (80-115); Potassium 7.6 mmol/L (3.5-5.1)
[2022-07-31] MEDS ORDERED: LOKELMA 10 GM PACKET PO SCH (18:00)
[2022-07-31] MEDS: Sodium Bicarbonate 150 MEQ in Dextrose 5% in Water 1,000 ML IV SCH (18:29)
[2022-07-31 19:03] LABS: Amphetamine Not Detected (NotDetected); Barbiturates Screen Not Detected (NotDetected); Benzodiazepine Screen Detected (NotDetected); Cocaine Metabolite Screen Not Detected (NotDetected); Methadone Not Detected (NotDetected); Methamphetamine Not Detected (NotDetected); Opiate Screen Detected (NotDetected); Oxycodone Screen Not Detected (NotDetected); Phencyclidine (PCP) Not Detected (NotDetected); THC/Cannabinoid Screen Not Detected (NotDetected); Tricyclic Screen Not Detected (NotDetected)
[2022-07-31] MEDS: Sodium Bicarbonate Tab 325 MG TAB PO SCH (21:11)
[2022-07-31 23:59] LABS: Anion Gap 17 mmol/L (10-20); BUN (Urea Nitrogen) 32 mg/dL (8.4-25.7); Calc. Creatinine Clearance 50 mL/min (70-130); Calcium 8.9 mg/dL (7.8-10.44); Carbon Dioxide 11 mmol/L (23-31); Chloride 119 mmol/L (98-107); Estimated GFR 56; Glucose 86 mg/dL (80-115); Potassium 6.5 mmol/L (3.5-5.1); Sodium 140 mmol/L (136-145)
[2022-08-01] MEDS: Acetaminophen 325 MG TAB PO PRN (03:06)
[2022-08-01 04:11] LABS: #Eosinphils 0.2 thou/uL (0.0-0.7); #Lymphocytes 1.4 thou/uL (1.20-3.40); #Monocytes 0.9 thou/uL (0.11-0.59); #Neutrophils 4.1 thou/uL (1.40-6.50); %Basophils 0.1 % (0.0-1.0); %Eosinophils 2.8 % (0.0-10.0); %Lymphocytes 21.9 % (21.0-51.0); %Monocytes 13.5 % (0.0-10.0); %Neutrophils 61.6 % (42.0-75.0); Hemoglobin 7.8 g/dL (14.0-18.0); Mean Corpuscular HGB CONC 30.8 g/dL (32.0-36.0); Mean Corpuscular Volume 97.2 fL (78.0-98.0); Mean Platelet Volume 5.9 fL (7.4-10.4); Platelet Count 487 thou/uL (130-400); RBC Distribution Width 18.5 % (11.5-14.5); Red Blood Cell (RBC) Count 2.61 mill/uL (4.70-6.10); White Blood Cell (WBC) Count 6.6 thou/uL (4.8-10.8)
[2022-08-01 04:28] LABS: Albumin 2.8 g/dL (3.4-4.8); Anion Gap 15 mmol/L (10-20); BUN (Urea Nitrogen) 31 mg/dL (8.4-25.7); BUN/Creatinine Ratio 21.99; Calc. Creatinine Clearance 49 mL/min (70-130); Calcium 8.6 mg/dL (7.8-10.44); Carbon Dioxide 13 mmol/L (23-31); Chloride 116 mmol/L (98-107); Estimated GFR 55; Glucose 90 mg/dL (80-115); Sodium 138 mmol/L (136-145)
[2022-08-01] MEDS: Sodium Bicarbonate 150 MEQ in Dextrose 5% in Water 1,000 ML IV SCH ×2 (09:40→22:12)
[2022-08-01] MEDS: Sodium Bicarbonate Tab 325 MG TAB PO SCH ×3 (09:41→20:30)
[2022-08-01] MEDS: Heparin 5,000 UNITS/ML VIAL SC SCH ×3 (09:41→20:32)
[2022-08-01] MEDS: LOKELMA 10 GM PACKET PO SCH (09:41)
[2022-08-01] MEDS ORDERED: HYDROcodone/Acetaminophen 10/325 mg Tablet PO PRN (09:46)
[2022-08-01] MEDS: Loperamide HCl 2 MG CAP PO SCH (09:51)
[2022-08-01] MEDS: HYDROcodone/Acetaminophen 10/325 mg Tablet PO PRN ×3 (10:04→22:11)
[2022-08-01] MEDS: Pantoprazole 40 MG VIAL IVP SCH (16:06)
[2022-08-01 19:21] LABS: #Eosinphils 0.2 thou/uL (0.0-0.7); #Lymphocytes 1.6 thou/uL (1.20-3.40); #Monocytes 0.9 thou/uL (0.11-0.59); #Neutrophils 4.5 thou/uL (1.40-6.50); %Basophils 0.4 % (0.0-1.0); %Eosinophils 2.5 % (0.0-10.0); %Lymphocytes 22.3 % (21.0-51.0); %Monocytes 12.6 % (0.0-10.0); %Neutrophils 62.2 % (42.0-75.0); Hemoglobin 7.3 g/dL (14.0-18.0); Mean Corpuscular HGB CONC 30.8 g/dL (32.0-36.0); Mean Corpuscular Hemoglobin 29.7 pg (27.0-31.0); Mean Corpuscular Volume 96.3 fL (78.0-98.0); Mean Platelet Volume 5.9 fL (7.4-10.4); Platelet Count 441 thou/uL (130-400); RBC Distribution Width 18.4 % (11.5-14.5); Red Blood Cell (RBC) Count 2.45 mill/uL (4.70-6.10); White Blood Cell (WBC) Count 7.3 thou/uL (4.8-10.8)
[2022-08-01 19:36] LABS: Anion Gap 15 mmol/L (10-20); BUN (Urea Nitrogen) 33 mg/dL (8.4-25.7); Calc. Creatinine Clearance 38 mL/min (70-130); Calcium 7.8 mg/dL (7.8-10.44); Carbon Dioxide 18 mmol/L (23-31); Chloride 109 mmol/L (98-107); Estimated GFR 40; Glucose 117 mg/dL (80-115); Potassium 6.2 mmol/L (3.5-5.1); Sodium 136 mmol/L (136-145)
[2022-08-01] MEDS: Carvedilol 6.25 MG TAB PO SCH (20:31)
[2022-08-01] MEDS: Gabapentin 300 MG CAP PO SCH (20:31)
[2022-08-02] MEDS: HYDROcodone/Acetaminophen 10/325 mg Tablet PO PRN ×5 (03:52→20:42)
[2022-08-02 04:05] LABS: Albumin 2.5 g/dL (3.4-4.8); Anion Gap 15 mmol/L (10-20); BUN (Urea Nitrogen) 35 mg/dL (8.4-25.7); Calc. Creatinine Clearance 40 mL/min (70-130); Calcium 7.7 mg/dL (7.8-10.44); Carbon Dioxide 23 mmol/L (23-31); Chloride 107 mmol/L (98-107); Estimated GFR 43; Glucose 90 mg/dL (80-115); Magnesium 1.3 mg/dL (1.6-2.6); Phosphorus 3.7 mg/dL (2.3-4.7); Potassium 6.1 mmol/L (3.5-5.1); Sodium 139 mmol/L (136-145)
[2022-08-02] MEDS ORDERED: Magnesium 2 GM/50 ML(in water) 2 GM in Premix Bag 1 BAG IVPB SCH (08:00)
[2022-08-02] MEDS: Cyanocobalamin (Vitamin B-12) 1,000 MCG TAB PO SCH (08:27)
[2022-08-02] MEDS: LOKELMA 10 GM PACKET PO SCH (08:27)
[2022-08-02] MEDS: Heparin 5,000 UNITS/ML VIAL SC SCH ×3 (08:27→20:42)
[2022-08-02] MEDS: Loperamide HCl 2 MG CAP PO SCH (08:27)
[2022-08-02] MEDS: Sodium Bicarbonate Tab 325 MG TAB PO SCH ×3 (08:27→20:42)
[2022-08-02] MEDS: Aspirin 81 mg Enteric Coated Tablet PO SCH (08:28)
[2022-08-02] MEDS: Gabapentin 300 MG CAP PO SCH ×3 (08:28→20:41)
[2022-08-02] MEDS: Ferrous Sulfate 325 MG TAB PO SCH ×2 (08:28→15:17)
[2022-08-02] MEDS: Multivit, Therapeutic 1 TAB PO SCH (08:28)
[2022-08-02] MEDS: Carvedilol 6.25 MG TAB PO SCH ×2 (08:28→20:42)
[2022-08-02] MEDS: Albumin 25% 25 GM/100 ML BOT IVPB SCH ×2 (08:32→15:18)
[2022-08-03] MEDS: HYDROcodone/Acetaminophen 10/325 mg Tablet PO PRN ×4 (00:39→12:21)
[2022-08-03] MEDS: Albumin 25% 25 GM/100 ML BOT IVPB SCH ×3 (00:41→14:58)
[2022-08-03] MEDS: Sodium Bicarbonate 150 MEQ in Dextrose 5% in Water 1,000 ML IV SCH ×2 (02:07→19:32)
[2022-08-03 05:29] LABS: Anion Gap 14 mmol/L (10-20); BUN (Urea Nitrogen) 28 mg/dL (8.4-25.7); Calc. Creatinine Clearance 56 mL/min (70-130); Calcium 7.6 mg/dL (7.8-10.44); Carbon Dioxide 27 mmol/L (23-31); Chloride 101 mmol/L (98-107); Estimated GFR 62; Glucose 77 mg/dL (80-115); Sodium 136 mmol/L (136-145)
[2022-08-03 05:48] LABS: #Eosinphils 0.2 thou/uL (0.0-0.7); #Monocytes 0.8 thou/uL (0.11-0.59); #Neutrophils 4.3 thou/uL (1.40-6.50); %Basophils 0.3 % (0.0-1.0); %Eosinophils 2.4 % (0.0-10.0); %Monocytes 10.6 % (0.0-10.0); %Neutrophils 58.7 % (42.0-75.0); Hemoglobin 6.7 g/dL (14.0-18.0); Mean Corpuscular HGB CONC 31.2 g/dL (32.0-36.0); Mean Corpuscular Hemoglobin 29.9 pg (27.0-31.0); Mean Corpuscular Volume 95.9 fL (78.0-98.0); Mean Platelet Volume 5.8 fL (7.4-10.4); Platelet Count 405 thou/uL (130-400); Red Blood Cell (RBC) Count 2.23 mill/uL (4.70-6.10); White Blood Cell (WBC) Count 7.3 thou/uL (4.8-10.8)
[2022-08-03] MEDS: Sodium Bicarbonate Tab 325 MG TAB PO SCH ×3 (07:27→20:55)
[2022-08-03] MEDS: Aspirin 81 mg Enteric Coated Tablet PO SCH (07:27)
[2022-08-03] MEDS: LOKELMA 10 GM PACKET PO SCH (07:27)
[2022-08-03] MEDS: Multivit, Therapeutic 1 TAB PO SCH (07:27)
[2022-08-03] MEDS: Gabapentin 300 MG CAP PO SCH ×3 (07:28→20:55)
[2022-08-03] MEDS: Loperamide HCl 2 MG CAP PO SCH (07:28)
[2022-08-03] MEDS: Cyanocobalamin (Vitamin B-12) 1,000 MCG TAB PO SCH (07:28)
[2022-08-03] MEDS: Carvedilol 6.25 MG TAB PO SCH (07:28)
[2022-08-03] MEDS: Ferrous Sulfate 325 MG TAB PO SCH ×2 (07:28→18:46)
[2022-08-03] MEDS: Heparin 5,000 UNITS/ML VIAL SC SCH ×3 (07:29→21:25)
[2022-08-03] MEDS ORDERED: Insulin Regular 300 UNITS/3 ML VIAL ONE ×2 (16:25→16:26)
[2022-08-03] MEDS ORDERED: Calcium Chloride 1 GM/10 ML Abboject SYRINGE ONE (17:11)
[2022-08-03] MEDS ORDERED: Sodium Bicarb 50 MEQ/50 ML Abboject 8.4% SYRINGE ONE (17:11)
[2022-08-03 17:26] LABS: Mean Corpuscular HGB CONC 31.1 g/dL (32.0-36.0); Mean Corpuscular Hemoglobin 29.8 pg (27.0-31.0); Mean Corpuscular Volume 95.6 fL (78.0-98.0); Mean Platelet Volume 5.9 fL (7.4-10.4); Platelet Count 434 thou/uL (130-400); Red Blood Cell (RBC) Count 2.68 mill/uL (4.70-6.10); White Blood Cell (WBC) Count 12.1 thou/uL (4.8-10.8)
[2022-08-03 17:26] LABS: Actual Bicarbonate (HCO3a) 21.9 mEq/L (22-28); Base Excess (BEa) -1.8 mEq/L (-2.0 to +3.0); CO2 Tension 32.7 mmHg (35.0-45.0); Calcium, Ionized (arterial) 1.14 mmol/L (1.12-1.30); Carboxyhemoglobin (COHb) 0.2 gm% (0.0-3.0); Hemoglobin (Hb) 8.5 g/dL (14.0-18.0); O2 Tension (PaO2), arterial 112.2 mmHg (> 80.0); Potassium - ABG Lab 6.05 mmol/L (3.70-5.30); pH, Arterial 7.44 (7.35-7.45)
[2022-08-03 17:30] LABS: #Eosinphils 0.3 thou/uL (0.0-0.7); #Lymphocytes 1.5 thou/uL (1.20-3.40); #Monocytes 0.5 thou/uL (0.11-0.59); #Neutrophils 9.9 thou/uL (1.40-6.50); %Eosinophils 2.2 % (0.0-10.0); %Lymphocytes 12.2 % (21.0-51.0); %Monocytes 4.2 % (0.0-10.0); %Neutrophils 81.4 % (42.0-75.0); Mean Corpuscular HGB CONC 30.7 g/dL (32.0-36.0); Mean Corpuscular Hemoglobin 29.5 pg (27.0-31.0); Mean Platelet Volume 5.9 fL (7.4-10.4); Platelet Count 443 thou/uL (130-400); RBC Distribution Width 17.8 % (11.5-14.5); Red Blood Cell (RBC) Count 2.71 mill/uL (4.70-6.10); White Blood Cell (WBC) Count 12.1 thou/uL (4.8-10.8)
[2022-08-03 17:32] LABS: ALV-art Gradient 203.425 mmHg (0-20); Puncture Site RBA
[2022-08-03] MEDS ORDERED: Sodium Chloride 0.9% 1,000 ML IV SCH (18:00)
[2022-08-03 18:03] LABS: Troponin I 0.029 ng/mL (< 0.028)
[2022-08-03] MEDS ORDERED: Albumin 25% 25 GM/100 ML BOT IVPB SCH (18:10)
[2022-08-03] MEDS ORDERED: Haloperidol Lactate 5 MG/ML VIAL ONE (18:14)
[2022-08-03 18:16] LABS: HBSAg Index 0.29 S/CO (0-0.99); Hep B Surf Ag Non-Reactive S/CO (NonReactive)
[2022-08-03 18:24] LABS: Albumin 3.4 g/dL (3.4-4.8); Anion Gap 20 mmol/L (10-20); BUN (Urea Nitrogen) 26 mg/dL (8.4-25.7); BUN/Creatinine Ratio 18.06; Calc. Creatinine Clearance 50 mL/min (70-130); Calcium 9.2 mg/dL (7.8-10.44); Carbon Dioxide 21 mmol/L (23-31); Chloride 102 mmol/L (98-107); Estimated GFR 54; Glucose 168 mg/dL (80-115); Phosphorus 6.7 mg/dL (2.3-4.7); Potassium 6.8 mmol/L (3.5-5.1); Sodium 136 mmol/L (136-145)
[2022-08-03] MEDS ORDERED: Propofol 1,000 MG/100 ML VIAL IV ONE (19:37)
[2022-08-03] MEDS ORDERED: Midazolam HCl 2 mg/2 ml Vial SLOW IVP PRN (20:01)
[2022-08-03] MEDS ORDERED: Propofol 1,000 MG/100 ML VIAL IV PRN (20:15)
[2022-08-03] MEDS ORDERED: Fentanyl CADD 100 ML IV SCH (20:15)
[2022-08-03] MEDS ORDERED: DISCONTINUE PREVIOUS NARCOTIC PAIN MEDICATIONS AND BENZODIAZEPINES FS SCH (20:15)
[2022-08-03] MEDS ORDERED: Fentanyl BOLUS 250 ML IVPB PRN (20:15)
[2022-08-03] MEDS ORDERED: Propofol BOLUS 1,000 MG/100 ML VIAL IV PRN (20:15)
[2022-08-03] MEDS: Pantoprazole 40 MG VIAL IVP SCH (20:55)
[2022-08-03 21:40] LABS: Troponin I 0.131 ng/mL (< 0.028)
[2022-08-04 05:00] LABS: #Eosinphils 0.1 thou/uL (0.0-0.7); #Lymphocytes 1.5 thou/uL (1.20-3.40); #Monocytes 0.6 thou/uL (0.11-0.59); #Neutrophils 7.8 thou/uL (1.40-6.50); %Eosinophils 0.7 % (0.0-10.0); %Lymphocytes 15.3 % (21.0-51.0); %Monocytes 5.9 % (0.0-10.0); %Neutrophils 78.2 % (42.0-75.0); Hemoglobin 7.5 g/dL (14.0-18.0); Mean Corpuscular HGB CONC 31.2 g/dL (32.0-36.0); Mean Corpuscular Hemoglobin 29.3 pg (27.0-31.0); Mean Corpuscular Volume 93.7 fL (78.0-98.0); Mean Platelet Volume 6.3 fL (7.4-10.4); Platelet Count 358 thou/uL (130-400); RBC Distribution Width 17.7 % (11.5-14.5); Red Blood Cell (RBC) Count 2.56 mill/uL (4.70-6.10)
[2022-08-04 05:05] LABS: Anion Gap 13 mmol/L (10-20); BUN (Urea Nitrogen) 11 mg/dL (8.4-25.7); Calc. Creatinine Clearance 86 mL/min (70-130); Calcium 8.7 mg/dL (7.8-10.44); Carbon Dioxide 30 mmol/L (23-31); Chloride 99 mmol/L (98-107); Estimated GFR 97; Glucose 97 mg/dL (80-115); Potassium 3.8 mmol/L (3.5-5.1); Sodium 138 mmol/L (136-145)
[2022-08-04] MEDS: Sodium Bicarbonate 150 MEQ in Dextrose 5% in Water 1,000 ML IV SCH ×2 (07:00→07:18)
[2022-08-04] MEDS: Carvedilol 6.25 MG TAB PO SCH ×3 (07:00→20:46)
[2022-08-04] MEDS ORDERED: Heparin 10,000 UNITS/ 10 ML VIAL ONE (09:25)
[2022-08-04 09:47] LABS: Actual Bicarbonate (HCO3v) 29 mEq/L (22-28); Base Excess 7.1 mEq/L (-2.0 to +3.0); Chloride (VBG) 99 mmol/L (98-106); Hemoglobin (Hb) 8.2 g/dL (12.6-17.4); Potassium (VBG) 3.76 mmol/L (3.70-5.30); Sodium 135.1 mmol/L (133-146); pH (venous) 7.62 (7.32-7.43)
[2022-08-04] MEDS: Aspirin 81 mg Enteric Coated Tablet PO SCH (10:21)
[2022-08-04] MEDS: Heparin 5,000 UNITS/ML VIAL SC SCH ×3 (10:21→20:47)
[2022-08-04] MEDS: Gabapentin 300 MG CAP PO SCH ×3 (10:21→20:47)
[2022-08-04] MEDS: Multivit, Therapeutic 1 TAB PO SCH (10:21)
[2022-08-04] MEDS: Loperamide HCl 2 MG CAP PO SCH (10:21)
[2022-08-04] MEDS: Cyanocobalamin (Vitamin B-12) 1,000 MCG TAB PO SCH (10:30)
[2022-08-04] MEDS: Sodium Bicarbonate Tab 325 MG TAB PO SCH ×3 (10:30→20:46)
[2022-08-04] MEDS: Pantoprazole 40 MG VIAL IVP SCH ×2 (10:31→20:47)
[2022-08-04] MEDS: LOKELMA 10 GM PACKET PO SCH (10:31)
[2022-08-04] MEDS: Ferrous Sulfate 325 MG TAB PO SCH ×2 (10:34→16:36)
[2022-08-04] MEDS: Sodium Chloride 0.9% 1,000 ML IV SCH (18:27)
[2022-08-05] MEDS: Acetaminophen 325 MG TAB PO PRN (00:28)
[2022-08-05] MEDS: Sodium Chloride 0.9% 1,000 ML IV SCH ×2 (00:33→13:26)
[2022-08-05 01:45] LABS: #Eosinphils 0.1 thou/uL (0.0-0.7); #Lymphocytes 1.4 thou/uL (1.20-3.40); #Monocytes 0.7 thou/uL (0.11-0.59); #Neutrophils 12.1 thou/uL (1.40-6.50); %Basophils 0.2 % (0.0-1.0); %Eosinophils 0.6 % (0.0-10.0); %Lymphocytes 9.9 % (21.0-51.0); %Monocytes 5.1 % (0.0-10.0); %Neutrophils 84.2 % (42.0-75.0); Mean Corpuscular HGB CONC 31.7 g/dL (32.0-36.0); Mean Corpuscular Hemoglobin 29.7 pg (27.0-31.0); Mean Corpuscular Volume 93.7 fL (78.0-98.0); Mean Platelet Volume 6.1 fL (7.4-10.4); Platelet Count 315 thou/uL (130-400); RBC Distribution Width 17.3 % (11.5-14.5); White Blood Cell (WBC) Count 14.4 thou/uL (4.8-10.8)
[2022-08-05 01:58] LABS: Anion Gap 16 mmol/L (10-20); BUN (Urea Nitrogen) 10 mg/dL (8.4-25.7); Calc. Creatinine Clearance 64 mL/min (70-130); Calcium 7.8 mg/dL (7.8-10.44); Carbon Dioxide 24 mmol/L (23-31); Chloride 100 mmol/L (98-107); Estimated GFR 79; Glucose 95 mg/dL (80-115); Potassium 3.5 mmol/L (3.5-5.1); Sodium 136 mmol/L (136-145)
[2022-08-05 03:14] LABS: Magnesium 1.4 mg/dL (1.6-2.6)
[2022-08-05 03:33] LABS: Lactic Acid 0.9 mmol/L (0.5-2.2)
[2022-08-05] MEDS: Cefepime 1 GM in Sodium Chloride 0.9% 100 ML IVPB SCH ×3 (04:14→18:21)
[2022-08-05] MEDS ORDERED: Magnesium 2 GM/50 ML(in water) 2 GM in Premix Bag 1 BAG IVPB SCH (04:15)
[2022-08-05] MEDS: Morphine 4 MG/ML VIAL SLOW IVP PRN ×3 (04:24→23:58)
[2022-08-05 04:50] LABS: Bacteria/HPF None Seen HPF (None Seen); Bilirubin Negative (Negative); Blood, Urine Trace (Negative); Clarity Clear (Clear); Glucose, Urine (Dipstick) Normal (Negative); Ketone, Urine Negative (Negative); Leukocyte Negative Leu/uL (Negative); Nitrite Negative (Negative); Protein, Urine (Dipstick) 50 mg/dL (Neg-Trace); RBC/HPF 0-3 HPF (0-3); Specific Gravity, Urine 1.009 (1.002-1.036); Squamous Epithelial None Seen HPF (0-3); Urobilinogen Normal mg/dL (Less than 2); pH, Urine 8.5 (5.0-9.0)
[2022-08-05 04:51] LABS: Urine Culture Reflex Yes Yes
[2022-08-05] MEDS: VANCOMYCIN 1.25 GM/250 ML BAG 1.25 GM in Premix Bag 1 BAG IVPB SCH (05:48)
[2022-08-05] MEDS: Sodium Bicarbonate Tab 325 MG TAB PO SCH ×3 (09:58→21:56)
[2022-08-05] MEDS: LOKELMA 10 GM PACKET PO SCH (09:59)
[2022-08-05] MEDS: Gabapentin 300 MG CAP PO SCH ×3 (09:59→21:53)
[2022-08-05] MEDS: Aspirin 81 mg Enteric Coated Tablet PO SCH (10:00)
[2022-08-05] MEDS: Ferrous Sulfate 325 MG TAB PO SCH ×2 (10:00→18:27)
[2022-08-05] MEDS: Carvedilol 6.25 MG TAB PO SCH ×2 (10:00→21:48)
[2022-08-05] MEDS: Loperamide HCl 2 MG CAP PO SCH (10:00)
[2022-08-05] MEDS: Multivit, Therapeutic 1 TAB PO SCH (10:00)
[2022-08-05] MEDS: Heparin 5,000 UNITS/ML VIAL SC SCH ×3 (10:01→21:57)
[2022-08-05] MEDS: Pantoprazole 40 MG VIAL IVP SCH ×2 (10:02→21:56)
[2022-08-05] MEDS: Cyanocobalamin (Vitamin B-12) 1,000 MCG TAB PO SCH (10:34)
[2022-08-06] MEDS: Sodium Chloride 0.9% 1,000 ML IV SCH ×2 (01:30→09:30)
[2022-08-06] MEDS: Cefepime 1 GM in Sodium Chloride 0.9% 100 ML IVPB SCH ×2 (03:52→15:57)
[2022-08-06 04:49] LABS: #Eosinphils 0.1 thou/uL (0.0-0.7); #Lymphocytes 1.3 thou/uL (1.20-3.40); #Monocytes 0.9 thou/uL (0.11-0.59); #Neutrophils 11.7 thou/uL (1.40-6.50); %Basophils 0.1 % (0.0-1.0); %Lymphocytes 9.1 % (21.0-51.0); %Monocytes 6.7 % (0.0-10.0); %Neutrophils 83.1 % (42.0-75.0); Hemoglobin 7.7 g/dL (14.0-18.0); Mean Corpuscular HGB CONC 31.8 g/dL (32.0-36.0); Mean Corpuscular Hemoglobin 30.1 pg (27.0-31.0); Mean Corpuscular Volume 94.6 fL (78.0-98.0); Mean Platelet Volume 6.6 fL (7.4-10.4); Platelet Count 279 thou/uL (130-400); RBC Distribution Width 17.3 % (11.5-14.5); Red Blood Cell (RBC) Count 2.57 mill/uL (4.70-6.10); White Blood Cell (WBC) Count 14.1 thou/uL (4.8-10.8)
[2022-08-06 05:05] LABS: Anion Gap 13 mmol/L (10-20); BUN (Urea Nitrogen) 12 mg/dL (8.4-25.7); Calc. Creatinine Clearance 79 mL/min (70-130); Calcium 7.5 mg/dL (7.8-10.44); Carbon Dioxide 21 mmol/L (23-31); Chloride 106 mmol/L (98-107); Estimated GFR 96; Glucose 109 mg/dL (80-115); Magnesium 1.9 mg/dL (1.6-2.6); Potassium 3.1 mmol/L (3.5-5.1); Sodium 137 mmol/L (136-145)
[2022-08-06] MEDS: Morphine 4 MG/ML VIAL SLOW IVP PRN (05:28)
[2022-08-06] MEDS: VANCOMYCIN 1.25 GM/250 ML BAG 1.25 GM in Premix Bag 1 BAG IVPB SCH (05:30)
[2022-08-06] MEDS ORDERED: Potassium Chloride 20 MEQ TAB PER TUBE SCH (05:30)
[2022-08-06] MEDS ORDERED: Potassium Bicarbonate/Cit Ac 20 MEQ TAB PER TUBE SCH (06:00)
[2022-08-06] MEDS ORDERED: Potassium Bicarbonate/Cit Ac 20 MEQ TAB PO SCH (06:00)
[2022-08-06] MEDS: Ferrous Sulfate 325 MG TAB PO SCH ×2 (08:58→17:10)
[2022-08-06] MEDS ORDERED: Magnesium 2 GM/50 ML(in water) 2 GM in Premix Bag 1 BAG IVPB SCH (09:00)
[2022-08-06] MEDS ORDERED: Epoetin (ESRD) 10,000 UNITS/ML VIAL SC SCH (09:00)
[2022-08-06 10:15] LABS: Actual Bicarbonate (HCO3v) 19 mEq/L (22-28); Base Excess -9.4 mEq/L (-2.0 to +3.0); Calcium, Ionized (venous) 1.11 mmol/L (1.16-1.32); Chloride (VBG) 105 mmol/L (98-106); Hemoglobin (Hb) 9.6 g/dL (12.6-17.4)
[2022-08-06 10:16] LABS: pH (venous) 7.17 (7.32-7.43)
[2022-08-06] MEDS: Labetalol HCl 100 MG/20 ML VIAL SLOW IVP PRN (10:56)
[2022-08-06] MEDS: Pantoprazole 40 MG VIAL IVP SCH ×2 (11:15→20:20)
[2022-08-06] MEDS: Gabapentin 300 MG CAP PO SCH ×3 (11:15→20:19)
[2022-08-06] MEDS: Heparin 5,000 UNITS/ML VIAL SC SCH ×3 (11:15→20:19)
[2022-08-06] MEDS: Multivit, Therapeutic 1 TAB PO SCH (11:16)
[2022-08-06] MEDS: Loperamide HCl 2 MG CAP PO SCH (11:17)
[2022-08-06] MEDS: Aspirin 81 mg Enteric Coated Tablet PO SCH (11:18)
[2022-08-06] MEDS: Cholestyramine/Aspartame 4 gm Packet PO SCH ×3 (11:18→22:17)
[2022-08-06] MEDS: Carvedilol 6.25 MG TAB PO SCH ×2 (11:21→20:18)
[2022-08-06] MEDS: Cyanocobalamin (Vitamin B-12) 1,000 MCG TAB PO SCH (11:27)
[2022-08-06] MEDS: methylPREDNISolone Sod Succ 40 MG VIAL IVP SCH ×2 (11:27→22:17)
[2022-08-06] MEDS: Sodium Bicarbonate Tab 325 MG TAB PO SCH (20:03)
[2022-08-07] MEDS: Cefepime 1 GM in Sodium Chloride 0.9% 100 ML IVPB SCH ×2 (04:00→15:19)
[2022-08-07] MEDS: Sodium Chloride 0.9% 1,000 ML IV SCH (04:50)
[2022-08-07 05:03] LABS: Magnesium 2.6 mg/dL (1.6-2.6); Vancomycin, Trough 22.8 ug/mL
[2022-08-07] MEDS: VANCOMYCIN 1.25 GM/250 ML BAG 1.25 GM in Premix Bag 1 BAG IVPB SCH (05:17)
[2022-08-07 07:05] LABS: #Lymphocytes 0.6 thou/uL (1.20-3.40); #Monocytes 0.5 thou/uL (0.11-0.59); #Neutrophils 7.9 thou/uL (1.40-6.50); %Eosinophils 0.2 % (0.0-10.0); %Lymphocytes 6.7 % (21.0-51.0); %Monocytes 5.3 % (0.0-10.0); %Neutrophils 87.8 % (42.0-75.0); Hemoglobin 7.3 g/dL (14.0-18.0); Mean Corpuscular HGB CONC 31.2 g/dL (32.0-36.0); Mean Corpuscular Hemoglobin 29.8 pg (27.0-31.0); Mean Corpuscular Volume 95.6 fL (78.0-98.0); Mean Platelet Volume 7.1 fL (7.4-10.4); Platelet Count 223 thou/uL (130-400); RBC Distribution Width 17.2 % (11.5-14.5); Red Blood Cell (RBC) Count 2.46 mill/uL (4.70-6.10)
[2022-08-07 07:18] LABS: Albumin 2.8 g/dL (3.4-4.8); Anion Gap 17 mmol/L (10-20); BUN (Urea Nitrogen) 24 mg/dL (8.4-25.7); BUN/Creatinine Ratio 19.35; Calc. Creatinine Clearance 57 mL/min (70-130); Calcium 7.4 mg/dL (7.8-10.44); Carbon Dioxide 17 mmol/L (23-31); Chloride 108 mmol/L (98-107); Estimated GFR 65; Glucose 145 mg/dL (80-115); Potassium 4.5 mmol/L (3.5-5.1); Sodium 137 mmol/L (136-145)
[2022-08-07] MEDS ORDERED: Sodium Bicarbonate 150 MEQ in Dextrose 5% in Water 1,000 ML IV SCH (08:30)
[2022-08-07] MEDS: Heparin 5,000 UNITS/ML VIAL SC SCH ×3 (09:52→20:56)
[2022-08-07] MEDS: Gabapentin 300 MG CAP PO SCH ×3 (09:52→20:37)
[2022-08-07] MEDS: Pantoprazole 40 MG VIAL IVP SCH ×2 (09:52→20:36)
[2022-08-07] MEDS: Carvedilol 6.25 MG TAB PO SCH ×2 (09:53→20:36)
[2022-08-07] MEDS: Aspirin 81 mg Enteric Coated Tablet PO SCH (09:53)
[2022-08-07] MEDS: Multivit, Therapeutic 1 TAB PO SCH (09:53)
[2022-08-07] MEDS: Ferrous Sulfate 325 MG TAB PO SCH ×2 (09:53→18:05)
[2022-08-07] MEDS ORDERED: Loperamide HCl 2 MG CAP PO SCH (10:00)
[2022-08-07] MEDS: methylPREDNISolone Sod Succ 40 MG VIAL IVP SCH ×2 (11:14→22:57)
[2022-08-07] MEDS: Cyanocobalamin (Vitamin B-12) 1,000 MCG TAB PO SCH (11:14)
[2022-08-07] MEDS: Cholestyramine/Aspartame 4 gm Packet PO SCH ×2 (11:14→20:39)
[2022-08-07] MEDS: Loperamide HCl 2 MG CAP PO SCH ×2 (13:02→20:38)
[2022-08-07] MEDS: Isosorbide Dinitrate 5 MG TAB PO SCH ×2 (15:17→20:38)
[2022-08-07] MEDS: hydrALAZINE 10 MG TAB PO SCH ×2 (15:17→20:37)
[2022-08-07] MEDS: Labetalol HCl 100 MG/20 ML VIAL SLOW IVP PRN ×2 (18:04→23:47)
[2022-08-08] MEDS ORDERED: hydrALAZINE 20 MG/ML VIAL SLOW IVP SCH (01:15)
[2022-08-08] MEDS: Labetalol HCl 100 MG/20 ML VIAL SLOW IVP PRN ×2 (02:48→12:05)
[2022-08-08] MEDS: Cefepime 1 GM in Sodium Chloride 0.9% 100 ML IVPB SCH ×2 (02:48→16:03)
[2022-08-08 04:33] LABS: #Lymphocytes 0.6 thou/uL (1.20-3.40); #Monocytes 0.5 thou/uL (0.11-0.59); #Neutrophils 12.2 thou/uL (1.40-6.50); %Basophils 0.1 % (0.0-1.0); %Eosinophils 0.2 % (0.0-10.0); %Lymphocytes 4.7 % (21.0-51.0); %Monocytes 3.6 % (0.0-10.0); %Neutrophils 91.4 % (42.0-75.0); Hemoglobin 8.1 g/dL (14.0-18.0); Mean Corpuscular HGB CONC 31.1 g/dL (32.0-36.0); Mean Corpuscular Hemoglobin 29.7 pg (27.0-31.0); Mean Corpuscular Volume 95.7 fL (78.0-98.0); Mean Platelet Volume 6.5 fL (7.4-10.4); Platelet Count 314 thou/uL (130-400); Red Blood Cell (RBC) Count 2.71 mill/uL (4.70-6.10); White Blood Cell (WBC) Count 13.4 thou/uL (4.8-10.8)
[2022-08-08 06:09] LABS: Anion Gap 14 mmol/L (10-20); BUN (Urea Nitrogen) 36 mg/dL (8.4-25.7); Calc. Creatinine Clearance 49 mL/min (70-130); Calcium 7.8 mg/dL (7.8-10.44); Carbon Dioxide 20 mmol/L (23-31); Chloride 106 mmol/L (98-107); Estimated GFR 55; Glucose 165 mg/dL (80-115); Potassium 4.1 mmol/L (3.5-5.1); Sodium 136 mmol/L (136-145)
[2022-08-08] MEDS ORDERED: Sodium Bicarbonate 150 MEQ in Dextrose 5% in Water 1,000 ML IV SCH (07:47)
[2022-08-08] MEDS: Carvedilol 6.25 MG TAB PO SCH ×2 (07:56→20:11)
[2022-08-08] MEDS: Isosorbide Dinitrate 5 MG TAB PO SCH (07:57)
[2022-08-08] MEDS: Cyanocobalamin (Vitamin B-12) 1,000 MCG TAB PO SCH (07:57)
[2022-08-08] MEDS: Aspirin 81 mg Enteric Coated Tablet PO SCH (07:57)
[2022-08-08] MEDS: Ferrous Sulfate 325 MG TAB PO SCH ×2 (07:57→16:03)
[2022-08-08] MEDS: Multivit, Therapeutic 1 TAB PO SCH (07:57)
[2022-08-08] MEDS: Gabapentin 300 MG CAP PO SCH ×3 (07:58→20:11)
[2022-08-08] MEDS: Heparin 5,000 UNITS/ML VIAL SC SCH ×3 (07:58→20:09)
[2022-08-08] MEDS: Loperamide HCl 2 MG CAP PO SCH ×2 (07:58→20:12)
[2022-08-08] MEDS: Pantoprazole 40 MG VIAL IVP SCH ×2 (07:58→20:16)
[2022-08-08] MEDS: hydrALAZINE 25 MG TAB PO SCH ×3 (08:42→20:12)
[2022-08-08 08:51] LABS: Actual Bicarbonate (HCO3a) 19.7 mEq/L (22-28); Base Excess (BEa) -6.5 mEq/L (-2.0 to +3.0); CO2 Tension 42.4 mmHg (35.0-45.0); Calcium, Ionized (arterial) 1.07 mmol/L (1.12-1.30); Carboxyhemoglobin (COHb) 0.3 gm% (0.0-3.0); Hemoglobin (Hb) 8.9 g/dL (14.0-18.0); O2 Tension (PaO2), arterial 65.6 mmHg (> 80.0); Potassium - ABG Lab 4.14 mmol/L (3.70-5.30); Puncture Site RRA; pH, Arterial 7.29 (7.35-7.45)
[2022-08-08] MEDS ORDERED: Isosorbide Dinitrate 5 MG TAB PO SCH (09:13)
[2022-08-08] MEDS ORDERED: Furosemide 40 MG/4 ML VIAL SLOW IVP SCH (09:15)
[2022-08-08 09:37] LABS: Creatinine, Urine 54.09 mg/dL (63-166)
[2022-08-08] MEDS: methylPREDNISolone Sod Succ 40 MG VIAL IVP SCH ×2 (09:41→20:15)
[2022-08-08] MEDS: Cholestyramine/Aspartame 4 gm Packet PO SCH ×2 (10:54→20:16)
[2022-08-08] MEDS ORDERED: Vancomycin 1 GM in Premix Bag 1 BAG IVPB SCH (11:00)
[2022-08-08] MEDS: Acetaminophen 325 MG TAB PO PRN ×2 (12:05→23:12)
[2022-08-08] MEDS: Isosorbide Dinitrate 20 MG TAB PO SCH (20:15)
[2022-08-09] MEDS: Cefepime 1 GM in Sodium Chloride 0.9% 100 ML IVPB SCH (04:01)
[2022-08-09] MEDS: Labetalol HCl 100 MG/20 ML VIAL SLOW IVP PRN ×4 (05:06→15:53)
[2022-08-09 07:58] LABS: #Eosinphils 0.1 thou/uL (0.0-0.7); #Lymphocytes 0.7 thou/uL (1.20-3.40); #Monocytes 1.3 thou/uL (0.11-0.59); #Neutrophils 11.5 thou/uL (1.40-6.50); %Basophils 0.3 % (0.0-1.0); %Eosinophils 0.8 % (0.0-10.0); %Lymphocytes 4.9 % (21.0-51.0); %Monocytes 9.3 % (0.0-10.0); %Neutrophils 84.7 % (42.0-75.0); Hemoglobin 7.7 g/dL (14.0-18.0); Mean Corpuscular HGB CONC 31.4 g/dL (32.0-36.0); Mean Corpuscular Hemoglobin 29.5 pg (27.0-31.0); Mean Corpuscular Volume 93.9 fL (78.0-98.0); Mean Platelet Volume 7.1 fL (7.4-10.4); Platelet Count 297 thou/uL (130-400); RBC Distribution Width 17.2 % (11.5-14.5); Red Blood Cell (RBC) Count 2.62 mill/uL (4.70-6.10); White Blood Cell (WBC) Count 13.5 thou/uL (4.8-10.8)
[2022-08-09 08:14] LABS: Albumin 3.1 g/dL (3.4-4.8); Anion Gap 14 mmol/L (10-20); BUN (Urea Nitrogen) 49 mg/dL (8.4-25.7); BUN/Creatinine Ratio 35.51; Calc. Creatinine Clearance 50 mL/min (70-130); Calcium 7.6 mg/dL (7.8-10.44); Carbon Dioxide 19 mmol/L (23-31); Chloride 108 mmol/L (98-107); Estimated GFR 57; Glucose 128 mg/dL (80-115); Magnesium 2.3 mg/dL (1.6-2.6); Phosphorus 2.8 mg/dL (2.3-4.7); Potassium 3.8 mmol/L (3.5-5.1); Sodium 137 mmol/L (136-145)
[2022-08-09] MEDS: Gabapentin 300 MG CAP PO SCH ×3 (09:57→21:18)
[2022-08-09] MEDS: Isosorbide Dinitrate 20 MG TAB PO SCH ×3 (09:57→21:18)
[2022-08-09] MEDS: Pantoprazole 40 MG VIAL IVP SCH ×2 (09:57→21:25)
[2022-08-09] MEDS: Carvedilol 6.25 MG TAB PO SCH ×2 (09:57→21:20)
[2022-08-09] MEDS: Multivit, Therapeutic 1 TAB PO SCH (09:58)
[2022-08-09] MEDS: Ferrous Sulfate 325 MG TAB PO SCH ×2 (09:58→17:56)
[2022-08-09] MEDS: Cholestyramine/Aspartame 4 gm Packet PO SCH ×2 (09:58→22:59)
[2022-08-09] MEDS: Aspirin 81 mg Enteric Coated Tablet PO SCH (09:59)
[2022-08-09] MEDS: hydrALAZINE 25 MG TAB PO SCH ×3 (09:59→21:19)
[2022-08-09] MEDS ORDERED: Furosemide 40 MG/4 ML VIAL SLOW IVP SCH (10:00)
[2022-08-09] MEDS: Cyanocobalamin (Vitamin B-12) 1,000 MCG TAB PO SCH (10:01)
[2022-08-09] MEDS: Heparin 5,000 UNITS/ML VIAL SC SCH ×3 (10:02→21:21)
[2022-08-09] MEDS: Loperamide HCl 2 MG CAP PO SCH ×3 (12:00→21:20)
[2022-08-09] MEDS: Sodium Bicarbonate Tab 325 MG TAB PO SCH ×2 (14:23→21:18)
[2022-08-09] MEDS: Acetaminophen 325 MG TAB PO PRN (17:56)
[2022-08-10] MEDS: Acetaminophen 325 MG TAB PO PRN (00:45)
[2022-08-10 04:35] LABS: #Eosinphils 0.2 thou/uL (0.0-0.7); #Lymphocytes 2.1 thou/uL (1.20-3.40); #Monocytes 2.1 thou/uL (0.11-0.59); #Neutrophils 11.1 thou/uL (1.40-6.50); %Eosinophils 1.3 % (0.0-10.0); %Lymphocytes 13.6 % (21.0-51.0); %Monocytes 13.7 % (0.0-10.0); %Neutrophils 71.4 % (42.0-75.0); Hemoglobin 7.8 g/dL (14.0-18.0); Mean Corpuscular HGB CONC 31.7 g/dL (32.0-36.0); Mean Corpuscular Hemoglobin 29.7 pg (27.0-31.0); Mean Corpuscular Volume 93.7 fL (78.0-98.0); Mean Platelet Volume 6.9 fL (7.4-10.4); Platelet Count 311 thou/uL (130-400); RBC Distribution Width 17.4 % (11.5-14.5); Red Blood Cell (RBC) Count 2.63 mill/uL (4.70-6.10); White Blood Cell (WBC) Count 15.6 thou/uL (4.8-10.8)
[2022-08-10 07:01] LABS: Anion Gap 13 mmol/L (10-20); BUN (Urea Nitrogen) 50 mg/dL (8.4-25.7); Calc. Creatinine Clearance 55 mL/min (70-130); Calcium 7.8 mg/dL (7.8-10.44); Carbon Dioxide 19 mmol/L (23-31); Chloride 110 mmol/L (98-107); Estimated GFR 64; Glucose 100 mg/dL (80-115); Phosphorus 1.7 mg/dL (2.3-4.7); Potassium 3.4 mmol/L (3.5-5.1); Sodium 139 mmol/L (136-145)
[2022-08-10] MEDS ORDERED: Potassium Phosphate 22 MMOL in Sodium Chloride 0.9% 250 ML 250 ML IVPB SCH (07:15)
[2022-08-10] MEDS: Sodium Bicarbonate Tab 325 MG TAB PO SCH ×3 (09:04→20:26)
[2022-08-10] MEDS: Carvedilol 6.25 MG TAB PO SCH ×2 (09:04→20:25)
[2022-08-10] MEDS: Loperamide HCl 2 MG CAP PO SCH ×3 (09:04→20:26)
[2022-08-10] MEDS: Aspirin 81 mg Enteric Coated Tablet PO SCH (09:04)
[2022-08-10] MEDS: Isosorbide Dinitrate 20 MG TAB PO SCH ×3 (09:04→20:57)
[2022-08-10] MEDS: Cyanocobalamin (Vitamin B-12) 1,000 MCG TAB PO SCH (09:04)
[2022-08-10] MEDS: hydrALAZINE 25 MG TAB PO SCH ×3 (09:05→20:26)
[2022-08-10] MEDS: Ferrous Sulfate 325 MG TAB PO SCH ×2 (09:05→17:22)
[2022-08-10] MEDS: Furosemide 40 MG TAB PO SCH (09:05)
[2022-08-10] MEDS: Multivit, Therapeutic 1 TAB PO SCH (09:05)
[2022-08-10] MEDS: Gabapentin 300 MG CAP PO SCH ×3 (09:05→20:27)
[2022-08-10] MEDS: Pantoprazole 40 MG VIAL IVP SCH ×2 (09:06→20:57)
[2022-08-10] MEDS: Heparin 5,000 UNITS/ML VIAL SC SCH ×3 (09:06→20:46)
[2022-08-10] MEDS: Cholestyramine/Aspartame 4 gm Packet PO SCH ×2 (09:06→22:54)
[2022-08-10] MEDS ORDERED: Furosemide 40 MG/4 ML VIAL SLOW IVP SCH (14:00)
[2022-08-11] MEDS: Acetaminophen 325 MG TAB PO PRN ×2 (02:55→07:56)
[2022-08-11 04:08] LABS: Anion Gap 14 mmol/L (10-20); BUN (Urea Nitrogen) 46 mg/dL (8.4-25.7); BUN/Creatinine Ratio 38.66; Calc. Creatinine Clearance 58 mL/min (70-130); Calcium 8.1 mg/dL (7.8-10.44); Carbon Dioxide 22 mmol/L (23-31); Chloride 112 mmol/L (98-107); Estimated GFR 68; Glucose 117 mg/dL (80-115); Phosphorus 2.6 mg/dL (2.3-4.7); Potassium 3.9 mmol/L (3.5-5.1); Sodium 144 mmol/L (136-145)
[2022-08-11] MEDS: Cyanocobalamin (Vitamin B-12) 1,000 MCG TAB PO SCH (07:56)
[2022-08-11] MEDS: Isosorbide Dinitrate 20 MG TAB PO SCH ×2 (07:56→14:58)
[2022-08-11] MEDS: Pantoprazole 40 MG VIAL IVP SCH (07:57)
[2022-08-11] MEDS: hydrALAZINE 25 MG TAB PO SCH ×2 (07:57→14:58)
[2022-08-11] MEDS: Ferrous Sulfate 325 MG TAB PO SCH ×2 (07:57→17:12)
[2022-08-11] MEDS: Heparin 5,000 UNITS/ML VIAL SC SCH ×2 (07:57→14:59)
[2022-08-11] MEDS: Multivit, Therapeutic 1 TAB PO SCH (07:57)
[2022-08-11] MEDS: Aspirin 81 mg Enteric Coated Tablet PO SCH (07:57)
[2022-08-11] MEDS: Carvedilol 6.25 MG TAB PO SCH (07:57)
[2022-08-11] MEDS: Furosemide 40 MG TAB PO SCH (07:58)
[2022-08-11] MEDS: Loperamide HCl 2 MG CAP PO SCH ×2 (07:58→14:59)
[2022-08-11] MEDS: Gabapentin 300 MG CAP PO SCH ×2 (07:58→14:58)
[2022-08-11] MEDS: Sodium Bicarbonate Tab 325 MG TAB PO SCH ×2 (07:58→14:59)
[2022-08-11] MEDS: Cholestyramine/Aspartame 4 gm Packet PO SCH (10:15)
[2022-08-11] MEDS: HYDROcodone/Acetaminophen 5/325 mg Tablet PO PRN ×2 (11:12→14:59)
[2022-08-13 10:57] VITALS: TEMP 98.4
[2022-08-13 11:07] VITALS: BP 176/99
[2022-08-13 11:21] VITALS: BMI 41.9
== END 2022-08-11 17:57 | disposition hospice, inpatient (51) | DRG 640 ==
LOC: ERS 11:38 → ERHOLD 14:33 → IMCU/EMU 18:36 → CCU 08-03 16:44
PROVIDERS: ADMIT Hospitalist; ATTEND Hospitalist
PROC: 5A1D70Z Performance of Urinary Filtration, Intermittent, Less than 6 Hours Per Day (ICD-10-PCS; principal; 2022-08-03)
PROC: 06HY33Z Insertion of Infusion Device into Lower Vein, Percutaneous Approach (ICD-10-PCS; 2022-08-03)
PROC: 3E03329 Introduction of Other Anti-infective into Peripheral Vein, Percutaneous Approach (ICD-10-PCS; 2022-08-03)
PROC: 5A12012 Performance of Cardiac Output, Single, Manual (ICD-10-PCS; 2022-08-03)
PROC: 30233N1 Transfusion of Nonautologous Red Blood Cells into Peripheral Vein, Percutaneous Approach (ICD-10-PCS; 2022-08-03)
PROC: 0BH17EZ Insertion of Endotracheal Airway into Trachea, Via Natural or Artificial Opening (ICD-10-PCS; 2022-08-03)
PROC: 5A1945Z Respiratory Ventilation, 24-96 Consecutive Hours (ICD-10-PCS; 2022-08-03)
PROC: 5A09557 Assistance with Respiratory Ventilation, Greater than 96 Consecutive Hours, Continuous Positive Airway Pressure (ICD-10-PCS; 2022-08-06)
PROC: 0DH67UZ Insertion of Feeding Device into Stomach, Via Natural or Artificial Opening (ICD-10-PCS; 2022-08-08)
PROC: 3E0G76Z Introduction of Nutritional Substance into Upper GI, Via Natural or Artificial Opening (ICD-10-PCS; 2022-08-08)
DX: E87.5 Hyperkalemia (principal); Z66 Do not resuscitate; Z51.5 Encounter for palliative care; Z20.822 Contact with and (suspected) exposure to COVID-19; A41.9 Sepsis, unspecified organism; L89.154 Pressure ulcer of sacral region, stage 4; L89.324 Pressure ulcer of left buttock, stage 4; L89.314 Pressure ulcer of right buttock, stage 4; G93.41 Metabolic encephalopathy; I46.8 Cardiac arrest due to other underlying condition; J96.00 Acute respiratory failure, unspecified whether with hypoxia or hypercapnia; I50.23 Acute on chronic systolic (congestive) heart failure; G82.20 Paraplegia, unspecified; N17.9 Acute kidney failure, unspecified; I42.9 Cardiomyopathy, unspecified; E46 Unspecified protein-calorie malnutrition; Z68.41 Body mass index [BMI] 40.0-44.9, adult; E87.20 Acidosis, unspecified; F17.210 Nicotine dependence, cigarettes, uncomplicated; I11.0 Hypertensive heart disease with heart failure; J44.9 Chronic obstructive pulmonary disease, unspecified; E55.9 Vitamin D deficiency, unspecified; E16.2 Hypoglycemia, unspecified; D63.8 Anemia in other chronic diseases classified elsewhere; E86.9 Volume depletion, unspecified; R13.12 Dysphagia, oropharyngeal phase; E87.6 Hypokalemia; E83.39 Other disorders of phosphorus metabolism; Z93.2 Ileostomy status; Z89.612 Acquired absence of left leg above knee; Z89.611 Acquired absence of right leg above knee; Z93.3 Colostomy status; Z91.018 Allergy to other foods; Z79.899 Other long term (current) drug therapy; Z78.1 Physical restraint status; Z79.82 Long term (current) use of aspirin
CPT/HCPCS: 36415; 36416; 36430; 36600; 71045; 80048; 80053; 80069; 80202; 80306; 80307; 81001; 82040; 82550; 82570; 82805; 83605; 83735; 83880; 84145; 84300; 84484; 85025; 86850; 86900; 86901; 86922; 87040; 87086; 87340; 87811; 90935; 93005; 93010; 94002; 94003; 94640; 94660; 96374; 96375; 96376; 97139; C9113; G0257; J0360; J0610; J0692; J1642; J1644; J1815; J1940; J2270; J2704; J2920; J3370; J3475; J3490; J7050; J7070; J7611; J7999; P9016; P9047; Q4081; U0002

== ENCOUNTER 2022-08-19 12:34 | Inpatient (IN) | payer MEDICARE, MEDICAID ==
[2022-08-19 14:17] LABS: Hemoglobin 8.8 g/dL (14.0-18.0); Mean Corpuscular HGB CONC 31.4 g/dL (32.0-36.0); Mean Corpuscular Hemoglobin 30.6 pg (27.0-31.0); Mean Corpuscular Volume 97.3 fl (78.0-98.0); Mean Platelet Volume 6.6 fL (7.4-10.4); Platelet Count 341 thou/uL (130-400); RBC Distribution Width 18.7 % (11.5-14.5); Red Blood Cell (RBC) Count 2.89 mill/uL (4.70-6.10); White Blood Cell (WBC) Count 16.7 thou/uL (4.8-10.8)
[2022-08-19 14:32] LABS: ALT (SGPT) 11 U/L (8-55); AST (SGOT) 15 U/L (5-34); Albumin 3.4 g/dL (3.4-4.8); Alkaline Phosphatase 105 U/L (40-110); Anion Gap 18 mmol/L (10-20); BUN (Urea Nitrogen) 48 mg/dL (8.4-25.7); Bilirubin, Total 0.3 mg/dL (0.2-1.2); CK (CPK) 16 U/L (30-200); Calc. Creatinine Clearance 0 mL/min (70-130); Calcium 8.1 mg/dL (7.8-10.44); Carbon Dioxide 19 mmol/L (23-31); Chloride 113 mmol/L (98-107); Estimated GFR 67; Globulin 3.8 g/dL (2.4-3.5); Glucose 67 mg/dL (80-115); Potassium 5.2 mmol/L (3.5-5.1); Protein, Total 7.2 g/dL (5.8-8.1); Sodium 145 mmol/L (136-145)
[2022-08-19 14:45] LABS: #Lymphocytes 2.5 thou/uL (1.20-3.40); #Monocytes 1.2 thou/uL (0.11-0.59); #Neutrophils 12.9 thou/uL (1.40-6.50); %Basophils 0.1 % (0.0-1.0); %Eosinophils 0.2 % (0.0-10.0); %Lymphocytes 14.9 % (21.0-51.0); %Monocytes 7.1 % (0.0-10.0); %Neutrophils 77.6 % (42.0-75.0)
[2022-08-19] MEDS ORDERED: Ondansetron PF 4 MG/2 ML Vial IVP PRN (16:19)
[2022-08-19] MEDS ORDERED: Acetaminophen 325 MG TAB PO PRN (16:19)
[2022-08-19] MEDS ORDERED: Sodium Chloride 0.9% 1,000 ML IV SCH (16:30)
[2022-08-19] MEDS: cefTRIAXone\\ROCEPHIN 1 GM in Sodium Chloride 0.9% 100 ML IVPB SCH (17:36)
[2022-08-19] MEDS: Gabapentin 300 MG CAP PO SCH (21:54)
[2022-08-20] MEDS: HYDROcodone/Acetaminophen 5/325 mg Tablet PO PRN ×5 (00:28→18:26)
[2022-08-20 05:26] VITALS: BMI 20.8
[2022-08-20 07:56] LABS: Anion Gap 13 mmol/L (10-20); BUN (Urea Nitrogen) 35 mg/dL (8.4-25.7); Calc. Creatinine Clearance 77 mL/min (70-130); Calcium 7.9 mg/dL (7.8-10.44); Carbon Dioxide 17 mmol/L (23-31); Chloride 117 mmol/L (98-107); Estimated GFR 96; Glucose 68 mg/dL (80-115); Potassium 4.7 mmol/L (3.5-5.1); Sodium 142 mmol/L (136-145)
[2022-08-20 08:37] LABS: #Eosinphils 0.1 thou/uL (0.0-0.7); #Lymphocytes 2.3 thou/uL (1.20-3.40); #Monocytes 1.4 thou/uL (0.11-0.59); #Neutrophils 11.9 thou/uL (1.40-6.50); %Eosinophils 0.8 % (0.0-10.0); %Lymphocytes 14.6 % (21.0-51.0); %Monocytes 8.7 % (0.0-10.0); %Neutrophils 75.8 % (42.0-75.0); Anisocytosis SLIGHT = 6-15 cells (100X) (0-5/hpf); Hemoglobin 7.9 g/dL (14.0-18.0); Hypochromia SLIGHT = 6-15 cells (100X) (0-5/hpf); MDiff Complete? YES; Mean Corpuscular HGB CONC 29.4 g/dL (32.0-36.0); Mean Corpuscular Hemoglobin 28.4 pg (27.0-31.0); Mean Corpuscular Volume 96.5 fl (78.0-98.0); Mean Platelet Volume 6.6 fL (7.4-10.4); Platelet Count 305 thou/uL (130-400); Platelet Morphology Comment Appears Adequate; Polychromasia SLIGHT = 2-3 cells (100X) (0-2/hpf); Red Blood Cell (RBC) Count 2.77 mill/uL (4.70-6.10); Small Platelets SLIGHT; White Blood Cell (WBC) Count 15.7 thou/uL (4.8-10.8)
[2022-08-20] MEDS ORDERED: Enoxaparin Sodium 30 MG/0.3 ML SYRINGE SC SCH (09:00)
[2022-08-20] MEDS ORDERED: FLU VACC QS2022-23(65YR UP)/PF 240 MCG/0.7 ML SYRINGE IM ONE (09:00)
[2022-08-20 09:22] LABS: Anion Gap 14 mmol/L (10-20); BUN (Urea Nitrogen) 33 mg/dL (8.4-25.7); Calc. Creatinine Clearance 78 mL/min (70-130); Calcium 7.7 mg/dL (7.8-10.44); Carbon Dioxide 17 mmol/L (23-31); Chloride 117 mmol/L (98-107); Estimated GFR 96; Glucose 72 mg/dL (80-115); Potassium 4.5 mmol/L (3.5-5.1); Sodium 143 mmol/L (136-145)
[2022-08-20] MEDS: Gabapentin 300 MG CAP PO SCH ×2 (09:42→14:21)
[2022-08-20] MEDS: cefTRIAXone\\ROCEPHIN 1 GM in Sodium Chloride 0.9% 100 ML IVPB SCH (16:19)
[2022-08-20 17:24] VITALS: BP 132/76; TEMP 98.3
== END 2022-08-20 18:39 | disposition hospice, inpatient (51) | DRG 698 ==
LOC: ERS 12:34 → T4-B 16:15
PROVIDERS: ADMIT Internal Medicine; ATTEND Internal Medicine
DX: T83.518A Infection and inflammatory reaction due to other urinary catheter, initial encounter (principal); A41.9 Sepsis, unspecified organism; L89.154 Pressure ulcer of sacral region, stage 4; L89.324 Pressure ulcer of left buttock, stage 4; L89.314 Pressure ulcer of right buttock, stage 4; G82.20 Paraplegia, unspecified; N39.0 Urinary tract infection, site not specified; E87.20 Acidosis, unspecified; N17.9 Acute kidney failure, unspecified; Z66 Do not resuscitate; Z51.5 Encounter for palliative care; Z20.822 Contact with and (suspected) exposure to COVID-19; F17.210 Nicotine dependence, cigarettes, uncomplicated; Y84.6 Urinary catheterization as the cause of abnormal reaction of the patient, or of later complication, without mention of misadventure at the time of the procedure; E87.5 Hyperkalemia; I50.9 Heart failure, unspecified; Z93.3 Colostomy status; Z91.018 Allergy to other foods; Z89.612 Acquired absence of left leg above knee; Z89.611 Acquired absence of right leg above knee; Z79.899 Other long term (current) drug therapy; Z79.82 Long term (current) use of aspirin
CPT/HCPCS: 36415; 71045; 80048; 82550; 83605; 84484; 85025; 87040; 87077; 87086; 87149; 93005; 94760; J0696; J1650; J3490; U0003; U0005